=== PATIENT | female | born 1955 | race African-American/Black ===

== ENCOUNTER 2017-02-23 14:31 | Inpatient (IN) | payer MEDICARE, OTHER ==
[~2017-02-23] VITALS: Ht 162.6 cm; Wt 75.0 kg
[~2017-02-23 14:31] MED LIST: ACET325T9 PO; ALPR0.25 PO; AMLO10TA4 PO; ARIP5TAB13 PO; ASPI325T8 PO; BACL10TA PO; BUSP5TAB PO; CHOL500016 PO; DIPH25CA58 PO; DIVA125C PO; DULO30CA2 PO; FLUT9.9S NS; FOLI1TAB16 PO; GABA-587 PO; HC/M25OI TP; HYDR-2868 PO; HYDR30CR RC; IBUP-1027 PO; INSU100C4 SQ; LACO200T PO; LATA2.5D3 EACHEYE; LEVE500T56 PO; MAGN400O7 PO; METF-620 PO; METF500T4 PO; MIRT15TA PO; MORP15TA PO; MULT1TAB11 PO; OMEP20CA5 PO; PHEN100C PO
[2017-02-23] MEDS ORDERED: IV NORMAL SALINE 500ML BAG 500 ML IV PRN (15:15)
[2017-02-23] MEDS: IV NORMAL SALINE 1000ML BAG 1,000 ML IV SCH ×4 (15:34→21:41)
[2017-02-23 15:50] LABS: BASO # 0.1 x10^3/uL (0.0-0.2); BASO % 1 % (0-3); EOS % 4 % (0-3); HEMATOCRIT 39.8 % (36.0-47.0); HEMOGLOBIN 13.3 g/dL (12.0-15.5); LYMPH # 5.7 x10^3/uL (1.0-4.8); LYMPH % 53 % (24-48); MEAN CORPUSCULAR HEMOGLOBIN 31 pg (25-35); MEAN CORPUSCULAR HGB CONC 34 g/dL (31-37); MEAN CORPUSCULAR VOLUME 91 fL (79-100); MONO % 8 % (0-9); NEUT % 34 % (31-73); PLATELET COUNT 258 x10^3/uL (140-400); RED BLOOD COUNT 4.35 x10^6/uL (3.50-5.40); RED CELL DISTRIBUTION WIDTH 13.7 % (11.5-14.5); WHITE BLOOD COUNT 10.7 x10^3/uL (4.0-11.0)
--- NOTE | 2017-02-23 15:59 | RAD ---
Indication: Weakness and altered mental status. Axial imaging through the brain was performed without contrast. Correlation is made with prior study from 12/24/2015. Multiple metallic densities in the left cerebral hemisphere are again noted. There is compensatory enlargement of the left lateral ventricle with encephalomalacia in the left cerebral hemisphere. Appearance is similar to prior exam. No sulcal effacement is seen. There is no midline shift. No acute intra-axial or extra-axial hemorrhage is detected. The cisterns are patent. The visualized paranasal sinuses are clear. Impression: Stable chronic changes. No acute intracranial process is detected. PQRS Compliance Statement: One or more of the following individualized dose reduction techniques were utilized for this examination: 1. Automated exposure control 2. Adjustment of the mA and/or kV according to patient size 3. Use of iterative reconstruction technique
[2017-02-23 16:00] LABS: INR 1.2 (0.8-1.1); PROTHROMBIN TIME PATIENT 14.3 SEC (11.7-14.0)
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
[2017-02-23 16:22] LABS: CREATININE 1.1 mg/dL (0.6-1.0); GFR 60.5; POTASSIUM 5.8 mmol/L (3.5-5.1)
[2017-02-23 16:24] LABS: ALBUMIN 3.9 g/dL (3.4-5.0); ALBUMIN/GLOBULIN RATIO 0.8 (1.0-1.7); TOTAL BILIRUBIN 0.3 mg/dL (0.2-1.0); TOTAL PROTEIN 8.7 g/dL (6.4-8.2)
[2017-02-23] MEDS ORDERED: IV NORMAL SALINE 1000ML BAG 1,000 ML IV ONE (16:30)
[2017-02-23] MEDS ORDERED: ONDANSETRON PF 4 MG/2 ML VIAL. IV PRN (16:30)
[2017-02-23 16:32] LABS: BILIRUBIN,URINE SMALL (NEG); GLUCOSE,URINE NEGATIVE (NEG); NITRITE,URINE POSITIVE (NEG); PROTEIN,URINE 30 mg/dL (NEG-TRACE)
[2017-02-23 16:32] LABS: CKMB MASS 1.2 ng/mL (0.0-3.6)
[2017-02-23 16:37] LABS: BARBITURATES NEG (NEG); BENZODIAZEPINES POS (NEG); CANNABINOIDS NEG (NEG); COCAINE NEG (NEG); METHADONE NEG (NEG); OPIATES POS (NEG); PHENCYCLIDINE NEG (NEG)
--- NOTE | 2017-02-23 16:41 | ACF ---
Admission Forms Criteria MENTAL STATUS CHANGE Clinical Indications for Inpatient Care (Place 'X' for any and all applicable criteria): Ongoing inpatient care may be needed for 1 or more of the following(1)(2)(3)(5)( 6): [X ]I. Suspected serious etiology (eg, medical disorder, DUBBING MACHINE OPERATOR event) of altered mental status [ ]II. Danger to self or others not manageable at lower level of care [ ]III. Grave disability (eg, inability to perform self care necessary at lower level of care) [ ]IV. Agitation or inappropriate behavior interfering with care for primary condition (eg, attempting to discontinue lines or drains prematurely, unable to cooperate with respiratory care) [ ]V. Delirium [A] [D][E] as described by 1 or more of the following(26): [ ]a) Delirium due to alcohol or sedative [F] withdrawal [ ]b) Delirium of uncertain etiology that has not responded to appropriate empiric treatment [ ]c) Delirium that prevents performance of a life-sustaining function (eg, feeding or hydrating oneself) [ ]. General contraindications and/or Inappropriate clinical situations for Observational Care in patients with Mental Status Change, when ANY ONE of the following is required: [ ]a) Prediction of prolongation of LOS based on ANY ONE of the following may be considered as a contraindication for observational care 2, 3, 4, 5, 6, 7, 8, 9, 10, 11 [ ]i) Age > 65 yrs. [ ]ii) Patient arriving by ambulance [ ]iii) Patient with high acuity [ ]iv) Patient requiring vital sign monitoring [ ]v) Patient on IV medication [ ]b) Systolic blood pressures greater than or equal to 180mmHg 3, 12 [ ]c) Patient with altered mental status including delirium and other alteration of consciousness, (3) [ ]d) Patient whose discharge disposition will be to a penitentiary home or rehabilitation home should not be managed in Emergency Department Observation Unit. CMS rule requires 3 days hospital stay before such placement.3,13 [ ]e) Patient with failure to thrive due to broad array of etiologies 3,16,17 [ ]f) Inability to ambulate 3,14 Extended stay beyond goal length of stay for the primary condition may be needed until ALL of the following are present(3)(5): [ ]a) Underlying medical etiology of mental status change is absent, or has been established and adequately treated [ ]b) Danger to self or others is absent or manageable at lower level of care. [ ]c) Behavior crisis management, including physical or chemical restraints, is not required or available at lower level of car [ ]d) Substance or alcohol withdrawal is absent or manageable at lower level of care. [ ]e) Behavioral symptoms (eg, agitation, somnolence, inappropriate behavior) are absent, or are manageable at lower level of care. The original [facility] [employer] content created by [facility] has been revised. The portions of the content which have been revised are identified through the use of italic text or in bold, and [facility] has neither reviewed nor approved the modified material. All other unmodified content is copyright [facility]. Please see references footnoted in the original [facility] edition 2016 Admission Criteria Met?: Yes DAMIÁN RICHARDSON Feb 23, 2017 16:41
[2017-02-23 16:44] LABS: BACTERIA,URINE MANY /HPF (0-FEW); WBC,URINE >40 /HPF (0-4)
[2017-02-23 19:00] VITALS: BP 129/82
[2017-02-23] MEDS ORDERED: ACETAMINOPHEN 325 MG TABLET. PO PRN (20:45)
[2017-02-23] MEDS ORDERED: LOPERAMIDE 2 MG CAPSULE PO PRN (20:45)
[2017-02-23] MEDS ORDERED: MAGNESIUM HYDROXIDE 2,400 MG/30 ML ORAL.SUSP. PO PRN (20:45)
[2017-02-23] MEDS: busPIRone 5 MG TABLET. PO SCH (21:00)
[2017-02-23] MEDS ORDERED: PHENYTOIN SODIUM EXTENDED 100 MG CAPSULE PO SCH (21:00)
[2017-02-23] MEDS: BACLOFEN 10 MG TABLET. PO SCH (21:00)
[2017-02-23] MEDS ORDERED: levETIRAcetam 500 MG TABLET PO SCH (21:00)
[2017-02-23] MEDS: ATORVASTATIN CALCIUM 10 MG TABLET. PO SCH (21:00)
[2017-02-23] MEDS: ALPRAZolam 0.25 MG TABLET PO SCH (21:00)
[2017-02-23] MEDS ORDERED: DIVALPROEX SPRINKLES 125 MG CAPSULE. PO SCH (21:00)
[2017-02-23] MEDS: LACOSAMIDE 200 MG TABLET PO SCH (21:00)
[2017-02-23] MEDS: MORPHINE IR 15 MG TABLET PO SCH (21:00)
[2017-02-23] MEDS: MIRTAZAPINE 15 MG TABLET PO SCH (21:00)
[2017-02-23] MEDS: hydrALAZINE 25 MG TABLET PO SCH (21:00)
[2017-02-23] MEDS ORDERED: DEXTROSE 50% 25 GM / 50ML DISP.SYRIN. IV PRN (21:15)
[2017-02-23] MEDS: GABAPENTIN 400 MG CAPSULE. PO SCH (21:30)
[2017-02-23] MEDS: LATANOPROST 0.005% OPHTH SOLUTION 2.5ML BOTTLE. OU SCH (21:45)
[2017-02-23 23:00] VITALS: BP 138/66
[2017-02-23] MEDS: levETIRAcetam 1,500 MG in IV NORMAL SALINE 100ML 100 ML IV SCH (23:45)
[2017-02-24] MEDS: NORMAL SALINE IV SCH ×3 (01:04→21:32)
[2017-02-24] MEDS: VALPROIC ACID IV SCH ×3 (01:04→21:32)
[2017-02-24] MEDS: FOSPHENYTOIN 100 MG/2 ML VIAL. IV SCH ×4 (02:20→18:18)
[2017-02-24] MEDS ORDERED: LISI10TA2 PO (04:44)
[2017-02-24] MEDS ORDERED: ATOR10TA60 PO (04:44)
[2017-02-24] MEDS ORDERED: INSU100C4 SQ (04:44)
[2017-02-24] MEDS ORDERED: LOPE2TAB56 PO (04:44)
[2017-02-24 05:13] LABS: BASO # 0.1 x10^3/uL (0.0-0.2); BASO % 1 % (0-3); EOS % 5 % (0-3); HEMATOCRIT 38.7 % (36.0-47.0); HEMOGLOBIN 12.4 g/dL (12.0-15.5); LYMPH # 6.5 x10^3/uL (1.0-4.8); LYMPH % 62 % (24-48); MEAN CORPUSCULAR HEMOGLOBIN 31 pg (25-35); MEAN CORPUSCULAR HGB CONC 32 g/dL (31-37); MEAN CORPUSCULAR VOLUME 95 fL (79-100); MONO % 8 % (0-9); NEUT % 24 % (31-73); PLATELET COUNT 219 x10^3/uL (140-400); RED BLOOD COUNT 4.07 x10^6/uL (3.50-5.40); RED CELL DISTRIBUTION WIDTH 13.9 % (11.5-14.5); WHITE BLOOD COUNT 10.5 x10^3/uL (4.0-11.0)
[2017-02-24 06:06] LABS: ALBUMIN 3.4 g/dL (3.4-5.0); ALBUMIN/GLOBULIN RATIO 0.7 (1.0-1.7); CALCIUM 9.2 mg/dL (8.5-10.1); CREATININE 0.8 mg/dL (0.6-1.0); GFR 87.4; POTASSIUM 5.9 mmol/L (3.5-5.1); TOTAL BILIRUBIN 0.4 mg/dL (0.2-1.0); TOTAL PROTEIN 8.3 g/dL (6.4-8.2)
--- NOTE | 2017-02-24 06:48 | EKG ---
[facility] [address] [place] [address] Test Date: 2017-02-23 Test Time: 15:29:46 Pat Name: JOSETTE HARMAN Department: Room: 536 1 Gender: F Statistics Manager: : [id number] Requested By: KELSEA IZQUIERDO Order Number: [id number] Reading MD: Jayleen Velazquez Measurements Intervals [place] Rate: 90 P: 52 ME: 164 QRS: 10 QRSD: 88 T: 58 QT: 346 QTc: 427 Interpretive Statements SINUS RHYTHM NORMAL ECG Electronically Signed On 02-25-2017 14:10:43 CDT by Jayleen Velazquez
[2017-02-24 07:00] VITALS: BP 121/79
[2017-02-24] MEDS: PANTOPRAZOLE 40 MG TABLET.DR. PO SCH (07:30)
[2017-02-24] MEDS: INSULIN ASPART 300 UNITS/3 ML INSULN.PEN SQ SCH ×3 (08:00→17:00)
[2017-02-24] MEDS: ASPIRIN 325 MG TABLET PO SCH (08:00)
[2017-02-24] MEDS: amLODIPine BESYLATE 10 MG TABLET PO SCH (09:00)
[2017-02-24] MEDS: hydrALAZINE 25 MG TABLET PO SCH ×3 (09:00→20:57)
[2017-02-24] MEDS: FOLIC ACID 1 MG TABLET. PO SCH (09:00)
[2017-02-24] MEDS: GABAPENTIN 400 MG CAPSULE. PO SCH ×3 (09:00→20:51)
[2017-02-24] MEDS: busPIRone 5 MG TABLET. PO SCH ×2 (09:00→20:51)
[2017-02-24] MEDS: ARIPiprazole 5 MG TABLET PO SCH (09:00)
[2017-02-24] MEDS: MULTIVITAMIN with MINERAL TABLET. PO SCH (09:00)
[2017-02-24] MEDS: BACLOFEN 10 MG TABLET. PO SCH (09:00)
[2017-02-24] MEDS: ALPRAZolam 0.25 MG TABLET PO SCH ×2 (09:00→20:52)
[2017-02-24] MEDS: CHOLECALCIFEROL (VITAMIN D3) 5,000 UNIT CAPSULE PO SCH (09:00)
[2017-02-24] MEDS: LACOSAMIDE 200 MG TABLET PO SCH ×2 (09:00→20:52)
[2017-02-24] MEDS: MORPHINE IR 15 MG TABLET PO SCH (09:00)
[2017-02-24] MEDS: DULoxetine HCL 30 MG CAPSULE.DR PO SCH (09:00)
[2017-02-24] MEDS ORDERED: LISINOPRIL 10 MG TABLET PO SCH (09:00)
[2017-02-24] MEDS: IV NORMAL SALINE 1000ML BAG 1,000 ML IV SCH (09:41)
[2017-02-24] MEDS: FLUTICASONE 50MCG/NASAL SPRAY 16GM BOTTLE. NS SCH (09:42)
[2017-02-24] MEDS: levETIRAcetam 1,500 MG in IV NORMAL SALINE 100ML 100 ML IV SCH ×2 (09:42→20:48)
[2017-02-24] MEDS: LATANOPROST 0.005% OPHTH SOLUTION 2.5ML BOTTLE. OU SCH (09:42)
[2017-02-24 11:00] VITALS: BP 138/88
[2017-02-24 15:00] VITALS: BP 135/96
[2017-02-24] MEDS: SODIUM POLYSTYRENE SULFONATE 15 GM/60 ML ORAL.SUSP. PO SCH ×2 (17:11→20:53)
[2017-02-24] MEDS: SULFACETAMIDE 10% OPHTH SOLUTION 15ML BOTTLE. OU SCH ×3 (17:12→21:32)
[2017-02-24] MEDS: LACTULOSE 20 GM/30 ML SOLUTION. PO SCH ×2 (17:12→20:52)
[2017-02-24] MEDS: IV DEXTROSE 5% 1,000 ML IV SCH (18:18)
[2017-02-24 19:00] VITALS: BP 150/97
[2017-02-24] MEDS: MIRTAZAPINE 15 MG TABLET PO SCH (20:51)
[2017-02-24] MEDS: ATORVASTATIN CALCIUM 10 MG TABLET. PO SCH (20:51)
[2017-02-24] MEDS: ERYTHROMYCIN 0.5% OPHTH OINTMENT 1GM TUBE. OU SCH (20:53)
[2017-02-24 23:00] VITALS: BP 158/92
[2017-02-25] MEDS: FOSPHENYTOIN 100 MG/2 ML VIAL. IV SCH ×5 (00:54→23:07)
[2017-02-25] MEDS: SULFACETAMIDE 10% OPHTH SOLUTION 15ML BOTTLE. OU SCH ×8 (02:15→23:05)
[2017-02-25 03:00] VITALS: BP 167/98
[2017-02-25] MEDS: IV DEXTROSE 5% 1,000 ML IV SCH ×2 (06:12→16:55)
[2017-02-25 07:15] LABS: CALCIUM 9.4 mg/dL (8.5-10.1); CREATININE 0.7 mg/dL (0.6-1.0); GFR 101.9; POTASSIUM 3.8 mmol/L (3.5-5.1)
[2017-02-25] MEDS: hydrALAZINE 25 MG TABLET PO SCH ×3 (08:54→20:23)
[2017-02-25] MEDS: ASPIRIN 325 MG TABLET PO SCH (08:54)
[2017-02-25] MEDS: PANTOPRAZOLE 40 MG TABLET.DR. PO SCH (08:55)
[2017-02-25] MEDS: busPIRone 5 MG TABLET. PO SCH ×2 (08:55→20:22)
[2017-02-25] MEDS: GABAPENTIN 400 MG CAPSULE. PO SCH ×3 (08:55→20:22)
[2017-02-25] MEDS: DULoxetine HCL 30 MG CAPSULE.DR PO SCH (08:55)
[2017-02-25] MEDS: MULTIVITAMIN with MINERAL TABLET. PO SCH (08:55)
[2017-02-25] MEDS: CHOLECALCIFEROL (VITAMIN D3) 5,000 UNIT CAPSULE PO SCH (08:55)
[2017-02-25] MEDS: FOLIC ACID 1 MG TABLET. PO SCH (08:55)
[2017-02-25] MEDS: LACOSAMIDE 200 MG TABLET PO SCH ×3 (08:55→23:04)
[2017-02-25] MEDS: ARIPiprazole 5 MG TABLET PO SCH (08:56)
[2017-02-25] MEDS: amLODIPine BESYLATE 10 MG TABLET PO SCH (08:56)
[2017-02-25] MEDS: FLUTICASONE 50MCG/NASAL SPRAY 16GM BOTTLE. NS SCH (08:57)
[2017-02-25] MEDS: ALPRAZolam 0.25 MG TABLET PO SCH ×2 (09:00→20:23)
[2017-02-25] MEDS: INSULIN ASPART 300 UNITS/3 ML INSULN.PEN SQ SCH ×3 (09:03→17:00)
[2017-02-25] MEDS: NORMAL SALINE IV SCH ×2 (09:50→20:22)
[2017-02-25] MEDS: levETIRAcetam 1,500 MG in IV NORMAL SALINE 100ML 100 ML IV SCH ×2 (09:50→20:19)
[2017-02-25] MEDS: VALPROIC ACID IV SCH ×2 (09:50→20:22)
[2017-02-25 14:58] VITALS: BP 151/90
[2017-02-25 19:59] VITALS: BP 173/100
[2017-02-25] MEDS: ATORVASTATIN CALCIUM 10 MG TABLET. PO SCH (20:22)
[2017-02-25] MEDS: MIRTAZAPINE 15 MG TABLET PO SCH (20:23)
[2017-02-25] MEDS: ERYTHROMYCIN 0.5% OPHTH OINTMENT 1GM TUBE. OU SCH (20:24)
[2017-02-25] MEDS: LATANOPROST 0.005% OPHTH SOLUTION 2.5ML BOTTLE. OU SCH (20:25)
[2017-02-25 23:59] VITALS: BP 145/90
[2017-02-26] MEDS: FOSPHENYTOIN 100 MG/2 ML VIAL. IV SCH ×4 (05:42→23:14)
[2017-02-26] MEDS: IV DEXTROSE 5% 1,000 ML IV SCH (06:02)
[2017-02-26 06:50] LABS: CREATININE 0.6 mg/dL (0.6-1.0); GFR 121.8
[2017-02-26 06:55] LABS: CALCIUM 8.9 mg/dL (8.5-10.1)
[2017-02-26 07:00] VITALS: BP 130/82
[2017-02-26] MEDS: levETIRAcetam 1,500 MG in IV NORMAL SALINE 100ML 100 ML IV SCH ×2 (09:45→20:17)
[2017-02-26] MEDS: SULFACETAMIDE 10% OPHTH SOLUTION 15ML BOTTLE. OU SCH ×4 (09:49→20:16)
[2017-02-26] MEDS: FLUTICASONE 50MCG/NASAL SPRAY 16GM BOTTLE. NS SCH (09:50)
[2017-02-26] MEDS: INSULIN ASPART 300 UNITS/3 ML INSULN.PEN SQ SCH ×3 (09:51→16:52)
[2017-02-26] MEDS: DULoxetine HCL 30 MG CAPSULE.DR PO SCH (09:52)
[2017-02-26] MEDS: CHOLECALCIFEROL (VITAMIN D3) 5,000 UNIT CAPSULE PO SCH (09:52)
[2017-02-26] MEDS: ASPIRIN 325 MG TABLET PO SCH (09:52)
[2017-02-26] MEDS: amLODIPine BESYLATE 10 MG TABLET PO SCH (09:52)
[2017-02-26] MEDS: hydrALAZINE 25 MG TABLET PO SCH ×3 (09:53→20:19)
[2017-02-26] MEDS: MULTIVITAMIN with MINERAL TABLET. PO SCH (09:53)
[2017-02-26] MEDS: GABAPENTIN 400 MG CAPSULE. PO SCH ×3 (09:53→20:21)
[2017-02-26] MEDS: ALPRAZolam 0.25 MG TABLET PO SCH ×2 (09:53→20:19)
[2017-02-26] MEDS: PANTOPRAZOLE 40 MG TABLET.DR. PO SCH (09:54)
[2017-02-26] MEDS: FOLIC ACID 1 MG TABLET. PO SCH (09:54)
[2017-02-26] MEDS: busPIRone 5 MG TABLET. PO SCH ×2 (09:54→20:19)
[2017-02-26] MEDS: LACOSAMIDE 200 MG TABLET PO SCH ×2 (09:54→20:19)
[2017-02-26] MEDS: ARIPiprazole 5 MG TABLET PO SCH (09:54)
[2017-02-26] MEDS: VALPROIC ACID IV SCH ×2 (09:56→21:24)
[2017-02-26] MEDS: NORMAL SALINE IV SCH ×2 (09:56→21:24)
--- NOTE | 2017-02-26 10:45 | PDOC ---
PROGRESS NOTES Subjective Subjective more awake alert responding appropraitly The nursing staff did not voice any concern Objective Objective Vital Signs Date Time Temp Pulse Resp B/P (MAP) Pulse Ox O2 Delivery O2 Flow Rate FiO2 02/26/17 09:53 90 130/82 02/26/17 07:00 97.9 20 93 Room Air 97.9 Intake and Output 02/26/17 07:00 Intake Total 1120 ml Balance 1120 ml Intake Oral 1120 ml # Voids 4 # Bowel Movements 1 Physical Exam Allegies Allergies Coded Allergies Type Severity Reaction Last Updated Verified No Known Drug Allergies 05/21/14 No Physical Exam Looked well in NAD Pale but not jaundiced or cyanosed HEENT normocephalic S/P TRAUMATIC BRAIN INJURY Neck supple Heart S1 and S2 normal no gallop rub or murmur Chest CTA NO CREIPITATION OR RHONCHI Abdomen soft non tender Neurologically awake alert all cranial nerves are grossly intact She has aphasia and right sided hemiplegia She is bed bound wheelchair bound Abdomen: Normal bowel sounds, Soft, No tenderness, No hepatosplenomegaly Heart: Regular rate, Normal S1, Normal S2, No murmurs, Gallops Extremities: No clubbing, No cyanosis, No edema, Normal pulses General: Alert, Oriented X3, Cooperative, No acute distress HEENT: Atraumatic, PERRLA MUSCULOSKELETAL: No joint tenderness, No deformity, No swelling Neck: Supple Neuro: Cranial nerves 3-12 NL, Other (aphasia and right sided hemiplegia) Skin: No rashes, No breakdown Diagnosis DIAGNOSIS Impression/plan Metabolic encephalopathy Urinary tract infection with urine culture growing E Coli sensetive to Rocephin OLAYINKA Resolved Hypertension Seizure d o. TBI with aphasia and hemiplegia To coniune I V Fluid iv antibiotics Replace potassium Problems: Comment Review of Relevant I have reviewed the following items jomar (where applicable) has been applied. Labs Laboratory Tests Test 02/25/17 10:51 02/25/17 16:39 02/25/17 22:58 02/26/17 05:30 Glucose (Fingerstick) 209 mg/dL (70-99) 104 mg/dL (70-99) 116 mg/dL (70-99) Sodium Level 142 mmol/L (136-145) Potassium Level 3.0 mmol/L (3.5-5.1) Chloride Level 107 mmol/L (98-107) Carbon Dioxide Level 24 mmol/L (21-32) Anion Gap 11 (6-14) Blood Urea Nitrogen 7 mg/dL (7-20) Creatinine 0.6 mg/dL (0.6-1.0) Estimated GFR (Cockcroft-Gault) 121.8 Glucose Level 129 mg/dL (70-99) Calcium Level 8.9 mg/dL (8.5-10.1) Microbiology 02/23/17 Urine Culture - Preliminary, Resulted 02/23/17 Urine Culture Result 1 (LISETTE) - Preliminary, Resulted 02/23/17 Antimicrobic Susceptibility - Preliminary, Resulted Vitals/I & O Vital Sign - Last 24 Hours 02/25/17 02/25/17 02/25/17 02/25/17 14:58 15:54 19:59 20:00 Temp 98.4 98.4 98.4 98.4 Pulse 97 97 98 Resp 18 18 B/P (MAP) 151/90 (110) 151/90 173/100 (124) Pulse Ox 97 96 O2 Delivery Room Air Room Air Room Air 02/25/17 02/25/17 02/26/17 02/26/17 20:23 23:59 07:00 09:52 Temp 97.9 97.9 97.9 97.9 Pulse 97 96 90 90 Resp 18 20 B/P (MAP) 151/90 145/90 (108) 130/82 (98) 130/82 Pulse Ox 92 93 O2 Delivery Room Air Room Air 02/26/17 09:53 Pulse 90 B/P (MAP) 130/82 Intake and Output 02/25/17 02/25/17 02/26/17 15:00 23:00 07:00 Intake Total 1000 ml 120 ml Balance 1000 ml 120 ml ETELVINA HAYWOOD MD Feb 26, 2017 10:45
[2017-02-26 11:00] VITALS: BP 135/99
[2017-02-26] MEDS ORDERED: POTASSIUM CHLORIDE 20 MEQ TABLET.ER. PO ONE (11:00)
[2017-02-26] MEDS: POTASSIUM CHLORIDE 20 MEQ TABLET.ER. PO SCH ×2 (13:54→20:20)
[2017-02-26 15:00] VITALS: BP 129/89
[2017-02-26 19:00] VITALS: BP 143/88
[2017-02-26] MEDS: LATANOPROST 0.005% OPHTH SOLUTION 2.5ML BOTTLE. OU SCH (20:16)
[2017-02-26] MEDS: ERYTHROMYCIN 0.5% OPHTH OINTMENT 1GM TUBE. OU SCH (20:17)
[2017-02-26] MEDS: ATORVASTATIN CALCIUM 10 MG TABLET. PO SCH (20:19)
[2017-02-26] MEDS: MIRTAZAPINE 15 MG TABLET PO SCH (20:19)
[2017-02-26] MEDS: CEFPODOXIME PROXETIL 100 MG TABLET. PO SCH (20:20)
[2017-02-26 23:00] VITALS: BP 151/81
[2017-02-27] MEDS: SULFACETAMIDE 10% OPHTH SOLUTION 15ML BOTTLE. OU SCH ×4 (02:15→14:21)
[2017-02-27 03:00] VITALS: BP 142/78
[2017-02-27 05:15] LABS: ALBUMIN 2.9 g/dL (3.4-5.0); ALBUMIN/GLOBULIN RATIO 0.7 (1.0-1.7); CALCIUM 8.4 mg/dL (8.5-10.1); CREATININE 0.5 mg/dL (0.6-1.0); GFR 150.3; POTASSIUM 4.2 mmol/L (3.5-5.1); TOTAL BILIRUBIN 0.3 mg/dL (0.2-1.0); TOTAL PROTEIN 7.2 g/dL (6.4-8.2)
[2017-02-27] MEDS: FOSPHENYTOIN 100 MG/2 ML VIAL. IV SCH (05:34)
[2017-02-27 06:54] LABS: HEMATOCRIT 36.5 % (36.0-47.0); HEMOGLOBIN 12.2 g/dL (12.0-15.5); RED BLOOD COUNT 4.01 x10^6/uL (3.50-5.40); RED CELL DISTRIBUTION WIDTH 13.3 % (11.5-14.5); WHITE BLOOD COUNT 7.3 x10^3/uL (4.0-11.0)
[2017-02-27 07:00] VITALS: BP 154/85
[2017-02-27] MEDS: PANTOPRAZOLE 40 MG TABLET.DR. PO SCH (07:47)
[2017-02-27] MEDS: INSULIN ASPART 300 UNITS/3 ML INSULN.PEN SQ SCH ×2 (08:00→11:57)
[2017-02-27] MEDS: levETIRAcetam 1,500 MG in IV NORMAL SALINE 100ML 100 ML IV SCH (09:20)
[2017-02-27] MEDS: ALPRAZolam 0.25 MG TABLET PO SCH (09:22)
[2017-02-27] MEDS: ARIPiprazole 5 MG TABLET PO SCH (09:22)
[2017-02-27] MEDS: MULTIVITAMIN with MINERAL TABLET. PO SCH (09:23)
[2017-02-27] MEDS: DULoxetine HCL 30 MG CAPSULE.DR PO SCH (09:23)
[2017-02-27] MEDS: GABAPENTIN 400 MG CAPSULE. PO SCH ×2 (09:23→14:22)
[2017-02-27] MEDS: LACOSAMIDE 200 MG TABLET PO SCH (09:23)
[2017-02-27] MEDS: busPIRone 5 MG TABLET. PO SCH (09:24)
[2017-02-27] MEDS: ASPIRIN 325 MG TABLET PO SCH (09:24)
[2017-02-27] MEDS: FLUTICASONE 50MCG/NASAL SPRAY 16GM BOTTLE. NS SCH (09:24)
[2017-02-27] MEDS: hydrALAZINE 25 MG TABLET PO SCH ×2 (09:25→14:22)
[2017-02-27] MEDS: CHOLECALCIFEROL (VITAMIN D3) 5,000 UNIT CAPSULE PO SCH (09:25)
[2017-02-27] MEDS: FOLIC ACID 1 MG TABLET. PO SCH (09:25)
[2017-02-27] MEDS: POTASSIUM CHLORIDE 20 MEQ TABLET.ER. PO SCH ×2 (09:25→14:24)
[2017-02-27] MEDS: CEFPODOXIME PROXETIL 100 MG TABLET. PO SCH (09:25)
[2017-02-27] MEDS: amLODIPine BESYLATE 10 MG TABLET PO SCH (09:26)
[2017-02-27] MEDS: NORMAL SALINE IV SCH (09:58)
[2017-02-27] MEDS: VALPROIC ACID IV SCH (09:58)
[2017-02-27 10:59] VITALS: BP 160/85
[2017-02-27 15:00] VITALS: BP 155/87
== END 2017-02-27 15:15 | DRG 682 ==
LOC: ER 14:31 → 5 NORTH 16:14
PROVIDERS: ADMIT Internal Medicine; ATTEND Internal Medicine
DX: N17.9 Acute kidney failure, unspecified (principal); G93.41 Metabolic encephalopathy; I69.351 Hemiplegia and hemiparesis following cerebral infarction affecting right dominant side; N39.0 Urinary tract infection, site not specified; R47.01 Aphasia; B96.20 Unspecified Escherichia coli [E. coli] as the cause of diseases classified elsewhere; E11.9 Type 2 diabetes mellitus without complications; G40.909 Epilepsy, unspecified, not intractable, without status epilepticus; I10 Essential (primary) hypertension
CPT/HCPCS: 36415; 51701; 70450; 71010; 80048; 80053; 80185; 81001; 82140; 82553; 82962; 83605; 83690; 84145; 84443; 84484; 85027; 85610; 85730; 87086; 87186; 87641; 93005; 96365; G0480; G0481; J0690; J0696; J1815; J1953; J7030; Q2009; 92526; 92610; 99285-25

== ENCOUNTER 2018-01-24 15:39 | Emergency (ER) | payer MEDICARE, OTHER | END 2018-01-24 17:54 | disposition home or self-care (01) | LOC: ER 15:39 | DX: S01.81XA Laceration without foreign body of other part of head, initial encounter (principal); G40.909 Epilepsy, unspecified, not intractable, without status epilepticus; E11.9 Type 2 diabetes mellitus without complications; W05.0XXA Fall from non-moving wheelchair, initial encounter; Y93.89 Activity, other specified; Y99.8 Other external cause status; Y92.89 Other specified places as the place of occurrence of the external cause | CPT/HCPCS: 12011; 70450; 70486; 99284-25 ==

== ENCOUNTER 2018-10-08 04:03 | Emergency (ER) | payer MEDICARE, OTHER ==
[~2018-10-08] VITALS: Ht 162.6 cm; Wt 71.7 kg
[~2018-10-08 04:03] MED LIST changes: +ATOR10TA60 PO; -DIVA125C PO; +DIVA125C2 PO; -GABA-587 PO; +GABA-689 PO; +LISI10TA2 PO; +LOPE2TAB56 PO; -METF-620 PO; +METF10007 PO; +METF500T16 PO; -METF500T4 PO
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
[2018-10-08 05:06] VITALS: BP 192/87
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
== END 2018-10-08 06:23 | disposition home or self-care (01) ==
LOC: ER 04:03
DX: S09.90XA Unspecified injury of head, initial encounter (principal); E11.9 Type 2 diabetes mellitus without complications; G40.901 Epilepsy, unspecified, not intractable, with status epilepticus; Z86.73 Personal history of transient ischemic attack (TIA), and cerebral infarction without residual deficits; W06.XXXA Fall from bed, initial encounter; Y93.89 Activity, other specified; Y92.89 Other specified places as the place of occurrence of the external cause; Y99.8 Other external cause status
CPT/HCPCS: 70450; 72125; 99284

== ENCOUNTER 2020-04-19 12:10 | Inpatient (IN) | payer MEDICARE, OTHER ==
[~2020-04-19] VITALS: Ht 157.5 cm; Wt 99.5 kg
[~2020-04-19 12:10] MED LIST changes: +ASPI-630 PO; +CHOL500021 PO; +FAMO20TA5 PO; +LISI30TA4 PO; +MIRT30TA93 PO
[2020-04-19] MEDS ORDERED: IV NORMAL SALINE 1000ML BAG 1,000 ML IV ONE ×3 (12:30→14:30)
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
[2020-04-19 13:23] LABS: BASO # 0.1 x10^3/uL (0.0-0.2); BASO % 1 % (0-3); EOS % 0 % (0-3); HEMATOCRIT 32.5 % (36.0-47.0); HEMOGLOBIN 10.8 g/dL (12.0-15.5); LYMPH # 6.2 x10^3/uL (1.0-4.8); LYMPH % 53 % (24-48); MEAN CORPUSCULAR HEMOGLOBIN 29 pg (25-35); MEAN CORPUSCULAR HGB CONC 33 g/dL (31-37); MEAN CORPUSCULAR VOLUME 88 fL (79-100); MONO # 0.5 x10^3/uL (0.0-1.1); MONO % 5 % (0-9); NEUT # 4.8 x10^3/uL (1.8-7.7); NEUT % 41 % (31-73); PLATELET COUNT 208 x10^3/uL (140-400); RED BLOOD COUNT 3.71 x10^6/uL (3.50-5.40); RED CELL DISTRIBUTION WIDTH 14.9 % (11.5-14.5); WHITE BLOOD COUNT 11.7 x10^3/uL (4.0-11.0)
[2020-04-19 13:33] LABS: CALCIUM 8.4 mg/dL (8.5-10.1); CREATININE 1.1 mg/dL (0.6-1.0); GFR 59.9; POTASSIUM 4.3 mmol/L (3.5-5.1)
--- NOTE | 2020-04-19 13:33 | RAD ---
AP portable chest 04/19/2020. Reason for exam: Mental status changes. Low-grade fever. Comparison is made with a study of 01/27/2020. There is suggestion of mild infiltrate in the right mid and lower lung. No pleural fluid is seen. Heart size is normal. IMPRESSION: Mild right-sided infiltrates. Electronically signed by: yLndon Cabello Jr., MD (04/19/2020 1:30 PM) [id number]
[2020-04-19 13:39] LABS: BILIRUBIN,URINE MODERATE (NEG); CLARITY,URINE CLOUDY; COLOR,URINE AMBER; NITRITE,URINE NEGATIVE (NEG); PROTEIN,URINE NEGATIVE (NEG-TRACE); UROBILINOGEN,URINE 0.2 mg/dL (0.2 mg/dL)
[2020-04-19 13:39] LABS: ALBUMIN 2.5 g/dL (3.4-5.0); ALBUMIN/GLOBULIN RATIO 0.5 (1.0-1.7); TOTAL BILIRUBIN 0.2 mg/dL (0.2-1.0); TOTAL PROTEIN 7.4 g/dL (6.4-8.2)
[2020-04-19 13:41] LABS: VAL ACID 11 mcg/mL (50-100)
--- NOTE | 2020-04-19 13:46 | RAD ---
CT head without contrast 04/19/2020. Reason for exam: Mental status changes. Noncontrast images were performed. Exposure: One or more of the following individualized dose reduction techniques were utilized for this examination: 1. Automated exposure control 2. Adjustment of the mA and/or kV according to patient size 3. Use of iterative reconstruction technique. Comparison is made with a study of 01/27/2020. FINDINGS: There is prominent metallic infarct posteriorly near the skull and also near the left lateral ventricle. This was present previously, and limits evaluation somewhat. No intracranial hemorrhage or abnormal extra-axial fluid collection is seen. Regions of encephalomalacia are again shown, mostly in the left cerebral hemisphere. These also appear stable. No new area of abnormal density is identified. The ventricles and basilar cisterns are normally positioned. The sinuses and mastoid air cells appear clear. IMPRESSION: Stable appearance since the prior CT. Evaluation was limited by metallic artifact, as discussed above. Electronically signed by: Lyndon Cabello Jr., MD (04/19/2020 1:43 PM) [id number]
[2020-04-19 14:01] LABS: BACTERIA,URINE MODERATE /HPF (0-FEW); RBC,URINE 0 /HPF (0-2); SQUAMOUS EPITHELIAL CELL,UR OCC /LPF; WBC,URINE RARE /HPF (0-4)
[2020-04-19] MEDS ORDERED: CEFEPIME HCL IV Push 1 GM VIAL. IVP ONE (14:30)
[2020-04-19 14:49] LABS: PROTHROMBIN TIME PATIENT 14.8 SEC (11.7-14.0)
[2020-04-19 15:12] LABS: C-REACTIVE PROTEIN 151.6 mg/L (0-3.3)
[2020-04-19] MEDS ORDERED: ONDANSETRON PF 4 MG/2 ML VIAL. IV PRN (15:15)
[2020-04-19 18:36] VITALS: BP 110/57
--- NOTE | 2020-04-19 19:19 | NUR ---
Patient admit to the floor at approximately 1745 hours. Admission history completed. Wound Consult placed.
[2020-04-19] MEDS: IV NORMAL SALINE 1000ML BAG 1,000 ML IV SCH (19:51)
[2020-04-19 23:39] VITALS: BP 98/60
[2020-04-19] MEDS ORDERED: DICL100G54 TP (23:45)
[2020-04-20] VITALS (7 sets, daily range): BP systolic 117–181; BP diastolic 63–89
[2020-04-20] MEDS ORDERED: DEXTROSE 50% 25 GM / 50ML DISP.SYRIN. IV PRN ×2 (00:45→10:15)
[2020-04-20] MEDS: IV NORMAL SALINE 1000ML BAG 1,000 ML IV SCH ×2 (02:56→11:38)
[2020-04-20] MEDS: ACETAMINOPHEN 650 MG SUPP.RECT. PR PRN ×2 (05:27→15:29)
--- NOTE | 2020-04-20 07:45 | EKG ---
[facility] [address] [place] [address] Test Date: 2020-04-19 Test Time: 13:28:10 Pat Name: JOSETTE HARMAN Department: Room: Gender: F Police Detention Attendant: : 1955 Requested By: JOSIE SOLOMON Order Number: [id number] Reading MD: Measurements Intervals [place] Rate: 88 P: 46 MA: 162 QRS: 29 QRSD: 78 T: 65 QT: 374 QTc: 456 Interpretive Statements SINUS RHYTHM NORMAL ECG RI6.02 Compared to ECG 04/19/2020 12:15:54 No significant changes
[2020-04-20] MEDS ORDERED: VANCOMYCIN PER PHARMACY MC PRN (10:00)
--- NOTE | 2020-04-20 10:10 | NUR ---
Wound Care Wound Type/Assessment: Consult to eval and treat wounds to bilateral thighs. Pictures and measurements in chart. Consult also describes a "R heel" wound. No assessment or photo documentation present to reflect this finding. Melissa RN states that pt came up from ED with a foam on her heel, but that upon assessment, wound was healed and foam was for protection. Pt is COVID pending and wound team will limit potential exposure at this time. Treatment Recommendations/Plan: Xeroform and foams to bilateral thigh wounds to change every 3 days. Education provided: Turn schedule and wound care discussed with Melissa HENRY Follow up 04/29/2020
[2020-04-20] MEDS ORDERED: MAGNESIUM HYDROXIDE 2,400 MG/30 ML ORAL.SUSP. PO PRN (10:15)
[2020-04-20] MEDS ORDERED: HYDROCORTISONE 2.5% RECTAL CREAM 30GM TUBE. RC PRN (10:15)
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
[2020-04-20] MEDS ORDERED: LOPERAMIDE 2 MG CAPSULE PO PRN (10:30)
--- NOTE | 2020-04-20 10:35 | PN ---
DATE: 04/20/2020 SUBJECTIVE: The patient is resting, slightly propped up in bed, in no apparent distress. She is awake, alert, attempts to mouth some words, but generally she has expressive aphasia. She denied any chest pain or shortness of breath. PHYSICAL EXAMINATION: GENERAL: When I examined her, she was pale. No jaundice, cyanosis or thyromegaly. No jugular venous distention or limb edema. VITAL SIGNS: Her heart rate was 104, blood pressure was 150/72, temperature was 101.1, respiratory rate was 26 and oxygen saturation was on 85% when I saw her on 3 liters of oxygen. HEENT: Showed normocephalic, atraumatic. NECK: Supple. HEART: Showed normal first and second heart sounds. No gallop, rub or murmur. CHEST: Clear to auscultation. No crepitation or rhonchi at least anteriorly. ABDOMEN: Distended, soft, nontender. NEUROLOGIC: She is awake, alert, but unfortunately has expressive aphasia and right sided hemiplegia. LABORATORY DATA: No lab work was available or done this morning. ASSESSMENT: In summary, this is a 65-year-old -[place] female patient, resident at [facility], who came with altered mental status, acute hypoxic respiratory failure, healthcare-associated pneumonia. Other medical problems included traumatic brain injury with right-sided hemiplegia, aphasia, posttraumatic seizure disorder. She is also noted to have hypertension and type 2 diabetes. I have switched her antibiotic to Zosyn and vancomycin. I did consult Dr. Boo to assist with her management and she spiked her temperature. I will order blood cultures and decide on further management accordingly. ETELVINA HAYWOOD MD DR: ALISON/hernán JOB#: [id number] / [id number]
[2020-04-20] MEDS ORDERED: VANCOMYCIN 1.75 GM in IV NORMAL SALINE 500ML BAG 500 ML IV ONE (11:00)
--- NOTE | 2020-04-20 11:36 | CONS ---
DATE OF CONSULTATION: PULMONARY CONSULTATION ATTENDING PHYSICIAN: Dr. Bolanos. REASON FOR CONSULTATION: Hypoxia, COVID pneumonia. HISTORY OF PRESENT ILLNESS: The patient is a 65-year-old female who has history of traumatic brain injury with right-sided hemiplegia and aphasia. She also had posttraumatic epilepsy. She was brought into the Emergency Room with altered mental status. The patient was confused. She also has been having low-grade temperature. Her COVID test done 5-6 days ago, was reportedly negative. Her chest x-ray was reviewed from yesterday and it shows bilateral faint patchy infiltrates suspicious for pneumonia. Her D-dimer was 0.3. I am unable to obtain much history from the patient. I have reviewed the patient's history and physical, labs and imaging studies. She is currently requiring 5 liters of oxygen. I have been asked to see her for further evaluation. PAST MEDICAL HISTORY: History of traumatic brain injury, history of right-sided hemiplegia as a result of that, history of posttraumatic epilepsy, vitamin D deficiency, hypertension, depression and anxiety and diabetes. PAST SURGICAL HISTORY: Unremarkable. ALLERGIES: None. FAMILY HISTORY: Noncontributory to lungs. MEDICATIONS: Reviewed as listed in the MRAD including IV vancomycin and Zosyn. REVIEW OF SYSTEMS: Unable to obtain from the patient as she has aphasia. SOCIAL HISTORY: She resides at [facility]. No history of tobacco use. PHYSICAL EXAMINATION: VITAL SIGNS: Reviewed. She is on 5 liters of oxygen, saturations are 100%. T-max of 101.7. Blood pressure 150/72. GENERAL: She is in no obvious respiratory distress. Visual exam was performed due to COVID suspicion. EXTREMITIES: With no pitting edema. LABORATORY DATA: Reviewed. White cell count 11.7, hemoglobin 10.8 and platelets are 208. BUN and creatinine 32 and 1.1. Albumin 2.5. IMPRESSION: 1. Acute hypoxic respiratory failure secondary to highly suspected COVID-19 pneumonia. 2. Abnormal chest x-ray with patchy infiltrates bilaterally, suggestive of pneumonia, likely COVID-19. 3. 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 4. History of posttraumatic epilepsy. 5. No significant tobacco history. 6. Mild azotemia. 7. Normal D-dimer. RECOMMENDATIONS: 1. Discussed with Dr. Bolanos. We will continue present oxygen. 2. Monitor the fever pattern. Follow all blood cultures. 3. Rule out COVID-19. 4. Continue empiric antibiotic. 5. If COVID positive confirm, then we will consider plasma and add steroids. 6. Discussed with Dr. Bolanos. We will follow along with you. Discussed with RN. BUFFY JIANG MD DR: JOSE ALFREDO/hernán JOB#: [id number] / [id number]
[2020-04-20] MEDS: PIPERACILLIN/TAZOBACTAM 3.375 GM in IV NORMAL SALINE 50ML 50 ML IV SCH ×2 (11:39→20:19)
[2020-04-20] MEDS: ENOXAPARIN 40 MG/0.4 ML SYRINGE. SQ SCH (11:39)
[2020-04-20] MEDS: INSULIN LISPRO 300 UNITS/3 ML VIAL. SQ SCH ×2 (12:00→17:00)
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
--- NOTE | 2020-04-20 12:58 | NUR ---
SW consulted for discharge planning. SW spoke with RN and Reviewed chart. BORIS coordinated care with Dr. Bolanos. Pt from [facility] at [facility], , (fax). BORIS coordinated care with facility RN Keeley. Pt on 3 02. Pt COVID pending. Pt on IV abx and IV fluids. Pulmonary consulted. SW to follow.
[2020-04-20] MEDS: levETIRAcetam 500 MG TABLET PO SCH ×2 (14:20→20:23)
[2020-04-20] MEDS: PHENYTOIN SODIUM EXTENDED 30 MG CAPSULE. PO SCH ×2 (14:27→20:13)
[2020-04-20] MEDS: busPIRone 5 MG TABLET. PO SCH ×2 (14:27→20:15)
[2020-04-20] MEDS: DIVALPROEX SPRINKLES 125 MG CAPSULE. PO SCH ×2 (14:28→20:16)
[2020-04-20] MEDS: hydrALAZINE 25 MG TABLET PO SCH ×2 (14:30→20:22)
[2020-04-20] MEDS: BACLOFEN 10 MG TABLET. PO SCH ×2 (14:31→20:15)
[2020-04-20] MEDS: ARIPiprazole 5 MG TABLET PO SCH (14:31)
[2020-04-20] MEDS: FOLIC ACID 1 MG TABLET. PO SCH (14:32)
[2020-04-20] MEDS: LACOSAMIDE 200 MG TABLET PO SCH ×2 (14:32→20:15)
[2020-04-20] MEDS: ASPIRIN CHEWABLE 81 MG TABLET. PO SCH (14:32)
[2020-04-20] MEDS: MULTIVITAMIN with MINERAL TABLET. PO SCH (14:32)
[2020-04-20] MEDS: DULoxetine HCL 30 MG CAPSULE.DR PO SCH (14:35)
[2020-04-20] MEDS: DICLOFENAC SODIUM 1% TOPICAL GEL 100GM TUBE. TP SCH ×2 (14:36→20:20)
[2020-04-20] MEDS: GABAPENTIN 400 MG CAPSULE. PO SCH ×2 (15:02→20:15)
[2020-04-20] MEDS: metFORMIN 500 MG TABLET PO SCH (17:40)
--- NOTE | 2020-04-20 18:09 | NUR ---
Patient has no IV access . Nurse Suev notified. Two attempts.
[2020-04-20] MEDS: PHENYTOIN SODIUM EXTENDED 100 MG CAPSULE PO SCH (20:14)
[2020-04-20] MEDS: FAMOTIDINE 20 MG TABLET. PO SCH (20:15)
[2020-04-20] MEDS: ATORVASTATIN CALCIUM 10 MG TABLET. PO SCH (20:15)
[2020-04-20] MEDS: ACETAMINOPHEN 325 MG TABLET. PO SCH (20:15)
[2020-04-20] MEDS: MIRTAZAPINE 15 MG TABLET PO SCH (20:16)
[2020-04-20] MEDS: LATANOPROST 0.005% OPHTH SOLUTION 2.5ML BOTTLE. OU SCH (20:19)
[2020-04-20] MEDS: LISINOPRIL 10 MG TABLET PO SCH (20:24)
[2020-04-21] MEDS: PIPERACILLIN/TAZOBACTAM 3.375 GM in IV NORMAL SALINE 50ML 50 ML IV SCH ×3 (02:21→17:27)
[2020-04-21 03:00] VITALS: BP 119/57
[2020-04-21 07:08] LABS: HEMATOCRIT 30.3 % (36.0-47.0); HEMOGLOBIN 10.1 g/dL (12.0-15.5); RED BLOOD COUNT 3.37 x10^6/uL (3.50-5.40); RED CELL DISTRIBUTION WIDTH 14.8 % (11.5-14.5); WHITE BLOOD COUNT 5.3 x10^3/uL (4.0-11.0)
[2020-04-21 07:10] VITALS: BP 132/78
[2020-04-21 07:45] LABS: ALBUMIN 2.2 g/dL (3.4-5.0); ALBUMIN/GLOBULIN RATIO 0.5 (1.0-1.7); CALCIUM 7.8 mg/dL (8.5-10.1); CREATININE 0.5 mg/dL (0.6-1.0); GFR 148.9; POTASSIUM 4.4 mmol/L (3.5-5.1); TOTAL BILIRUBIN 0.2 mg/dL (0.2-1.0); TOTAL PROTEIN 6.4 g/dL (6.4-8.2)
[2020-04-21] MEDS: INSULIN LISPRO 300 UNITS/3 ML VIAL. SQ SCH ×3 (08:00→15:59)
[2020-04-21] MEDS: ARIPiprazole 5 MG TABLET PO SCH (08:44)
[2020-04-21] MEDS: LACOSAMIDE 200 MG TABLET PO SCH ×2 (08:45→22:20)
[2020-04-21] MEDS: DULoxetine HCL 30 MG CAPSULE.DR PO SCH (08:45)
[2020-04-21] MEDS: ACETAMINOPHEN 325 MG TABLET. PO SCH ×2 (08:45→22:21)
[2020-04-21] MEDS: hydrALAZINE 25 MG TABLET PO SCH ×3 (08:45→22:20)
[2020-04-21] MEDS: busPIRone 5 MG TABLET. PO SCH ×2 (08:45→22:18)
[2020-04-21] MEDS: GABAPENTIN 400 MG CAPSULE. PO SCH ×3 (08:46→22:18)
[2020-04-21] MEDS: BACLOFEN 10 MG TABLET. PO SCH ×3 (08:46→22:19)
[2020-04-21] MEDS: ASPIRIN CHEWABLE 81 MG TABLET. PO SCH (08:46)
[2020-04-21] MEDS: levETIRAcetam 500 MG TABLET PO SCH ×2 (08:46→22:18)
[2020-04-21] MEDS: MULTIVITAMIN with MINERAL TABLET. PO SCH (08:46)
[2020-04-21] MEDS: amLODIPine BESYLATE 10 MG TABLET PO SCH (08:46)
[2020-04-21] MEDS: FOLIC ACID 1 MG TABLET. PO SCH (08:47)
[2020-04-21] MEDS: metFORMIN 500 MG TABLET PO SCH ×2 (08:47→17:26)
[2020-04-21] MEDS: DIVALPROEX SPRINKLES 125 MG CAPSULE. PO SCH ×2 (08:47→22:20)
[2020-04-21] MEDS: FLUTICASONE 50MCG/NASAL SPRAY 16GM BOTTLE. NS SCH (08:47)
[2020-04-21] MEDS: DICLOFENAC SODIUM 1% TOPICAL GEL 100GM TUBE. TP SCH ×3 (08:48→21:00)
[2020-04-21] MEDS: ENOXAPARIN 40 MG/0.4 ML SYRINGE. SQ SCH (08:48)
--- NOTE | 2020-04-21 10:45 | PN ---
DATE: 04/21/2020 SUBJECTIVE: The patient is resting, slightly propped up in bed, sleeping comfortably, in no apparent distress. She is maintaining her oxygen saturation at 96% on 4 liters of oxygen by nasal cannula. On questioning her, denied any complaint. PHYSICAL EXAMINATION: GENERAL: When I examined her, she was pale, but no jaundice, cyanosis or thyromegaly. No jugular venous distention. No lower limb edema. VITAL SIGNS: Her heart rate was 98, blood pressure was 132/78, temperature was 100.4, respiratory rate was 24, and oxygen saturation was 96% on 4 liters of oxygen by nasal cannula. HEAD, EYES, EARS, NOSE, AND THROAT: Showed normocephalic, atraumatic. NECK: Supple. HEART: Normal first and second heart sounds with no gallop, rub or murmur. CHEST: Clear to auscultation. No crepitation or rhonchi. ABDOMEN: Distended, soft. NEUROLOGIC: She is aphasic, has right-sided hemiplegia. Her intake over the last 24 hours was 2000, output was 900. LABORATORY DATA: As of this morning, her white cell count is down to 5300; hemoglobin 10; hematocrit 30; MCV 90; and platelet count of 177,000. Her chemistry showed a serum sodium 143, potassium 4.4, chloride 110, bicarbonate 21, anion gap of 12, BUN 10, creatinine 0.5. Her estimated GFR was 148 mL per minute. Her glucose 112, calcium was 7.8. Total bilirubin and alkaline phosphatase is normal. AST and ALT are slightly elevated. Total protein was 6.4, albumin 2.2. Her coronavirus by PCR was positive. ASSESSMENT: 1. COVID-19 pneumonia versus respiratory tract infection. 2. Acute hypoxic respiratory failure. 3. Chronic obstructive pulmonary disease, healthcare-associated pneumonia. 4. 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 5. Posttraumatic seizure disorder. 6. Hypertension. 7. Type 2 diabetes mellitus. PLAN: To continue with IV antibiotics in the form of Zosyn and vancomycin. She obviously is COVID-19 positive and we have already consulted Dr. Maravilla, who obviously will decide whether she is a candidate for convalescent plasma and remdesivir. ETELVINA HAYWOOD MD DR: ALISON/hernán JOB#: [id number] / [id number]
[2020-04-21 11:10] VITALS: BP 104/55
--- NOTE | 2020-04-21 11:12 | NUR ---
SW following. SW spoke with RN and reviewed chart. SW coordinated care with Dr. Bolanos. Pt from LTC at [facility], , (fax). Pt COVID positive with a fever. Pt not ready for discharge. Pt remains on 3l 02 and IV abx. BORIS faxed updated clinicals to [facility]. BORIS called facility nurse Keeley to provide an update. Keeley stated they will take pt back COVID positive when pt is ready for discharge. SW to follow.
[2020-04-21] MEDS ORDERED: VANCOMYCIN 1 GM in IV NORMAL SALINE 250ML 250 ML IV SCH (12:00)
--- NOTE | 2020-04-21 12:26 | PDOC ---
PULMONARY PROGRESS NOTES DATE: 04/21/20 TIME: 12:24 Subjective no soa Vitals Vital Signs Date Time Temp Pulse Resp B/P (MAP) Pulse Ox O2 Delivery O2 Flow Rate FiO2 04/21/20 11:10 99.4 100 19 104/55 (71) 94 99.4 04/21/20 08:00 Nasal Cannula 3.0 Comments visual exam done no soa, no rash no leg edema General: No acute distress Labs Laboratory Tests Test 04/19/20 13:15 04/19/20 14:30 04/20/20 00:34 04/20/20 07:56 Urine Collection Type Unknown Urine Color Valery Urine Clarity Cloudy Urine pH 5.0 (<5.0-8.0) Urine Specific [place] 1.025 (1.000-1.030) Urine Protein Negative mg/dL (NEG-TRACE) Urine Glucose (UA) Negative mg/dL (NEG) Urine Ketones (Stick) Trace mg/dL (NEG) Urine Blood Negative (NEG) Urine Nitrite Negative (NEG) Urine Bilirubin Moderate (NEG) Urine Urobilinogen Dipstick 0.2 mg/dL (0.2 mg/dL) Urine Leukocyte Esterase Small (NEG) Urine RBC 0 /HPF (0-2) Urine WBC Rare /HPF (0-4) Urine Squamous Epithelial Cells Occ /LPF Urine Bacteria Moderate /HPF (0-FEW) Prothrombin Time 14.8 SEC (11.7-14.0) Prothromb Time International Ratio 1.2 (0.8-1.1) Activated Partial Thromboplast Time 37 SEC (24-38) D-Dimer (Mary) 0.33 ug/mlFEU (0.00-0.50) Transferrin 178 mg/dL (192-364) Glucose (Fingerstick) 83 mg/dL (70-99) 109 mg/dL (70-99) Test 04/20/20 11:10 04/20/20 17:11 04/20/20 20:50 04/21/20 06:40 Glucose (Fingerstick) 93 mg/dL (70-99) 124 mg/dL (70-99) 100 mg/dL (70-99) White Blood Count 5.3 x10^3/uL (4.0-11.0) Red Blood Count 3.37 x10^6/uL (3.50-5.40) Hemoglobin 10.1 g/dL (12.0-15.5) Hematocrit 30.3 % (36.0-47.0) Mean Corpuscular Volume 90 fL (79-100) Mean Corpuscular Hemoglobin 30 pg (25-35) Mean Corpuscular Hemoglobin Concent 33 g/dL (31-37) Red Cell Distribution Width 14.8 % (11.5-14.5) Platelet Count 177 x10^3/uL (140-400) Sodium Level 143 mmol/L (136-145) Potassium Level 4.4 mmol/L (3.5-5.1) Chloride Level 110 mmol/L (98-107) Carbon Dioxide Level 21 mmol/L (21-32) Anion Gap 12 (6-14) Blood Urea Nitrogen 10 mg/dL (7-20) Creatinine 0.5 mg/dL (0.6-1.0) Estimated GFR (Cockcroft-Gault) 148.9 BUN/Creatinine Ratio 20 (6-20) Glucose Level 112 mg/dL (70-99) Calcium Level 7.8 mg/dL (8.5-10.1) Total Bilirubin 0.2 mg/dL (0.2-1.0) Aspartate Amino Transf (AST/SGOT) 103 U/L (15-37) Alanine Aminotransferase (ALT/SGPT) 61 U/L (14-59) Alkaline Phosphatase 89 U/L (46-116) Total Protein 6.4 g/dL (6.4-8.2) Albumin 2.2 g/dL (3.4-5.0) Albumin/Globulin Ratio 0.5 (1.0-1.7) Test 04/21/20 07:33 04/21/20 11:21 Glucose (Fingerstick) 120 mg/dL (70-99) 128 mg/dL (70-99) Laboratory Tests Test 04/20/20 17:11 04/20/20 20:50 04/21/20 06:40 04/21/20 07:33 Glucose (Fingerstick) 124 mg/dL (70-99) 100 mg/dL (70-99) 120 mg/dL (70-99) White Blood Count 5.3 x10^3/uL (4.0-11.0) Red Blood Count 3.37 x10^6/uL (3.50-5.40) Hemoglobin 10.1 g/dL (12.0-15.5) Hematocrit 30.3 % (36.0-47.0) Mean Corpuscular Volume 90 fL (79-100) Mean Corpuscular Hemoglobin 30 pg (25-35) Mean Corpuscular Hemoglobin Concent 33 g/dL (31-37) Red Cell Distribution Width 14.8 % (11.5-14.5) Platelet Count 177 x10^3/uL (140-400) Sodium Level 143 mmol/L (136-145) Potassium Level 4.4 mmol/L (3.5-5.1) Chloride Level 110 mmol/L (98-107) Carbon Dioxide Level 21 mmol/L (21-32) Anion Gap 12 (6-14) Blood Urea Nitrogen 10 mg/dL (7-20) Creatinine 0.5 mg/dL (0.6-1.0) Estimated GFR (Cockcroft-Gault) 148.9 BUN/Creatinine Ratio 20 (6-20) Glucose Level 112 mg/dL (70-99) Calcium Level 7.8 mg/dL (8.5-10.1) Total Bilirubin 0.2 mg/dL (0.2-1.0) Aspartate Amino Transf (AST/SGOT) 103 U/L (15-37) Alanine Aminotransferase (ALT/SGPT) 61 U/L (14-59) Alkaline Phosphatase 89 U/L (46-116) Total Protein 6.4 g/dL (6.4-8.2) Albumin 2.2 g/dL (3.4-5.0) Albumin/Globulin Ratio 0.5 (1.0-1.7) Test 04/21/20 11:21 Glucose (Fingerstick) 128 mg/dL (70-99) Medications Active Scripts Medications Dose Route/Sig Max Daily Dose Days Date Category Dose Instructions Voltaren (Diclofenac Sodium) 100 Gm Gel..gram. 1 Jitendra TP TID 04/19/20 Reported Famotidine 20 Mg Tablet 20 Mg PO HS 01/28/20 Reported Dilantin (Phenytoin Sodium Extended) 100 Mg Capsule 30 Mg PO HS 01/28/20 Reported Lisinopril 30 Mg Tablet 1 Tab PO HS 01/28/20 Reported Mirtazapine 30 Mg Tab.rapdis 30 Mg PO QHS 30 01/28/20 Reported D3-50 (Cholecalciferol (Vitamin D3)) 50,000 Unit Capsule 1 Cap PO WEEKLY 28 01/28/20 Reported Aspirin 81 Mg Tab.chew 1 Tab PO DAILY 01/28/20 Reported Atorvastatin Calcium 10 Mg Tablet 10 Mg PO HS 02/24/17 Reported Anti-Diarrhea (Loperamide Hcl) 2 Mg Tablet 2 Mg PO PRN Q6HRS PRN 02/24/17 Reported Metformin Hcl 1,000 Mg Tablet 1 Tab PO BID 12/26/15 Rx Tylenol (Acetaminophen) 325 Mg Tablet 650 Mg PO BID 12/24/15 Reported Norvasc (Amlodipine Besylate) 10 Mg Tablet 10 Mg PO DAILY 12/24/15 Reported Milk Of Magnesia (Magnesium Hydroxide) 400 Mg/5 Ml Oral.susp 1,200 Mg PO PRN DAILY PRN 12/24/15 Reported Latanoprost 2.5 Ml Drops 1 Drop EACHEYE QHS 12/24/15 Reported Vimpat (Lacosamide) 200 Mg Tablet 200 Mg PO BID 12/24/15 Reported Keppra (Levetiracetam) 500 Mg Tablet 1,500 Mg PO BID 12/24/15 Reported Gabapentin (Gabapentin) 400 Mg Capsule 400 Mg PO TID 12/24/15 Reported Folic Acid 1 Mg Tablet 1 Tab PO DAILY 12/24/15 Reported Flonase Allergy Relief (Fluticasone Propionate) 9.9 Ml [place].susp 2 Sprays NS DAILY 12/24/15 Reported Buspirone Hcl 5 Mg Tablet 1 Tab PO BID 12/24/15 Reported Abilify (Aripiprazole) 5 Mg Tablet 5 Mg PO DAILY 12/24/15 Reported Hydrocortisone 30 Gm Cream..g. 30 Gm RC PRN BID PRN 05/20/14 Reported Hydrocortisone 1% Absorbase (Hc/Mineral Oil/Petrolat,Wht) 25 Gm Oint...g. 25 Gm TP 05/20/14 Reported Hydralazine Hcl 25 Mg Tablet 2 Tab PO TID 05/20/14 Reported Dilantin (Phenytoin Sodium Extended) 100 Mg Capsule 400 Mg PO HS 05/20/14 Reported give with 30mg to equal 430mg Depakote Sprinkle (Divalproex Sodium) 125 Mg Cap.sprink 125 Mg PO BID 05/20/14 Reported Cymbalta (Duloxetine Hcl) 30 Mg Capsule. 3 Cap PO DAILY 05/20/14 Reported Centrum Silver Ultra Women Tab (Multivits W-Fe,Other Min/Lut) 1 Each Tablet 1 Each PO DAILY 05/20/14 Reported Baclofen 10 Mg Tablet 1 Tab PO TID 05/20/14 Reported Impression . 1. Acute hypoxic respiratory failure secondary to COVID-19 pneumonia. 2. Abnormal chest x-ray with patchy infiltrates bilaterally, suggestive of pneumonia, likely COVID-19. 3. 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 4. History of posttraumatic epilepsy. 5. No significant tobacco history. 6. Mild azotemia. 7. Normal D-dimer. Plan . 1. Discussed with Dr. Bolanos. We will continue present oxygen. 2. Monitor the fever pattern. Follow all blood cultures. 3. COVID-19.Positive 4. Continue empiric antibiotic. 5. will add steroids. 6. Discussed with Dr. Bolanos. We will follow along with you. Discussed with ELAINE. BUFFY JIANG MD Apr 21, 2020 12:26
[2020-04-21] MEDS: methylPREDNISolone SOD SUCC PF 40 MG/ML VIAL. IV SCH ×2 (14:48→22:18)
[2020-04-21 15:20] VITALS: BP 127/64
[2020-04-21 19:58] VITALS: BP 149/72
[2020-04-21] MEDS: LATANOPROST 0.005% OPHTH SOLUTION 2.5ML BOTTLE. OU SCH (22:18)
[2020-04-21] MEDS: PHENYTOIN SODIUM EXTENDED 30 MG CAPSULE. PO SCH (22:19)
[2020-04-21] MEDS: MIRTAZAPINE 15 MG TABLET PO SCH (22:19)
[2020-04-21] MEDS: LISINOPRIL 10 MG TABLET PO SCH (22:19)
[2020-04-21] MEDS: ATORVASTATIN CALCIUM 10 MG TABLET. PO SCH (22:20)
[2020-04-21] MEDS: PHENYTOIN SODIUM EXTENDED 100 MG CAPSULE PO SCH (22:20)
[2020-04-21] MEDS: FAMOTIDINE 20 MG TABLET. PO SCH (22:21)
[2020-04-21 23:54] VITALS: BP 170/73
[2020-04-22] MEDS: PIPERACILLIN/TAZOBACTAM 3.375 GM in IV NORMAL SALINE 50ML 50 ML IV SCH (02:29)
[2020-04-22 03:39] VITALS: BP 136/65
[2020-04-22] MEDS: methylPREDNISolone SOD SUCC PF 40 MG/ML VIAL. IV SCH ×3 (05:49→21:18)
[2020-04-22 07:00] VITALS: BP 154/72
[2020-04-22 07:30] LABS: ALBUMIN 2.5 g/dL (3.4-5.0); ALBUMIN/GLOBULIN RATIO 0.5 (1.0-1.7); CALCIUM 8.6 mg/dL (8.5-10.1); CREATININE 0.4 mg/dL (0.6-1.0); GFR 192.6; TOTAL BILIRUBIN 0.3 mg/dL (0.2-1.0); TOTAL PROTEIN 7.5 g/dL (6.4-8.2)
[2020-04-22 07:40] LABS: POTASSIUM 4.9 mmol/L (3.5-5.1)
[2020-04-22] MEDS: INSULIN LISPRO 300 UNITS/3 ML VIAL. SQ SCH ×3 (08:00→17:00)
--- NOTE | 2020-04-22 09:47 | PN ---
DATE: 04/22/2020 SUBJECTIVE: The patient is resting, slightly propped up, sleeping comfortably, in no apparent distress, maintaining her oxygen saturation at 98% on 3 liters of oxygen. The nursing staff did not voice any concern. States that she had an uneventful night. She continued to spike a temperature up to 100.3. Her urine culture has grown more than 100,000 colony forming per mL of gram-negative rods, identified as Escherichia coli. The sensitivity is still pending. Her blood culture has grown gram-positive cocci in clusters in 1/3 bottles. The identification and sensitivity is still pending at this time. She is already on vancomycin and Zosyn. She is also coronavirus positive. PHYSICAL EXAMINATION: GENERAL: When I examined her this morning, she was pale. No jaundice, cyanosis or thyromegaly. No jugular venous distention. No limb edema. VITAL SIGNS: Her heart rate was 97, blood pressure was 136/65, temperature 99.1, respiratory rate was 16, and oxygen saturation was 98% on 3 liters of oxygen. HEENT: Showed normocephalic, atraumatic. NECK: Supple. HEART: Showed normal first and second heart sounds. No gallop or murmur. CHEST: Clear to auscultation. No crepitation or rhonchi. ABDOMEN: Distended, soft, nontender. NEUROLOGIC: She is aphasic and has right-sided hemiplegia. Her intake and output were incompletely recorded. LABORATORY WORK: This morning is still pending at the time of this dictation. Her blood sugar seems to be reasonably controlled. ASSESSMENT: 1. COVID-19 pneumonia. 2. Acute hypoxic respiratory failure. 3. Chronic obstructive pulmonary disease. 4. Healthcare-associated pneumonia. 5. Urinary tract infection. 6. 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 7. Posttraumatic seizure disorder. 8. Hypertension. 9. Type 2 diabetes mellitus. PLAN: Continue with IV antibiotic in the form of Zosyn and vancomycin. The patient was continued with all other medications. I did consult the Infectious Disease to assist with her management as she is growing Escherichia coli in her urine and gram-positive cocci in her blood, that may or may not be contaminant. ETELVINA HAYWOOD MD DR: ALISON/hernán JOB#: [id number] / [id number]
--- NOTE | 2020-04-22 09:59 | PDOC ---
PULMONARY PROGRESS NOTES DATE: 04/22/20 TIME: 09:55 Subjective Fever overnight, continued tachycardia No increased SOB, Or cough No overnight concerns from nursing Vitals Vital Signs Date Time Temp Pulse Resp B/P (MAP) Pulse Ox O2 Delivery O2 Flow Rate FiO2 04/22/20 07:00 100.7 91 16 154/72 (99) 94 Nasal Cannula 3.0 100.7 Comments visual exam done RRR no soa, no rash no leg edema General: No acute distress Labs Laboratory Tests Test 04/20/20 11:10 04/20/20 17:11 04/20/20 20:50 04/21/20 06:40 Glucose (Fingerstick) 93 mg/dL (70-99) 124 mg/dL (70-99) 100 mg/dL (70-99) White Blood Count 5.3 x10^3/uL (4.0-11.0) Red Blood Count 3.37 x10^6/uL (3.50-5.40) Hemoglobin 10.1 g/dL (12.0-15.5) Hematocrit 30.3 % (36.0-47.0) Mean Corpuscular Volume 90 fL (79-100) Mean Corpuscular Hemoglobin 30 pg (25-35) Mean Corpuscular Hemoglobin Concent 33 g/dL (31-37) Red Cell Distribution Width 14.8 % (11.5-14.5) Platelet Count 177 x10^3/uL (140-400) Sodium Level 143 mmol/L (136-145) Potassium Level 4.4 mmol/L (3.5-5.1) Chloride Level 110 mmol/L (98-107) Carbon Dioxide Level 21 mmol/L (21-32) Anion Gap 12 (6-14) Blood Urea Nitrogen 10 mg/dL (7-20) Creatinine 0.5 mg/dL (0.6-1.0) Estimated GFR (Cockcroft-Gault) 148.9 BUN/Creatinine Ratio 20 (6-20) Glucose Level 112 mg/dL (70-99) Calcium Level 7.8 mg/dL (8.5-10.1) Total Bilirubin 0.2 mg/dL (0.2-1.0) Aspartate Amino Transf (AST/SGOT) 103 U/L (15-37) Alanine Aminotransferase (ALT/SGPT) 61 U/L (14-59) Alkaline Phosphatase 89 U/L (46-116) Total Protein 6.4 g/dL (6.4-8.2) Albumin 2.2 g/dL (3.4-5.0) Albumin/Globulin Ratio 0.5 (1.0-1.7) Test 04/21/20 07:33 04/21/20 11:21 04/21/20 15:27 04/21/20 22:37 Glucose (Fingerstick) 120 mg/dL (70-99) 128 mg/dL (70-99) 108 mg/dL (70-99) 68 mg/dL (70-99) Test 04/22/20 06:06 04/22/20 06:35 04/22/20 07:59 Glucose (Fingerstick) 120 mg/dL (70-99) 119 mg/dL (70-99) Sodium Level 144 mmol/L (136-145) Potassium Level 4.9 mmol/L (3.5-5.1) Chloride Level 111 mmol/L (98-107) Carbon Dioxide Level 19 mmol/L (21-32) Anion Gap 14 (6-14) Blood Urea Nitrogen 8 mg/dL (7-20) Creatinine 0.4 mg/dL (0.6-1.0) Estimated GFR (Cockcroft-Gault) 192.6 BUN/Creatinine Ratio 20 (6-20) Glucose Level 124 mg/dL (70-99) Calcium Level 8.6 mg/dL (8.5-10.1) Total Bilirubin 0.3 mg/dL (0.2-1.0) Aspartate Amino Transf (AST/SGOT) 77 U/L (15-37) Alanine Aminotransferase (ALT/SGPT) 56 U/L (14-59) Alkaline Phosphatase 97 U/L (46-116) Total Protein 7.5 g/dL (6.4-8.2) Albumin 2.5 g/dL (3.4-5.0) Albumin/Globulin Ratio 0.5 (1.0-1.7) Laboratory Tests Test 04/21/20 11:21 04/21/20 15:27 04/21/20 22:37 04/22/20 06:06 Glucose (Fingerstick) 128 mg/dL (70-99) 108 mg/dL (70-99) 68 mg/dL (70-99) 120 mg/dL (70-99) Test 04/22/20 06:35 04/22/20 07:59 Sodium Level 144 mmol/L (136-145) Potassium Level 4.9 mmol/L (3.5-5.1) Chloride Level 111 mmol/L (98-107) Carbon Dioxide Level 19 mmol/L (21-32) Anion Gap 14 (6-14) Blood Urea Nitrogen 8 mg/dL (7-20) Creatinine 0.4 mg/dL (0.6-1.0) Estimated GFR (Cockcroft-Gault) 192.6 BUN/Creatinine Ratio 20 (6-20) Glucose Level 124 mg/dL (70-99) Calcium Level 8.6 mg/dL (8.5-10.1) Total Bilirubin 0.3 mg/dL (0.2-1.0) Aspartate Amino Transf (AST/SGOT) 77 U/L (15-37) Alanine Aminotransferase (ALT/SGPT) 56 U/L (14-59) Alkaline Phosphatase 97 U/L (46-116) Total Protein 7.5 g/dL (6.4-8.2) Albumin 2.5 g/dL (3.4-5.0) Albumin/Globulin Ratio 0.5 (1.0-1.7) Glucose (Fingerstick) 119 mg/dL (70-99) Medications Active Scripts Medications Dose Route/Sig Max Daily Dose Days Date Category Dose Instructions Voltaren (Diclofenac Sodium) 100 Gm Gel..gram. 1 Jitendra TP TID 04/19/20 Reported Famotidine 20 Mg Tablet 20 Mg PO HS 01/28/20 Reported Dilantin (Phenytoin Sodium Extended) 100 Mg Capsule 30 Mg PO HS 01/28/20 Reported Lisinopril 30 Mg Tablet 1 Tab PO HS 01/28/20 Reported Mirtazapine 30 Mg Tab.rapdis 30 Mg PO QHS 30 01/28/20 Reported D3-50 (Cholecalciferol (Vitamin D3)) 50,000 Unit Capsule 1 Cap PO WEEKLY 28 01/28/20 Reported Aspirin 81 Mg Tab.chew 1 Tab PO DAILY 01/28/20 Reported Atorvastatin Calcium 10 Mg Tablet 10 Mg PO HS 02/24/17 Reported Anti-Diarrhea (Loperamide Hcl) 2 Mg Tablet 2 Mg PO PRN Q6HRS PRN 02/24/17 Reported Metformin Hcl 1,000 Mg Tablet 1 Tab PO BID 12/26/15 Rx Tylenol (Acetaminophen) 325 Mg Tablet 650 Mg PO BID 12/24/15 Reported Norvasc (Amlodipine Besylate) 10 Mg Tablet 10 Mg PO DAILY 12/24/15 Reported Milk Of Magnesia (Magnesium Hydroxide) 400 Mg/5 Ml Oral.susp 1,200 Mg PO PRN DAILY PRN 12/24/15 Reported Latanoprost 2.5 Ml Drops 1 Drop EACHEYE QHS 12/24/15 Reported Vimpat (Lacosamide) 200 Mg Tablet 200 Mg PO BID 12/24/15 Reported Keppra (Levetiracetam) 500 Mg Tablet 1,500 Mg PO BID 12/24/15 Reported Gabapentin (Gabapentin) 400 Mg Capsule 400 Mg PO TID 12/24/15 Reported Folic Acid 1 Mg Tablet 1 Tab PO DAILY 12/24/15 Reported Flonase Allergy Relief (Fluticasone Propionate) 9.9 Ml [place].susp 2 Sprays NS DAILY 12/24/15 Reported Buspirone Hcl 5 Mg Tablet 1 Tab PO BID 12/24/15 Reported Abilify (Aripiprazole) 5 Mg Tablet 5 Mg PO DAILY 12/24/15 Reported Hydrocortisone 30 Gm Cream..g. 30 Gm RC PRN BID PRN 05/20/14 Reported Hydrocortisone 1% Absorbase (Hc/Mineral Oil/Petrolat,Wht) 25 Gm Oint...g. 25 Gm TP 05/20/14 Reported Hydralazine Hcl 25 Mg Tablet 2 Tab PO TID 05/20/14 Reported Dilantin (Phenytoin Sodium Extended) 100 Mg Capsule 400 Mg PO HS 05/20/14 Reported give with 30mg to equal 430mg Depakote Sprinkle (Divalproex Sodium) 125 Mg Cap.sprink 125 Mg PO BID 05/20/14 Reported Cymbalta (Duloxetine Hcl) 30 Mg Capsule.dr 3 Cap PO DAILY 05/20/14 Reported Centrum Silver Ultra Women Tab (Multivits W-Fe,Other Min/Lut) 1 Each Tablet 1 Each PO DAILY 05/20/14 Reported Baclofen 10 Mg Tablet 1 Tab PO TID 05/20/14 Reported Comments CXR IMPRESSION: Mild right-sided infiltrates. Impression . 1. Acute hypoxic respiratory failure secondary to COVID-19 pneumonia. 2. Abnormal chest x-ray with patchy infiltrates bilaterally, suggestive of pneumonia, likely COVID-19.--COVID 19 positive 3. 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 4. History of posttraumatic epilepsy. 5. No significant tobacco history. 6. Mild azotemia. 7. Normal D-dimer. Plan . Continue supplemental oxygen, now on 3 liters N/C Tylenol for fever, monitor COVID-19.Positive Continue empiric antibiotic. Continue steroids. D/W BUFFY EDDY MD Apr 22, 2020 09:59
[2020-04-22] MEDS: DICLOFENAC SODIUM 1% TOPICAL GEL 100GM TUBE. TP SCH ×3 (10:24→21:12)
[2020-04-22] MEDS: ARIPiprazole 5 MG TABLET PO SCH (10:24)
[2020-04-22] MEDS: FLUTICASONE 50MCG/NASAL SPRAY 16GM BOTTLE. NS SCH (10:24)
[2020-04-22] MEDS: busPIRone 5 MG TABLET. PO SCH ×2 (10:24→21:18)
[2020-04-22] MEDS: LACOSAMIDE 200 MG TABLET PO SCH ×2 (10:25→21:18)
[2020-04-22] MEDS: GABAPENTIN 400 MG CAPSULE. PO SCH ×3 (10:25→21:17)
[2020-04-22] MEDS: DULoxetine HCL 30 MG CAPSULE.DR PO SCH (10:25)
[2020-04-22] MEDS: ACETAMINOPHEN 325 MG TABLET. PO SCH ×2 (10:25→21:16)
[2020-04-22] MEDS: metFORMIN 500 MG TABLET PO SCH ×2 (10:25→18:13)
[2020-04-22] MEDS: ASPIRIN CHEWABLE 81 MG TABLET. PO SCH (10:26)
[2020-04-22] MEDS: hydrALAZINE 25 MG TABLET PO SCH ×3 (10:26→21:18)
[2020-04-22] MEDS: levETIRAcetam 500 MG TABLET PO SCH ×2 (10:26→21:17)
[2020-04-22] MEDS: amLODIPine BESYLATE 10 MG TABLET PO SCH (10:26)
[2020-04-22] MEDS: FOLIC ACID 1 MG TABLET. PO SCH (10:26)
[2020-04-22] MEDS: MULTIVITAMIN with MINERAL TABLET. PO SCH (10:27)
[2020-04-22] MEDS: DIVALPROEX SPRINKLES 125 MG CAPSULE. PO SCH ×2 (10:27→21:18)
[2020-04-22] MEDS: BACLOFEN 10 MG TABLET. PO SCH ×3 (10:27→21:17)
--- NOTE | 2020-04-22 10:47 | PDOC ---
Infectious Disease Note Vital Sign Vital Signs Vital Signs Date Time Temp Pulse Resp B/P (MAP) Pulse Ox O2 Delivery O2 Flow Rate FiO2 04/22/20 10:26 91 154/72 04/22/20 07:00 100.7 16 94 Nasal Cannula 3.0 100.7 Labs Lab Laboratory Tests Test 04/21/20 11:21 04/21/20 15:27 04/21/20 22:37 04/22/20 06:06 Glucose (Fingerstick) 128 mg/dL (70-99) 108 mg/dL (70-99) 68 mg/dL (70-99) 120 mg/dL (70-99) Test 04/22/20 06:35 04/22/20 07:59 Sodium Level 144 mmol/L (136-145) Potassium Level 4.9 mmol/L (3.5-5.1) Chloride Level 111 mmol/L (98-107) Carbon Dioxide Level 19 mmol/L (21-32) Anion Gap 14 (6-14) Blood Urea Nitrogen 8 mg/dL (7-20) Creatinine 0.4 mg/dL (0.6-1.0) Estimated GFR (Cockcroft-Gault) 192.6 BUN/Creatinine Ratio 20 (6-20) Glucose Level 124 mg/dL (70-99) Calcium Level 8.6 mg/dL (8.5-10.1) Total Bilirubin 0.3 mg/dL (0.2-1.0) Aspartate Amino Transf (AST/SGOT) 77 U/L (15-37) Alanine Aminotransferase (ALT/SGPT) 56 U/L (14-59) Alkaline Phosphatase 97 U/L (46-116) Total Protein 7.5 g/dL (6.4-8.2) Albumin 2.5 g/dL (3.4-5.0) Albumin/Globulin Ratio 0.5 (1.0-1.7) Glucose (Fingerstick) 119 mg/dL (70-99) Micro Microbiology 04/19/20 Blood Culture - Preliminary, Resulted NO GROWTH AFTER 2 DAYS 04/19/20 Urine Culture - Final, Complete 04/19/20 Antimicrobic Susceptibility - Final, Complete Objective Assessment pt seen, consult dictated Plan Plan of Care / TANNER WOO MD Apr 22, 2020 10:47
[2020-04-22 11:00] VITALS: BP 157/77
[2020-04-22 11:31] LABS: HEMATOCRIT 31.1 % (36.0-47.0); HEMOGLOBIN 10.3 g/dL (12.0-15.5); RED BLOOD COUNT 3.48 x10^6/uL (3.50-5.40); RED CELL DISTRIBUTION WIDTH 15.4 % (11.5-14.5)
[2020-04-22] MEDS: ENOXAPARIN 40 MG/0.4 ML SYRINGE. SQ SCH (12:31)
--- NOTE | 2020-04-22 14:07 | CONS ---
DATE OF CONSULTATION: 04/22/2020 REQUESTING PHYSICIAN: Emil Bolanos MD REASON FOR CONSULTATION: Blood culture positive in a COVID patient. HISTORY OF PRESENT ILLNESS: This is a 65-year-old -[place] female with a history of traumatic brain injury and stroke, who came in with hypoxia, shortness of breath and had fever. The patient was found to be COVID-19 positive, had fever, does have slight leukocytosis when she came in, and her blood culture is positive 1 out of 3 with Gram-positive cocci in clusters. Also, urine positive with E. coli. The patient is on vancomycin and Zosyn. The patient says she is feeling better. She nods to simple questions, she is able to answer. Denies any nausea, vomiting, diarrhea, chest pain, or shortness of breath. PAST MEDICAL HISTORY: Positive for CVA with expressive aphasia, traumatic brain injury, also has right-sided hemiplegia, epilepsy, hypertension, vitamin D deficiency, diabetes. SOCIAL HISTORY: Negative for smoking, alcohol, or illicit drug use. ALLERGIES: No known drug allergies. CURRENT MEDICATIONS: Reviewed. The patient is on vancomycin and Zosyn. REVIEW OF SYSTEMS: As per HPI, all other systems reviewed and are negative. PHYSICAL EXAMINATION: GENERAL: Alert ____, who answers simple questions, not in distress. VITAL SIGNS: Stable with T-max 100.7. HEENT: NAD. NECK: Supple, no JVP, no lymphadenopathy. LUNGS: Clear. HEART: S1, S2 regular. ABDOMEN: Benign. EXTREMITIES: No edema, cyanosis. SKIN: Unremarkable. NEUROLOGIC: The patient does have right-sided hemiplegia and a bit slow in answering the questions. LABORATORY DATA: White count is 5.3, down from 11.7. BUN and creatinine is normal. Urinalysis was actually negative for infection. COVID-19 positive. Chest x-ray showed bilateral pulmonary infiltrate. IMPRESSION: 1. COVID-19 pneumonia. 2. Hypoxemia. 3. Blood culture 1 out of 3, likely contaminant. 4. Fever. 5. Right-sided cerebrovascular accident. 6. Traumatic brain injury. RECOMMENDATIONS: We would discontinue vancomycin, discontinue Zosyn, supportive care and we will continue to follow. Thank you very much, Dr. Bolanos, for giving me the opportunity to participate in this patient's care. TANNER WOO MD DR: KIMBERLY/hernán JOB#: [id number] / [id number]
[2020-04-22 15:53] VITALS: BP 145/68
--- NOTE | 2020-04-22 17:20 | NUR ---
SW following. Reviewed chart and spoke with RN. Pt to discharge back to [facility] when stable. BORIS following.
[2020-04-22 19:20] VITALS: BP 173/77
[2020-04-22] MEDS: LATANOPROST 0.005% OPHTH SOLUTION 2.5ML BOTTLE. OU SCH (21:12)
[2020-04-22] MEDS: MIRTAZAPINE 15 MG TABLET PO SCH (21:16)
[2020-04-22] MEDS: PHENYTOIN SODIUM EXTENDED 30 MG CAPSULE. PO SCH (21:16)
[2020-04-22] MEDS: PHENYTOIN SODIUM EXTENDED 100 MG CAPSULE PO SCH (21:16)
[2020-04-22] MEDS: LACTOBACILLUS RHAMNOSUS GG 1 CAPSULE. PO SCH (21:17)
[2020-04-22] MEDS: ATORVASTATIN CALCIUM 10 MG TABLET. PO SCH (21:17)
[2020-04-22] MEDS: LISINOPRIL 10 MG TABLET PO SCH (21:17)
[2020-04-22] MEDS: FAMOTIDINE 20 MG TABLET. PO SCH (21:17)
[2020-04-22] MEDS: METOPROLOL TARTRATE 5 MG/5 ML VIAL. IVP PRN (23:00)
[2020-04-22 23:07] VITALS: BP 139/65
[2020-04-23 03:35] VITALS: BP 166/81
[2020-04-23] MEDS: methylPREDNISolone SOD SUCC PF 40 MG/ML VIAL. IV SCH ×3 (06:33→21:42)
[2020-04-23 07:00] VITALS: BP 154/72
[2020-04-23] MEDS: INSULIN LISPRO 300 UNITS/3 ML VIAL. SQ SCH ×3 (08:00→17:00)
[2020-04-23] MEDS: metFORMIN 500 MG TABLET PO SCH ×2 (09:24→17:24)
[2020-04-23] MEDS: levETIRAcetam 500 MG TABLET PO SCH ×2 (09:24→21:42)
[2020-04-23] MEDS: ARIPiprazole 5 MG TABLET PO SCH (09:24)
[2020-04-23] MEDS: MULTIVITAMIN with MINERAL TABLET. PO SCH (09:24)
[2020-04-23] MEDS: DIVALPROEX SPRINKLES 125 MG CAPSULE. PO SCH ×2 (09:24→21:44)
[2020-04-23] MEDS: GABAPENTIN 400 MG CAPSULE. PO SCH ×3 (09:24→21:43)
[2020-04-23] MEDS: DULoxetine HCL 30 MG CAPSULE.DR PO SCH (09:25)
[2020-04-23] MEDS: ACETAMINOPHEN 325 MG TABLET. PO SCH ×2 (09:25→21:41)
[2020-04-23] MEDS: FOLIC ACID 1 MG TABLET. PO SCH (09:25)
[2020-04-23] MEDS: amLODIPine BESYLATE 10 MG TABLET PO SCH (09:25)
[2020-04-23] MEDS: ASPIRIN CHEWABLE 81 MG TABLET. PO SCH (09:25)
[2020-04-23] MEDS: LACTOBACILLUS RHAMNOSUS GG 1 CAPSULE. PO SCH ×2 (09:25→21:44)
[2020-04-23] MEDS: busPIRone 5 MG TABLET. PO SCH ×2 (09:25→21:41)
[2020-04-23] MEDS: LACOSAMIDE 200 MG TABLET PO SCH ×2 (09:25→21:42)
[2020-04-23] MEDS: hydrALAZINE 25 MG TABLET PO SCH ×3 (09:26→21:43)
[2020-04-23] MEDS: BACLOFEN 10 MG TABLET. PO SCH ×3 (09:26→21:43)
[2020-04-23] MEDS: ENOXAPARIN 40 MG/0.4 ML SYRINGE. SQ SCH (09:27)
--- NOTE | 2020-04-23 09:37 | PN ---
DATE: 04/23/2020 SUBJECTIVE: The patient is resting, slightly propped up in bed, in no apparent respiratory distress. She is nonverbal. OBJECTIVE: GENERAL: She has right-sided hemiplegia and she is pale. No jaundice, cyanosis, or thyromegaly. No jugular venous distention. No lower limb edema. VITAL SIGNS: Her heart rate was 101, blood pressure was 166/81, temperature was 99, respiratory rate was 17 and oxygen saturation was 93% on 3 liters of oxygen. HEAD, EYES, EARS, NOSE, AND THROAT: Showed normocephalic, atraumatic. NECK: Supple. HEART: Showed normal first and second heart sounds. No gallop, rub, or murmur. CHEST: Clear to auscultation. No crepitation or rhonchi. ABDOMEN: Scaphoid, soft, nontender. No guarding or rigidity. No organomegaly. All hernial orifice intact. Bowel sounds normal. NEUROLOGIC: She has right-sided hemiplegia and aphasia. Her intake and output are incompletely recorded. LABORATORY DATA: No lab works done available this morning. Yesterday, her white cell count was 9000; hemoglobin 10; hematocrit 31; MCV 89 and platelet count 228,000. Her serum sodium 144, potassium 4.9, chloride 111, bicarbonate 19, anion gap of 14, BUN 8, creatinine 0.4, estimated GFR was 192 mL per minute. Her glucose 124, calcium was 8.6. Total bilirubin, AST, ALT, alkaline phosphatase were normal. Total protein was 7.5, albumin was 2.5. ASSESSMENT: 1. COVID-19 pneumonia. 2. Acute hypoxic respiratory failure. 3. Urinary tract infection. 4. 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 5. Posttraumatic seizure disorder. 6. Hypertension. 7. Type 2 diabetes mellitus. PLAN: To continue with steroids, continue with bronchodilator, continue with all her other medications. She has received Zosyn and vancomycin for only about 2 days. Her urine culture showed growth of E. coli that was sensitive to piperacillin and tazobactam. She continued to spike her temperature and as of yesterday, it was 100.3. We will evaluate her again tomorrow and decide on further management accordingly. ETELVINA HAYWOOD MD DR: ALISON/hernán JOB#: [id number] / [id number]
[2020-04-23] MEDS: FLUTICASONE 50MCG/NASAL SPRAY 16GM BOTTLE. NS SCH (09:42)
[2020-04-23] MEDS: DICLOFENAC SODIUM 1% TOPICAL GEL 100GM TUBE. TP SCH ×3 (09:42→21:47)
--- NOTE | 2020-04-23 10:01 | PDOC ---
Infectious Disease Note Subjective Subjective feeling better ROS ROS no n/v/d/ Vital Sign Vital Signs Vital Signs Date Time Temp Pulse Resp B/P (MAP) Pulse Ox O2 Delivery O2 Flow Rate FiO2 04/23/20 09:26 105 154/72 04/23/20 03:35 99.0 17 93 Nasal Cannula 3.0 99.0 Physical Exam PHYSICAL EXAM GENERAL: Alert ____, who answers simple questions, not in distress. VITAL SIGNS: Stable HEENT: NAD. NECK: Supple, no JVP, no lymphadenopathy. LUNGS: Clear. HEART: S1, S2 regular. ABDOMEN: Benign. EXTREMITIES: No edema, cyanosis. SKIN: Unremarkable. NEUROLOGIC: The patient does have right-sided hemiplegia and a bit slow in answering the questions. Labs Lab Laboratory Tests Test 04/22/20 11:26 04/22/20 11:45 04/22/20 16:54 04/22/20 21:31 White Blood Count 9.0 x10^3/uL (4.0-11.0) Red Blood Count 3.48 x10^6/uL (3.50-5.40) Hemoglobin 10.3 g/dL (12.0-15.5) Hematocrit 31.1 % (36.0-47.0) Mean Corpuscular Volume 89 fL (79-100) Mean Corpuscular Hemoglobin 30 pg (25-35) Mean Corpuscular Hemoglobin Concent 33 g/dL (31-37) Red Cell Distribution Width 15.4 % (11.5-14.5) Platelet Count 228 x10^3/uL (140-400) Glucose (Fingerstick) 109 mg/dL (70-99) 85 mg/dL (70-99) 107 mg/dL (70-99) Test 04/23/20 09:31 Glucose (Fingerstick) 118 mg/dL (70-99) Micro BC coag neg staph Objective Assessment IMPRESSION: 1. COVID-19 pneumonia. 2. Hypoxemia. 3. Blood culture 1 out of 3, coag neg staph, contaminant. 4. Fever. 5. Right-sided cerebrovascular accident. 6. Traumatic brain injury. Plan Plan of Care cont supportive care TANNER WOO MD Apr 23, 2020 10:01
[2020-04-23 11:00] VITALS: BP 135/71
--- NOTE | 2020-04-23 11:11 | PDOC ---
PULMONARY PROGRESS NOTES DATE: 04/23/20 TIME: 11:07 Subjective Fever overnight, continued tachy No increased SOB, or cough, feeling better No overnight concerns from nursing Vitals Vital Signs Date Time Temp Pulse Resp B/P (MAP) Pulse Ox O2 Delivery O2 Flow Rate FiO2 04/23/20 09:26 105 154/72 04/23/20 08:30 Nasal Cannula 3.0 04/23/20 03:35 99.0 17 93 99.0 Comments visual exam done RRR N/C no soa, no rash no leg edema General: Alert, No acute distress Labs Laboratory Tests Test 04/21/20 11:21 04/21/20 15:27 04/21/20 22:37 04/22/20 06:06 Glucose (Fingerstick) 128 mg/dL (70-99) 108 mg/dL (70-99) 68 mg/dL (70-99) 120 mg/dL (70-99) Test 04/22/20 06:35 04/22/20 07:59 04/22/20 11:26 04/22/20 11:45 Sodium Level 144 mmol/L (136-145) Potassium Level 4.9 mmol/L (3.5-5.1) Chloride Level 111 mmol/L (98-107) Carbon Dioxide Level 19 mmol/L (21-32) Anion Gap 14 (6-14) Blood Urea Nitrogen 8 mg/dL (7-20) Creatinine 0.4 mg/dL (0.6-1.0) Estimated GFR (Cockcroft-Gault) 192.6 BUN/Creatinine Ratio 20 (6-20) Glucose Level 124 mg/dL (70-99) Calcium Level 8.6 mg/dL (8.5-10.1) Total Bilirubin 0.3 mg/dL (0.2-1.0) Aspartate Amino Transf (AST/SGOT) 77 U/L (15-37) Alanine Aminotransferase (ALT/SGPT) 56 U/L (14-59) Alkaline Phosphatase 97 U/L (46-116) Total Protein 7.5 g/dL (6.4-8.2) Albumin 2.5 g/dL (3.4-5.0) Albumin/Globulin Ratio 0.5 (1.0-1.7) Glucose (Fingerstick) 119 mg/dL (70-99) 109 mg/dL (70-99) White Blood Count 9.0 x10^3/uL (4.0-11.0) Red Blood Count 3.48 x10^6/uL (3.50-5.40) Hemoglobin 10.3 g/dL (12.0-15.5) Hematocrit 31.1 % (36.0-47.0) Mean Corpuscular Volume 89 fL (79-100) Mean Corpuscular Hemoglobin 30 pg (25-35) Mean Corpuscular Hemoglobin Concent 33 g/dL (31-37) Red Cell Distribution Width 15.4 % (11.5-14.5) Platelet Count 228 x10^3/uL (140-400) Test 04/22/20 16:54 04/22/20 21:31 04/23/20 09:31 Glucose (Fingerstick) 85 mg/dL (70-99) 107 mg/dL (70-99) 118 mg/dL (70-99) Laboratory Tests Test 04/22/20 11:26 04/22/20 11:45 04/22/20 16:54 04/22/20 21:31 White Blood Count 9.0 x10^3/uL (4.0-11.0) Red Blood Count 3.48 x10^6/uL (3.50-5.40) Hemoglobin 10.3 g/dL (12.0-15.5) Hematocrit 31.1 % (36.0-47.0) Mean Corpuscular Volume 89 fL (79-100) Mean Corpuscular Hemoglobin 30 pg (25-35) Mean Corpuscular Hemoglobin Concent 33 g/dL (31-37) Red Cell Distribution Width 15.4 % (11.5-14.5) Platelet Count 228 x10^3/uL (140-400) Glucose (Fingerstick) 109 mg/dL (70-99) 85 mg/dL (70-99) 107 mg/dL (70-99) Test 04/23/20 09:31 Glucose (Fingerstick) 118 mg/dL (70-99) Medications Active Scripts Medications Dose Route/Sig Max Daily Dose Days Date Category Dose Instructions Voltaren (Diclofenac Sodium) 100 Gm Gel..gram. 1 Jitendra TP TID 04/19/20 Reported Famotidine 20 Mg Tablet 20 Mg PO HS 01/28/20 Reported Dilantin (Phenytoin Sodium Extended) 100 Mg Capsule 30 Mg PO HS 01/28/20 Reported Lisinopril 30 Mg Tablet 1 Tab PO HS 01/28/20 Reported Mirtazapine 30 Mg Tab.rapdis 30 Mg PO QHS 30 01/28/20 Reported D3-50 (Cholecalciferol (Vitamin D3)) 50,000 Unit Capsule 1 Cap PO WEEKLY 28 01/28/20 Reported Aspirin 81 Mg Tab.chew 1 Tab PO DAILY 01/28/20 Reported Atorvastatin Calcium 10 Mg Tablet 10 Mg PO HS 02/24/17 Reported Anti-Diarrhea (Loperamide Hcl) 2 Mg Tablet 2 Mg PO PRN Q6HRS PRN 02/24/17 Reported Metformin Hcl 1,000 Mg Tablet 1 Tab PO BID 12/26/15 Rx Tylenol (Acetaminophen) 325 Mg Tablet 650 Mg PO BID 12/24/15 Reported Norvasc (Amlodipine Besylate) 10 Mg Tablet 10 Mg PO DAILY 12/24/15 Reported Milk Of Magnesia (Magnesium Hydroxide) 400 Mg/5 Ml Oral.susp 1,200 Mg PO PRN DAILY PRN 12/24/15 Reported Latanoprost 2.5 Ml Drops 1 Drop EACHEYE QHS 12/24/15 Reported Vimpat (Lacosamide) 200 Mg Tablet 200 Mg PO BID 12/24/15 Reported Keppra (Levetiracetam) 500 Mg Tablet 1,500 Mg PO BID 12/24/15 Reported Gabapentin (Gabapentin) 400 Mg Capsule 400 Mg PO TID 12/24/15 Reported Folic Acid 1 Mg Tablet 1 Tab PO DAILY 12/24/15 Reported Flonase Allergy Relief (Fluticasone Propionate) 9.9 Ml [place].susp 2 Sprays NS DAILY 12/24/15 Reported Buspirone Hcl 5 Mg Tablet 1 Tab PO BID 12/24/15 Reported Abilify (Aripiprazole) 5 Mg Tablet 5 Mg PO DAILY 12/24/15 Reported Hydrocortisone 30 Gm Cream..g. 30 Gm RC PRN BID PRN 05/20/14 Reported Hydrocortisone 1% Absorbase (Hc/Mineral Oil/Petrolat,Wht) 25 Gm Oint...g. 25 Gm TP 05/20/14 Reported Hydralazine Hcl 25 Mg Tablet 2 Tab PO TID 9/23/14 Reported Dilantin (Phenytoin Sodium Extended) 100 Mg Capsule 400 Mg PO HS 05/20/14 Reported give with 30mg to equal 430mg Depakote Sprinkle (Divalproex Sodium) 125 Mg Cap.sprink 125 Mg PO BID 05/20/14 Reported Cymbalta (Duloxetine Hcl) 30 Mg Capsule.dr 3 Cap PO DAILY 05/20/14 Reported Centrum Silver Ultra Women Tab (Multivits W-Fe,Other Min/Lut) 1 Each Tablet 1 Each PO DAILY 05/20/14 Reported Baclofen 10 Mg Tablet 1 Tab PO TID 05/20/14 Reported Comments CXR IMPRESSION: Mild right-sided infiltrates. Impression . 1. Acute hypoxic respiratory failure secondary to COVID-19 pneumonia. 2. Abnormal chest x-ray with patchy infiltrates bilaterally, suggestive of pneumonia, likely COVID-19.--COVID 19 positive --- improved 3. 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 4. History of posttraumatic epilepsy. 5. No significant tobacco history. 6. Mild azotemia. 7. Normal D-dimer. Plan . Continue supplemental oxygen, now on 3 liters N/C, feeling much better Tylenol for fever, monitor COVID-19.Positive Continue empiric antibiotic per ID Continue steroids, will begin taper soon, will need ten day total therapy D/W BUFFY EDDY MD Apr 23, 2020 11:11
[2020-04-23 14:46] VITALS: BP 123/60
--- NOTE | 2020-04-23 17:29 | NUR ---
SW following. Reviewed chart and spoke with RN. Pt to discharge back to [facility] when stable. Pt remains on IV abx with a fever. Pt COVID positive. SW following.
[2020-04-23] MEDS: PHENYTOIN SODIUM EXTENDED 30 MG CAPSULE. PO SCH (21:41)
[2020-04-23] MEDS: PHENYTOIN SODIUM EXTENDED 100 MG CAPSULE PO SCH (21:41)
[2020-04-23] MEDS: MIRTAZAPINE 15 MG TABLET PO SCH (21:42)
[2020-04-23] MEDS: LISINOPRIL 10 MG TABLET PO SCH (21:43)
[2020-04-23] MEDS: ATORVASTATIN CALCIUM 10 MG TABLET. PO SCH (21:43)
[2020-04-23] MEDS: FAMOTIDINE 20 MG TABLET. PO SCH (21:43)
[2020-04-23] MEDS: LATANOPROST 0.005% OPHTH SOLUTION 2.5ML BOTTLE. OU SCH (21:46)
[2020-04-23 22:14] VITALS: BP 177/77
[2020-04-23] MEDS: METOPROLOL TARTRATE 5 MG/5 ML VIAL. IVP PRN (22:15)
[2020-04-23 22:35] VITALS: BP 166/74
[2020-04-24] VITALS (7 sets, daily range): BP systolic 119–176; BP diastolic 61–95
[2020-04-24] MEDS: METOPROLOL TARTRATE 5 MG/5 ML VIAL. IVP PRN (04:30)
[2020-04-24 04:47] LABS: HEMATOCRIT 27.4 % (36.0-47.0); HEMOGLOBIN 9.1 g/dL (12.0-15.5); RED BLOOD COUNT 3.11 x10^6/uL (3.50-5.40); RED CELL DISTRIBUTION WIDTH 15.1 % (11.5-14.5); WHITE BLOOD COUNT 6.6 x10^3/uL (4.0-11.0)
[2020-04-24 05:23] LABS: ALBUMIN 2.2 g/dL (3.4-5.0); ALBUMIN/GLOBULIN RATIO 0.4 (1.0-1.7); CALCIUM 8.7 mg/dL (8.5-10.1); CREATININE 0.6 mg/dL (0.6-1.0); GFR 120.7; POTASSIUM 3.9 mmol/L (3.5-5.1); TOTAL BILIRUBIN 0.3 mg/dL (0.2-1.0); TOTAL PROTEIN 7.4 g/dL (6.4-8.2)
[2020-04-24] MEDS: methylPREDNISolone SOD SUCC PF 40 MG/ML VIAL. IV SCH ×3 (07:07→21:04)
[2020-04-24] MEDS: INSULIN LISPRO 300 UNITS/3 ML VIAL. SQ SCH ×3 (08:00→17:00)
[2020-04-24] MEDS: FLUTICASONE 50MCG/NASAL SPRAY 16GM BOTTLE. NS SCH (09:00)
[2020-04-24] MEDS: MULTIVITAMIN with MINERAL TABLET. PO SCH (09:00)
[2020-04-24] MEDS: DICLOFENAC SODIUM 1% TOPICAL GEL 100GM TUBE. TP SCH ×3 (09:00→13:14)
--- NOTE | 2020-04-24 09:03 | PDOC ---
PULMONARY PROGRESS NOTES DATE: 04/24/20 TIME: 09:03 Subjective Continues to have fevers Remains on 3 liters N/C No increased SOB, or cough, feeling better No overnight concerns from nursing Vitals Vital Signs Date Time Temp Pulse Resp B/P (MAP) Pulse Ox O2 Delivery O2 Flow Rate FiO2 04/24/20 07:00 99.0 115 18 147/95 (112) 93 Nasal Cannula 3.0 99.0 Comments visual exam done RRR N/C no soa, no rash no leg edema General: Alert, No acute distress Labs Laboratory Tests Test 04/22/20 11:26 04/22/20 11:45 04/22/20 16:54 04/22/20 21:31 White Blood Count 9.0 x10^3/uL (4.0-11.0) Red Blood Count 3.48 x10^6/uL (3.50-5.40) Hemoglobin 10.3 g/dL (12.0-15.5) Hematocrit 31.1 % (36.0-47.0) Mean Corpuscular Volume 89 fL (79-100) Mean Corpuscular Hemoglobin 30 pg (25-35) Mean Corpuscular Hemoglobin Concent 33 g/dL (31-37) Red Cell Distribution Width 15.4 % (11.5-14.5) Platelet Count 228 x10^3/uL (140-400) Glucose (Fingerstick) 109 mg/dL (70-99) 85 mg/dL (70-99) 107 mg/dL (70-99) Test 04/23/20 09:31 04/23/20 16:31 04/24/20 03:00 04/24/20 08:28 Glucose (Fingerstick) 118 mg/dL (70-99) 93 mg/dL (70-99) 152 mg/dL (70-99) White Blood Count 6.6 x10^3/uL (4.0-11.0) Red Blood Count 3.11 x10^6/uL (3.50-5.40) Hemoglobin 9.1 g/dL (12.0-15.5) Hematocrit 27.4 % (36.0-47.0) Mean Corpuscular Volume 88 fL (79-100) Mean Corpuscular Hemoglobin 29 pg (25-35) Mean Corpuscular Hemoglobin Concent 33 g/dL (31-37) Red Cell Distribution Width 15.1 % (11.5-14.5) Platelet Count 297 x10^3/uL (140-400) Sodium Level 147 mmol/L (136-145) Potassium Level 3.9 mmol/L (3.5-5.1) Chloride Level 111 mmol/L (98-107) Carbon Dioxide Level 24 mmol/L (21-32) Anion Gap 12 (6-14) Blood Urea Nitrogen 13 mg/dL (7-20) Creatinine 0.6 mg/dL (0.6-1.0) Estimated GFR (Cockcroft-Gault) 120.7 BUN/Creatinine Ratio 22 (6-20) Glucose Level 211 mg/dL (70-99) Calcium Level 8.7 mg/dL (8.5-10.1) Total Bilirubin 0.3 mg/dL (0.2-1.0) Aspartate Amino Transf (AST/SGOT) 55 U/L (15-37) Alanine Aminotransferase (ALT/SGPT) 39 U/L (14-59) Alkaline Phosphatase 80 U/L (46-116) Total Protein 7.4 g/dL (6.4-8.2) Albumin 2.2 g/dL (3.4-5.0) Albumin/Globulin Ratio 0.4 (1.0-1.7) Laboratory Tests Test 04/23/20 09:31 04/23/20 16:31 04/24/20 03:00 04/24/20 08:28 Glucose (Fingerstick) 118 mg/dL (70-99) 93 mg/dL (70-99) 152 mg/dL (70-99) White Blood Count 6.6 x10^3/uL (4.0-11.0) Red Blood Count 3.11 x10^6/uL (3.50-5.40) Hemoglobin 9.1 g/dL (12.0-15.5) Hematocrit 27.4 % (36.0-47.0) Mean Corpuscular Volume 88 fL (79-100) Mean Corpuscular Hemoglobin 29 pg (25-35) Mean Corpuscular Hemoglobin Concent 33 g/dL (31-37) Red Cell Distribution Width 15.1 % (11.5-14.5) Platelet Count 297 x10^3/uL (140-400) Sodium Level 147 mmol/L (136-145) Potassium Level 3.9 mmol/L (3.5-5.1) Chloride Level 111 mmol/L (98-107) Carbon Dioxide Level 24 mmol/L (21-32) Anion Gap 12 (6-14) Blood Urea Nitrogen 13 mg/dL (7-20) Creatinine 0.6 mg/dL (0.6-1.0) Estimated GFR (Cockcroft-Gault) 120.7 BUN/Creatinine Ratio 22 (6-20) Glucose Level 211 mg/dL (70-99) Calcium Level 8.7 mg/dL (8.5-10.1) Total Bilirubin 0.3 mg/dL (0.2-1.0) Aspartate Amino Transf (AST/SGOT) 55 U/L (15-37) Alanine Aminotransferase (ALT/SGPT) 39 U/L (14-59) Alkaline Phosphatase 80 U/L (46-116) Total Protein 7.4 g/dL (6.4-8.2) Albumin 2.2 g/dL (3.4-5.0) Albumin/Globulin Ratio 0.4 (1.0-1.7) Medications Active Scripts Medications Dose Route/Sig Max Daily Dose Days Date Category Dose Instructions Voltaren (Diclofenac Sodium) 100 Gm Gel..gram. 1 Jitendra TP TID 04/19/20 Reported Famotidine 20 Mg Tablet 20 Mg PO HS 01/28/20 Reported Dilantin (Phenytoin Sodium Extended) 100 Mg Capsule 30 Mg PO HS 01/28/20 Reported Lisinopril 30 Mg Tablet 1 Tab PO HS 01/28/20 Reported Mirtazapine 30 Mg Tab.rapdis 30 Mg PO QHS 30 01/28/20 Reported D3-50 (Cholecalciferol (Vitamin D3)) 50,000 Unit Capsule 1 Cap PO WEEKLY 28 01/28/20 Reported Aspirin 81 Mg Tab.chew 1 Tab PO DAILY 01/28/20 Reported Atorvastatin Calcium 10 Mg Tablet 10 Mg PO HS 02/24/17 Reported Anti-Diarrhea (Loperamide Hcl) 2 Mg Tablet 2 Mg PO PRN Q6HRS PRN 02/24/17 Reported Metformin Hcl 1,000 Mg Tablet 1 Tab PO BID 12/26/15 Rx Tylenol (Acetaminophen) 325 Mg Tablet 650 Mg PO BID 12/24/15 Reported Norvasc (Amlodipine Besylate) 10 Mg Tablet 10 Mg PO DAILY 12/24/15 Reported Milk Of Magnesia (Magnesium Hydroxide) 400 Mg/5 Ml Oral.susp 1,200 Mg PO PRN DAILY PRN 12/24/15 Reported Latanoprost 2.5 Ml Drops 1 Drop EACHEYE QHS 12/24/15 Reported Vimpat (Lacosamide) 200 Mg Tablet 200 Mg PO BID 12/24/15 Reported Keppra (Levetiracetam) 500 Mg Tablet 1,500 Mg PO BID 12/24/15 Reported Gabapentin (Gabapentin) 400 Mg Capsule 400 Mg PO TID 12/24/15 Reported Folic Acid 1 Mg Tablet 1 Tab PO DAILY 12/24/15 Reported Flonase Allergy Relief (Fluticasone Propionate) 9.9 Ml [place].susp 2 Sprays NS DAILY 12/24/15 Reported Buspirone Hcl 5 Mg Tablet 1 Tab PO BID 12/24/15 Reported Abilify (Aripiprazole) 5 Mg Tablet 5 Mg PO DAILY 12/24/15 Reported Hydrocortisone 30 Gm Cream..g. 30 Gm RC PRN BID PRN 05/20/14 Reported Hydrocortisone 1% Absorbase (Hc/Mineral Oil/Petrolat,Wht) 25 Gm Oint...g. 25 Gm TP 05/20/14 Reported Hydralazine Hcl 25 Mg Tablet 2 Tab PO TID 05/20/14 Reported Dilantin (Phenytoin Sodium Extended) 100 Mg Capsule 400 Mg PO HS 05/20/14 Reported give with 30mg to equal 430mg Depakote Sprinkle (Divalproex Sodium) 125 Mg Cap.sprink 125 Mg PO BID 05/20/14 Reported Cymbalta (Duloxetine Hcl) 30 Mg Capsule.dr 3 Cap PO DAILY 05/20/14 Reported Centrum Silver Ultra Women Tab (Multivits W-Fe,Other Min/Lut) 1 Each Tablet 1 Each PO DAILY 05/20/14 Reported Baclofen 10 Mg Tablet 1 Tab PO TID 05/20/14 Reported Comments CXR IMPRESSION: Mild right-sided infiltrates. Impression . 1. Acute hypoxic respiratory failure secondary to COVID-19 pneumonia. 2. Abnormal chest x-ray with patchy infiltrates bilaterally, suggestive of pneumonia, likely COVID-19.--COVID 19 positive --- improved 3. 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 4. History of posttraumatic epilepsy. 5. No significant tobacco history. 6. Mild azotemia--improved 7. Normal D-dimer. Plan . Continue supplemental oxygen, now on 3 liters N/C, attempt to wean oxygen as tolerated Tylenol for fever, monitor COVID-19.Positive Continue empiric antibiotic per ID Continue steroids, will begin taper soon, will need ten day total therapy could D/C back to SNF once fevers resolve D/W MEHRAN MARC MD Apr 24, 2020 09:03
[2020-04-24] MEDS: FOLIC ACID 1 MG TABLET. PO SCH (09:53)
[2020-04-24] MEDS: DIVALPROEX SPRINKLES 125 MG CAPSULE. PO SCH ×2 (09:53→21:04)
[2020-04-24] MEDS: BACLOFEN 10 MG TABLET. PO SCH ×3 (09:53→21:05)
[2020-04-24] MEDS: GABAPENTIN 400 MG CAPSULE. PO SCH ×3 (09:53→21:05)
[2020-04-24] MEDS: ACETAMINOPHEN 325 MG TABLET. PO SCH ×2 (09:54→21:05)
[2020-04-24] MEDS: levETIRAcetam 500 MG TABLET PO SCH ×2 (09:54→21:06)
[2020-04-24] MEDS: LACTOBACILLUS RHAMNOSUS GG 1 CAPSULE. PO SCH ×2 (09:54→21:06)
[2020-04-24] MEDS: DULoxetine HCL 30 MG CAPSULE.DR PO SCH (09:54)
[2020-04-24] MEDS: LACOSAMIDE 200 MG TABLET PO SCH ×2 (09:55→21:04)
[2020-04-24] MEDS: metFORMIN 500 MG TABLET PO SCH ×2 (09:55→16:34)
[2020-04-24] MEDS: ARIPiprazole 5 MG TABLET PO SCH (09:55)
[2020-04-24] MEDS: amLODIPine BESYLATE 10 MG TABLET PO SCH (09:55)
[2020-04-24] MEDS: ASPIRIN CHEWABLE 81 MG TABLET. PO SCH (09:55)
[2020-04-24] MEDS: busPIRone 5 MG TABLET. PO SCH ×2 (09:55→21:04)
[2020-04-24] MEDS: hydrALAZINE 25 MG TABLET PO SCH ×3 (09:56→21:06)
[2020-04-24] MEDS: ENOXAPARIN 40 MG/0.4 ML SYRINGE. SQ SCH ×2 (09:59→21:03)
--- NOTE | 2020-04-24 10:58 | PN ---
DATE: 04/24/2020 SUBJECTIVE: The patient continued to spike her temperature. In fact, last night was up to 101.3. She is tachycardic. PHYSICAL EXAMINATION: GENERAL: When I examined her this morning, she was resting slightly propped up in bed, in no apparent respiratory distress. She is somewhat pale, but no jaundice or cyanosis. No lymphadenopathy, no thyromegaly. No jugular venous distention. No limb edema. VITAL SIGNS: Her heart rate was 115, blood pressure 147/95, temperature was 99, respiratory rate was 18 and oxygen saturation was 93%. HEAD, EYES, EARS, NOSE AND THROAT: Normocephalic, atraumatic. NECK: Supple. HEART: Showed normal first and second heart sounds. No gallop, rub or murmur. CHEST: Clear to auscultation. No crepitation or rhonchi. ABDOMEN: Distended, soft, nontender. No guarding or rigidity. No organomegaly. All hernial orifice intact. Bowel sounds normal. NEUROLOGIC: She has aphasia on the right side and hemiplegia. Her intake was 275, no output was recorded. LABORATORY DATA: Showed a white cell count 6600, hemoglobin 9, hematocrit 27, MCV 88 and platelet count 297,000. Her chemistry showed a serum sodium 147, potassium 3.9, chloride 111, bicarbonate 24, anion gap 12, BUN 13, creatinine 0.6, estimated GFR was 120 mL per minute. Her glucose was 111, calcium was 8.7. Total bilirubin, AST, ALT, alkaline phosphatase were normal. Total protein was 7.4, albumin was 2.2. ASSESSMENT: The patient continues to spike her temperature. Her urine culture has grown Escherichia coli sensitive to ceftriaxone. I will start her on IV ceftriaxone. I will probably observe her for another 24 hours. If she remains stable tomorrow, she can be discharged back to [facility]. ETELVINA HAYWOOD MD DR: ALISON/hernán JOB#: [id number] / [id number]
--- NOTE | 2020-04-24 11:48 | NUR ---
SW following. Reviewed chart and spoke with RN. Spoke with Dr. Bolanos and ID has put pt on IV Rocephin. Pt continues to have a fever and is not ready for discharge. BORIS updated BORIS Kolb at [facility] ([phone]). BORIS added pt to potential weekend discharge list per request of Dr. Bolanos. Packet of clinicals is up to date. [facility] to be called to arrange for stretcher transport if pt discharges over the weekend. BORIS to continue following.
--- NOTE | 2020-04-24 12:00 | PDOC ---
Infectious Disease Note Subjective Subjective feeling better,, though had fever ROS ROS no n/v/d/ Vital Sign Vital Signs Vital Signs Date Time Temp Pulse Resp B/P (MAP) Pulse Ox O2 Delivery O2 Flow Rate FiO2 04/24/20 09:56 115 147/95 04/24/20 07:00 99.0 18 93 Nasal Cannula 3.0 99.0 Physical Exam PHYSICAL EXAM GENERAL: Alert ____, who answers simple questions, not in distress. VITAL SIGNS: Stable HEENT: NAD. NECK: Supple, no JVP, no lymphadenopathy. LUNGS: Clear. HEART: S1, S2 regular. ABDOMEN: Benign. EXTREMITIES: No edema, cyanosis. SKIN: Unremarkable. NEUROLOGIC: The patient does have right-sided hemiplegia and a bit slow in answering the questions. Labs Lab Laboratory Tests Test 04/23/20 16:31 04/24/20 03:00 04/24/20 08:28 Glucose (Fingerstick) 93 mg/dL (70-99) 152 mg/dL (70-99) White Blood Count 6.6 x10^3/uL (4.0-11.0) Red Blood Count 3.11 x10^6/uL (3.50-5.40) Hemoglobin 9.1 g/dL (12.0-15.5) Hematocrit 27.4 % (36.0-47.0) Mean Corpuscular Volume 88 fL (79-100) Mean Corpuscular Hemoglobin 29 pg (25-35) Mean Corpuscular Hemoglobin Concent 33 g/dL (31-37) Red Cell Distribution Width 15.1 % (11.5-14.5) Platelet Count 297 x10^3/uL (140-400) Sodium Level 147 mmol/L (136-145) Potassium Level 3.9 mmol/L (3.5-5.1) Chloride Level 111 mmol/L (98-107) Carbon Dioxide Level 24 mmol/L (21-32) Anion Gap 12 (6-14) Blood Urea Nitrogen 13 mg/dL (7-20) Creatinine 0.6 mg/dL (0.6-1.0) Estimated GFR (Cockcroft-Gault) 120.7 BUN/Creatinine Ratio 22 (6-20) Glucose Level 211 mg/dL (70-99) Calcium Level 8.7 mg/dL (8.5-10.1) Total Bilirubin 0.3 mg/dL (0.2-1.0) Aspartate Amino Transf (AST/SGOT) 55 U/L (15-37) Alanine Aminotransferase (ALT/SGPT) 39 U/L (14-59) Alkaline Phosphatase 80 U/L (46-116) Total Protein 7.4 g/dL (6.4-8.2) Albumin 2.2 g/dL (3.4-5.0) Albumin/Globulin Ratio 0.4 (1.0-1.7) Micro BC coag neg staph urine culture + , but ua neg Objective Assessment IMPRESSION: 1. COVID-19 pneumonia. 2. Hypoxemia. 3. Blood culture 1 out of 3, coag neg staph, contaminant. 4. Fever. 5. Right-sided cerebrovascular accident. 6. Traumatic brain injury. Plan Plan of Care cont supportive care fever likely from pneumonia cont to continue antibiotics TANNER WOO MD Apr 24, 2020 12:00
[2020-04-24] MEDS: cefTRIAXone IV Push 1 GM VIAL. IVP SCH (13:02)
[2020-04-24] MEDS: PHENYTOIN SODIUM EXTENDED 30 MG CAPSULE. PO SCH (21:04)
[2020-04-24] MEDS: PHENYTOIN SODIUM EXTENDED 100 MG CAPSULE PO SCH (21:04)
[2020-04-24] MEDS: LISINOPRIL 10 MG TABLET PO SCH (21:05)
[2020-04-24] MEDS: FAMOTIDINE 20 MG TABLET. PO SCH (21:05)
[2020-04-24] MEDS: ATORVASTATIN CALCIUM 10 MG TABLET. PO SCH (21:06)
[2020-04-24] MEDS: MIRTAZAPINE 15 MG TABLET PO SCH (21:06)
[2020-04-24] MEDS: LATANOPROST 0.005% OPHTH SOLUTION 2.5ML BOTTLE. OU SCH (21:07)
[2020-04-25 03:20] VITALS: BP 119/58
[2020-04-25] MEDS: methylPREDNISolone SOD SUCC PF 40 MG/ML VIAL. IV SCH ×3 (06:10→22:26)
--- NOTE | 2020-04-25 07:03 | PDOC ---
Infectious Disease Note Subjective Subjective feeling better,, ROS ROS no n/v/d/ Vital Sign Vital Signs Vital Signs Date Time Temp Pulse Resp B/P (MAP) Pulse Ox O2 Delivery O2 Flow Rate FiO2 04/25/20 03:20 99.5 108 24 119/58 (78) 95 Nasal Cannula 3.0 99.5 Physical Exam PHYSICAL EXAM GENERAL: Alert ____, who answers simple questions, not in distress. VITAL SIGNS: Stable HEENT: NAD. NECK: Supple, no JVP, no lymphadenopathy. LUNGS: Clear. HEART: S1, S2 regular. ABDOMEN: Benign. EXTREMITIES: No edema, cyanosis. SKIN: Unremarkable. NEUROLOGIC: The patient does have right-sided hemiplegia and a bit slow in answering the questions. Labs Lab Laboratory Tests Test 04/24/20 08:28 04/24/20 12:01 04/24/20 17:05 04/24/20 20:47 Glucose (Fingerstick) 152 mg/dL (70-99) 250 mg/dL (70-99) 126 mg/dL (70-99) 59 mg/dL (70-99) Test 04/24/20 22:05 Glucose (Fingerstick) 120 mg/dL (70-99) Micro BC coag neg staph urine culture + , but ua neg Objective Assessment IMPRESSION: 1. COVID-19 pneumonia. 2. Hypoxemia. 3. Blood culture 1 out of 3, coag neg staph, contaminant. 4. Fever. 5. Right-sided cerebrovascular accident. 6. Traumatic brain injury. Plan Plan of Care cont supportive care fever likely from pneumonia cont to continue antibiotics can be d/c ed if a febrile on po augmentin TANNER WOO MD Apr 25, 2020 07:03
[2020-04-25 07:25] VITALS: BP 138/76
[2020-04-25] MEDS: INSULIN LISPRO 300 UNITS/3 ML VIAL. SQ SCH ×3 (08:00→17:26)
[2020-04-25] MEDS ORDERED: PRED20TA PO (08:43)
[2020-04-25] MEDS ORDERED: AMOX1TAB61 PO (08:43)
--- NOTE | 2020-04-25 08:47 | SNU/HH DC ---
DISCHARGE ORDERS DISCHARGE INFORMATION: DISCHARGE DATE: Apr 25, 2020 FINAL DIAGNOSIS Problems Medical Problems: (1) Altered mental status Status: Acute (2) Pneumonia Status: Acute CONDITION ON DISCHARGE: Stable CODE STATUS: Code Status: Full LONG TERM: SNF STAY <30 DAYS: Yes POST DISCHARGE ORDERS: ACTIVITY ORDERS: Resume previous activity DIET AFTER DISCHARGE: ADA TREATMENT/EQUIPMENT ORDERS: RESPIRATORY EQUIPMENT NEEDED: Oxygen Physical Therapy For: Evalulation/Treatment Occupational Therapy For: Evaluation/Treatment DISCHARGE MEDICATIONS: Home Meds Active Scripts Prednisone (PREDNISONE) 20 Mg Tablet, 1 TAB PO DAILY for HCAP for 10 Days, #10 TAB Prov:ETELVINA HAYWOOD MD 04/25/20 Amoxicillin/Potassium Clav (AUGMENTIN 875-125 TABLET) 1 Each Tablet, 1 TAB PO BID for HCAP for 7 Days, #14 TAB 0 Refills Prov:ETELVINA HAYWOOD MD 04/25/20 Metformin Hcl (METFORMIN HCL) 1,000 Mg Tablet, 1 TAB PO BID, #60 TAB 5 Refills Prov:ETELVINA HAYWOOD MD 12/26/15 Reported Medications Diclofenac Sodium (VOLTAREN) 100 Gm Gel..gram., 1 CHARITY TP TID for RIGHT ANKLE PAIN, EACH 04/19/20 Famotidine (FAMOTIDINE) 20 Mg Tablet, 20 MG PO HS for gerd, TAB 01/28/20 Phenytoin Sodium Extended (DILANTIN) 100 Mg Capsule, 30 MG PO HS for seizures, #90 CAP 3 Refills 01/28/20 Lisinopril (LISINOPRIL) 30 Mg Tablet, 1 TAB PO HS for HTN, #30 TAB 5 Refills 01/28/20 Mirtazapine (MIRTAZAPINE) 30 Mg Tab.rapdis, 30 MG PO QHS for depression for 30 Days, #30 TAB 0 Refills 01/28/20 Cholecalciferol (Vitamin D3) (D3-50) 50,000 Unit Capsule, 1 CAP PO WEEKLY for vitamin d deficiency for 28 Days, #4 CAP 0 Refills 01/28/20 Aspirin (ASPIRIN) 81 Mg Tab.chew, 1 TAB PO DAILY for antiplatelet, #30 TAB 3 Refills 01/28/20 Atorvastatin Calcium (ATORVASTATIN CALCIUM) 10 Mg Tablet, 10 MG PO HS for FOR CHOLESTEROL, #30 TAB 0 Refills 02/24/17 Loperamide Hcl (ANTI-DIARRHEA) 2 Mg Tablet, 2 MG PO PRN Q6HRS PRN for DIARRHEA, TAB 02/24/17 Acetaminophen (TYLENOL) 325 Mg Tablet, 650 MG PO BID for pain 12/24/15 Amlodipine Besylate (NORVASC) 10 Mg Tablet, 10 MG PO DAILY, TAB 12/24/15 Magnesium Hydroxide (MILK OF MAGNESIA) 400 Mg/5 Ml Oral.susp, 1200 MG PO PRN DAILY PRN for CONSTIPATION 12/24/15 Latanoprost (LATANOPROST) 2.5 Ml Drops, 1 DROP EACHEYE QHS for glaucoma 12/24/15 Lacosamide (VIMPAT) 200 Mg Tablet, 200 MG PO BID 12/24/15 Levetiracetam (KEPPRA) 500 Mg Tablet, 1500 MG PO BID, TAB 12/24/15 Gabapentin (GABAPENTIN ) 400 Mg Capsule, 400 MG PO TID, CAP 12/24/15 Folic Acid (FOLIC ACID) 1 Mg Tablet, 1 TAB PO DAILY, TAB 12/24/15 Fluticasone Propionate (Flonase Allergy Relief) 9.9 Ml [place].susp, 2 SPRAYS NS DAILY, BOTTLE 12/24/15 Buspirone Hcl (BUSPIRONE HCL) 5 Mg Tablet, 1 TAB PO BID, TAB 12/24/15 Aripiprazole (ABILIFY) 5 Mg Tablet, 5 MG PO DAILY for delusions, TAB 12/24/15 Hydrocortisone (HYDROCORTISONE) 30 Gm Cream..g., 30 GM RC PRN BID PRN for RASH 05/20/14 Hc/Mineral Oil/Petrolat,Wht (HYDROCORTISONE 1% ABSORBASE) 25 Gm Oint...g., 25 GM TP 05/20/14 Hydralazine Hcl (HYDRALAZINE HCL) 25 Mg Tablet, 2 TAB PO TID, #90 TAB 5 Refills 05/20/14 Phenytoin Sodium Extended (DILANTIN) 100 Mg Capsule, 400 MG PO HS for seizure, CAP give with 30mg to equal 430mg 05/20/14 Divalproex Sodium (DEPAKOTE SPRINKLE) 125 Mg Cap.sprink, 125 MG PO BID, EACH 05/20/14 Duloxetine Hcl (CYMBALTA) 30 Mg Capsule.dr, 3 CAP PO DAILY, #30 CAP 5 Refills 05/20/14 Multivits W-Fe,Other Min/Lut (CENTRUM SILVER ULTRA WOMEN TAB) 1 Each Tablet, 1 EACH PO DAILY for vitamin supplement 05/20/14 Baclofen (BACLOFEN) 10 Mg Tablet, 1 TAB PO TID, #90 TAB 2 Refills 05/20/14 ETELVINA HAYWOOD MD Apr 25, 2020 08:47
[2020-04-25] MEDS: ACETAMINOPHEN 325 MG TABLET. PO SCH ×3 (09:00→22:23)
[2020-04-25] MEDS: LACOSAMIDE 200 MG TABLET PO SCH ×2 (09:30→22:24)
[2020-04-25] MEDS: LACTOBACILLUS RHAMNOSUS GG 1 CAPSULE. PO SCH ×2 (09:30→22:24)
[2020-04-25] MEDS: DIVALPROEX SPRINKLES 125 MG CAPSULE. PO SCH ×2 (09:31→22:25)
[2020-04-25] MEDS: BACLOFEN 10 MG TABLET. PO SCH ×3 (09:31→22:25)
[2020-04-25] MEDS: busPIRone 5 MG TABLET. PO SCH ×2 (09:31→22:24)
[2020-04-25] MEDS: ASPIRIN CHEWABLE 81 MG TABLET. PO SCH (09:31)
[2020-04-25] MEDS: levETIRAcetam 500 MG TABLET PO SCH ×2 (09:31→22:22)
[2020-04-25] MEDS: DULoxetine HCL 30 MG CAPSULE.DR PO SCH (09:34)
[2020-04-25] MEDS: amLODIPine BESYLATE 10 MG TABLET PO SCH (09:35)
[2020-04-25] MEDS: MULTIVITAMIN with MINERAL TABLET. PO SCH (09:35)
[2020-04-25] MEDS: ARIPiprazole 5 MG TABLET PO SCH (09:35)
[2020-04-25] MEDS: FOLIC ACID 1 MG TABLET. PO SCH (09:35)
[2020-04-25] MEDS: GABAPENTIN 400 MG CAPSULE. PO SCH ×3 (09:35→22:24)
[2020-04-25] MEDS: metFORMIN 500 MG TABLET PO SCH ×2 (09:35→17:24)
[2020-04-25] MEDS: ENOXAPARIN 40 MG/0.4 ML SYRINGE. SQ SCH ×2 (09:35→22:26)
[2020-04-25] MEDS: hydrALAZINE 25 MG TABLET PO SCH ×3 (09:36→22:26)
[2020-04-25] MEDS: LISINOPRIL 10 MG TABLET PO SCH ×2 (09:37→22:24)
[2020-04-25] MEDS: DICLOFENAC SODIUM 1% TOPICAL GEL 100GM TUBE. TP SCH ×3 (09:48→22:22)
[2020-04-25] MEDS: cefTRIAXone IV Push 1 GM VIAL. IVP SCH (09:56)
[2020-04-25] MEDS: FLUTICASONE 50MCG/NASAL SPRAY 16GM BOTTLE. NS SCH (10:27)
--- NOTE | 2020-04-25 11:38 | DS ---
DATE OF DISCHARGE: HOSPITAL COURSE: The patient is a 65-year-old -Citizen Of [place] female patient, a resident of [facility], who was admitted on 04/19/2020 with altered mental status and acute hypoxic respiratory failure. Her COVID-19 became positive and she was treated for healthcare-associated pneumonia with vancomycin and Zosyn. She was also seen in consultation by the Infectious Disease specialist. Her blood cultures showed growth of Staphylococcus species coagulase-negative and 1/3 bottles probably contaminant. Her urine culture has grown more than 100,000 colony forming units per/mL of gram-negative rods identified as Escherichia coli sensitive to penicillins and almost all antibiotics. As the patient remained stable and afebrile over the last 24 hours, a decision was made to discharge her back to [facility] to continue treatment with oral Augmentin and a tapering course of steroids. OBJECTIVE: GENERAL: When I saw her this morning, she was resting slightly propped up in bed, in no apparent respiratory distress. On questioning her, she denied any complaint. The nursing staff did not voice any concerns that she had an eventful night. When I examined her, she was pale, but no jaundice or cyanosis. No lymphadenopathy, no thyromegaly. No jugular venous distention. No limb edema. VITAL SIGNS: Her heart rate was 107, blood pressure was 138/76, temperature was 98.9, respiratory rate was 22 and oxygen saturation was 94% on 3 liters of oxygen by nasal cannula. HEAD, EYES, EARS, NOSE AND THROAT: Showed normocephalic, atraumatic. NECK: Supple. CARDIAC: Normal first and second heart sounds. No gallop, rub or murmur. CHEST: Clear to auscultation. No crepitation or rhonchi. ABDOMEN: Distended, soft, nontender. NEUROLOGIC: She is awake, alert, responding by nodding her head and muttering few words. She has aphasia and right-sided hemiplegia. Her intake over the last 24 hours was 416, output was recorded. LABORATORY DATA: Her lab work showed her white cell count was 6600, hemoglobin 9, hematocrit 27, MCV 88 and platelet count of 297,000. Her blood sugar has been well controlled. As of yesterday, her serum sodium was 147, potassium 3.9, chloride 111, bicarbonate 24, anion gap of 12, BUN 13, creatinine 0.6, estimated GFR was 120 mL per minute. Her glucose was 211, calcium was 8.7. Total bilirubin, AST, ALT, alkaline phosphatase were normal. Total protein 7.4, albumin 2.2. D-dimer was only 0.33. PT was 14.8, INR 1.2, APTT was 37. Her phenytoin level was 15 mcg/mL, which is well within therapeutic range. DISCHARGE MEDICATIONS: She was discharged back to [facility] to continue on Augmentin 875 mg 1 tablet twice a day with food for 7 days, a tapering course of steroids, Tylenol 650 mg twice a day, amlodipine besylate 10 mg once a day, aripiprazole 5 mg daily, aspirin 81 mg once a day, atorvastatin calcium 10 mg once a day, baclofen 10 mg 3 times a day, buspirone 5 mg twice a day, cholecalciferol/vitamin D3 50,000 units once a week, diclofenac sodium 3 times a day, divalproex 125 mg twice a day, duloxetine for Cymbalta 90 mg once a day, famotidine 20 mg at bedtime, Flonase 2 sprays to each nostril once a day, folic acid 1 mg once a day, gabapentin 400 mg 3 times a day, hydrocortisone 1%, absolute base ointment applied topically as needed, hydralazine 50 mg 3 times a day, hydrocortisone cream applied topically twice a day, lacosamide (Vimpat) 200 mg twice a day and latanoprost 1 drop to both eyes at bedtime, Keppra 1500 mg twice a day, lisinopril 30 mg at bedtime, loperamide 2 mg every 6 hours, magnesium hydroxide for milk of magnesia 30 mL p.o. daily p.r.n. for constipation, metformin 1000 mg twice a day, mirtazapine 30 mg at bedtime, multivitamin 1 tablet once a day, phenytoin sodium extended release 30 mg at bedtime. FINAL DISCHARGE DIAGNOSES: 1. COVID-19 pneumonia. 2. Acute hypoxic respiratory failure. 3. Urinary tract infection with growth of Escherichia coli. 4. 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 5. Posttraumatic seizure disorder. 6. Hypertension. 7. Type 2 diabetes mellitus. ETELVINA HAYWOOD MD DR: Anabella JOB#: [id number] / [id number]
[2020-04-25 11:54] VITALS: BP 178/100
--- NOTE | 2020-04-25 12:36 | PDOC ---
PULMONARY PROGRESS NOTES DATE: 04/25/20 TIME: 12:33 Subjective low grade fever overnight, continued tachycardia now on room air No overnight concerns from nursing Vitals Vital Signs Date Time Temp Pulse Resp B/P (MAP) Pulse Ox O2 Delivery O2 Flow Rate FiO2 04/25/20 11:54 98.7 89 20 178/100 (126) 94 Nasal Cannula 3.0 98.7 Comments visual exam done RRR N/C no soa, no rash no leg edema General: Alert, No acute distress Labs Laboratory Tests Test 04/23/20 16:31 04/24/20 03:00 04/24/20 08:28 04/24/20 12:01 Glucose (Fingerstick) 93 mg/dL (70-99) 152 mg/dL (70-99) 250 mg/dL (70-99) White Blood Count 6.6 x10^3/uL (4.0-11.0) Red Blood Count 3.11 x10^6/uL (3.50-5.40) Hemoglobin 9.1 g/dL (12.0-15.5) Hematocrit 27.4 % (36.0-47.0) Mean Corpuscular Volume 88 fL (79-100) Mean Corpuscular Hemoglobin 29 pg (25-35) Mean Corpuscular Hemoglobin Concent 33 g/dL (31-37) Red Cell Distribution Width 15.1 % (11.5-14.5) Platelet Count 297 x10^3/uL (140-400) Sodium Level 147 mmol/L (136-145) Potassium Level 3.9 mmol/L (3.5-5.1) Chloride Level 111 mmol/L (98-107) Carbon Dioxide Level 24 mmol/L (21-32) Anion Gap 12 (6-14) Blood Urea Nitrogen 13 mg/dL (7-20) Creatinine 0.6 mg/dL (0.6-1.0) Estimated GFR (Cockcroft-Gault) 120.7 BUN/Creatinine Ratio 22 (6-20) Glucose Level 211 mg/dL (70-99) Calcium Level 8.7 mg/dL (8.5-10.1) Total Bilirubin 0.3 mg/dL (0.2-1.0) Aspartate Amino Transf (AST/SGOT) 55 U/L (15-37) Alanine Aminotransferase (ALT/SGPT) 39 U/L (14-59) Alkaline Phosphatase 80 U/L (46-116) Total Protein 7.4 g/dL (6.4-8.2) Albumin 2.2 g/dL (3.4-5.0) Albumin/Globulin Ratio 0.4 (1.0-1.7) Test 04/24/20 17:05 04/24/20 20:47 04/24/20 22:05 04/25/20 07:48 Glucose (Fingerstick) 126 mg/dL (70-99) 59 mg/dL (70-99) 120 mg/dL (70-99) 89 mg/dL (70-99) Test 04/25/20 10:22 Glucose (Fingerstick) 165 mg/dL (70-99) Laboratory Tests Test 04/24/20 17:05 04/24/20 20:47 04/24/20 22:05 04/25/20 07:48 Glucose (Fingerstick) 126 mg/dL (70-99) 59 mg/dL (70-99) 120 mg/dL (70-99) 89 mg/dL (70-99) Test 04/25/20 10:22 Glucose (Fingerstick) 165 mg/dL (70-99) Medications Active Scripts Medications Dose Route/Sig Max Daily Dose Days Date Category Dose Instructions Voltaren (Diclofenac Sodium) 100 Gm Gel..gram. 1 Jitendra TP TID 04/19/20 Reported Famotidine 20 Mg Tablet 20 Mg PO HS 01/28/20 Reported Dilantin (Phenytoin Sodium Extended) 100 Mg Capsule 30 Mg PO HS 01/28/20 Reported Lisinopril 30 Mg Tablet 1 Tab PO HS 01/28/20 Reported Mirtazapine 30 Mg Tab.rapdis 30 Mg PO QHS 30 01/28/20 Reported D3-50 (Cholecalciferol (Vitamin D3)) 50,000 Unit Capsule 1 Cap PO WEEKLY 28 01/28/20 Reported Aspirin 81 Mg Tab.chew 1 Tab PO DAILY 01/28/20 Reported Atorvastatin Calcium 10 Mg Tablet 10 Mg PO HS 02/24/17 Reported Anti-Diarrhea (Loperamide Hcl) 2 Mg Tablet 2 Mg PO PRN Q6HRS PRN 02/24/17 Reported Metformin Hcl 1,000 Mg Tablet 1 Tab PO BID 12/26/15 Rx Tylenol (Acetaminophen) 325 Mg Tablet 650 Mg PO BID 12/24/15 Reported Norvasc (Amlodipine Besylate) 10 Mg Tablet 10 Mg PO DAILY 12/24/15 Reported Milk Of Magnesia (Magnesium Hydroxide) 400 Mg/5 Ml Oral.susp 1,200 Mg PO PRN DAILY PRN 12/24/15 Reported Latanoprost 2.5 Ml Drops 1 Drop EACHEYE QHS 12/24/15 Reported Vimpat (Lacosamide) 200 Mg Tablet 200 Mg PO BID 12/24/15 Reported Keppra (Levetiracetam) 500 Mg Tablet 1,500 Mg PO BID 12/24/15 Reported Gabapentin (Gabapentin) 400 Mg Capsule 400 Mg PO TID 12/24/15 Reported Folic Acid 1 Mg Tablet 1 Tab PO DAILY 12/24/15 Reported Flonase Allergy Relief (Fluticasone Propionate) 9.9 Ml [place].susp 2 Sprays NS DAILY 12/24/15 Reported Buspirone Hcl 5 Mg Tablet 1 Tab PO BID 12/24/15 Reported Abilify (Aripiprazole) 5 Mg Tablet 5 Mg PO DAILY 12/24/15 Reported Hydrocortisone 30 Gm Cream..g. 30 Gm RC PRN BID PRN 05/20/14 Reported Hydrocortisone 1% Absorbase (Hc/Mineral Oil/Petrolat,Wht) 25 Gm Oint...g. 25 Gm TP 05/20/14 Reported Hydralazine Hcl 25 Mg Tablet 2 Tab PO TID 05/20/14 Reported Dilantin (Phenytoin Sodium Extended) 100 Mg Capsule 400 Mg PO HS 05/20/14 Reported give with 30mg to equal 430mg Depakote Sprinkle (Divalproex Sodium) 125 Mg Cap.sprink 125 Mg PO BID 05/20/14 Reported Cymbalta (Duloxetine Hcl) 30 Mg Capsule.dr 3 Cap PO DAILY 05/20/14 Reported Centrum Silver Ultra Women Tab (Multivits W-Fe,Other Min/Lut) 1 Each Tablet 1 Each PO DAILY 05/20/14 Reported Baclofen 10 Mg Tablet 1 Tab PO TID 05/20/14 Reported Comments CXR IMPRESSION: Mild right-sided infiltrates. Impression . 1. Acute hypoxic respiratory failure secondary to COVID-19 pneumonia. 2. Abnormal chest x-ray with patchy infiltrates bilaterally, suggestive of pneumonia, likely COVID-19.--COVID 19 positive --- improved 3. 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 4. History of posttraumatic epilepsy. 5. No significant tobacco history. 6. Mild azotemia--improved 7. Normal D-dimer. Plan . Continue supplemental oxygen, now on room air Tylenol for fever, monitor COVID-19.Positive Continue empiric antibiotic per ID Continue steroids, taper slowly will need ten day course DVT/GI PPX D/W MEHRAN MARC MD Apr 25, 2020 12:36
[2020-04-25] MEDS: IBUPROFEN 200 MG TABLET. PO PRN (15:18)
[2020-04-25 15:26] VITALS: BP 176/84
[2020-04-25 19:00] VITALS: BP 122/57
[2020-04-25] MEDS: LATANOPROST 0.005% OPHTH SOLUTION 2.5ML BOTTLE. OU SCH (22:22)
[2020-04-25] MEDS: PHENYTOIN SODIUM EXTENDED 100 MG CAPSULE PO SCH (22:23)
[2020-04-25] MEDS: PHENYTOIN SODIUM EXTENDED 30 MG CAPSULE. PO SCH (22:23)
[2020-04-25] MEDS: ATORVASTATIN CALCIUM 10 MG TABLET. PO SCH (22:24)
[2020-04-25] MEDS: FAMOTIDINE 20 MG TABLET. PO SCH (22:25)
[2020-04-25] MEDS: MIRTAZAPINE 15 MG TABLET PO SCH (22:26)
[2020-04-25 23:00] VITALS: BP 126/66
[2020-04-26 03:00] VITALS: BP 145/76
[2020-04-26] MEDS: methylPREDNISolone SOD SUCC PF 40 MG/ML VIAL. IV SCH (06:03)
[2020-04-26 07:15] VITALS: BP 134/64
[2020-04-26] MEDS: INSULIN LISPRO 300 UNITS/3 ML VIAL. SQ SCH ×3 (08:00→17:00)
[2020-04-26] MEDS: ACETAMINOPHEN 325 MG TABLET. PO SCH ×3 (09:00→22:32)
[2020-04-26] MEDS: LACTOBACILLUS RHAMNOSUS GG 1 CAPSULE. PO SCH ×2 (09:07→20:35)
[2020-04-26] MEDS: GABAPENTIN 400 MG CAPSULE. PO SCH ×3 (09:07→20:35)
[2020-04-26] MEDS: LACOSAMIDE 200 MG TABLET PO SCH ×2 (09:07→20:35)
[2020-04-26] MEDS: BACLOFEN 10 MG TABLET. PO SCH ×3 (09:08→20:35)
[2020-04-26] MEDS: ASPIRIN CHEWABLE 81 MG TABLET. PO SCH (09:08)
[2020-04-26] MEDS: busPIRone 5 MG TABLET. PO SCH ×2 (09:08→20:34)
[2020-04-26] MEDS: hydrALAZINE 25 MG TABLET PO SCH ×3 (09:08→20:35)
[2020-04-26] MEDS: metFORMIN 500 MG TABLET PO SCH ×2 (09:08→17:09)
[2020-04-26] MEDS: amLODIPine BESYLATE 10 MG TABLET PO SCH (09:09)
[2020-04-26] MEDS: MULTIVITAMIN with MINERAL TABLET. PO SCH (09:09)
[2020-04-26] MEDS: ARIPiprazole 5 MG TABLET PO SCH (09:09)
[2020-04-26] MEDS: DULoxetine HCL 30 MG CAPSULE.DR PO SCH (09:09)
[2020-04-26] MEDS: FOLIC ACID 1 MG TABLET. PO SCH (09:09)
[2020-04-26] MEDS: DIVALPROEX SPRINKLES 125 MG CAPSULE. PO SCH ×2 (09:09→20:35)
[2020-04-26] MEDS: levETIRAcetam 500 MG TABLET PO SCH ×2 (09:09→20:35)
[2020-04-26] MEDS: DICLOFENAC SODIUM 1% TOPICAL GEL 100GM TUBE. TP SCH ×3 (09:15→20:36)
[2020-04-26] MEDS: FLUTICASONE 50MCG/NASAL SPRAY 16GM BOTTLE. NS SCH (09:15)
--- NOTE | 2020-04-26 09:49 | PDOC ---
Infectious Disease Note Subjective Subjective feeling better,, ROS ROS No nausea vomiting diarrhea Vital Sign Vital Signs Vital Signs Date Time Temp Pulse Resp B/P (MAP) Pulse Ox O2 Delivery O2 Flow Rate FiO2 04/26/20 09:09 109 134/64 04/26/20 07:15 97.9 22 94 Nasal Cannula 3.0 97.9 Physical Exam PHYSICAL EXAM GENERAL: Alert ____, who answers simple questions, not in distress. VITAL SIGNS: Stable HEENT: NAD. NECK: Supple, no JVP, no lymphadenopathy. LUNGS: Clear. HEART: S1, S2 regular. ABDOMEN: Benign. EXTREMITIES: No edema, cyanosis. SKIN: Unremarkable. NEUROLOGIC: The patient does have right-sided hemiplegia and a bit slow in answering the questions. Labs Lab Laboratory Tests Test 04/25/20 10:22 04/25/20 16:14 04/25/20 19:38 04/26/20 07:20 Glucose (Fingerstick) 165 mg/dL (70-99) 171 mg/dL (70-99) 104 mg/dL (70-99) 129 mg/dL (70-99) Micro BC coag neg staph urine culture + , but ua neg Objective Assessment IMPRESSION: 1. COVID-19 pneumonia. 2. Hypoxemia. 3. Blood culture 1 out of 3, coag neg staph, contaminant. 4. Fever. 5. Right-sided cerebrovascular accident. 6. Traumatic brain injury. Plan Plan of Care cont supportive care fever likely from pneumonia cont to continue antibiotics can be d/c ed if a febrile on po augmentin TANNER WOO MD Apr 26, 2020 09:49
[2020-04-26] MEDS: IV NORMAL SALINE 1000ML BAG 1,000 ML IV SCH ×2 (09:57→19:06)
[2020-04-26] MEDS: IBUPROFEN 200 MG TABLET. PO PRN (09:59)
[2020-04-26] MEDS ORDERED: methylPREDNISolone SOD SUCC PF 40 MG/ML VIAL. IV SCH (10:00)
[2020-04-26 11:27] VITALS: BP 112/56
--- NOTE | 2020-04-26 12:22 | PDOC ---
PULMONARY PROGRESS NOTES DATE: 04/26/20 TIME: 12:20 Subjective fever in afternoon yesterday continues on N/C oxygen No overnight concerns from nursing Vitals Vital Signs Date Time Temp Pulse Resp B/P (MAP) Pulse Ox O2 Delivery O2 Flow Rate FiO2 04/26/20 11:27 97.1 105 20 112/56 (74) 96 Nasal Cannula 3.0 97.1 Comments visual exam done RRR N/C no soa, no rash no leg edema General: Alert, No acute distress Labs Laboratory Tests Test 04/24/20 17:05 04/24/20 20:47 04/24/20 22:05 04/25/20 07:48 Glucose (Fingerstick) 126 mg/dL (70-99) 59 mg/dL (70-99) 120 mg/dL (70-99) 89 mg/dL (70-99) Test 04/25/20 10:22 04/25/20 16:14 04/25/20 19:38 04/26/20 07:20 Glucose (Fingerstick) 165 mg/dL (70-99) 171 mg/dL (70-99) 104 mg/dL (70-99) 129 mg/dL (70-99) Test 04/26/20 10:40 Glucose (Fingerstick) 193 mg/dL (70-99) Laboratory Tests Test 04/25/20 16:14 04/25/20 19:38 04/26/20 07:20 04/26/20 10:40 Glucose (Fingerstick) 171 mg/dL (70-99) 104 mg/dL (70-99) 129 mg/dL (70-99) 193 mg/dL (70-99) Medications Active Scripts Medications Dose Route/Sig Max Daily Dose Days Date Category Dose Instructions Voltaren (Diclofenac Sodium) 100 Gm Gel..gram. 1 Jitendra TP TID 04/19/20 Reported Famotidine 20 Mg Tablet 20 Mg PO HS 01/28/20 Reported Dilantin (Phenytoin Sodium Extended) 100 Mg Capsule 30 Mg PO HS 01/28/20 Reported Lisinopril 30 Mg Tablet 1 Tab PO HS 01/28/20 Reported Mirtazapine 30 Mg Tab.rapdis 30 Mg PO QHS 30 01/28/20 Reported D3-50 (Cholecalciferol (Vitamin D3)) 50,000 Unit Capsule 1 Cap PO WEEKLY 01/28/20 Reported Aspirin 81 Mg Tab.chew 1 Tab PO DAILY 01/28/20 Reported Atorvastatin Calcium 10 Mg Tablet 10 Mg PO HS 02/24/17 Reported Anti-Diarrhea (Loperamide Hcl) 2 Mg Tablet 2 Mg PO PRN Q6HRS PRN 02/24/17 Reported Metformin Hcl 1,000 Mg Tablet 1 Tab PO BID 12/26/15 Rx Tylenol (Acetaminophen) 325 Mg Tablet 650 Mg PO BID 12/24/15 Reported Norvasc (Amlodipine Besylate) 10 Mg Tablet 10 Mg PO DAILY 12/24/15 Reported Milk Of Magnesia (Magnesium Hydroxide) 400 Mg/5 Ml Oral.susp 1,200 Mg PO PRN DAILY PRN 12/24/15 Reported Latanoprost 2.5 Ml Drops 1 Drop EACHEYE QHS 12/24/15 Reported Vimpat (Lacosamide) 200 Mg Tablet 200 Mg PO BID 12/24/15 Reported Keppra (Levetiracetam) 500 Mg Tablet 1,500 Mg PO BID 12/24/15 Reported Gabapentin (Gabapentin) 400 Mg Capsule 400 Mg PO TID 12/24/15 Reported Folic Acid 1 Mg Tablet 1 Tab PO DAILY 12/24/15 Reported Flonase Allergy Relief (Fluticasone Propionate) 9.9 Ml [place].susp 2 Sprays NS DAILY 12/24/15 Reported Buspirone Hcl 5 Mg Tablet 1 Tab PO BID 12/24/15 Reported Abilify (Aripiprazole) 5 Mg Tablet 5 Mg PO DAILY 12/24/15 Reported Hydrocortisone 30 Gm Cream..g. 30 Gm RC PRN BID PRN 05/20/14 Reported Hydrocortisone 1% Absorbase (Hc/Mineral Oil/Petrolat,Wht) 25 Gm Oint...g. 25 Gm TP 05/20/14 Reported Hydralazine Hcl 25 Mg Tablet 2 Tab PO TID 05/20/14 Reported Dilantin (Phenytoin Sodium Extended) 100 Mg Capsule 400 Mg PO HS 05/20/14 Reported give with 30mg to equal 430mg Depakote Sprinkle (Divalproex Sodium) 125 Mg Cap.sprink 125 Mg PO BID 05/20/14 Reported Cymbalta (Duloxetine Hcl) 30 Mg Capsule.dr 3 Cap PO DAILY 05/20/14 Reported Centrum Silver Ultra Women Tab (Multivits W-Fe,Other Min/Lut) 1 Each Tablet 1 Each PO DAILY 05/20/14 Reported Baclofen 10 Mg Tablet 1 Tab PO TID 05/20/14 Reported Comments CXR IMPRESSION: Mild right-sided infiltrates. Impression . 1. Acute hypoxic respiratory failure secondary to COVID-19 pneumonia. 2. Abnormal chest x-ray with patchy infiltrates bilaterally, suggestive of pneumonia, likely COVID-19.--COVID 19 positive --- improved 3. 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 4. History of posttraumatic epilepsy. 5. No significant tobacco history. 6. Mild azotemia--improved 7. Normal D-dimer. 8. Fever Plan . Continue supplemental oxygen, as needed to keep sat above 92 % Tylenol for fever, monitor COVID-19.Positive Continue empiric antibiotic per ID-- now on po Continue steroids, taper now on po DVT/GI PPX D/W RN ok to D/C back to [facility] when fever free MEHRAN DICKEY MD Apr 26, 2020 12:22
[2020-04-26 13:10] LABS: BASO % 0 % (0-3); EOS % 0 % (0-3); HEMATOCRIT 29.3 % (36.0-47.0); HEMOGLOBIN 9.7 g/dL (12.0-15.5); LYMPH # 1.6 x10^3/uL (1.0-4.8); LYMPH % 23 % (24-48); MEAN CORPUSCULAR HEMOGLOBIN 30 pg (25-35); MEAN CORPUSCULAR HGB CONC 33 g/dL (31-37); MEAN CORPUSCULAR VOLUME 89 fL (79-100); MONO # 0.4 x10^3/uL (0.0-1.1); MONO % 5 % (0-9); NEUT % 71 % (31-73); PLATELET COUNT 425 x10^3/uL (140-400); RED CELL DISTRIBUTION WIDTH 15.6 % (11.5-14.5)
[2020-04-26 13:25] LABS: CALCIUM 9.7 mg/dL (8.5-10.1); CREATININE 0.8 mg/dL (0.6-1.0); GFR 86.6
[2020-04-26 15:08] VITALS: BP 145/92
[2020-04-26 19:00] VITALS: BP 164/74
[2020-04-26] MEDS: ATORVASTATIN CALCIUM 10 MG TABLET. PO SCH (20:34)
[2020-04-26] MEDS: PHENYTOIN SODIUM EXTENDED 100 MG CAPSULE PO SCH (20:34)
[2020-04-26] MEDS: PHENYTOIN SODIUM EXTENDED 30 MG CAPSULE. PO SCH (20:34)
[2020-04-26] MEDS: MIRTAZAPINE 15 MG TABLET PO SCH (20:34)
[2020-04-26] MEDS: FAMOTIDINE 20 MG TABLET. PO SCH (20:35)
[2020-04-26] MEDS: AMOXICILLIN/K CLAV 875/125MG TABLET. PO SCH (20:35)
[2020-04-26] MEDS: LATANOPROST 0.005% OPHTH SOLUTION 2.5ML BOTTLE. OU SCH (20:36)
[2020-04-26] MEDS: METOPROLOL TARTRATE 5 MG/5 ML VIAL. IVP PRN (22:31)
[2020-04-26 23:00] VITALS: BP 187/86
--- NOTE | 2020-04-26 23:11 | PN ---
DATE: 04/26/2020 SUBJECTIVE: The patient is a 65-year-old -[place] female patient who continued to spike her temperature. Nursing staff stated that her intake is extremely poor. Her urine output also is dwindling. PHYSICAL EXAMINATION: GENERAL: On examining her, she looked pale, but no jaundice, cyanosis or thyromegaly. No jugular venous distention. No limb edema. VITAL SIGNS: Her heart rate was 109, blood pressure was 134/64, temperature was 97.9, respiratory rate was 22 and oxygen saturation was 94% on 3 liters of oxygen. HEENT: Examination of the head, eyes, ears, nose, and throat showed normocephalic, atraumatic. NECK: Supple. CARDIAC: Normal first and second heart sounds. No gallop or murmur. CHEST: Clear to auscultation. No crepitation or rhonchi. ABDOMEN: Distended, soft, nontender. NEUROLOGIC: She has traumatic brain injury on the left side with right sided hemiplegia and aphasia. Her intake over the last 24 hours and output are incompletely recorded. LABORATORY DATA: Today's lab is still pending at the time of this dictation. As of 04/24, her BUN was 13, creatinine 0.6 and her hemoglobin 9, hematocrit 27 with normal white cell count and platelets. Her blood cultures were negative. Her urine culture has grown Escherichia coli. ASSESSMENT: 1. COVID-19 pneumonia. 2. Acute hypoxic respiratory failure. 3. Urinary tract infection with growth of Escherichia coli. 4. 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 5. Posttraumatic seizure disorder. 6. Hypertension. 7. Type 2 diabetes mellitus. 8. Poor oral intake and persistent fever. PLAN: To cut down her Solu-Medrol to 40 mg IV twice a day. Continue with oral Augmentin. I will start her on IV fluid and she remained afebrile over the next 24 hours. She will be discharged back to [facility]. ETELVINA HAYWOOD MD DR: ALISON/hernán JOB#: [id number] / [id number]
[2020-04-27 03:00] VITALS: BP 138/64
[2020-04-27] MEDS: IV NORMAL SALINE 1000ML BAG 1,000 ML IV SCH (03:54)
[2020-04-27 07:00] VITALS: BP 183/75
--- NOTE | 2020-04-27 08:57 | PDOC ---
PULMONARY PROGRESS NOTES DATE: 04/27/20 TIME: 08:57 Subjective RN reports patient with decreased saturation increasing fever Patient not responding to any verbal stimuli currently on a Venturi mask Vitals Vital Signs Date Time Temp Pulse Resp B/P (MAP) Pulse Ox O2 Delivery O2 Flow Rate FiO2 04/27/20 07:00 97.8 90 22 183/75 (111) 98 Nasal Cannula 3.0 97.8 Comments visual exam done RRR N/C no soa, no rash no leg edema General: Alert, No acute distress Labs Laboratory Tests Test 04/25/20 10:22 04/25/20 16:14 04/25/20 19:38 04/26/20 07:20 Glucose (Fingerstick) 165 mg/dL (70-99) 171 mg/dL (70-99) 104 mg/dL (70-99) 129 mg/dL (70-99) Test 04/26/20 10:40 04/26/20 12:45 04/26/20 16:07 04/26/20 20:11 Glucose (Fingerstick) 193 mg/dL (70-99) 86 mg/dL (70-99) 84 mg/dL (70-99) White Blood Count 7.0 x10^3/uL (4.0-11.0) Red Blood Count 3.30 x10^6/uL (3.50-5.40) Hemoglobin 9.7 g/dL (12.0-15.5) Hematocrit 29.3 % (36.0-47.0) Mean Corpuscular Volume 89 fL (79-100) Mean Corpuscular Hemoglobin 30 pg (25-35) Mean Corpuscular Hemoglobin Concent 33 g/dL (31-37) Red Cell Distribution Width 15.6 % (11.5-14.5) Platelet Count 425 x10^3/uL (140-400) Neutrophils (%) (Auto) 71 % (31-73) Lymphocytes (%) (Auto) 23 % (24-48) Monocytes (%) (Auto) 5 % (0-9) Eosinophils (%) (Auto) 0 % (0-3) Basophils (%) (Auto) 0 % (0-3) Neutrophils # (Auto) 5.0 x10^3/uL (1.8-7.7) Lymphocytes # (Auto) 1.6 x10^3/uL (1.0-4.8) Monocytes # (Auto) 0.4 x10^3/uL (0.0-1.1) Eosinophils # (Auto) 0.0 x10^3/uL (0.0-0.7) Basophils # (Auto) 0.0 x10^3/uL (0.0-0.2) Sodium Level 146 mmol/L (136-145) Potassium Level 5.0 mmol/L (3.5-5.1) Chloride Level 110 mmol/L (98-107) Carbon Dioxide Level 26 mmol/L (21-32) Anion Gap 10 (6-14) Blood Urea Nitrogen 21 mg/dL (7-20) Creatinine 0.8 mg/dL (0.6-1.0) Estimated GFR (Cockcroft-Gault) 86.6 Glucose Level 220 mg/dL (70-99) Calcium Level 9.7 mg/dL (8.5-10.1) Test 04/27/20 08:26 Glucose (Fingerstick) 166 mg/dL (70-99) Laboratory Tests Test 04/26/20 10:40 04/26/20 12:45 04/26/20 16:07 04/26/20 20:11 Glucose (Fingerstick) 193 mg/dL (70-99) 86 mg/dL (70-99) 84 mg/dL (70-99) White Blood Count 7.0 x10^3/uL (4.0-11.0) Red Blood Count 3.30 x10^6/uL (3.50-5.40) Hemoglobin 9.7 g/dL (12.0-15.5) Hematocrit 29.3 % (36.0-47.0) Mean Corpuscular Volume 89 fL (79-100) Mean Corpuscular Hemoglobin 30 pg (25-35) Mean Corpuscular Hemoglobin Concent 33 g/dL (31-37) Red Cell Distribution Width 15.6 % (11.5-14.5) Platelet Count 425 x10^3/uL (140-400) Neutrophils (%) (Auto) 71 % (31-73) Lymphocytes (%) (Auto) 23 % (24-48) Monocytes (%) (Auto) 5 % (0-9) Eosinophils (%) (Auto) 0 % (0-3) Basophils (%) (Auto) 0 % (0-3) Neutrophils # (Auto) 5.0 x10^3/uL (1.8-7.7) Lymphocytes # (Auto) 1.6 x10^3/uL (1.0-4.8) Monocytes # (Auto) 0.4 x10^3/uL (0.0-1.1) Eosinophils # (Auto) 0.0 x10^3/uL (0.0-0.7) Basophils # (Auto) 0.0 x10^3/uL (0.0-0.2) Sodium Level 146 mmol/L (136-145) Potassium Level 5.0 mmol/L (3.5-5.1) Chloride Level 110 mmol/L (98-107) Carbon Dioxide Level 26 mmol/L (21-32) Anion Gap 10 (6-14) Blood Urea Nitrogen 21 mg/dL (7-20) Creatinine 0.8 mg/dL (0.6-1.0) Estimated GFR (Cockcroft-Gault) 86.6 Glucose Level 220 mg/dL (70-99) Calcium Level 9.7 mg/dL (8.5-10.1) Test 04/27/20 08:26 Glucose (Fingerstick) 166 mg/dL (70-99) Medications Active Scripts Medications Dose Route/Sig Max Daily Dose Days Date Category Dose Instructions Voltaren (Diclofenac Sodium) 100 Gm Gel..gram. 1 Jitendra TP TID 04/19/20 Reported Famotidine 20 Mg Tablet 20 Mg PO HS 01/28/20 Reported Dilantin (Phenytoin Sodium Extended) 100 Mg Capsule 30 Mg PO HS 01/28/20 Reported Lisinopril 30 Mg Tablet 1 Tab PO HS 01/28/20 Reported Mirtazapine 30 Mg Tab.rapdis 30 Mg PO QHS 30 01/28/20 Reported D3-50 (Cholecalciferol (Vitamin D3)) 50,000 Unit Capsule 1 Cap PO WEEKLY 28 01/28/20 Reported Aspirin 81 Mg Tab.chew 1 Tab PO DAILY 01/28/20 Reported Atorvastatin Calcium 10 Mg Tablet 10 Mg PO HS 02/24/17 Reported Anti-Diarrhea (Loperamide Hcl) 2 Mg Tablet 2 Mg PO PRN Q6HRS PRN 02/24/17 Reported Metformin Hcl 1,000 Mg Tablet 1 Tab PO BID 12/26/15 Rx Tylenol (Acetaminophen) 325 Mg Tablet 650 Mg PO BID 12/24/15 Reported Norvasc (Amlodipine Besylate) 10 Mg Tablet 10 Mg PO DAILY 12/24/15 Reported Milk Of Magnesia (Magnesium Hydroxide) 400 Mg/5 Ml [place].susp 1,200 Mg PO PRN DAILY PRN 12/24/15 Reported Latanoprost 2.5 Ml Drops 1 Drop EACHEYE QHS 12/24/15 Reported Vimpat (Lacosamide) 200 Mg Tablet 200 Mg PO BID 12/24/15 Reported Keppra (Levetiracetam) 500 Mg Tablet 1,500 Mg PO BID 12/24/15 Reported Gabapentin (Gabapentin) 400 Mg Capsule 400 Mg PO TID 12/24/15 Reported Folic Acid 1 Mg Tablet 1 Tab PO DAILY 12/24/15 Reported Flonase Allergy Relief (Fluticasone Propionate) 9.9 Ml [place].susp 2 Sprays NS DAILY 12/24/15 Reported Buspirone Hcl 5 Mg Tablet 1 Tab PO BID 12/24/15 Reported Abilify (Aripiprazole) 5 Mg Tablet 5 Mg PO DAILY 12/24/15 Reported Hydrocortisone 30 Gm Cream..g. 30 Gm RC PRN BID PRN 05/20/14 Reported Hydrocortisone 1% Absorbase (Hc/Mineral Oil/Petrolat,Wht) 25 Gm Oint...g. 25 Gm TP 05/20/14 Reported Hydralazine Hcl 25 Mg Tablet 2 Tab PO TID 05/20/14 Reported Dilantin (Phenytoin Sodium Extended) 100 Mg Capsule 400 Mg PO HS 05/20/14 Reported give with 30mg to equal 430mg Depakote Sprinkle (Divalproex Sodium) 125 Mg Cap.sprink 125 Mg PO BID 05/20/14 Reported Cymbalta (Duloxetine Hcl) 30 Mg Capsule.dr 3 Cap PO DAILY 05/20/14 Reported Centrum Silver Ultra Women Tab (Multivits W-Fe,Other Min/Lut) 1 Each Tablet 1 Each PO DAILY 05/20/14 Reported Baclofen 10 Mg Tablet 1 Tab PO TID 05/20/14 Reported Comments CXR IMPRESSION: Mild right-sided infiltrates. Impression . 1. Acute hypoxic respiratory failure secondary to COVID-19 pneumonia. 2. Abnormal chest x-ray with patchy infiltrates bilaterally, suggestive of pneumonia, likely COVID-19.--COVID 19 positive/ARDS 3. 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 4. History of posttraumatic epilepsy. 5. No significant tobacco history. 6. Mild azotemia--improved 7. Normal D-dimer. 8. Fever, T-max today 101.5 Plan . Continue Venturi mask, obtain ABG Discontinue prednisone start Solu-Medrol high-dose Empiric antibiotics for gram-positive and gram-negative organisms Possible transfer to the ICU Above discussed with nurse DVT/GI PPX Repeat d-dimer D/W RN MEHRAN DICKEY MD Apr 27, 2020 08:57
[2020-04-27] MEDS: ACETAMINOPHEN 325 MG TABLET. PO SCH ×2 (09:00→23:10)
[2020-04-27] MEDS: DICLOFENAC SODIUM 1% TOPICAL GEL 100GM TUBE. TP SCH ×3 (09:00→23:16)
[2020-04-27] MEDS ORDERED: predniSONE 20 MG TABLET PO SCH (09:00)
[2020-04-27] MEDS: FLUTICASONE 50MCG/NASAL SPRAY 16GM BOTTLE. NS SCH (09:00)
--- NOTE | 2020-04-27 09:12 | PDOC ---
Infectious Disease Note Subjective: Subjective Patient awake, Does not answer all question T-max 101 last night Has some secretions afebrile this morning Vital Signs: Vital Signs Vital Signs Date Time Temp Pulse Resp B/P (MAP) Pulse Ox O2 Delivery O2 Flow Rate FiO2 04/27/20 07:00 97.8 90 22 183/75 (111) 98 Nasal Cannula 3.0 97.8 Physical Exam: PHYSICAL EXAM GENERAL: Alert , who answers simple questions, not in distress. HEENT: NAD. NECK: Supple, no JVP, no lymphadenopathy. LUNGS: Clear. HEART: S1, S2 tachycardia ABDOMEN: Benign. EXTREMITIES: No edema, cyanosis. SKIN: Unremarkable. NEUROLOGIC: The patient does have right-sided hemiplegia and a bit slow in answering the questions. Medications: Inpatient Meds: Current Medications Medications (Trade) Dose Ordered Sig/Fabiana Start Time Stop Time Status Last Admin Dose Admin Acetaminophen (Tylenol Supp) 650 mg PRN Q6HRS PRN 04/20/20 05:30 04/20/20 15:29 650 MG Acetaminophen (Tylenol) 650 mg BID 04/20/20 21:00 04/26/20 22:32 650 MG Amlodipine Besylate (Norvasc) 10 mg DAILY 04/21/20 09:00 04/26/20 09:09 10 MG Amoxicillin/ Clavulanate Potassium (Augmentin 875/ 125mg) 1 tab BID 04/26/20 21:00 04/26/20 20:35 1 TAB Aripiprazole (Abilify) 5 mg DAILY 04/20/20 11:00 04/26/20 09:09 5 MG Aspirin (Aspirin Chewable) 81 mg DAILY 04/20/20 11:00 04/26/20 09:08 81 MG Atorvastatin Calcium (Lipitor) 10 mg HS 04/20/20 21:00 04/26/20 20:34 10 MG Baclofen (Lioresal) 10 mg TID 04/20/20 14:00 04/26/20 20:35 10 MG Buspirone HCl (Buspar) 5 mg BID 04/20/20 11:00 04/26/20 20:34 5 MG Cefepime HCl (Maxipime) 1 gm 1X ONCE 04/19/20 14:30 04/19/20 14:31 DC 04/19/20 14:55 1 GM Ceftriaxone Sodium (Rocephin) 1 gm Q24H 04/24/20 11:00 04/26/20 09:49 DC 04/25/20 09:56 1 GM Dextrose (Dextrose 50%-Water Syringe) 12.5 gm PRN Q15MIN PRN 04/20/20 10:15 04/24/20 21:10 12.5 GM Diclofenac Sodium (Voltaren) 1 justin TID 04/20/20 14:00 04/26/20 20:36 1 JUSTIN Divalproex Sodium (Depakote Sprinkles) 125 mg BID 04/20/20 11:00 04/26/20 20:35 125 MG Duloxetine HCl (Cymbalta) 90 mg DAILY 04/20/20 11:00 04/26/20 09:09 90 MG Enoxaparin Sodium (Lovenox 40mg Syringe) 40 mg BID 04/24/20 21:00 04/26/20 09:51 DC 04/25/20 22:26 40 MG Ergocalciferol (Vitamin D2) 50,000 unit WEEKLY 04/27/20 09:00 Famotidine (Pepcid) 20 mg HS 04/20/20 21:00 04/26/20 20:35 20 MG Fluticasone Propionate (Flonase) 2 spray DAILY 04/21/20 09:00 04/26/20 09:15 2 SPRAY Folic Acid (Folic Acid) 1 mg DAILY 04/20/20 11:00 04/26/20 09:09 1 MG Gabapentin (Neurontin) 400 mg TID 04/20/20 14:00 04/26/20 20:35 400 MG Hydralazine HCl (Apresoline) 50 mg TID 04/20/20 14:00 04/26/20 20:35 50 MG Hydrocortisone (Proctosol-Hc) 30 justin PRN BID PRN 04/20/20 10:15 Ibuprofen (Motrin) 600 mg PRN Q8HRS PRN 04/25/20 14:00 04/26/20 09:59 600 MG Insulin Human Lispro (HumaLOG) 0-7 UNITS TIDWMEALS 04/20/20 12:00 04/25/20 17:26 3 UNITS Lacosamide (Vimpat) 200 mg BID 04/20/20 11:00 8/30/20 20:35 200 MG Lactobacillus Rhamnosus (Culturelle) 1 cap BID 04/22/20 21:00 04/26/20 20:35 1 CAP Latanoprost (Xalatan) 1 drop QHS 04/20/20 21:00 04/26/20 20:36 1 DROP Levetiracetam (Keppra) 1,500 mg BID 04/20/20 11:00 04/26/20 20:35 1,500 MG Levofloxacin/ Dextrose 150 ml @ 100 mls/hr 1X ONCE 04/19/20 14:30 04/19/20 15:59 DC 04/19/20 14:56 100 MLS/HR Lisinopril (Prinivil) 30 mg HS 04/20/20 21:00 04/25/20 22:24 30 MG Loperamide HCl (Imodium) 2 mg PRN Q6HRS PRN 04/20/20 10:30 Magnesium Hydroxide (Milk Of Magnesia) 1,200 mg PRN DAILY PRN 04/20/20 10:15 04/24/20 10:00 1,200 MG Metformin HCl (Glucophage) 1,000 mg BIDWMEALS 04/20/20 17:00 04/26/20 17:09 1,000 MG Methylprednisolone Sodium Succinate (SOLU-Medrol 40MG VIAL) 40 mg Q12H 04/26/20 10:00 04/26/20 12:20 DC 04/26/20 09:58 40 MG Metoprolol Tartrate (Lopressor Vial) 5 mg PRN Q6HRS PRN 04/20/20 03:30 04/26/20 22:31 5 MG Mirtazapine (Remeron) 30 mg QHS 04/20/20 21:00 04/26/20 20:34 30 MG Multivitamins (Thera M Plus) 1 tab DAILY 04/20/20 11:00 04/26/20 09:09 1 TAB Ondansetron HCl (Zofran) 4 mg PRN Q8HRS PRN 04/19/20 15:15 04/20/20 15:14 DC Phenytoin Sodium (Dilantin) 400 mg HS 04/20/20 21:00 04/26/20 20:34 400 MG Piperacillin Sod/ Tazobactam Sod 3.375 gm/Sodium Chloride 50 ml @ 100 mls/hr Q8H 04/20/20 11:00 04/22/20 10:52 DC 04/22/20 02:29 100 MLS/HR Prednisone (Prednisone) 5 mg DAILY 05/04/20 09:00 05/05/20 09:01 Sodium Chloride 1,000 ml @ 100 mls/hr Q10H 04/26/20 10:00 04/27/20 03:54 100 MLS/HR Vancomycin HCl (Vanco Per Pharmacy) 1 each PRN DAILY PRN 04/20/20 10:00 04/22/20 10:55 DC 04/20/20 12:30 1 EACH Vancomycin HCl (Vancomycin Trough Level) 1 each 1X ONCE 04/22/20 11:30 04/22/20 11:31 Cancel Vancomycin HCl 1.75 gm/Sodium Chloride 500 ml @ 250 mls/hr 1X ONCE 04/20/20 11:00 04/20/20 12:59 DC 04/20/20 11:40 250 MLS/HR Vancomycin HCl 1 gm/Sodium Chloride 250 ml @ 250 mls/hr Q24H 04/21/20 12:00 04/22/20 10:52 DC 04/21/20 11:52 250 MLS/HR Labs: Lab Laboratory Tests Test 04/26/20 10:40 04/26/20 12:45 04/26/20 16:07 04/26/20 20:11 Glucose (Fingerstick) 193 mg/dL (70-99) 86 mg/dL (70-99) 84 mg/dL (70-99) White Blood Count 7.0 x10^3/uL (4.0-11.0) Red Blood Count 3.30 x10^6/uL (3.50-5.40) Hemoglobin 9.7 g/dL (12.0-15.5) Hematocrit 29.3 % (36.0-47.0) Mean Corpuscular Volume 89 fL (79-100) Mean Corpuscular Hemoglobin 30 pg (25-35) Mean Corpuscular Hemoglobin Concent 33 g/dL (31-37) Red Cell Distribution Width 15.6 % (11.5-14.5) Platelet Count 425 x10^3/uL (140-400) Neutrophils (%) (Auto) 71 % (31-73) Lymphocytes (%) (Auto) 23 % (24-48) Monocytes (%) (Auto) 5 % (0-9) Eosinophils (%) (Auto) 0 % (0-3) Basophils (%) (Auto) 0 % (0-3) Neutrophils # (Auto) 5.0 x10^3/uL (1.8-7.7) Lymphocytes # (Auto) 1.6 x10^3/uL (1.0-4.8) Monocytes # (Auto) 0.4 x10^3/uL (0.0-1.1) Eosinophils # (Auto) 0.0 x10^3/uL (0.0-0.7) Basophils # (Auto) 0.0 x10^3/uL (0.0-0.2) Sodium Level 146 mmol/L (136-145) Potassium Level 5.0 mmol/L (3.5-5.1) Chloride Level 110 mmol/L (98-107) Carbon Dioxide Level 26 mmol/L (21-32) Anion Gap 10 (6-14) Blood Urea Nitrogen 21 mg/dL (7-20) Creatinine 0.8 mg/dL (0.6-1.0) Estimated GFR (Cockcroft-Gault) 86.6 Glucose Level 220 mg/dL (70-99) Calcium Level 9.7 mg/dL (8.5-10.1) Test 04/27/20 08:26 Glucose (Fingerstick) 166 mg/dL (70-99) Objective: Assessment: 1. COVID-19 pneumonia. 2. Hypoxemia. 3. Blood culture 1 out of 3, coag neg staph, contaminant. 4. Fever. 5. Right-sided cerebrovascular accident. 6. Traumatic brain injury. Plan: Plan of Care cont supportive care Continue Augmentin fever likely from pneumonia Aggressive pulmonary toilet Maintain aspiration precaution Okay to transfer to facility YAW WOO MD Apr 27, 2020 09:11
[2020-04-27] MEDS: metFORMIN 500 MG TABLET PO SCH ×2 (09:58→16:22)
[2020-04-27] MEDS: AMOXICILLIN/K CLAV 875/125MG TABLET. PO SCH (09:58)
[2020-04-27] MEDS: ERGOCALCIFEROL (VITAMIN D2) 50,000 UNIT CAPSULE. PO SCH (09:58)
[2020-04-27] MEDS: DULoxetine HCL 30 MG CAPSULE.DR PO SCH (10:00)
[2020-04-27] MEDS: LACOSAMIDE 200 MG TABLET PO SCH ×2 (10:01→23:00)
[2020-04-27] MEDS: ASPIRIN CHEWABLE 81 MG TABLET. PO SCH (10:01)
[2020-04-27] MEDS: BACLOFEN 10 MG TABLET. PO SCH ×3 (10:01→22:58)
[2020-04-27] MEDS: GABAPENTIN 400 MG CAPSULE. PO SCH ×3 (10:01→22:58)
[2020-04-27] MEDS: FOLIC ACID 1 MG TABLET. PO SCH (10:01)
[2020-04-27] MEDS: DIVALPROEX SPRINKLES 125 MG CAPSULE. PO SCH ×2 (10:02→23:05)
[2020-04-27] MEDS: ARIPiprazole 5 MG TABLET PO SCH (10:02)
[2020-04-27] MEDS: MULTIVITAMIN with MINERAL TABLET. PO SCH (10:02)
[2020-04-27] MEDS: hydrALAZINE 25 MG TABLET PO SCH ×3 (10:02→22:58)
[2020-04-27] MEDS: amLODIPine BESYLATE 10 MG TABLET PO SCH (10:03)
[2020-04-27] MEDS: busPIRone 5 MG TABLET. PO SCH ×2 (10:03→22:57)
[2020-04-27] MEDS: levETIRAcetam 500 MG TABLET PO SCH ×2 (10:03→22:57)
[2020-04-27] MEDS: LACTOBACILLUS RHAMNOSUS GG 1 CAPSULE. PO SCH ×2 (10:04→22:58)
[2020-04-27] MEDS: INSULIN LISPRO 300 UNITS/3 ML VIAL. SQ SCH ×3 (10:06→17:00)
[2020-04-27 11:00] VITALS: BP 169/76
--- NOTE | 2020-04-27 11:14 | PN ---
DATE: 04/27/2020 SUBJECTIVE: The patient is resting, slightly propped up in bed, in no apparent distress. She is sleepy, but arousable. She is aphasic, occasionally mouths some words. Unfortunately, she continued to spike her temperature and this morning, her temperature was up to 100.6 despite being on Augmentin for her UTI and also possible pneumonia, her white cell count continued to be normal and her blood culture grew gram-positive cocci in 1/3 bottles indicating probabilities that this was a contaminant. The patient was initially treated with Zosyn and vancomycin and that were discontinued. She was switched to oral Augmentin. PHYSICAL EXAMINATION: GENERAL: When I examined her this morning, she looked well and was clearly in no apparent respiratory distress, somewhat pale, not jaundiced, no cyanosis or thyromegaly. No jugular venous distention. No limb edema. VITAL SIGNS: Her heart rate was 90, blood pressure was 183/75, temperature is 97.8, respiratory rate was 22 and oxygen saturation was 98% on 3 liters of oxygen. HEENT: Normocephalic, atraumatic. NECK: Supple. HEART: Normal first and second heart sounds. No gallop, rub or murmur. CHEST: Clear to auscultation. No crepitation or rhonchi. ABDOMEN: Distended, soft, nontender. NEUROLOGIC: She is aphasic with right-sided hemiplegia. She is mostly bedbound, chair bound. Her intake over the last 24 hours was incompletely recorded. LABORATORY DATA: As of yesterday showed a serum sodium of 146, potassium 5, chloride 110, bicarbonate 26, anion gap of 10, BUN 21, creatinine 0.8, estimated GFR was 86 mL per minute. Her glucose was 120, calcium was 9.7. Today's labs are still pending at the time of this dictation. ASSESSMENT: 1. COVID-19 pneumonia. 2. Acute hypoxic respiratory failure for which she is now on oxygen at 3 liters by nasal cannula. 3. Urinary tract infection with growth of Escherichia coli sensitive to Augmentin. 4. 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 5. Posttraumatic seizure disorder. 6. Hypertension. 7. Type 2 diabetes mellitus. 8. Poor oral intake and persistent fever. PLAN: My plan is to continue a tapering course of steroids. I will switch her to oral prednisone and I will await the evaluation by the Infectious Disease to see if any further investigation needs to be done, if they are okay with her being discharged, I will discharge her with tapering course of steroids and to finish the oral Augmentin. ETELVINA HAYWOOD MD DR: ALISON/hernán JOB#: [id number] / [id number]
[2020-04-27] MEDS: METOPROLOL TARTRATE 5 MG/5 ML VIAL. IVP PRN (11:18)
[2020-04-27 11:19] LABS: HEMATOCRIT 29.9 % (36.0-47.0); HEMOGLOBIN 9.8 g/dL (12.0-15.5); RED BLOOD COUNT 3.32 x10^6/uL (3.50-5.40); RED CELL DISTRIBUTION WIDTH 15.3 % (11.5-14.5); WHITE BLOOD COUNT 8.1 x10^3/uL (4.0-11.0)
[2020-04-27 11:52] LABS: CALCIUM 9.5 mg/dL (8.5-10.1); CREATININE 0.8 mg/dL (0.6-1.0); GFR 86.6; POTASSIUM 4.7 mmol/L (3.5-5.1)
--- NOTE | 2020-04-27 13:22 | PDOC2 ---
CARDIAC CONSULT DATE OF CONSULT Date of Consult DATE: 04/27/20 TIME: 13:10 REASON FOR CONSULT Reason for Consult: Tachycardia REFERRING PHYSICIAN Referring Physician: Dr. Bolanos SOURCE Source: Chart review, Patient HISTORY OF PRESENT ILLNESS HISTORY OF PRESENT ILLNESS This is a 65 yo female who presented from nursing facility secondary to altered mental status. Is COVID positive. Has had sinus tachycardia, which prompted this consult. This afternoon, became more hypoxic. Was initially requiring 3L NC, and then increase to 10L with simple face mask. IVFs were discontinued. Has been sinus tachycardia with rate intermittently in the 140 range. Patient is aphasic at baseline with h/o TBI wtih right hemiplegia. PAST MEDICAL HISTORY Cardiovascular: HTN CENTRAL NERVOUS SYSTEM: CVA, Seizure, Other (TBI) GI: GERD Psych: Anxiety, Depression Endocrine: Diabetes PAST SURGICAL HISTORY Past Surgical History: No pertinent history FAMILY HISTORY Family History: Other (noncontributory ) SOCIAL HISTORY Smoke: No ALCOHOL: none Drugs: None Lives: Care Home CURRENT MEDICATIONS CURRENT MEDICATIONS Current Medications Medications (Trade) Dose Ordered Sig/Fabiana Route PRN Reason Start Time Stop Time Status Last Admin Dose Admin Ergocalciferol (Vitamin D2) 50,000 unit WEEKLY PO 04/27/20 09:00 04/27/20 09:58 Amoxicillin/ Clavulanate Potassium (Augmentin 875/ 125mg) 1 tab BID PO 04/26/20 21:00 04/27/20 09:58 Prednisone (Prednisone) 40 mg DAILY PO 04/27/20 09:00 04/28/20 09:01 04/27/20 10:03 ALLERGIES ALLERGIES: Coded Allergies: No Known Drug Allergies (Unverified , 05/21/14) ROS Review of System unobtainable PHYSICAL EXAM PHYSICAL EXAM visual exam conducted due to COVID positive. D/w RN. General: Alert, Other (aphasic ) HEENT: Atraumatic, Mucous membr. moist/pink Lungs: Other (10L simple mask ) Heart: Other (ST rate 130) Extremities: No edema MUSCULOSKELETAL: Osteoarthritic changes both hands VITALS/I&O VITALS/I&O: Vital Signs Date Time Temp Pulse Resp B/P (MAP) Pulse Ox O2 Delivery O2 Flow Rate FiO2 04/27/20 11:18 160 170/94 04/27/20 08:10 Nasal Cannula 2.0 04/27/20 07:00 97.8 22 98 97.8 I & O 04/26/20 04/26/20 04/27/20 15:00 23:00 07:00 Intake Total 480 ml 800 ml 1200 ml Output Total 1 ml Balance 480 ml 799 ml 1200 ml LABS Lab: Laboratory Tests Test 04/26/20 16:07 04/26/20 20:11 04/27/20 08:26 04/27/20 11:00 Glucose (Fingerstick) 86 mg/dL (70-99) 84 mg/dL (70-99) 166 mg/dL (70-99) H White Blood Count 8.1 x10^3/uL (4.0-11.0) Red Blood Count 3.32 x10^6/uL (3.50-5.40) L Hemoglobin 9.8 g/dL (12.0-15.5) L Hematocrit 29.9 % (36.0-47.0) L Mean Corpuscular Volume 90 fL (79-100) Mean Corpuscular Hemoglobin 29 pg (25-35) Mean Corpuscular Hemoglobin Concent 33 g/dL (31-37) Red Cell Distribution Width 15.3 % (11.5-14.5) H Platelet Count 441 x10^3/uL (140-400) H Sodium Level 146 mmol/L (136-145) H Potassium Level 4.7 mmol/L (3.5-5.1) Chloride Level 110 mmol/L (98-107) H Carbon Dioxide Level 26 mmol/L (21-32) Anion Gap 10 (6-14) Blood Urea Nitrogen 14 mg/dL (7-20) Creatinine 0.8 mg/dL (0.6-1.0) Estimated GFR (Cockcroft-Gault) 86.6 Glucose Level 182 mg/dL (70-99) H Calcium Level 9.5 mg/dL (8.5-10.1) Test 04/27/20 12:25 Glucose (Fingerstick) 257 mg/dL (70-99) H Laboratory Tests 04/27/20 11:00 Laboratory Tests 04/27/20 11:00 ASSESSMENT/PLAN ASSESSMENT/PLAN 1. Acute respiratory failure with COVID PNA. Febrile 2. Tachycardia, sinus; reactive in setting of above 3. H/o TBI with right hemiplegia and aphasia. 4. Hypertension; labile 5. Diabetes, II 6. Seizure disorder, post-traumatic Recommendations Will give additional dose of metoprolol for HR control Repeat CXR Hydralazine IV PRN Ongoing antibiotic therapy/treatment of COVID PNA Supportive care Consider DNR. MARCO JOHNSON APRN Apr 27, 2020 13:22
[2020-04-27] MEDS ORDERED: METOPROLOL TARTRATE 5 MG/5 ML VIAL. IVP ONE (13:30)
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
[2020-04-27 15:00] VITALS: BP 158/74
[2020-04-27] MEDS ORDERED: PIP/TAZO PER PHARMACY MC PRN (15:00)
--- NOTE | 2020-04-27 15:12 | NUR ---
SW following. Reviewed chart and spoke with RN. Pt resides in LTC at [facility]. Pt not ready for discharge today and is a possible transfer to ICU per [facility].
[2020-04-27] MEDS: methylPREDNISolone SOD SUCC PF 125 MG/2 ML VIAL. IV SCH ×2 (15:17→23:05)
[2020-04-27] MEDS ORDERED: hydrALAZINE 20 MG/ML VIAL. IVP PRN (15:45)
[2020-04-27] MEDS ORDERED: VANCOMYCIN 1.75 GM in IV NORMAL SALINE 500ML BAG 500 ML IV ONE (16:00)
[2020-04-27] MEDS: ENOXAPARIN 40 MG/0.4 ML SYRINGE. SQ SCH ×2 (16:21→23:00)
[2020-04-27 16:39] LABS: BASE EXCESS ABG -1 mmol/L (-3-3); HCO3 ABG 22 mmol/L (21-28); PCO2 ABG 30 mmHg (35-46); PO2 ABG 53 mmHg (65-108); SAT O2 ABG 88 % (92-99)
[2020-04-27] MEDS: PIPERACILLIN/TAZOBACTAM 3.375 GM in IV NORMAL SALINE 50ML 50 ML IV SCH ×2 (17:34→23:06)
[2020-04-27] MEDS: VANCOMYCIN PER PHARMACY MC PRN (17:49)
--- NOTE | 2020-04-27 17:59 | NUR ---
Pharmacy Vancomycin Dosing Note S:Consulted to monitor and dose vancomycin started 04/27/20. O:JOSETTE HARMAN is a 65 year old F with HCAP . Height: 5 feet, 2 inches Weight: 68.1 kg [place] Body Weight: 50.10 Adjusted Body Weight: 57.30 Dosing Weight: Actual Other Antibiotics: zosyn LABS: Last BUN: 14 Last Creatinine: 0.8 Creatinine Clearance: 49 mL/min Last WBC: 8.1 Last Procalcitonin: 6.71 Tmax (past 24 hours): 101.5 Microbiology: 04/19: blood cx 04/19: urine cx I/O: 2480/1 3 voids Drug Levels: Last level: on at Last dose given 04/27/20 at 1422 Vancomycin Dosing: Loading Dose: 1750 mg x1 Dosing Weight: Actual Target Trough: 15-20 A: Based on weight and est. CrCl: P: 1. Vancomycin 1750mg, followed by Vancomycin 1000 mg IV q24h. 2. Follow up Trough level on 04/29/20 at 1530. 3. Pharmacy will continue to monitor, follow and adjust therapy as needed. Lance Perez [facility], 04/27/20 [id number]
[2020-04-27 19:00] VITALS: BP 140/81
[2020-04-27] MEDS: ATORVASTATIN CALCIUM 10 MG TABLET. PO SCH (22:58)
[2020-04-27] MEDS: FAMOTIDINE 20 MG TABLET. PO SCH (22:58)
[2020-04-27] MEDS: PHENYTOIN SODIUM EXTENDED 30 MG CAPSULE. PO SCH (22:59)
[2020-04-27] MEDS: PHENYTOIN SODIUM EXTENDED 100 MG CAPSULE PO SCH (22:59)
[2020-04-27 23:00] VITALS: BP 146/70
[2020-04-27] MEDS: MIRTAZAPINE 15 MG TABLET PO SCH (23:00)
[2020-04-27] MEDS: LISINOPRIL 10 MG TABLET PO SCH (23:11)
[2020-04-27] MEDS: LATANOPROST 0.005% OPHTH SOLUTION 2.5ML BOTTLE. OU SCH (23:15)
[2020-04-28] VITALS (23 sets, daily range): BP systolic 100–190; BP diastolic 65–112
[2020-04-28] MEDS: PIPERACILLIN/TAZOBACTAM 3.375 GM in IV NORMAL SALINE 50ML 50 ML IV SCH ×3 (05:36→17:32)
[2020-04-28] MEDS: methylPREDNISolone SOD SUCC PF 125 MG/2 ML VIAL. IV SCH ×3 (05:38→22:14)
[2020-04-28] MEDS: metFORMIN 500 MG TABLET PO SCH ×3 (08:00→17:14)
[2020-04-28] MEDS: INSULIN LISPRO 300 UNITS/3 ML VIAL. SQ SCH ×4 (08:00→17:33)
[2020-04-28] MEDS: hydrALAZINE 25 MG TABLET PO SCH ×4 (09:00→22:01)
[2020-04-28] MEDS: GABAPENTIN 400 MG CAPSULE. PO SCH ×4 (09:00→22:01)
[2020-04-28] MEDS: FLUTICASONE 50MCG/NASAL SPRAY 16GM BOTTLE. NS SCH (09:00)
[2020-04-28] MEDS: LACTOBACILLUS RHAMNOSUS GG 1 CAPSULE. PO SCH ×3 (09:00→22:01)
[2020-04-28] MEDS: BACLOFEN 10 MG TABLET. PO SCH ×4 (09:00→22:01)
[2020-04-28] MEDS: busPIRone 5 MG TABLET. PO SCH ×3 (09:00→22:03)
[2020-04-28] MEDS: FOLIC ACID 1 MG TABLET. PO SCH ×2 (09:00→09:39)
[2020-04-28] MEDS: MULTIVITAMIN with MINERAL TABLET. PO SCH ×2 (09:00→09:37)
[2020-04-28] MEDS: ARIPiprazole 5 MG TABLET PO SCH ×2 (09:00→09:38)
[2020-04-28] MEDS: amLODIPine BESYLATE 10 MG TABLET PO SCH ×2 (09:00→09:38)
[2020-04-28] MEDS: ACETAMINOPHEN 325 MG TABLET. PO SCH ×3 (09:00→22:02)
[2020-04-28] MEDS: DULoxetine HCL 30 MG CAPSULE.DR PO SCH ×2 (09:00→09:36)
[2020-04-28] MEDS: ASPIRIN CHEWABLE 81 MG TABLET. PO SCH ×2 (09:00→09:40)
[2020-04-28] MEDS: ENOXAPARIN 40 MG/0.4 ML SYRINGE. SQ SCH ×3 (09:35→22:02)
[2020-04-28] MEDS: DIVALPROEX SPRINKLES 125 MG CAPSULE. PO SCH (09:36)
[2020-04-28] MEDS: LACOSAMIDE 200 MG TABLET PO SCH (09:38)
[2020-04-28] MEDS: levETIRAcetam 500 MG TABLET PO SCH (09:38)
[2020-04-28] MEDS: METOPROLOL TARTRATE 5 MG/5 ML VIAL. IVP PRN (09:39)
[2020-04-28 10:34] LABS: BASE EXCESS ABG -2 mmol/L (-3-3); HCO3 ABG 22 mmol/L (21-28); PCO2 ABG 33 mmHg (35-46); PO2 ABG 68 mmHg (65-108); SAT O2 ABG 92 % (92-99)
[2020-04-28 10:37] LABS: FIO2 ABG 100/NRB
--- NOTE | 2020-04-28 10:45 | NUR ---
Patient transfer to ICU from [address] [place] [address] at 1045. Patient was on 15L 100% NRB mask O2 sat 85%, RR in 30's, BP 171/95. ABG drawn, patient placed on Vapotherm 35L/90% O2, patient sat 95-99%. Will monitor.
--- NOTE | 2020-04-28 10:45 | NUR ---
Went in patient's room to administer medications. IV metoprolol given to patient for HR in 140s. Patient struggling to breath, breathing irregular, not able to obtain O2 sat. Rapid response called. Dr. Bolanos at bedside. Orders to transfer patient to ICU. Patient transferred to room 113 at 1045.
[2020-04-28] MEDS: ACETAMINOPHEN 650 MG SUPP.RECT. PR PRN ×2 (10:47→17:14)
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
--- NOTE | 2020-04-28 11:22 | PN ---
DATE: 04/28/2020 SUBJECTIVE: The patient is extremely tachypneic, tachycardic, hypoxic and therefore, a decision was made to transfer her to ICU to start her on Vapotherm. We did a stat ABGs this morning and it showed a pH was 7.43, pCO2 of 33, pO2 of 68 and oxygen saturation was 92% on 100% on nonrebreather mask. Her lab work is still pending at the time of this dictation. As of yesterday, her chest x-ray showed that increasing mixed airspace and interstitial opacities lately since the prior examination findings suggest atypical infection etiology of ARDS. PHYSICAL EXAMINATION: GENERAL: When I examined her this morning, she was pale, but no jaundiced, no cyanosis or thyromegaly. No jugular venous distention. No lower limb edema. VITAL SIGNS: Her heart rate was 48, blood pressure was 165/79, temperature 97.7, respiratory rate was 32 and oxygen saturation was 97% by Venturi mask. HEENT: Normocephalic, status post traumatic brain injury. NECK: Supple. HEART: Showed normal first and second heart sounds. No gallop or murmur. CHEST: Shows central trachea, equal bilateral expansion, air entry expands with scattered rhonchi and bilateral basal crepitation posteriorly. ABDOMEN: Distended, soft, nontender. NEUROLOGIC: She is encephalopathic. She has also had traumatic brain injury with right-sided hemiplegia and aphasia. LABORATORY DATA: Lab work as of yesterday showed a white cell count of 8100, hemoglobin 9.8, hematocrit 30, MCV 90 and platelet count of 441,000. Her serum sodium was 146, potassium 4.7, chloride 110, bicarbonate 26, anion gap of 10, BUN 14, creatinine 0.8, estimated GFR was 86 mL per minute. Her glucose was 182 and calcium was 9.5. ASSESSMENT: 1. Acute hypoxic respiratory failure. 2. COVID-19 pneumonia, possible aspiration pneumonia versus ARDS, left-sided traumatic brain injury with right-sided hemiplegia and aphasia. 3. Hypertension. PLAN: To continue with IV antibiotic. Continue with DVT prophylaxis. I spoke with the pharmacist to change all her anti-seizure medication to be given IV. I also spoke with [facility] and [facility] and found out that her DPOA is a court appointed guardian by the name of Gilbert Mcclain. The telephone number is [phone]. We will continue obviously with EVERETTE Grant. Continue to monitor her lab work daily on a daily basis. ETELVINA HAYWOOD MD DR: ALISON/hernán JOB#: [id number] / [id number]
[2020-04-28] MEDS ORDERED: fentaNYL PF VIAL 100 MCG/2 ML VIAL IVP ONE (11:30)
[2020-04-28] MEDS ORDERED: MIDAZOLAM HCL/PF 2 MG/2 ML VIAL. IV ONE (11:30)
[2020-04-28] MEDS ORDERED: MIDAZOLAM HCL/PF 5 MG/5 ML VIAL. ONE ×2 (11:31→12:00)
[2020-04-28] MEDS ORDERED: fentaNYL PF VIAL 100 MCG/2 ML VIAL ONE (11:31)
[2020-04-28] MEDS: STERILE WATER for RESP 1,000 ML BAG. INH PRN ×2 (11:44→20:01)
[2020-04-28] MEDS ORDERED: IV NORMAL SALINE 500ML BAG 500 ML IV PRN (11:45)
[2020-04-28] MEDS ORDERED: ATROPINE 0.5 MG/5 ML DISP.SYRINGE. IV PRN (11:45)
--- NOTE | 2020-04-28 11:54 | PDOC ---
CARDIO Progress Notes Date and Time Date of Service 04/28/20 Time of Evaluation 1250 Subjective Comments: worsening hypoxia, respiratory failure. Transferred to ICU Vitals Vitals Vital Signs Date Time Temp Pulse Resp B/P (MAP) Pulse Ox O2 Delivery O2 Flow Rate FiO2 04/28/20 11:41 97 Nasal Cannula 40.0 04/28/20 09:39 149 165/79 04/28/20 07:10 97.7 32 97.7 Weight Weight [ ] Input and Output Intake and Output Intake and Output 04/28/20 07:00 Intake Total 750 ml Balance 750 ml IV Total 550 ml Other 200 ml # Voids 5 # Bowel Movements 1 Laboratory Labs Laboratory Tests Test 04/27/20 12:25 04/27/20 16:25 04/27/20 16:51 04/27/20 21:11 Glucose (Fingerstick) 257 mg/dL (70-99) 169 mg/dL (70-99) 223 mg/dL (70-99) O2 Saturation 88 % (92-99) Arterial Blood pH 7.49 (7.35-7.45) Arterial Blood pCO2 at Patient Temp 30 mmHg (35-46) Arterial Blood pO2 at Patient Temp 53 mmHg (65-108) Arterial Blood HCO3 22 mmol/L (21-28) Arterial Blood Base Excess -1 mmol/L (-3-3) FiO2 50% venturi mask Test 04/28/20 07:51 04/28/20 10:30 Glucose (Fingerstick) 165 mg/dL (70-99) O2 Saturation 92 % (92-99) Arterial Blood pH 7.43 (7.35-7.45) Arterial Blood pCO2 at Patient Temp 33 mmHg (35-46) Arterial Blood pO2 at Patient Temp 68 mmHg (65-108) Arterial Blood HCO3 22 mmol/L (21-28) Arterial Blood Base Excess -2 mmol/L (-3-3) FiO2 100/nrb Microbiology Micro Microbiology 04/19/20 Blood Culture - Final, Complete NO GROWTH AFTER 5 DAYS 04/19/20 Urine Culture - Final, Complete 04/19/20 Antimicrobic Susceptibility - Final, Complete Physical Exam HEENT: Neck Supple W Full Motion Chest: Symmetric LUNGS: Other (100% vapotherm ) Heart: RRR (ST) Extremities: Other (right hemiplegia ) Neurology: alert, other (aphasia ) Assessment Assessment 1. Acute respiratory failure with COVID PNA, ARDS. Febrile 2. Tachycardia, sinus; reactive in setting of above 3. H/o TBI with right hemiplegia and aphasia. 4. Hypertension; labile 5. Diabetes, II 6. Seizure disorder, post-traumatic Recommendations Convert Metoprolol to IV q6 Hydralazine IV PRN Ongoing antibiotic therapy/treatment of COVID PNA Supportive care Justicifation of Admission Dx: Justifications for Admission: Justification of Admission Dx: Yes MARCO JOHNSON APRN Apr 28, 2020 11:54
[2020-04-28 12:18] LABS: HEMATOCRIT 25.5 % (36.0-47.0); HEMOGLOBIN 8.5 g/dL (12.0-15.5); RED BLOOD COUNT 2.89 x10^6/uL (3.50-5.40); WHITE BLOOD COUNT 4.2 x10^3/uL (4.0-11.0)
[2020-04-28 12:28] LABS: CALCIUM 8.9 mg/dL (8.5-10.1); CREATININE 0.8 mg/dL (0.6-1.0); GFR 86.6; POTASSIUM 3.6 mmol/L (3.5-5.1)
[2020-04-28 12:33] LABS: ALBUMIN 1.8 g/dL (3.4-5.0); ALBUMIN/GLOBULIN RATIO 0.3 (1.0-1.7); TOTAL BILIRUBIN 0.2 mg/dL (0.2-1.0); TOTAL PROTEIN 7.4 g/dL (6.4-8.2)
[2020-04-28] MEDS ORDERED: hydrALAZINE 20 MG/ML VIAL. IVP PRN (12:45)
[2020-04-28 12:48] LABS: BILIRUBIN,URINE NEGATIVE (NEG); CLARITY,URINE CLEAR; COLOR,URINE YELLOW; NITRITE,URINE NEGATIVE (NEG); PH,URINE 5.5 (<5.0-8.0); PROTEIN,URINE 100 mg/dL (NEG-TRACE); UROBILINOGEN,URINE 0.2 mg/dL (0.2 mg/dL)
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
[2020-04-28 13:02] LABS: AMORPHOUS SEDIMENT,UR PRESENT /HPF; BACTERIA,URINE 0 /HPF (0-FEW); RBC,URINE 0 /HPF (0-2); SQUAMOUS EPITHELIAL CELL,UR OCC /LPF
[2020-04-28] MEDS: DICLOFENAC SODIUM 1% TOPICAL GEL 100GM TUBE. TP SCH ×3 (13:06→21:00)
[2020-04-28] MEDS: METOPROLOL TARTRATE 5 MG/5 ML VIAL. IVP SCH ×3 (13:07→22:56)
[2020-04-28] MEDS: DEXMEDETOMIDINE 400 MCG in IV NORMAL SALINE 100ML 96 ML IV PRN ×3 (13:12→23:20)
[2020-04-28] MEDS ORDERED: VANCOMYCIN 1 GM in IV NORMAL SALINE 250ML 250 ML IV SCH (16:00)
--- NOTE | 2020-04-28 17:17 | NUR ---
SW following. Reviewed chart and spoke with RN. Pt resides in LTC at [facility]. Pt transferred to ICU and IKER Fry will follow.
[2020-04-28] MEDS: LATANOPROST 0.005% OPHTH SOLUTION 2.5ML BOTTLE. OU SCH (21:00)
[2020-04-28] MEDS: MIRTAZAPINE 15 MG TABLET PO SCH (22:00)
[2020-04-28] MEDS: ATORVASTATIN CALCIUM 10 MG TABLET. PO SCH (22:00)
[2020-04-28] MEDS: FAMOTIDINE 20 MG TABLET. PO SCH (22:00)
[2020-04-28] MEDS: LISINOPRIL 10 MG TABLET PO SCH (22:01)
[2020-04-28] MEDS: DEXTROSE 5% IV SCH (22:03)
[2020-04-28] MEDS: VALPROIC ACID IV SCH (22:03)
[2020-04-28] MEDS: FOSPHENYTOIN 100 MG/2 ML VIAL. IV SCH (22:19)
[2020-04-28] MEDS: levETIRAcetam 1,500 MG in IV DEXTROSE 5% 100ML 100 ML IV SCH (23:55)
[2020-04-29] VITALS (24 sets, daily range): BP systolic 90–160; BP diastolic 54–82
[2020-04-29] MEDS: LACOSAMIDE 200 MG in IV DEXTROSE 5% 50 ML IV SCH ×3 (00:32→21:12)
[2020-04-29] MEDS: PIPERACILLIN/TAZOBACTAM 3.375 GM in IV NORMAL SALINE 50ML 50 ML IV SCH ×4 (01:04→17:48)
[2020-04-29] MEDS: FOSPHENYTOIN 100 MG/2 ML VIAL. IV SCH ×3 (06:19→20:34)
[2020-04-29] MEDS: methylPREDNISolone SOD SUCC PF 125 MG/2 ML VIAL. IV SCH ×3 (06:19→21:11)
[2020-04-29] MEDS: METOPROLOL TARTRATE 5 MG/5 ML VIAL. IVP SCH ×3 (06:20→17:55)
[2020-04-29 07:07] LABS: HEMATOCRIT 22.1 % (36.0-47.0); HEMOGLOBIN 7.1 g/dL (12.0-15.5); RED BLOOD COUNT 2.49 x10^6/uL (3.50-5.40); RED CELL DISTRIBUTION WIDTH 15.2 % (11.5-14.5); WHITE BLOOD COUNT 3.4 x10^3/uL (4.0-11.0)
[2020-04-29 07:29] LABS: ALBUMIN 1.7 g/dL (3.4-5.0); ALBUMIN/GLOBULIN RATIO 0.4 (1.0-1.7); CALCIUM 8.7 mg/dL (8.5-10.1); CREATININE 0.8 mg/dL (0.6-1.0); GFR 86.6; POTASSIUM 3.7 mmol/L (3.5-5.1); TOTAL BILIRUBIN 0.4 mg/dL (0.2-1.0); TOTAL PROTEIN 6.3 g/dL (6.4-8.2)
[2020-04-29] MEDS: INSULIN LISPRO 300 UNITS/3 ML VIAL. SQ SCH ×3 (08:00→17:02)
[2020-04-29] MEDS: metFORMIN 500 MG TABLET PO SCH ×2 (08:00→15:52)
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
[2020-04-29] MEDS: DEXMEDETOMIDINE 400 MCG in IV NORMAL SALINE 100ML 96 ML IV PRN ×2 (08:10→17:51)
[2020-04-29 08:23] LABS: C-REACTIVE PROTEIN 263.8 mg/L (0-3.3)
[2020-04-29] MEDS: VANCOMYCIN PER PHARMACY MC PRN ×2 (08:38→16:18)
[2020-04-29] MEDS: ASPIRIN CHEWABLE 81 MG TABLET. PO SCH (09:00)
[2020-04-29] MEDS: busPIRone 5 MG TABLET. PO SCH ×2 (09:00→19:26)
[2020-04-29] MEDS: ARIPiprazole 5 MG TABLET PO SCH (09:00)
[2020-04-29] MEDS: ACETAMINOPHEN 325 MG TABLET. PO SCH ×2 (09:00→19:54)
[2020-04-29] MEDS: LACTOBACILLUS RHAMNOSUS GG 1 CAPSULE. PO SCH ×2 (09:00→19:26)
[2020-04-29] MEDS: amLODIPine BESYLATE 10 MG TABLET PO SCH (09:00)
[2020-04-29] MEDS: FLUTICASONE 50MCG/NASAL SPRAY 16GM BOTTLE. NS SCH (09:00)
[2020-04-29] MEDS: FOLIC ACID 1 MG TABLET. PO SCH (09:00)
[2020-04-29] MEDS: BACLOFEN 10 MG TABLET. PO SCH ×3 (09:00→19:51)
[2020-04-29] MEDS: GABAPENTIN 400 MG CAPSULE. PO SCH ×3 (09:00→19:53)
[2020-04-29] MEDS: hydrALAZINE 25 MG TABLET PO SCH ×3 (09:00→19:25)
[2020-04-29] MEDS ORDERED: predniSONE 10 MG TABLET PO SCH (09:00)
[2020-04-29] MEDS: DULoxetine HCL 30 MG CAPSULE.DR PO SCH (09:00)
[2020-04-29] MEDS: MULTIVITAMIN with MINERAL TABLET. PO SCH (09:00)
[2020-04-29 09:14] LABS: BASE EXCESS COOX -3 mmol/L (-3-3); HCO3 COOX 21 mmol/L (21-28); METHEMOGLOBIN 0.2 % (0.0-1.9); OXYHEMOGLOBIN 95.5 %; PCO2 COOX 35 mmHg (35-46); PO2 COOX 88 mmHg (65-108); SAT O2 COOX 96 % (92-99)
--- NOTE | 2020-04-29 09:30 | NUR ---
Dr. Bolanos notified of unresponsivenes and inability to give oral meds at this time.
[2020-04-29] MEDS: ENOXAPARIN 40 MG/0.4 ML SYRINGE. SQ SCH ×2 (09:56→20:33)
[2020-04-29] MEDS: levETIRAcetam 1,500 MG in IV DEXTROSE 5% 100ML 100 ML IV SCH ×2 (09:57→20:39)
[2020-04-29] MEDS: DICLOFENAC SODIUM 1% TOPICAL GEL 100GM TUBE. TP SCH ×4 (10:00→15:00)
[2020-04-29] MEDS ORDERED: DEXTROSE 50% 25 GM / 50ML DISP.SYRIN. IV PRN (10:15)
--- NOTE | 2020-04-29 10:34 | PN ---
DATE: 04/29/2020 SUBJECTIVE: The patient is resting, slightly propped up in bed, slightly better than yesterday. She is not as tachypneic. She is maintaining her oxygen saturation at 95% on FiO2 of 35%. She continued to be encephalopathic. Unfortunately, her sodium is climbing and is now 153. PHYSICAL EXAMINATION: GENERAL: When I examined her this morning, she looked pale, not jaundiced or cyanosed. No lymphadenopathy, no thyromegaly. No jugular venous distention. No lower limb edema. VITAL SIGNS: Her heart rate was 80, blood pressure was 103/56, temperature was 98, respiratory rate was 24, and oxygen saturation was 96% on FiO2 of 35%. HEENT: Showed normocephalic, atraumatic. NECK: Supple. HEART: Showed normal first and second heart sounds. No gallop or murmur. CHEST: Shows central trachea, equal bilateral chest expansion, air entry, vesicular breath sounds. No crepitation or rhonchi anteriorly. She does have bilateral basal crepitation posteriorly. ABDOMEN: Distended, soft, nontender. NEUROLOGIC: She is encephalopathic, nonverbal. 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 Her intake over the last 24 hours was 500, output was 840. LABORATORY DATA: As of this morning, her serum sodium was 153, potassium 3.7, chloride 115, bicarbonate 25, anion gap of 13, BUN 22, creatinine 0.8, estimated GFR was 86 mL per minute. Her glucose was 143, calcium was 8.7. Total bilirubin, AST, ALT, alkaline phosphatase were normal. Her C-reactive protein was 263. Total protein was 6.3, albumin was 1.7. Her white cell count was 3400, hemoglobin 7.1, hematocrit 22, MCV 89 and platelet count of 197,000. Her D-dimer has dramatically risen from 0.33 up to 10.33. Her coronavirus by PCR was detected on 04/19. Urinalysis was essentially unremarkable and tox screen showed her phenytoin level was 15 mcg/mL, which is well within therapeutic range. ASSESSMENT: 1. COVID-19 pneumonia. 2. Acute hypoxic respiratory failure, currently on Vapotherm. 3. 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 4. Hypertension. 5. Type 2 diabetes mellitus. 6. 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 7. Sinus tachycardia, likely reactive. In fact, her heart rate is much improved now. PLAN: I discontinued her normal saline and switch her to D5W given her worsening hyponatremia. We will continue with fosphenytoin, valproic acid, levetiracetam and lacosamide. Continue with IV antibiotic and I will continue with DVT prophylaxis. Continue with steroids. I will adjust her insulin sliding scale. ETELVINA HAYWOOD MD DR: ALISON/hernán JOB#: [id number] / [id number]
[2020-04-29] MEDS: VALPROIC ACID IV SCH ×2 (10:42→22:00)
[2020-04-29] MEDS: DEXTROSE 5% IV SCH ×2 (10:42→22:00)
[2020-04-29] MEDS ORDERED: POTASSIUM CL 20MEQ D5-0.9%NACL 1,000 ML IV SCH (11:00)
--- NOTE | 2020-04-29 11:19 | PDOC ---
PULMONARY PROGRESS NOTES DATE: 04/29/20 TIME: 11:15 Subjective Pt transfer to ICU with worsening hypoxia/ resp distress 04/28 ON VAPOTHERM 90%fio2 Not following commands Vitals Vital Signs Date Time Temp Pulse Resp B/P (MAP) Pulse Ox O2 Delivery O2 Flow Rate FiO2 04/29/20 08:32 95 Vapotherm 35.0 04/29/20 08:00 98.0 80 24 103/56 (72) 98.0 Comments visual exam done increase resp distress on 100%FIO2 no rash no leg edema Labs Laboratory Tests Test 04/27/20 12:25 04/27/20 16:25 04/27/20 16:51 04/27/20 21:11 Glucose (Fingerstick) 257 mg/dL (70-99) 169 mg/dL (70-99) 223 mg/dL (70-99) O2 Saturation 88 % (92-99) Arterial Blood pH 7.49 (7.35-7.45) Arterial Blood pCO2 at Patient Temp 30 mmHg (35-46) Arterial Blood pO2 at Patient Temp 53 mmHg (65-108) Arterial Blood HCO3 22 mmol/L (21-28) Arterial Blood Base Excess -1 mmol/L (-3-3) FiO2 50% venturi mask Test 04/28/20 07:51 04/28/20 10:30 04/28/20 11:55 04/28/20 12:25 Glucose (Fingerstick) 165 mg/dL (70-99) O2 Saturation 92 % (92-99) Arterial Blood pH 7.43 (7.35-7.45) Arterial Blood pCO2 at Patient Temp 33 mmHg (35-46) Arterial Blood pO2 at Patient Temp 68 mmHg (65-108) Arterial Blood HCO3 22 mmol/L (21-28) Arterial Blood Base Excess -2 mmol/L (-3-3) FiO2 100/nrb White Blood Count 4.2 x10^3/uL (4.0-11.0) Red Blood Count 2.89 x10^6/uL (3.50-5.40) Hemoglobin 8.5 g/dL (12.0-15.5) Hematocrit 25.5 % (36.0-47.0) Mean Corpuscular Volume 88 fL (79-100) Mean Corpuscular Hemoglobin 29 pg (25-35) Mean Corpuscular Hemoglobin Concent 33 g/dL (31-37) Red Cell Distribution Width 15.0 % (11.5-14.5) Platelet Count 288 x10^3/uL (140-400) Sodium Level 150 mmol/L (136-145) Potassium Level 3.6 mmol/L (3.5-5.1) Chloride Level 113 mmol/L (98-107) Carbon Dioxide Level 28 mmol/L (21-32) Anion Gap 9 (6-14) Blood Urea Nitrogen 17 mg/dL (7-20) Creatinine 0.8 mg/dL (0.6-1.0) Estimated GFR (Cockcroft-Gault) 86.6 BUN/Creatinine Ratio 21 (6-20) Glucose Level 144 mg/dL (70-99) Calcium Level 8.9 mg/dL (8.5-10.1) Total Bilirubin 0.2 mg/dL (0.2-1.0) Aspartate Amino Transf (AST/SGOT) 56 U/L (15-37) Alanine Aminotransferase (ALT/SGPT) 34 U/L (14-59) Alkaline Phosphatase 81 U/L (46-116) SJ-Uqe-U-Type Natriuretic Peptide 717 pg/mL (0-124) Total Protein 7.4 g/dL (6.4-8.2) Albumin 1.8 g/dL (3.4-5.0) Albumin/Globulin Ratio 0.3 (1.0-1.7) Urine Collection Type Unknown Urine Color Yellow Urine Clarity Clear Urine pH 5.5 (<5.0-8.0) Urine Specific [place] 1.020 (1.000-1.030) Urine Protein 100 mg/dL (NEG-TRACE) Urine Glucose (UA) Negative mg/dL (NEG) Urine Ketones (Stick) Negative mg/dL (NEG) Urine Blood Negative (NEG) Urine Nitrite Negative (NEG) Urine Bilirubin Negative (NEG) Urine Urobilinogen Dipstick 0.2 mg/dL (0.2 mg/dL) Urine Leukocyte Esterase Negative (NEG) Urine RBC 0 /HPF (0-2) Urine WBC 1-4 /HPF (0-4) Urine Squamous Epithelial Cells Occ /LPF Urine Amorphous Sediment Present /HPF Urine Bacteria 0 /HPF (0-FEW) Urine Mucus Slight /LPF Test 04/28/20 17:19 04/29/20 06:45 04/29/20 09:05 Glucose (Fingerstick) 137 mg/dL (70-99) White Blood Count 3.4 x10^3/uL (4.0-11.0) Red Blood Count 2.49 x10^6/uL (3.50-5.40) Hemoglobin 7.1 g/dL (12.0-15.5) Hematocrit 22.1 % (36.0-47.0) Mean Corpuscular Volume 89 fL (79-100) Mean Corpuscular Hemoglobin 29 pg (25-35) Mean Corpuscular Hemoglobin Concent 32 g/dL (31-37) Red Cell Distribution Width 15.2 % (11.5-14.5) Platelet Count 197 x10^3/uL (140-400) D-Dimer (Mary) 10.33 ug/mlFEU (0.00-0.50) Sodium Level 153 mmol/L (136-145) Potassium Level 3.7 mmol/L (3.5-5.1) Chloride Level 115 mmol/L (98-107) Carbon Dioxide Level 25 mmol/L (21-32) Anion Gap 13 (6-14) Blood Urea Nitrogen 22 mg/dL (7-20) Creatinine 0.8 mg/dL (0.6-1.0) Estimated GFR (Cockcroft-Gault) 86.6 BUN/Creatinine Ratio 28 (6-20) Glucose Level 243 mg/dL (70-99) Calcium Level 8.7 mg/dL (8.5-10.1) Total Bilirubin 0.4 mg/dL (0.2-1.0) Aspartate Amino Transf (AST/SGOT) 95 U/L (15-37) Alanine Aminotransferase (ALT/SGPT) 56 U/L (14-59) Alkaline Phosphatase 62 U/L (46-116) C-Reactive Protein, Quantitative 263.8 mg/L (0-3.3) Total Protein 6.3 g/dL (6.4-8.2) Albumin 1.7 g/dL (3.4-5.0) Albumin/Globulin Ratio 0.4 (1.0-1.7) O2 Saturation 96 % (92-99) Arterial Blood pH 7.40 (7.35-7.45) Arterial Blood pCO2 at Patient Temp 35 mmHg (35-46) Arterial Blood pO2 at Patient Temp 88 mmHg (65-108) Arterial Blood HCO3 21 mmol/L (21-28) Arterial Blood Base Excess -3 mmol/L (-3-3) Oxyhemoglobin 95.5 % Methemoglobin 0.2 % (0.0-1.9) Carbon Monoxide, Quantitative 0.0 % (0.0-1.9) FiO2 90 Laboratory Tests Test 04/28/20 11:55 04/28/20 12:25 04/28/20 17:19 04/29/20 06:45 White Blood Count 4.2 x10^3/uL (4.0-11.0) 3.4 x10^3/uL (4.0-11.0) Red Blood Count 2.89 x10^6/uL (3.50-5.40) 2.49 x10^6/uL (3.50-5.40) Hemoglobin 8.5 g/dL (12.0-15.5) 7.1 g/dL (12.0-15.5) Hematocrit 25.5 % (36.0-47.0) 22.1 % (36.0-47.0) Mean Corpuscular Volume 88 fL (79-100) 89 fL (79-100) Mean Corpuscular Hemoglobin 29 pg (25-35) 29 pg (25-35) Mean Corpuscular Hemoglobin Concent 33 g/dL (31-37) 32 g/dL (31-37) Red Cell Distribution Width 15.0 % (11.5-14.5) 15.2 % (11.5-14.5) Platelet Count 288 x10^3/uL (140-400) 197 x10^3/uL (140-400) Sodium Level 150 mmol/L (136-145) 153 mmol/L (136-145) Potassium Level 3.6 mmol/L (3.5-5.1) 3.7 mmol/L (3.5-5.1) Chloride Level 113 mmol/L (98-107) 115 mmol/L (98-107) Carbon Dioxide Level 28 mmol/L (21-32) 25 mmol/L (21-32) Anion Gap 9 (6-14) 13 (6-14) Blood Urea Nitrogen 17 mg/dL (7-20) 22 mg/dL (7-20) Creatinine 0.8 mg/dL (0.6-1.0) 0.8 mg/dL (0.6-1.0) Estimated GFR (Cockcroft-Gault) 86.6 86.6 BUN/Creatinine Ratio 21 (6-20) 28 (6-20) Glucose Level 144 mg/dL (70-99) 243 mg/dL (70-99) Calcium Level 8.9 mg/dL (8.5-10.1) 8.7 mg/dL (8.5-10.1) Total Bilirubin 0.2 mg/dL (0.2-1.0) 0.4 mg/dL (0.2-1.0) Aspartate Amino Transf (AST/SGOT) 56 U/L (15-37) 95 U/L (15-37) Alanine Aminotransferase (ALT/SGPT) 34 U/L (14-59) 56 U/L (14-59) Alkaline Phosphatase 81 U/L (46-116) 62 U/L (46-116) AI-Qdl-M-Type Natriuretic Peptide 717 pg/mL (0-124) Total Protein 7.4 g/dL (6.4-8.2) 6.3 g/dL (6.4-8.2) Albumin 1.8 g/dL (3.4-5.0) 1.7 g/dL (3.4-5.0) Albumin/Globulin Ratio 0.3 (1.0-1.7) 0.4 (1.0-1.7) Urine Collection Type Unknown Urine Color Yellow Urine Clarity Clear Urine pH 5.5 (<5.0-8.0) Urine Specific [place] 1.020 (1.000-1.030) Urine Protein 100 mg/dL (NEG-TRACE) Urine Glucose (UA) Negative mg/dL (NEG) Urine Ketones (Stick) Negative mg/dL (NEG) Urine Blood Negative (NEG) Urine Nitrite Negative (NEG) Urine Bilirubin Negative (NEG) Urine Urobilinogen Dipstick 0.2 mg/dL (0.2 mg/dL) Urine Leukocyte Esterase Negative (NEG) Urine RBC 0 /HPF (0-2) Urine WBC 1-4 /HPF (0-4) Urine Squamous Epithelial Cells Occ /LPF Urine Amorphous Sediment Present /HPF Urine Bacteria 0 /HPF (0-FEW) Urine Mucus Slight /LPF Glucose (Fingerstick) 137 mg/dL (70-99) D-Dimer (Mary) 10.33 ug/mlFEU (0.00-0.50) C-Reactive Protein, Quantitative 263.8 mg/L (0-3.3) Test 04/29/20 09:05 O2 Saturation 96 % (92-99) Arterial Blood pH 7.40 (7.35-7.45) Arterial Blood pCO2 at Patient Temp 35 mmHg (35-46) Arterial Blood pO2 at Patient Temp 88 mmHg (65-108) Arterial Blood HCO3 21 mmol/L (21-28) Arterial Blood Base Excess -3 mmol/L (-3-3) Oxyhemoglobin 95.5 % Methemoglobin 0.2 % (0.0-1.9) Carbon Monoxide, Quantitative 0.0 % (0.0-1.9) FiO2 90 Medications Active Scripts Medications Dose Route/Sig Max Daily Dose Days Date Category Dose Instructions Voltaren (Diclofenac Sodium) 100 Gm Gel..gram. 1 Jitendra TP TID 04/19/20 Reported Famotidine 20 Mg Tablet 20 Mg PO HS 01/28/20 Reported Dilantin (Phenytoin Sodium Extended) 100 Mg Capsule 30 Mg PO HS 01/28/20 Reported Lisinopril 30 Mg Tablet 1 Tab PO HS 01/28/20 Reported Mirtazapine 30 Mg Tab.rapdis 30 Mg PO QHS 30 01/28/20 Reported D3-50 (Cholecalciferol (Vitamin D3)) 50,000 Unit Capsule 1 Cap PO WEEKLY 28 01/28/20 Reported Aspirin 81 Mg Tab.chew 1 Tab PO DAILY 01/28/20 Reported Atorvastatin Calcium 10 Mg Tablet 10 Mg PO HS 02/24/17 Reported Anti-Diarrhea (Loperamide Hcl) 2 Mg Tablet 2 Mg PO PRN Q6HRS PRN 02/24/17 Reported Metformin Hcl 1,000 Mg Tablet 1 Tab PO BID 12/26/15 Rx Tylenol (Acetaminophen) 325 Mg Tablet 650 Mg PO BID 12/24/15 Reported Norvasc (Amlodipine Besylate) 10 Mg Tablet 10 Mg PO DAILY 12/24/15 Reported Milk Of Magnesia (Magnesium Hydroxide) 400 Mg/5 Ml Oral.susp 1,200 Mg PO PRN DAILY PRN 12/24/15 Reported Latanoprost 2.5 Ml Drops 1 Drop EACHEYE QHS 12/24/15 Reported Vimpat (Lacosamide) 200 Mg Tablet 200 Mg PO BID 12/24/15 Reported Keppra (Levetiracetam) 500 Mg Tablet 1,500 Mg PO BID 12/24/15 Reported Gabapentin (Gabapentin) 400 Mg Capsule 400 Mg PO TID 12/24/15 Reported Folic Acid 1 Mg Tablet 1 Tab PO DAILY 12/24/15 Reported Flonase Allergy Relief (Fluticasone Propionate) 9.9 Ml [place].susp 2 Sprays NS DAILY 12/24/15 Reported Buspirone Hcl 5 Mg Tablet 1 Tab PO BID 12/24/15 Reported Abilify (Aripiprazole) 5 Mg Tablet 5 Mg PO DAILY 12/24/15 Reported Hydrocortisone 30 Gm Cream..g. 30 Gm RC PRN BID PRN 05/20/14 Reported Hydrocortisone 1% Absorbase (Hc/Mineral Oil/Petrolat,Wht) 25 Gm Oint...g. 25 Gm TP 05/20/14 Reported Hydralazine Hcl 25 Mg Tablet 2 Tab PO TID 05/20/14 Reported Dilantin (Phenytoin Sodium Extended) 100 Mg Capsule 400 Mg PO HS 05/20/14 Reported give with 30mg to equal 430mg Depakote Sprinkle (Divalproex Sodium) 125 Mg Cap.sprink 125 Mg PO BID 05/20/14 Reported Cymbalta (Duloxetine Hcl) 30 Mg Capsule.dr 3 Cap PO DAILY 05/20/14 Reported Centrum Silver Ultra Women Tab (Multivits W-Fe,Other Min/Lut) 1 Each Tablet 1 Each PO DAILY 05/20/14 Reported Baclofen 10 Mg Tablet 1 Tab PO TID 05/20/14 Reported Comments CXR IMPRESSION: Mild right-sided infiltrates. Impression . 1. Acute hypoxic respiratory failure secondary to COVID-19 pneumonia./ ALI/ARDS 2. Abnormal chest x-ray with patchy infiltrates bilaterally, suggestive of pneumonia, likely COVID-19.--COVID 19 positive/ARDS 3. 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 4. History of posttraumatic epilepsy. 5. No significant tobacco history. 6. Mild azotemia--improved 7. Normal D-dimer. 8. Fever, 9. Encephalopathy, worse Plan . PT ON VAPOTHERM, 90%fio2 will assess MS while off precedex, ? may need CT head Solu-Medrol high-dose Empiric antibiotics for gram-positive and gram-negative organisms May need intubation Above discussed with nurse and Dr Bolanos I spoke with guardian Gilbert Mcclain. He mentioned that patient requested full code DVT/GI PPX Repeat d-dimer 10.3, on high dose DVT prophylaxis s/p Plasma cct 30 min d/w RN/RT BUFFY JIANG MD Apr 29, 2020 11:19
--- NOTE | 2020-04-29 12:27 | PDOC ---
CUCO BOYER CARRIAGE RIDER 04/29/20 1227: CARDIO Progress Notes Date and Time Date of Service 04/29/2020 Time of Evaluation 0950 Subjective Subjective: Other (nonverbal) Comments: worsening hypoxia, respiratory failure. Transferred to ICU Vitals Vitals Vital Signs Date Time Temp Pulse Resp B/P (MAP) Pulse Ox O2 Delivery O2 Flow Rate FiO2 04/29/20 11:36 98 140/81 04/29/20 08:32 95 Vapotherm 35.0 04/29/20 08:00 98.0 24 98.0 Weight Weight [ ] Input and Output Intake and Output Intake and Output 04/29/20 07:00 Intake Total 500 ml Output Total 840 ml Balance -340 ml Intake Oral 100 ml Blood Product IV Normal Saline Flush 400 ml Output Urine Total 840 ml # Bowel Movements 1 Laboratory Labs Laboratory Tests Test 04/28/20 12:25 04/28/20 17:19 04/29/20 06:45 04/29/20 09:05 Urine Collection Type Unknown Urine Color Yellow Urine Clarity Clear Urine pH 5.5 (<5.0-8.0) Urine Specific [place] 1.020 (1.000-1.030) Urine Protein 100 mg/dL (NEG-TRACE) Urine Glucose (UA) Negative mg/dL (NEG) Urine Ketones (Stick) Negative mg/dL (NEG) Urine Blood Negative (NEG) Urine Nitrite Negative (NEG) Urine Bilirubin Negative (NEG) Urine Urobilinogen Dipstick 0.2 mg/dL (0.2 mg/dL) Urine Leukocyte Esterase Negative (NEG) Urine RBC 0 /HPF (0-2) Urine WBC 1-4 /HPF (0-4) Urine Squamous Epithelial Cells Occ /LPF Urine Amorphous Sediment Present /HPF Urine Bacteria 0 /HPF (0-FEW) Urine Mucus Slight /LPF Glucose (Fingerstick) 137 mg/dL (70-99) White Blood Count 3.4 x10^3/uL (4.0-11.0) Red Blood Count 2.49 x10^6/uL (3.50-5.40) Hemoglobin 7.1 g/dL (12.0-15.5) Hematocrit 22.1 % (36.0-47.0) Mean Corpuscular Volume 89 fL (79-100) Mean Corpuscular Hemoglobin 29 pg (25-35) Mean Corpuscular Hemoglobin Concent 32 g/dL (31-37) Red Cell Distribution Width 15.2 % (11.5-14.5) Platelet Count 197 x10^3/uL (140-400) D-Dimer (Mary) 10.33 ug/mlFEU (0.00-0.50) Sodium Level 153 mmol/L (136-145) Potassium Level 3.7 mmol/L (3.5-5.1) Chloride Level 115 mmol/L (98-107) Carbon Dioxide Level 25 mmol/L (21-32) Anion Gap 13 (6-14) Blood Urea Nitrogen 22 mg/dL (7-20) Creatinine 0.8 mg/dL (0.6-1.0) Estimated GFR (Cockcroft-Gault) 86.6 BUN/Creatinine Ratio 28 (6-20) Glucose Level 243 mg/dL (70-99) Calcium Level 8.7 mg/dL (8.5-10.1) Total Bilirubin 0.4 mg/dL (0.2-1.0) Aspartate Amino Transf (AST/SGOT) 95 U/L (15-37) Alanine Aminotransferase (ALT/SGPT) 56 U/L (14-59) Alkaline Phosphatase 62 U/L (46-116) C-Reactive Protein, Quantitative 263.8 mg/L (0-3.3) Total Protein 6.3 g/dL (6.4-8.2) Albumin 1.7 g/dL (3.4-5.0) Albumin/Globulin Ratio 0.4 (1.0-1.7) O2 Saturation 96 % (92-99) Arterial Blood pH 7.40 (7.35-7.45) Arterial Blood pCO2 at Patient Temp 35 mmHg (35-46) Arterial Blood pO2 at Patient Temp 88 mmHg (65-108) Arterial Blood HCO3 21 mmol/L (21-28) Arterial Blood Base Excess -3 mmol/L (-3-3) Oxyhemoglobin 95.5 % Methemoglobin 0.2 % (0.0-1.9) Carbon Monoxide, Quantitative 0.0 % (0.0-1.9) FiO2 90 Test 04/29/20 12:03 Glucose (Fingerstick) 262 mg/dL (70-99) Microbiology Micro Microbiology 04/28/20 Blood Culture - Preliminary, Resulted NO GROWTH AFTER 1 DAY 04/19/20 Urine Culture - Final, Complete 04/19/20 Antimicrobic Susceptibility - Final, Complete Physical Exam Chest: Symmetric LUNGS: Other (100% vapotherm ) Heart: RRR (SR) Extremities: Other (right hemiplegia ) Neurology: alert, other (aphasia ) Assessment Assessment 1. Acute respiratory failure with COVID PNA, ARDS. Febrile 2. Reactive sinus tachycardia: Maintaining SR 3. H/o TBI with right hemiplegia and aphasia. severe debility 4. Hypertension; now controlled 5. Diabetes, II 6. Seizure disorder, post-traumatic 7. Normocytic anemia: Hgb 7.1 per PCP Recommendations 1. Continue vapotherm per pulmonary 2. Continue Metoprolol to IV q6 3. Hydralazine IV PRN 4. Ongoing antibiotic therapy/treatment of COVID PNA 5. Nothing further cardiac escalante, will follow peripherally. Consider palliative discussion Justicifation of Admission Dx: Justifications for Admission: Justification of Admission Dx: Yes EVERETT CASTLE MD 04/29/20 1737: CARDIO Progress Notes Plan Plan The patient was seen and interviewed as well as examined at the bedside. The chart was reviewed. The case was discussed. Agree with the plan of care. CUCO BOYER APRN Apr 29, 2020 12:27 EVERETT CASTLE MD Apr 29, 2020 17:37
[2020-04-29] MEDS: STERILE WATER for RESP 1,000 ML BAG. INH PRN (12:41)
--- NOTE | 2020-04-29 14:12 | NUR ---
SS following for discharge planning. SS reviewed pt chart and discussed with pt RN. Pt is LTC resident from [facility], ; fax [phone]. COVID19 positive. Pt on Vapotherm. Pt on IV Zosyn and Vancomycin. SS phoned and faxed referral to [facility], ; fax [phone]. SS will continue to follow for discharge planning.
[2020-04-29] MEDS: POTASSIUM CL 20MEQ IN D5W 1,000 ML IV SCH (14:30)
[2020-04-29 15:26] LABS: HEMATOCRIT 21.7 % (36.0-47.0); HEMOGLOBIN 7.3 g/dL (12.0-15.5)
--- NOTE | 2020-04-29 15:39 | NUR ---
Wound Care Wound Type/Assessment: Follow up visit d/t multiple wounds to bilateral thighs. Photographs and measurements present for wounds on bilateral medial thighs. 2 of the wounds appear to be healed, 2 remain open and superficial with attached margins and very slight presence of slough. Pt is C19+ and currently unresponsive, and is dependent on staff for mobility/position changes. Supine on ICU bed with heels floated on pillows at this time. Nurse at bedside. Wound team limiting exposure to C19+ patients when possible, discussed skin condition with nurse Emma RN, no other open skin areas reported. Treatment Recommendations/Plan: Changing wound treatment to A&D BID to open areas on thighs, apply BID. Continue to turn Q2H as able to prevent further skin breakdown with use of wedge and pillows for positioning. Education provided: Pt unable to receive education, provided instead to Emma HENRY. Offloading surface/device: On ICU bed with wedge and pillows available for position changes. Recommended Referrals/Tests: NA Discharge Recommendations for dressings: Pt is a resident of [facility], and will be possibly discharging from hospital to [facility]. Superficial nature of wounds indicate high likelihood of healing if C19+ stability improves.
[2020-04-29 15:41] LABS: VANC TR 6.7 mcg/mL (10.0-20.0)
[2020-04-29] MEDS: VANCOMYCIN 1 GM in IV NORMAL SALINE 250ML 250 ML IV SCH (16:10)
--- NOTE | 2020-04-29 16:23 | NUR ---
Pharmacy Vancomycin Dosing Note S:Consulted to monitor and dose vancomycin started 04/27/20. O:JOSETTE HARMAN is a 65 year old F with suspected HCAP. Height: 5 feet, 2 inches Weight: 68.1 kg [place] Body Weight: 50.10 Adjusted Body Weight: 57.30 Dosing Weight: Actual Other Antibiotics: zosyn LABS: Last BUN: 22 Last Creatinine: 0.8 Creatinine Clearance: 49 mL/min Last WBC: 3.4 Last Procalcitonin: 6.71 (04/19) Tmax (past 24 hours): 103.7 Microbiology: 04/19: blood cx 1 of 3 bottles growing gram positive cocci in clusters (final ID = staphylococcus coag neg sp). 04/19: Repeat blood cultures NGTD x 5 days 04/19: urine cx (growing E. coli) 04/28: Repeat BC NGTD x 1 days I/O: 500/840 Drug Levels: Last Trough level: 6.7 on 04/29/20 at 1515 Last dose given 04/28/21 at 1616 Vancomycin Dosing: Loading Dose: 1750 mg x1 Dosing Weight: Actual Target Trough: 15-20 A: Based on: Vancomycin trough drawn 1 hour prior to the 3rd dose, patient's renal function and severity of suspected infection: P: 1. Changed Vancomycin dose to 1000 mg IV q18h 2. Follow up Trough level on 05/01/20 at 0330 3. Pharmacy will continue to monitor, follow and adjust therapy as needed. REYNOLD PERES [facility], 04/29/20 0273
--- NOTE | 2020-04-29 16:26 | NUR ---
Patient taken off Precedex temporarily today. Woke up and answered yes and no questions. Was extremely labored with respirations so restarted precedex.
[2020-04-29] MEDS: ATORVASTATIN CALCIUM 10 MG TABLET. PO SCH (19:52)
[2020-04-29] MEDS: FAMOTIDINE 20 MG TABLET. PO SCH (19:53)
[2020-04-29] MEDS: LISINOPRIL 10 MG TABLET PO SCH (19:54)
[2020-04-29] MEDS: MIRTAZAPINE 15 MG TABLET PO SCH (19:54)
[2020-04-29] MEDS: VITS A & D/LANOLIN TOPICAL OINTMENT 42GM TUBE. TP SCH (20:33)
[2020-04-29] MEDS: LATANOPROST 0.005% OPHTH SOLUTION 2.5ML BOTTLE. OU SCH (22:03)
[2020-04-30] VITALS (25 sets, daily range): BP systolic 100–147; BP diastolic 58–79
[2020-04-30] MEDS: PIPERACILLIN/TAZOBACTAM 3.375 GM in IV NORMAL SALINE 50ML 50 ML IV SCH ×4 (00:05→18:07)
[2020-04-30] MEDS: POTASSIUM CL 20MEQ IN D5W 1,000 ML IV SCH ×3 (00:06→21:56)
[2020-04-30] MEDS: DEXMEDETOMIDINE 400 MCG in IV NORMAL SALINE 100ML 96 ML IV PRN ×4 (00:55→20:48)
[2020-04-30] MEDS ORDERED: DEXTROSE 50% 25 GM / 50ML DISP.SYRIN. IV PRN (01:00)
[2020-04-30] MEDS: INSULIN LISPRO 300 UNITS/3 ML VIAL. SQ SCH ×7 (01:41→18:00)
[2020-04-30] MEDS: FOSPHENYTOIN 100 MG/2 ML VIAL. IV SCH ×3 (05:59→21:54)
[2020-04-30] MEDS: methylPREDNISolone SOD SUCC PF 125 MG/2 ML VIAL. IV SCH ×3 (06:00→21:55)
[2020-04-30] MEDS: STERILE WATER for RESP 1,000 ML BAG. INH PRN (06:01)
[2020-04-30] MEDS: METOPROLOL TARTRATE 5 MG/5 ML VIAL. IVP SCH ×4 (06:05→18:06)
--- NOTE | 2020-04-30 08:05 | PDOC ---
Infectious Disease Note Subjective: Subjective Patient remains on Vapotherm 35% More alert today Does not answer all question Afebrile this morning Vital Signs: Vital Signs Vital Signs Date Time Temp Pulse Resp B/P (MAP) Pulse Ox O2 Delivery O2 Flow Rate FiO2 04/30/20 07:28 92 Vapotherm 35.0 04/30/20 06:05 63 128/69 04/30/20 06:00 21 04/30/20 04:00 97.4 97.4 Physical Exam: PHYSICAL EXAM GENERAL: Alert , on vapotherm,lethargic HEENT: no icterus, no thrush NECK: Supple, LUNGS: Coarse bs scattered HEART: S1, S2 tachycardia ABDOMEN: soft bs+ EXTREMITIES: No edema, cyanosis. SKIN: Unremarkable. NEUROLOGIC: The patient does have right-sided hemiplegia and is slow in answering questions. PIV Medications: Inpatient Meds: Current Medications Medications (Trade) Dose Ordered Sig/Fabiana Start Time Stop Time Status Last Admin Dose Admin Acetaminophen (Tylenol Supp) 650 mg PRN Q6HRS PRN 04/20/20 05:30 04/28/20 17:14 650 MG Acetaminophen (Tylenol) 650 mg BID 04/20/20 21:00 04/28/20 22:02 650 MG Amlodipine Besylate (Norvasc) 10 mg DAILY 04/21/20 09:00 04/27/20 10:03 10 MG Amoxicillin/ Clavulanate Potassium (Augmentin 875/ 125mg) 1 tab BID 04/26/20 21:00 04/27/20 14:53 DC 04/27/20 09:58 1 TAB Aripiprazole (Abilify) 5 mg DAILY 04/20/20 11:00 04/27/20 10:02 5 MG Aspirin (Aspirin Chewable) 81 mg DAILY 04/20/20 11:00 04/27/20 10:01 81 MG Atorvastatin Calcium (Lipitor) 10 mg HS 04/20/20 21:00 04/28/20 22:00 10 MG Atropine Sulfate (ATROPINE 0.5mg SYRINGE) 0.5 mg PRN Q5MIN PRN 04/28/20 11:45 Baclofen (Lioresal) 10 mg TID 04/20/20 14:00 04/28/20 22:01 10 MG Buspirone HCl (Buspar) 5 mg BID 04/20/20 11:00 04/28/20 22:03 5 MG Cefepime HCl (Maxipime) 1 gm 1X ONCE 04/19/20 14:30 04/19/20 14:31 DC 04/19/20 14:55 1 GM Ceftriaxone Sodium (Rocephin) 1 gm Q24H 04/24/20 11:00 04/26/20 09:49 DC 04/25/20 09:56 1 GM Dexmedetomidine HCl 400 mcg/ Sodium Chloride 100 ml @ 0 mls/hr CONT PRN 04/28/20 11:45 04/30/20 07:56 13.6 MLS/HR Dextrose (Dextrose 50%-Water Syringe) 12.5 gm PRN Q15MIN PRN 04/30/20 01:00 Diclofenac Sodium (Voltaren) 1 justin TID 04/20/20 14:00 04/29/20 10:00 1 JUSTIN Divalproex Sodium (Depakote Sprinkles) 125 mg BID 04/20/20 11:00 04/28/20 11:00 DC 04/27/20 23:05 125 MG Duloxetine HCl (Cymbalta) 90 mg DAILY 04/20/20 11:00 04/27/20 10:00 90 MG Enoxaparin Sodium (Lovenox 40mg Syringe) 40 mg BID 04/27/20 15:30 04/29/20 20:33 40 MG Ergocalciferol (Vitamin D2) 50,000 unit WEEKLY 04/27/20 09:00 04/27/20 09:58 50,000 UNIT Famotidine (Pepcid) 20 mg HS 04/20/20 21:00 04/28/20 22:00 20 MG Fentanyl Citrate (Fentanyl 2ml Vial) 100 mcg 1X ONCE 04/28/20 11:30 04/28/20 11:33 DC 04/28/20 11:41 100 MCG Fluticasone Propionate (Flonase) 2 spray DAILY 04/21/20 09:00 04/26/20 09:15 2 SPRAY Folic Acid (Folic Acid) 1 mg DAILY 04/20/20 11:00 04/27/20 10:01 1 MG Fosphenytoin Sodium (Cerebyx) 140 mg Q8HRS 04/28/20 22:00 04/30/20 05:59 140 MG Gabapentin (Neurontin) 400 mg TID 04/20/20 14:00 04/28/20 22:01 400 MG Hydralazine HCl (Apresoline Inj) 10 mg PRN Q4HRS PRN 04/28/20 12:45 Cancel Hydralazine HCl (Apresoline) 50 mg TID 04/20/20 14:00 04/28/20 22:01 50 MG Hydrocortisone (Proctosol-Hc) 30 justin PRN BID PRN 04/20/20 10:15 Ibuprofen (Motrin) 600 mg PRN Q8HRS PRN 04/25/20 14:00 04/26/20 09:59 600 MG Insulin Human Lispro (HumaLOG) 0-5 UNITS Q6HRS 04/30/20 01:00 04/30/20 06:27 4 UNITS Lacosamide (Vimpat) 200 mg BID 04/20/20 11:00 04/28/20 10:53 DC 04/28/20 09:38 200 MG Lacosamide 200 mg/ Dextrose 70 ml @ 140 mls/hr BID 04/28/20 21:00 04/29/20 21:12 140 MLS/HR Lactobacillus Rhamnosus (Culturelle) 1 cap BID 04/22/20 21:00 04/28/20 22:01 1 CAP Latanoprost (Xalatan) 1 drop QHS 04/20/20 21:00 04/29/20 22:03 1 DROP Levetiracetam (Keppra) 1,500 mg BID 04/20/20 11:00 04/28/20 10:54 DC 04/28/20 09:38 1,500 MG Levetiracetam 1500 mg/Dextrose 115 ml @ 460 mls/hr Q12HR 04/28/20 21:00 04/29/20 20:39 460 MLS/HR Levofloxacin/ Dextrose 150 ml @ 100 mls/hr 1X ONCE 04/19/20 14:30 04/19/20 15:59 DC 04/19/20 14:56 100 MLS/HR Lisinopril (Prinivil) 30 mg HS 04/20/20 21:00 04/28/20 22:01 30 MG Loperamide HCl (Imodium) 2 mg PRN Q6HRS PRN 04/20/20 10:30 Magnesium Hydroxide (Milk Of Magnesia) 1,200 mg PRN DAILY PRN 04/20/20 10:15 04/24/20 10:00 1,200 MG Metformin HCl (Glucophage) 1,000 mg BIDWMEALS 04/20/20 17:00 04/27/20 09:58 1,000 MG Methylprednisolone Sodium Succinate (SOLU-Medrol 40MG VIAL) 40 mg Q12H 04/26/20 10:00 04/26/20 12:20 DC 04/26/20 09:58 40 MG Methylprednisolone Sodium Succinate (SOLU-Medrol 125MG VIAL) 125 mg Q8HRS 04/27/20 15:00 04/30/20 06:00 125 MG Metoprolol Tartrate (Lopressor Vial) 5 mg Q6HRS 04/28/20 12:45 04/30/20 06:05 5 MG Midazolam HCl (Versed) 5 mg STK-MED ONCE 04/28/20 12:00 04/29/20 09:22 DC Mirtazapine (Remeron) 30 mg QHS 04/20/20 21:00 04/28/20 22:00 30 MG Multivitamins (Thera M Plus) 1 tab DAILY 04/20/20 11:00 04/27/20 10:02 1 TAB Ondansetron HCl (Zofran) 4 mg PRN Q8HRS PRN 04/19/20 15:15 04/20/20 15:14 DC Phenytoin Sodium (Dilantin) 400 mg HS 04/20/20 21:00 04/28/20 11:14 DC 04/27/20 22:59 400 MG Piperacillin Sod/ Tazobactam Sod (Zosyn Per Pharmacy) 1 each PRN DAILY PRN 04/27/20 15:00 Piperacillin Sod/ Tazobactam Sod 3.375 gm/Sodium Chloride 50 ml @ 100 mls/hr Q6HRS 04/27/20 18:00 04/30/20 05:59 100 MLS/HR Potassium Chloride/Dextrose 1,000 ml @ 100 mls/hr Q10H 04/29/20 14:15 04/30/20 00:06 100 MLS/HR Potassium Chloride/Dextrose/ Sod Cl 1,000 ml @ 100 mls/hr Q10H 04/29/20 11:00 04/29/20 14:11 DC 04/29/20 10:25 100 MLS/HR Prednisone (Prednisone) 5 mg DAILY 05/04/20 09:00 04/27/20 14:53 DC Sodium Chloride 500 ml @ 500 mls/hr 1X PRN PRN 04/28/20 11:45 04/29/20 10:07 DC Sterile Water (WATER for RESP) 1,000 ml CONT PRN 04/28/20 11:15 04/30/20 06:01 1,000 ML Valproic Acid 125 mg/Dextrose 51.25 ml @ 51.25 mls/ hr Q12HR 04/28/20 21:00 04/29/20 22:00 51.25 MLS/HR Vancomycin HCl (Vanco Per Pharmacy) 1 each PRN DAILY PRN 04/27/20 15:00 04/29/20 16:18 1 EACH Vancomycin HCl (Vancomycin Trough Level) 1 each 1X ONCE 05/01/20 03:30 05/01/20 03:31 Vancomycin HCl 1.75 gm/Sodium Chloride 500 ml @ 250 mls/hr 1X ONCE 04/27/20 16:00 04/27/20 17:59 DC 04/27/20 16:22 250 MLS/HR Vancomycin HCl 1 gm/Sodium Chloride 250 ml @ 250 mls/hr Q18H 04/29/20 16:00 04/29/20 16:10 250 MLS/HR Vitamin A/Vitamin D (Vitamin A & D Ointment) 1 justin BID 04/29/20 21:00 04/29/20 20:33 1 JUSTIN Labs: Lab Laboratory Tests Test 04/29/20 09:05 04/29/20 12:03 04/29/20 15:15 04/29/20 17:00 O2 Saturation 96 % (92-99) Arterial Blood pH 7.40 (7.35-7.45) Arterial Blood pCO2 at Patient Temp 35 mmHg (35-46) Arterial Blood pO2 at Patient Temp 88 mmHg (65-108) Arterial Blood HCO3 21 mmol/L (21-28) Arterial Blood Base Excess -3 mmol/L (-3-3) Oxyhemoglobin 95.5 % Methemoglobin 0.2 % (0.0-1.9) Carbon Monoxide, Quantitative 0.0 % (0.0-1.9) FiO2 90 Glucose (Fingerstick) 262 mg/dL (70-99) 209 mg/dL (70-99) Hemoglobin 7.3 g/dL (12.0-15.5) Hematocrit 21.7 % (36.0-47.0) Vancomycin Level Trough 6.7 mcg/mL (10.0-20.0) Vancomycin Last Dose Date 04/28/20 Vancomycin Last Dose Time 1600 Test 04/30/20 00:16 04/30/20 06:11 Glucose (Fingerstick) 296 mg/dL (70-99) 265 mg/dL (70-99) Objective: Assessment: 1. COVID-19 pneumonia. 2. Acute hypoxic respiratory failure now on vapotherm 3. Blood culture 1 out of 3, coag neg staph, contaminant. 4. Fever. Pattern improving 5. Right-sided cerebrovascular accident. 6. Traumatic brain injury with aphasia . Plan: Plan of Care cont supportive care Continue zosyn and vanco ( 04/28) s/p plasma administration on steroids May be a candidate for Remdesivir if respiratory status worsens Pulmonary team following follow up labs and cults Discussed with nursing staff YAW WOO MD Apr 30, 2020 08:05
[2020-04-30] MEDS: hydrALAZINE 25 MG TABLET PO SCH ×3 (08:09→20:29)
[2020-04-30] MEDS: ENOXAPARIN 40 MG/0.4 ML SYRINGE. SQ SCH ×2 (08:09→20:50)
[2020-04-30] MEDS: BACLOFEN 10 MG TABLET. PO SCH ×3 (08:09→20:30)
[2020-04-30] MEDS: DULoxetine HCL 30 MG CAPSULE.DR PO SCH (08:09)
[2020-04-30] MEDS: busPIRone 5 MG TABLET. PO SCH ×2 (08:10→20:30)
[2020-04-30] MEDS: FOLIC ACID 1 MG TABLET. PO SCH (08:10)
[2020-04-30] MEDS: MULTIVITAMIN with MINERAL TABLET. PO SCH (08:10)
[2020-04-30] MEDS: ASPIRIN CHEWABLE 81 MG TABLET. PO SCH (08:10)
[2020-04-30] MEDS: GABAPENTIN 400 MG CAPSULE. PO SCH ×3 (08:10→20:30)
[2020-04-30] MEDS: ARIPiprazole 5 MG TABLET PO SCH (08:10)
[2020-04-30] MEDS: LACTOBACILLUS RHAMNOSUS GG 1 CAPSULE. PO SCH ×2 (08:10→20:30)
[2020-04-30] MEDS: metFORMIN 500 MG TABLET PO SCH ×2 (08:10→16:24)
[2020-04-30] MEDS: amLODIPine BESYLATE 10 MG TABLET PO SCH (08:10)
--- NOTE | 2020-04-30 08:32 | PN ---
DATE: 04/30/2020 SUBJECTIVE: The patient is resting, slightly propped up in bed, in no apparent distress. She is definitely more awake, alert, continued to be somewhat tachypneic, but definitely less than before. She is awake, alert, attempts to mouth words. PHYSICAL EXAMINATION: GENERAL: When I examined her, she was pale, no jaundice, cyanosis, or thyromegaly. No jugular venous distention. No lower limb edema. VITAL SIGNS: Her heart rate was 63, blood pressure was 128/69, temperature was 97.4, respiratory rate 21, and oxygen saturation was 92% on FiO2 of 35% on Vapotherm. HEAD, EYES, EARS, NOSE, THROAT: Showed normocephalic, atraumatic. NECK: Supple. HEART: Normal first and second heart sounds. No gallop or murmur. CHEST: Clear to auscultation. No crepitation or rhonchi. ABDOMEN: Distended, soft, nontender. NEUROLOGIC: She has traumatic brain injury with aphasia and right-sided hemiplegia. Her intake over the last 24 hours was 500, output was 140. LABORATORY DATA: As of yesterday, her serum sodium was 153, potassium 3.7, chloride 115, bicarbonate 25, anion gap of 13, BUN 22, creatinine 0.8, estimated GFR was 86 mL per minute. Her C-reactive protein was 263 mg/dL and her D-dimer has risen from 0.33 to 10.33 mg/dL. Her white cell count is 3400, hemoglobin 7, hematocrit 22, MCV 89, and platelet count of 197. Her H and H yesterday afternoon was 7.3 and 21.7. Today's labs are still pending at the time of this dictation. ASSESSMENT: 1. COVID-19 pneumonia. 2. Acute hypoxic respiratory failure, currently on Vapotherm. 3. 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 4. Hypertension. 5. Type 2 diabetes mellitus. 6. Posttraumatic seizure disorder, for which she is on phenytoin and Keppra and lacosamide. 7. Sinus tachycardia, likely reactive, improved. 8. Hypernatremia, for which I discontinued her normal saline. She is now on D5W. 9. Hypokalemia, on supplement. PLAN: To continue with IV fluid, continue with antiepileptic medication. I will consult speech therapist to see if she is able to eat and drink and I did ask the vp digital marketing social media and crm to see whether she qualifies to go to [facility]. I prepared all the medication list and if she was accepted, she can be transferred today. ETELVINA HAYWOOD MD DR: ALISON/hernán JOB#: [id number] / [id number]
[2020-04-30 08:57] LABS: HEMATOCRIT 23.4 % (36.0-47.0); HEMOGLOBIN 7.8 g/dL (12.0-15.5); RED BLOOD COUNT 2.68 x10^6/uL (3.50-5.40); RED CELL DISTRIBUTION WIDTH 15.1 % (11.5-14.5); WHITE BLOOD COUNT 4.1 x10^3/uL (4.0-11.0)
[2020-04-30 08:58] LABS: ALBUMIN 1.6 g/dL (3.4-5.0); ALBUMIN/GLOBULIN RATIO 0.3 (1.0-1.7); CALCIUM 8.2 mg/dL (8.5-10.1); CREATININE 1.1 mg/dL (0.6-1.0); GFR 59.9; MAGNESIUM 1.7 mg/dL (1.8-2.4); POTASSIUM 3.7 mmol/L (3.5-5.1); TOTAL BILIRUBIN 0.3 mg/dL (0.2-1.0)
[2020-04-30] MEDS: FLUTICASONE 50MCG/NASAL SPRAY 16GM BOTTLE. NS SCH (09:00)
[2020-04-30] MEDS: ACETAMINOPHEN 325 MG TABLET. PO SCH ×2 (09:00→20:31)
[2020-04-30] MEDS: LACOSAMIDE 200 MG in IV DEXTROSE 5% 50 ML IV SCH ×2 (09:03→20:49)
--- NOTE | 2020-04-30 09:06 | SNU/HH DC ---
DISCHARGE ORDERS DISCHARGE INFORMATION: DISCHARGE DATE: Apr 30, 2020 FINAL DIAGNOSIS Problems Medical Problems: (1) Altered mental status Status: Acute (2) Pneumonia Status: Acute CONDITION ON DISCHARGE: Stable CODE STATUS: Code Status: Full LTAC: ADMIT TO LTAC: Yes POST DISCHARGE ORDERS: ACTIVITY ORDERS: Resume previous activity DIET AFTER DISCHARGE: ADA TREATMENT/EQUIPMENT ORDERS: RESPIRATORY EQUIPMENT NEEDED: Oxygen Physical Therapy For: Evalulation/Treatment Occupational Therapy For: Evaluation/Treatment DISCHARGE MEDICATIONS: Home Meds Active Scripts Prednisone (PREDNISONE) 20 Mg Tablet, 1 TAB PO DAILY for HCAP for 10 Days, #10 TAB Prov:ETELVINA HAYWOOD MD 04/25/20 Amoxicillin/Potassium Clav (AUGMENTIN 875-125 TABLET) 1 Each Tablet, 1 TAB PO BID for HCAP for 7 Days, #14 TAB 0 Refills Prov:ETELVINA HAYWOOD MD 04/25/20 Metformin Hcl (METFORMIN HCL) 1,000 Mg Tablet, 1 TAB PO BID, #60 TAB 5 Refills Prov:ETELVINA HAYWOOD MD 12/26/15 Reported Medications Diclofenac Sodium (VOLTAREN) 100 Gm Gel..gram., 1 CHARITY TP TID for RIGHT ANKLE PAIN, EACH 04/19/20 Famotidine (FAMOTIDINE) 20 Mg Tablet, 20 MG PO HS for gerd, TAB 01/28/20 Phenytoin Sodium Extended (DILANTIN) 100 Mg Capsule, 30 MG PO HS for seizures, #90 CAP 3 Refills 01/28/20 Lisinopril (LISINOPRIL) 30 Mg Tablet, 1 TAB PO HS for HTN, #30 TAB 5 Refills 01/28/20 Mirtazapine (MIRTAZAPINE) 30 Mg Tab.rapdis, 30 MG PO QHS for depression for 30 Days, #30 TAB 0 Refills 01/28/20 Cholecalciferol (Vitamin D3) (D3-50) 50,000 Unit Capsule, 1 CAP PO WEEKLY for vitamin d deficiency for 28 Days, #4 CAP 0 Refills 01/28/20 Aspirin (ASPIRIN) 81 Mg Tab.chew, 1 TAB PO DAILY for antiplatelet, #30 TAB 3 Refills 01/28/20 Atorvastatin Calcium (ATORVASTATIN CALCIUM) 10 Mg Tablet, 10 MG PO HS for FOR CHOLESTEROL, #30 TAB 0 Refills 02/24/17 Loperamide Hcl (ANTI-DIARRHEA) 2 Mg Tablet, 2 MG PO PRN Q6HRS PRN for DIARRHEA, TAB 02/24/17 Acetaminophen (TYLENOL) 325 Mg Tablet, 650 MG PO BID for pain 12/24/15 Amlodipine Besylate (NORVASC) 10 Mg Tablet, 10 MG PO DAILY, TAB 12/24/15 Magnesium Hydroxide (MILK OF MAGNESIA) 400 Mg/5 Ml Oral.susp, 1200 MG PO PRN DA CLARENCE PRN for CONSTIPATION 12/24/15 Latanoprost (LATANOPROST) 2.5 Ml Drops, 1 DROP EACHEYE QHS for glaucoma 12/24/15 Lacosamide (VIMPAT) 200 Mg Tablet, 200 MG PO BID 12/24/15 Levetiracetam (KEPPRA) 500 Mg Tablet, 1500 MG PO BID, TAB 12/24/15 Gabapentin (GABAPENTIN ) 400 Mg Capsule, 400 MG PO TID, CAP 12/24/15 Folic Acid (FOLIC ACID) 1 Mg Tablet, 1 TAB PO DAILY, TAB 12/24/15 Fluticasone Propionate (Flonase Allergy Relief) 9.9 Ml [place].susp, 2 SPRAYS NS DAILY, BOTTLE 12/24/15 Buspirone Hcl (BUSPIRONE HCL) 5 Mg Tablet, 1 TAB PO BID, TAB 12/24/15 Aripiprazole (ABILIFY) 5 Mg Tablet, 5 MG PO DAILY for delusions, TAB 12/24/15 Hydrocortisone (HYDROCORTISONE) 30 Gm Cream..g., 30 GM RC PRN BID PRN for RASH 05/20/14 Hc/Mineral Oil/Petrolat,Wht (HYDROCORTISONE 1% ABSORBASE) 25 Gm Oint...g., 25 GM TP 05/20/14 Hydralazine Hcl (HYDRALAZINE HCL) 25 Mg Tablet, 2 TAB PO TID, #90 TAB 5 Refills 05/20/14 Phenytoin Sodium Extended (DILANTIN) 100 Mg Capsule, 400 MG PO HS for seizure, CAP give with 30mg to equal 430mg 05/20/14 Divalproex Sodium (DEPAKOTE SPRINKLE) 125 Mg Cap.sprink, 125 MG PO BID, EACH 05/20/14 Duloxetine Hcl (CYMBALTA) 30 Mg Capsule.dr, 3 CAP PO DAILY, #30 CAP 5 Refills 05/20/14 Multivits W-Fe,Other Min/Lut (CENTRUM SILVER ULTRA WOMEN TAB) 1 Each Tablet, 1 EACH PO DAILY for vitamin supplement 05/20/14 Baclofen (BACLOFEN) 10 Mg Tablet, 1 TAB PO TID, #90 TAB 2 Refills 05/20/14 ETELVINA HAYWOOD MD Apr 30, 2020 09:06
--- NOTE | 2020-04-30 09:51 | DS ---
DATE OF DISCHARGE: 04/30/2020 HOSPITAL COURSE: The patient is a 65-year-old -[place] female patient, resident at [facility], who was admitted to [facility] with altered mental status. She also has low-grade fever. Her COVID test was done and was negative. She has traumatic brain injury and unfortunately she has right-sided hemiplegia and aphasia and communication is difficult. However, she was evaluated in the Emergency Room. Her white cell count was slightly elevated. Her D-dimer was normal at 0.33. Her chemistry showed that she is slightly dehydrated with a BUN of 31 and creatinine of 1.1. Her procalcitonin was 6.7 and her C-reactive protein was 151.6 mg/dL. Urinalysis unremarkable. Her tox screen was unremarkable. Chest x-ray, she has mild right-sided infiltrate and therefore, the patient was admitted and was started on antibiotic for healthcare-associated pneumonia. Subsequently, we were to discharge her back and she started spiking her temperature and developed severe respiratory distress that required initially 100% nonrebreather mask and eventually she was transferred to the ICU where she was put on Vapotherm with FiO2 of 40% with 3 liters of oxygen and as she continued to require high flow oxygen and IV antibiotic as well as IV antiepileptic and nutritional support, a decision was made to transfer her to [facility] to continue with all these modalities. PHYSICAL EXAMINATION: GENERAL: When I saw her this morning, she looked well and was clearly in no apparent respiratory distress. VITAL SIGNS: Her heart rate this morning was 75, blood pressure was 126/67, her temperature was 97.4, respiratory rate was 21 and oxygen saturation was 92% on FiO2 of 35% with 4 liters of oxygen via Vapotherm. HEAD, EYES, EARS, NOSE AND THROAT: Showed normocephalic, atraumatic. NECK: Supple. HEART: Showed normal first and second heart sounds. No gallop, rub or murmur. CHEST: Clear to auscultation. No crepitation or rhonchi. ABDOMEN: Distended, soft, nontender. NEUROLOGIC: She is definitely more awake, alert, attempts to mouth some words. She has aphasia and right-sided hemiplegia secondary to traumatic brain injury. Her intake over the last 24 hours was 500, output was 840. LABORATORY DATA: As of this morning, her white cell count was 4000, hemoglobin 7.8, hematocrit 23.4, MCV 88 and platelet count of 149,000. Her chemistry showed serum sodium is slightly better at 146, potassium 3.7, chloride 111, bicarbonate 25, anion gap of 10, BUN 33, creatinine 1.1, estimated GFR was 59 mL per minute. Her glucose was 250, calcium was 8.2, magnesium was 1.7. Total bilirubin, AST, ALT, alkaline phosphatase were normal. Her total protein was 7, albumin was 1.6. DISCHARGE MEDICATIONS: She was transferred to [facility] to continue with vancomycin IV every 18 hours. Continue with D5W with 40 mEq of potassium chloride at 100 mL per hour, fosphenytoin 140 mg IV every 8 hours, valproic acid 125 IV every 12 hours. She is on Keppra 1500 mg IV every 12 hours and lacosamide 200 mg IV twice a day, metoprolol tartrate 5 mg every 6 hours, atropine sulfate 0.5 mg every 5 minutes as needed, Precedex for agitation and Zosyn 3.375 grams IV every 6 hours, hydralazine 10 mg IV every 4 hours, Lovenox 40 mg subcutaneously twice a day and methylprednisone 125 mg every 8 hours. FINAL DISCHARGE DIAGNOSES: 1. COVID-19 pneumonia. 2. Acute hypoxic respiratory failure with high oxygen requirement, currently on Vapotherm. 3. 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 4. Hypertension. 5. Type 2 diabetes mellitus. 6. Posttraumatic seizure disorder, for which she is on fosphenytoin, Keppra and lacosamide. 7. Sinus tachycardia, likely reactive, improved. 8. Hypernatremia, improving. 9. Hypokalemia, improving. ETELVINA HAYWOOD MD DR: ALISON/hernán JOB#: [id number] / [id number]
[2020-04-30] MEDS: levETIRAcetam 1,500 MG in IV DEXTROSE 5% 100ML 100 ML IV SCH ×2 (09:52→20:49)
[2020-04-30] MEDS: VALPROIC ACID IV SCH ×2 (10:15→10:40)
[2020-04-30] MEDS: DEXTROSE 5% IV SCH ×2 (10:15→10:40)
[2020-04-30] MEDS: VITS A & D/LANOLIN TOPICAL OINTMENT 42GM TUBE. TP SCH ×2 (10:16→20:51)
--- NOTE | 2020-04-30 10:25 | NUR ---
SS following up with discharge planning. SS reviewed pt chart and discussed with pt RN. Pt on Vapotherm and COVID19 positive. Pt accepted at [facility], ; fax [phone]. Discharge orders received. SS phoned and faxed discharge orders to [facility]. Packet and [facility] form on the chart. Pt's guardian notified. SS currently awaiting on bed availability and will proceed accordingly. Pt's RN notified.
[2020-04-30] MEDS: VANCOMYCIN 1 GM in IV NORMAL SALINE 250ML 250 ML IV SCH (11:10)
--- NOTE | 2020-04-30 11:20 | PDOC ---
PULMONARY PROGRESS NOTES DATE: 04/30/20 TIME: 11:16 Subjective Pt transfer to ICU with worsening hypoxia/ resp distress 04/28 ON VAPOTHERM 90%fio2/ comfortable more responsive Vitals Vital Signs Date Time Temp Pulse Resp B/P (MAP) Pulse Ox O2 Delivery O2 Flow Rate FiO2 04/30/20 09:00 86 27 124/69 (87) 95 vapotherm 35.0 04/30/20 08:00 97.5 97.5 Comments visual exam done increase resp distress on 100%FIO2 no rash no leg edema Labs Laboratory Tests Test 04/28/20 11:55 04/28/20 12:25 04/28/20 17:19 04/29/20 06:45 White Blood Count 4.2 x10^3/uL (4.0-11.0) 3.4 x10^3/uL (4.0-11.0) Red Blood Count 2.89 x10^6/uL (3.50-5.40) 2.49 x10^6/uL (3.50-5.40) Hemoglobin 8.5 g/dL (12.0-15.5) 7.1 g/dL (12.0-15.5) Hematocrit 25.5 % (36.0-47.0) 22.1 % (36.0-47.0) Mean Corpuscular Volume 88 fL (79-100) 89 fL (79-100) Mean Corpuscular Hemoglobin 29 pg (25-35) 29 pg (25-35) Mean Corpuscular Hemoglobin Concent 33 g/dL (31-37) 32 g/dL (31-37) Red Cell Distribution Width 15.0 % (11.5-14.5) 15.2 % (11.5-14.5) Platelet Count 288 x10^3/uL (140-400) 197 x10^3/uL (140-400) Sodium Level 150 mmol/L (136-145) 153 mmol/L (136-145) Potassium Level 3.6 mmol/L (3.5-5.1) 3.7 mmol/L (3.5-5.1) Chloride Level 113 mmol/L (98-107) 115 mmol/L (98-107) Carbon Dioxide Level 28 mmol/L (21-32) 25 mmol/L (21-32) Anion Gap 9 (6-14) 13 (6-14) Blood Urea Nitrogen 17 mg/dL (7-20) 22 mg/dL (7-20) Creatinine 0.8 mg/dL (0.6-1.0) 0.8 mg/dL (0.6-1.0) Estimated GFR (Cockcroft-Gault) 86.6 86.6 BUN/Creatinine Ratio 21 (6-20) 28 (6-20) Glucose Level 144 mg/dL (70-99) 243 mg/dL (70-99) Calcium Level 8.9 mg/dL (8.5-10.1) 8.7 mg/dL (8.5-10.1) Total Bilirubin 0.2 mg/dL (0.2-1.0) 0.4 mg/dL (0.2-1.0) Aspartate Amino Transf (AST/SGOT) 56 U/L (15-37) 95 U/L (15-37) Alanine Aminotransferase (ALT/SGPT) 34 U/L (14-59) 56 U/L (14-59) Alkaline Phosphatase 81 U/L (46-116) 62 U/L (46-116) AC-Jbg-R-Type Natriuretic Peptide 717 pg/mL (0-124) Total Protein 7.4 g/dL (6.4-8.2) 6.3 g/dL (6.4-8.2) Albumin 1.8 g/dL (3.4-5.0) 1.7 g/dL (3.4-5.0) Albumin/Globulin Ratio 0.3 (1.0-1.7) 0.4 (1.0-1.7) Urine Collection Type Unknown Urine Color Yellow Urine Clarity Clear Urine pH 5.5 (<5.0-8.0) Urine Specific [place] 1.020 (1.000-1.030) Urine Protein 100 mg/dL (NEG-TRACE) Urine Glucose (UA) Negative mg/dL (NEG) Urine Ketones (Stick) Negative mg/dL (NEG) Urine Blood Negative (NEG) Urine Nitrite Negative (NEG) Urine Bilirubin Negative (NEG) Urine Urobilinogen Dipstick 0.2 mg/dL (0.2 mg/dL) Urine Leukocyte Esterase Negative (NEG) Urine RBC 0 /HPF (0-2) Urine WBC 1-4 /HPF (0-4) Urine Squamous Epithelial Cells Occ /LPF Urine Amorphous Sediment Present /HPF Urine Bacteria 0 /HPF (0-FEW) Urine Mucus Slight /LPF Glucose (Fingerstick) 137 mg/dL (70-99) D-Dimer (Mary) 10.33 ug/mlFEU (0.00-0.50) C-Reactive Protein, Quantitative 263.8 mg/L (0-3.3) Test 04/29/20 09:05 04/29/20 12:03 04/29/20 15:15 04/29/20 17:00 O2 Saturation 96 % (92-99) Arterial Blood pH 7.40 (7.35-7.45) Arterial Blood pCO2 at Patient Temp 35 mmHg (35-46) Arterial Blood pO2 at Patient Temp 88 mmHg (65-108) Arterial Blood HCO3 21 mmol/L (21-28) Arterial Blood Base Excess -3 mmol/L (-3-3) Oxyhemoglobin 95.5 % Methemoglobin 0.2 % (0.0-1.9) Carbon Monoxide, Quantitative 0.0 % (0.0-1.9) FiO2 90 Glucose (Fingerstick) 262 mg/dL (70-99) 209 mg/dL (70-99) Hemoglobin 7.3 g/dL (12.0-15.5) Hematocrit 21.7 % (36.0-47.0) Vancomycin Level Trough 6.7 mcg/mL (10.0-20.0) Vancomycin Last Dose Date 04/28/20 Vancomycin Last Dose Time 1600 Test 04/30/20 00:16 04/30/20 06:11 04/30/20 08:00 Glucose (Fingerstick) 296 mg/dL (70-99) 265 mg/dL (70-99) White Blood Count 4.1 x10^3/uL (4.0-11.0) Red Blood Count 2.68 x10^6/uL (3.50-5.40) Hemoglobin 7.8 g/dL (12.0-15.5) Hematocrit 23.4 % (36.0-47.0) Mean Corpuscular Volume 88 fL (79-100) Mean Corpuscular Hemoglobin 29 pg (25-35) Mean Corpuscular Hemoglobin Concent 33 g/dL (31-37) Red Cell Distribution Width 15.1 % (11.5-14.5) Platelet Count 149 x10^3/uL (140-400) Sodium Level 146 mmol/L (136-145) Potassium Level 3.7 mmol/L (3.5-5.1) Chloride Level 111 mmol/L (98-107) Carbon Dioxide Level 25 mmol/L (21-32) Anion Gap 10 (6-14) Blood Urea Nitrogen 33 mg/dL (7-20) Creatinine 1.1 mg/dL (0.6-1.0) Estimated GFR (Cockcroft-Gault) 59.9 BUN/Creatinine Ratio 30 (6-20) Glucose Level 250 mg/dL (70-99) Calcium Level 8.2 mg/dL (8.5-10.1) Magnesium Level 1.7 mg/dL (1.8-2.4) Total Bilirubin 0.3 mg/dL (0.2-1.0) Aspartate Amino Transf (AST/SGOT) 62 U/L (15-37) Alanine Aminotransferase (ALT/SGPT) 49 U/L (14-59) Alkaline Phosphatase 61 U/L (46-116) Total Protein 7.0 g/dL (6.4-8.2) Albumin 1.6 g/dL (3.4-5.0) Albumin/Globulin Ratio 0.3 (1.0-1.7) Laboratory Tests Test 04/29/20 12:03 04/29/20 15:15 04/29/20 17:00 04/30/20 00:16 Glucose (Fingerstick) 262 mg/dL (70-99) 209 mg/dL (70-99) 296 mg/dL (70-99) Hemoglobin 7.3 g/dL (12.0-15.5) Hematocrit 21.7 % (36.0-47.0) Vancomycin Level Trough 6.7 mcg/mL (10.0-20.0) Vancomycin Last Dose Date 04/28/20 Vancomycin Last Dose Time 1600 Test 04/30/20 06:11 04/30/20 08:00 Glucose (Fingerstick) 265 mg/dL (70-99) White Blood Count 4.1 x10^3/uL (4.0-11.0) Red Blood Count 2.68 x10^6/uL (3.50-5.40) Hemoglobin 7.8 g/dL (12.0-15.5) Hematocrit 23.4 % (36.0-47.0) Mean Corpuscular Volume 88 fL (79-100) Mean Corpuscular Hemoglobin 29 pg (25-35) Mean Corpuscular Hemoglobin Concent 33 g/dL (31-37) Red Cell Distribution Width 15.1 % (11.5-14.5) Platelet Count 149 x10^3/uL (140-400) Sodium Level 146 mmol/L (136-145) Potassium Level 3.7 mmol/L (3.5-5.1) Chloride Level 111 mmol/L (98-107) Carbon Dioxide Level 25 mmol/L (21-32) Anion Gap 10 (6-14) Blood Urea Nitrogen 33 mg/dL (7-20) Creatinine 1.1 mg/dL (0.6-1.0) Estimated GFR (Cockcroft-Gault) 59.9 BUN/Creatinine Ratio 30 (6-20) Glucose Level 250 mg/dL (70-99) Calcium Level 8.2 mg/dL (8.5-10.1) Magnesium Level 1.7 mg/dL (1.8-2.4) Total Bilirubin 0.3 mg/dL (0.2-1.0) Aspartate Amino Transf (AST/SGOT) 62 U/L (15-37) Alanine Aminotransferase (ALT/SGPT) 49 U/L (14-59) Alkaline Phosphatase 61 U/L (46-116) Total Protein 7.0 g/dL (6.4-8.2) Albumin 1.6 g/dL (3.4-5.0) Albumin/Globulin Ratio 0.3 (1.0-1.7) Medications Active Scripts Medications Dose Route/Sig Max Daily Dose Days Date Category Dose Instructions Voltaren (Diclofenac Sodium) 100 Gm Gel..gram. 1 Jitendra TP TID 04/19/20 Reported Famotidine 20 Mg Tablet 20 Mg PO HS 01/28/20 Reported Dilantin (Phenytoin Sodium Extended) 100 Mg Capsule 30 Mg PO HS 01/28/20 Reported Lisinopril 30 Mg Tablet 1 Tab PO HS 01/28/20 Reported Mirtazapine 30 Mg Tab.rapdis 30 Mg PO QHS 30 01/28/20 Reported D3-50 (Cholecalciferol (Vitamin D3)) 50,000 Unit Capsule 1 Cap PO WEEKLY 28 01/28/20 Reported Aspirin 81 Mg Tab.chew 1 Tab PO DAILY 01/28/20 Reported Atorvastatin Calcium 10 Mg Tablet 10 Mg PO HS 02/24/17 Reported Anti-Diarrhea (Loperamide Hcl) 2 Mg Tablet 2 Mg PO PRN Q6HRS PRN 02/24/17 Reported Metformin Hcl 1,000 Mg Tablet 1 Tab PO BID 12/26/15 Rx Tylenol (Acetaminophen) 325 Mg Tablet 650 Mg PO BID 12/24/15 Reported Norvasc (Amlodipine Besylate) 10 Mg Tablet 10 Mg PO DAILY 12/24/15 Reported Milk Of Magnesia (Magnesium Hydroxide) 400 Mg/5 Ml Oral.susp 1,200 Mg PO PRN DAILY PRN 12/24/15 Reported Latanoprost 2.5 Ml Drops 1 Drop EACHEYE QHS 12/24/15 Reported Vimpat (Lacosamide) 200 Mg Tablet 200 Mg PO BID 12/24/15 Reported Keppra (Levetiracetam) 500 Mg Tablet 1,500 Mg PO BID 12/24/15 Reported Gabapentin (Gabapentin) 400 Mg Capsule 400 Mg PO TID 12/24/15 Reported Folic Acid 1 Mg Tablet 1 Tab PO DAILY 12/24/15 Reported Flonase Allergy Relief (Fluticasone Propionate) 9.9 Ml [place].susp 2 Sprays NS DAILY 12/24/15 Reported Buspirone Hcl 5 Mg Tablet 1 Tab PO BID 12/24/15 Reported Abilify (Aripiprazole) 5 Mg Tablet 5 Mg PO DAILY 12/24/15 Reported Hydrocortisone 30 Gm Cream..g. 30 Gm RC PRN BID PRN 05/20/14 Reported Hydrocortisone 1% Absorbase (Hc/Mineral Oil/Petrolat,Wht) 25 Gm Oint...g. 25 Gm TP 05/20/14 Reported Hydralazine Hcl 25 Mg Tablet 2 Tab PO TID 05/20/14 Reported Dilantin (Phenytoin Sodium Extended) 100 Mg Capsule 400 Mg PO HS 05/20/14 Reported give with 30mg to equal 430mg Depakote Sprinkle (Divalproex Sodium) 125 Mg Cap.sprink 125 Mg PO BID 05/20/14 Reported Cymbalta (Duloxetine Hcl) 30 Mg Capsule.dr 3 Cap PO DAILY 05/20/14 Reported Centrum Silver Ultra Women Tab (Multivits W-Fe,Other Min/Lut) 1 Each Tablet 1 Each PO DAILY 05/20/14 Reported Baclofen 10 Mg Tablet 1 Tab PO TID 05/20/14 Reported Comments CXR IMPRESSION: Mild right-sided infiltrates. Impression . 1. Acute hypoxic respiratory failure secondary to COVID-19 pneumonia./ ALI/ARDS 2. Abnormal chest x-ray with patchy infiltrates bilaterally, suggestive of pneumonia, likely COVID-19.--COVID 19 positive/ARDS 3. 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 4. History of posttraumatic epilepsy. 5. No significant tobacco history. 6. Mild azotemia--improved 7. Normal D-dimer. 8. Fever, 9. Encephalopathy, better while off precedex Plan . PT ON VAPOTHERM, 90%fio2 mental status better off precedex Solu-Medrol high-dose Empiric antibiotics for gram-positive and gram-negative organisms hold off intubation Above discussed with nurse and Dr Bolanos I spoke with guardian Gilbert Mcclain. He mentioned that patient requested full code DVT/GI PPX Repeat d-dimer 10.3, on high dose DVT prophylaxis s/p Plasma cct 30 min d/w RN/RT BUFFY JIANG MD Apr 30, 2020 11:20
[2020-04-30] MEDS: VANCOMYCIN PER PHARMACY MC PRN (11:38)
[2020-04-30] MEDS: DICLOFENAC SODIUM 1% TOPICAL GEL 100GM TUBE. TP SCH ×2 (14:00→21:00)
[2020-04-30] MEDS: FAMOTIDINE 20 MG TABLET. PO SCH (20:30)
[2020-04-30] MEDS: ATORVASTATIN CALCIUM 10 MG TABLET. PO SCH (20:30)
[2020-04-30] MEDS: LISINOPRIL 10 MG TABLET PO SCH (20:30)
[2020-04-30] MEDS: MIRTAZAPINE 15 MG TABLET PO SCH (20:31)
[2020-04-30] MEDS: LATANOPROST 0.005% OPHTH SOLUTION 2.5ML BOTTLE. OU SCH (21:00)
[2020-05-01] VITALS (24 sets, daily range): BP systolic 61–186; BP diastolic 45–98
[2020-05-01] MEDS: PIPERACILLIN/TAZOBACTAM 3.375 GM in IV NORMAL SALINE 50ML 50 ML IV SCH ×5 (00:33→23:54)
[2020-05-01] MEDS: METOPROLOL TARTRATE 5 MG/5 ML VIAL. IVP SCH ×5 (00:34→23:41)
[2020-05-01] MEDS: STERILE WATER for RESP 1,000 ML BAG. INH PRN (00:34)
[2020-05-01 05:02] LABS: HEMATOCRIT 22.3 % (36.0-47.0); HEMOGLOBIN 7.4 g/dL (12.0-15.5); RED BLOOD COUNT 2.54 x10^6/uL (3.50-5.40); RED CELL DISTRIBUTION WIDTH 14.8 % (11.5-14.5); WHITE BLOOD COUNT 4.2 x10^3/uL (4.0-11.0)
[2020-05-01 05:11] LABS: CALCIUM 8.6 mg/dL (8.5-10.1); CREATININE 0.8 mg/dL (0.6-1.0); GFR 86.6; POTASSIUM 3.8 mmol/L (3.5-5.1)
[2020-05-01 05:17] LABS: VANC TR 13.9 mcg/mL (10.0-20.0)
[2020-05-01] MEDS: methylPREDNISolone SOD SUCC PF 125 MG/2 ML VIAL. IV SCH ×3 (05:37→22:10)
[2020-05-01] MEDS: VANCOMYCIN 1 GM in IV NORMAL SALINE 250ML 250 ML IV SCH (05:38)
[2020-05-01] MEDS: FOSPHENYTOIN 100 MG/2 ML VIAL. IV SCH ×3 (05:39→22:10)
[2020-05-01] MEDS: DEXMEDETOMIDINE 400 MCG in IV NORMAL SALINE 100ML 96 ML IV PRN ×3 (05:40→20:35)
[2020-05-01] MEDS: VANCOMYCIN PER PHARMACY MC PRN (05:42)
--- NOTE | 2020-05-01 05:42 | NUR ---
Pharmacy Vancomycin Dosing Note S: Consulted to monitor and dose vancomycin started 04/27/20. O: JOSETTE HARMAN is a 65 year old F with HCAP, . Other Antibiotics: zosyn LABS: Last BUN: 24 Last Creatinine: 0.8 Creatinine Clearance: 49 mL/min Last WBC: 4.2 Last Procalcitonin: 6.71 (04/19) Tmax (past 24 hours): 103.7 Microbiology: 04/19: blood cx 1 of 3 bottles growing gram positive cocci in clusters (final ID = staphylococcus coag neg sp) 04/19: urine cx (growing E. coli) No repeat cultures drawn at this time I/O: 500/840 Drug Levels: Last Trough level: 13.9 on 05/01/20 at 0440 Last dose given 04/30/21 at 1110 Vancomycin Dosing: Dosing Weight: Actual Target Trough: 15-20 A: Based on: Trough, Actual Wt and CrCl P: 1. 05/01/20 Continue Vancomycin 1000 mg IV q18h 2. Follow up Trough level in 5 to 7 days as needed 3. Pharmacy will continue to monitor, follow and adjust therapy as needed. CHRISTINA NAYLOR RPH, 05/01/20 0543 Signed: 05/01/20 at 0544 by CHRISTINA NAYLOR RPH PHA
[2020-05-01] MEDS: INSULIN LISPRO 300 UNITS/3 ML VIAL. SQ SCH ×5 (06:20→16:52)
[2020-05-01] MEDS: metFORMIN 500 MG TABLET PO SCH ×2 (07:20→12:34)
[2020-05-01] MEDS: ASPIRIN CHEWABLE 81 MG TABLET. PO SCH (07:20)
[2020-05-01] MEDS: ARIPiprazole 5 MG TABLET PO SCH (07:20)
[2020-05-01] MEDS: hydrALAZINE 25 MG TABLET PO SCH ×3 (07:20→21:00)
[2020-05-01] MEDS: GABAPENTIN 400 MG CAPSULE. PO SCH ×3 (07:21→20:09)
[2020-05-01] MEDS: DULoxetine HCL 30 MG CAPSULE.DR PO SCH (07:21)
[2020-05-01] MEDS: MULTIVITAMIN with MINERAL TABLET. PO SCH (07:21)
[2020-05-01] MEDS: LACTOBACILLUS RHAMNOSUS GG 1 CAPSULE. PO SCH ×2 (07:21→20:09)
[2020-05-01] MEDS: amLODIPine BESYLATE 10 MG TABLET PO SCH (07:21)
[2020-05-01] MEDS: FOLIC ACID 1 MG TABLET. PO SCH (07:21)
[2020-05-01] MEDS: BACLOFEN 10 MG TABLET. PO SCH ×3 (07:21→20:09)
[2020-05-01] MEDS: busPIRone 5 MG TABLET. PO SCH ×2 (07:21→20:09)
[2020-05-01] MEDS: ACETAMINOPHEN 325 MG TABLET. PO SCH ×2 (07:22→20:10)
--- NOTE | 2020-05-01 08:12 | PDOC ---
Infectious Disease Note Subjective: Subjective Patient remains on Vapotherm 35% Temperature of 100.3 Does not answer all questions Vital Signs: Vital Signs Vital Signs Date Time Temp Pulse Resp B/P (MAP) Pulse Ox O2 Delivery O2 Flow Rate FiO2 05/01/20 07:34 86 Vapotherm 35.0 05/01/20 06:00 95 26 138/81 (100) 05/01/20 04:00 100.3 100.3 Physical Exam: PHYSICAL EXAM GENERAL: Alert , on vapotherm,lethargic HEENT: no icterus, no thrush NECK: Supple, LUNGS: Coarse bs scattered HEART: S1, S2 tachycardia ABDOMEN: soft bs+ EXTREMITIES: No edema, cyanosis. SKIN: Unremarkable. NEUROLOGIC: The patient does have right-sided hemiplegia and is slow in answering questions. PIV Medications: Inpatient Meds: Current Medications Medications (Trade) Dose Ordered Sig/Fabiana Start Time Stop Time Status Last Admin Dose Admin Acetaminophen (Tylenol Supp) 650 mg PRN Q6HRS PRN 04/20/20 05:30 04/28/20 17:14 650 MG Acetaminophen (Tylenol) 650 mg BID 04/20/20 21:00 04/28/20 22:02 650 MG Amlodipine Besylate (Norvasc) 10 mg DAILY 04/21/20 09:00 04/30/20 08:10 10 MG Amoxicillin/ Clavulanate Potassium (Augmentin 875/ 125mg) 1 tab BID 04/26/20 21:00 04/27/20 14:53 DC 04/27/20 09:58 1 TAB Aripiprazole (Abilify) 5 mg DAILY 04/20/20 11:00 04/30/20 08:10 5 MG Aspirin (Aspirin Chewable) 81 mg DAILY 04/20/20 11:00 04/30/20 08:10 81 MG Atorvastatin Calcium (Lipitor) 10 mg HS 04/20/20 21:00 04/28/20 22:00 10 MG Atropine Sulfate (ATROPINE 0.5mg SYRINGE) 0.5 mg PRN Q5MIN PRN 04/28/20 11:45 Baclofen (Lioresal) 10 mg TID 04/20/20 14:00 04/30/20 14:08 10 MG Buspirone HCl (Buspar) 5 mg BID 04/20/20 11:00 04/30/20 08:10 5 MG Cefepime HCl (Maxipime) 1 gm 1X ONCE 04/19/20 14:30 04/19/20 14:31 DC 04/19/20 14:55 1 GM Ceftriaxone Sodium (Rocephin) 1 gm Q24H 04/24/20 11:00 04/26/20 09:49 DC 04/25/20 09:56 1 GM Dexmedetomidine HCl 400 mcg/ Sodium Chloride 100 ml @ 0 mls/hr CONT PRN 04/28/20 11:45 05/01/20 05:40 13.6 MLS/HR Dextrose (Dextrose 50%-Water Syringe) 12.5 gm PRN Q15MIN PRN 04/30/20 01:00 Diclofenac Sodium (Voltaren) 1 justin TID 04/20/20 14:00 04/30/20 21:00 1 JUSTIN Divalproex Sodium (Depakote Sprinkles) 125 mg BID 04/20/20 11:00 04/28/20 11:00 DC 04/27/20 23:05 125 MG Duloxetine HCl (Cymbalta) 90 mg DAILY 04/20/20 11:00 04/30/20 08:09 90 MG Enoxaparin Sodium (Lovenox 40mg Syringe) 40 mg BID 04/27/20 15:30 04/30/20 20:50 40 MG Ergocalciferol (Vitamin D2) 50,000 unit WEEKLY 04/27/20 09:00 04/27/20 09:58 50,000 UNIT Famotidine (Pepcid) 20 mg HS 04/20/20 21:00 04/28/20 22:00 20 MG Fentanyl Citrate (Fentanyl 2ml Vial) 100 mcg 1X ONCE 04/28/20 11:30 04/28/20 11:33 DC 04/28/20 11:41 100 MCG Fluticasone Propionate (Flonase) 2 spray DAILY 04/21/20 09:00 04/26/20 09:15 2 SPRAY Folic Acid (Folic Acid) 1 mg DAILY 04/20/20 11:00 04/30/20 08:10 1 MG Fosphenytoin Sodium (Cerebyx) 140 mg Q8HRS 04/28/20 22:00 05/01/20 05:39 140 MG Gabapentin (Neurontin) 400 mg TID 04/20/20 14:00 04/30/20 14:08 400 MG Hydralazine HCl (Apresoline Inj) 10 mg PRN Q4HRS PRN 04/28/20 12:45 Cancel Hydralazine HCl (Apresoline) 50 mg TID 04/20/20 14:00 04/30/20 14:07 50 MG Hydrocortisone (Proctosol-Hc) 30 justin PRN BID PRN 04/20/20 10:15 Ibuprofen (Motrin) 600 mg PRN Q8HRS PRN 04/25/20 14:00 04/26/20 09:59 600 MG Insulin Human Lispro (HumaLOG) 0-5 UNITS Q6HRS 04/30/20 01:00 05/01/20 07:15 DC 05/01/20 06:20 4 UNITS Lacosamide (Vimpat) 200 mg BID 04/20/20 11:00 04/28/20 10:53 DC 04/28/20 09:38 200 MG Lacosamide 200 mg/ Dextrose 70 ml @ 140 mls/hr BID 04/28/20 21:00 04/30/20 20:49 140 MLS/HR Lactobacillus Rhamnosus (Culturelle) 1 cap BID 04/22/20 21:00 04/30/20 08:10 1 CAP Latanoprost (Xalatan) 1 drop QHS 04/20/20 21:00 04/30/20 21:00 1 DROP Levetiracetam (Keppra) 1,500 mg BID 04/20/20 11:00 04/28/20 10:54 DC 04/28/20 09:38 1,500 MG Levetiracetam 1500 mg/Dextrose 115 ml @ 460 mls/hr Q12HR 04/28/20 21:00 04/30/20 20:49 460 MLS/HR Levofloxacin/ Dextrose 150 ml @ 100 mls/hr 1X ONCE 04/19/20 14:30 04/19/20 15:59 DC 04/19/20 14:56 100 MLS/HR Lisinopril (Prinivil) 30 mg HS 04/20/20 21:00 04/28/20 22:01 30 MG Loperamide HCl (Imodium) 2 mg PRN Q6HRS PRN 04/20/20 10:30 Magnesium Hydroxide (Milk Of Magnesia) 1,200 mg PRN DAILY PRN 04/20/20 10:15 04/24/20 10:00 1,200 MG Metformin HCl (Glucophage) 1,000 mg BIDWMEALS 04/20/20 17:00 04/30/20 08:10 1,000 MG Methylprednisolone Sodium Succinate (SOLU-Medrol 40MG VIAL) 40 mg Q12H 04/26/20 10:00 04/26/20 12:20 DC 04/26/20 09:58 40 MG Methylprednisolone Sodium Succinate (SOLU-Medrol 125MG VIAL) 125 mg Q8HRS 04/27/20 15:00 05/01/20 05:37 125 MG Metoprolol Tartrate (Lopressor Vial) 5 mg Q6HRS 04/28/20 12:45 05/01/20 05:37 5 MG Midazolam HCl (Versed) 5 mg STK-MED ONCE 04/28/20 12:00 04/29/20 09:22 DC Mirtazapine (Remeron) 30 mg QHS 04/20/20 21:00 04/28/20 22:00 30 MG Multivitamins (Thera M Plus) 1 tab DAILY 04/20/20 11:00 04/30/20 08:10 1 TAB Ondansetron HCl (Zofran) 4 mg PRN Q8HRS PRN 04/19/20 15:15 04/20/20 15:14 DC Phenytoin Sodium (Dilantin) 400 mg HS 04/20/20 21:00 04/28/20 11:14 DC 04/27/20 22:59 400 MG Piperacillin Sod/ Tazobactam Sod (Zosyn Per Pharmacy) 1 each PRN DAILY PRN 04/27/20 15:00 Piperacillin Sod/ Tazobactam Sod 3.375 gm/Sodium Chloride 50 ml @ 100 mls/hr Q6HRS 04/27/20 18:00 05/01/20 05:34 100 MLS/HR Potassium Chloride/Dextrose 1,000 ml @ 100 mls/hr Q10H 04/29/20 14:15 04/30/20 21:56 100 MLS/HR Potassium Chloride/Dextrose/ Sod Cl 1,000 ml @ 100 mls/hr Q10H 04/29/20 11:00 04/29/20 14:11 DC 04/29/20 10:25 100 MLS/HR Prednisone (Prednisone) 5 mg DAILY 05/04/20 09:00 04/27/20 14:53 DC Sodium Chloride 500 ml @ 500 mls/hr 1X PRN PRN 04/28/20 11:45 04/29/20 10:07 DC Sterile Water (WATER for RESP) 1,000 ml CONT PRN 04/28/20 11:15 05/01/20 00:34 1,000 ML Valproic Acid 125 mg/Dextrose 51.25 ml @ 51.25 mls/ hr Q12HR 04/28/20 21:00 04/30/20 10:40 51.25 MLS/HR Vancomycin HCl (Vanco Per Pharmacy) 1 each PRN DAILY PRN 04/27/20 15:00 05/01/20 05:42 1 EACH Vancomycin HCl (Vancomycin Trough Level) 1 each 1X ONCE 05/01/20 03:30 05/01/20 03:31 DC 05/01/20 04:30 1 EACH Vancomycin HCl 1.75 gm/Sodium Chloride 500 ml @ 250 mls/hr 1X ONCE 04/27/20 16:00 04/27/20 17:59 DC 04/27/20 16:22 250 MLS/HR Vancomycin HCl 1 gm/Sodium Chloride 250 ml @ 250 mls/hr Q18H 04/29/20 16:00 05/01/20 05:38 250 MLS/HR Vitamin A/Vitamin D (Vitamin A & D Ointment) 1 justin BID 04/29/20 21:00 04/30/20 20:51 1 JUSTIN Labs: Lab Laboratory Tests Test 04/30/20 11:39 04/30/20 16:48 05/01/20 04:40 Glucose (Fingerstick) 243 mg/dL (70-99) 200 mg/dL (70-99) White Blood Count 4.2 x10^3/uL (4.0-11.0) Red Blood Count 2.54 x10^6/uL (3.50-5.40) Hemoglobin 7.4 g/dL (12.0-15.5) Hematocrit 22.3 % (36.0-47.0) Mean Corpuscular Volume 88 fL (79-100) Mean Corpuscular Hemoglobin 29 pg (25-35) Mean Corpuscular Hemoglobin Concent 33 g/dL (31-37) Red Cell Distribution Width 14.8 % (11.5-14.5) Platelet Count 155 x10^3/uL (140-400) Sodium Level 142 mmol/L (136-145) Potassium Level 3.8 mmol/L (3.5-5.1) Chloride Level 110 mmol/L (98-107) Carbon Dioxide Level 23 mmol/L (21-32) Anion Gap 9 (6-14) Blood Urea Nitrogen 24 mg/dL (7-20) Creatinine 0.8 mg/dL (0.6-1.0) Estimated GFR (Cockcroft-Gault) 86.6 Glucose Level 254 mg/dL (70-99) Calcium Level 8.6 mg/dL (8.5-10.1) Vancomycin Level Trough 13.9 mcg/mL (10.0-20.0) Vancomycin Last Dose Date 04/30/20 Vancomycin Last Dose Time 1000 Objective: Assessment: 1. COVID-19 pneumonia. 2. Acute hypoxic respiratory failure now on vapotherm 3. Blood culture 1 out of 3, coag neg staph, contaminant. 4. Fever. Pattern improving 5. Right-sided cerebrovascular accident. 6. Traumatic brain injury with aphasia . 7. E. coli UTI Plan: Plan of Care cont supportive care Continue zosyn restarted ( 04/28) DC IV vancomycin s/p plasma administration on steroids follow up labs and cults Patient is awaiting transfer to [facility] later today Discussed with nursing staff YAW WOO MD May 01, 2020 08:12
[2020-05-01] MEDS: levETIRAcetam 1,500 MG in IV DEXTROSE 5% 100ML 100 ML IV SCH ×2 (08:44→21:45)
[2020-05-01] MEDS ORDERED: predniSONE 20 MG TABLET PO SCH (09:00)
[2020-05-01] MEDS: FLUTICASONE 50MCG/NASAL SPRAY 16GM BOTTLE. NS SCH (09:00)
[2020-05-01] MEDS: LACOSAMIDE 200 MG in IV DEXTROSE 5% 50 ML IV SCH ×2 (09:31→20:14)
[2020-05-01] MEDS: AMINO AC 3%/ELECTROLYTE/GLYCER 1,000 ML IV SCH ×2 (09:33→22:10)
[2020-05-01] MEDS: ENOXAPARIN 40 MG/0.4 ML SYRINGE. SQ SCH ×2 (09:56→20:18)
[2020-05-01] MEDS: VITS A & D/LANOLIN TOPICAL OINTMENT 42GM TUBE. TP SCH ×2 (09:56→20:12)
[2020-05-01] MEDS: DICLOFENAC SODIUM 1% TOPICAL GEL 100GM TUBE. TP SCH ×3 (09:56→21:00)
[2020-05-01] MEDS: VALPROIC ACID IV SCH ×2 (09:57→20:14)
[2020-05-01] MEDS: DEXTROSE 5% IV SCH ×2 (09:57→20:14)
--- NOTE | 2020-05-01 10:43 | PDOC ---
PULMONARY PROGRESS NOTES DATE: 05/01/20 TIME: 10:41 Subjective Pt transfer to ICU with worsening hypoxia/ resp distress 04/28 ON VAPOTHERM 90%fio2/ comfortable Vitals Vital Signs Date Time Temp Pulse Resp B/P (MAP) Pulse Ox O2 Delivery O2 Flow Rate FiO2 05/01/20 08:00 Nasal Cannula 40.0 05/01/20 08:00 93 40 154/81 (105) 92 05/01/20 07:00 100.7 100.7 Comments visual exam done increase resp distress on 90%FIO2/vapotherm no rash no leg edema Labs Laboratory Tests Test 04/29/20 12:03 04/29/20 15:15 04/29/20 17:00 04/30/20 00:16 Glucose (Fingerstick) 262 mg/dL (70-99) 209 mg/dL (70-99) 296 mg/dL (70-99) Hemoglobin 7.3 g/dL (12.0-15.5) Hematocrit 21.7 % (36.0-47.0) Vancomycin Level Trough 6.7 mcg/mL (10.0-20.0) Vancomycin Last Dose Date 04/28/20 Vancomycin Last Dose Time 1600 Test 04/30/20 06:11 04/30/20 08:00 04/30/20 11:39 04/30/20 16:48 Glucose (Fingerstick) 265 mg/dL (70-99) 243 mg/dL (70-99) 200 mg/dL (70-99) White Blood Count 4.1 x10^3/uL (4.0-11.0) Red Blood Count 2.68 x10^6/uL (3.50-5.40) Hemoglobin 7.8 g/dL (12.0-15.5) Hematocrit 23.4 % (36.0-47.0) Mean Corpuscular Volume 88 fL (79-100) Mean Corpuscular Hemoglobin 29 pg (25-35) Mean Corpuscular Hemoglobin Concent 33 g/dL (31-37) Red Cell Distribution Width 15.1 % (11.5-14.5) Platelet Count 149 x10^3/uL (140-400) Sodium Level 146 mmol/L (136-145) Potassium Level 3.7 mmol/L (3.5-5.1) Chloride Level 111 mmol/L (98-107) Carbon Dioxide Level 25 mmol/L (21-32) Anion Gap 10 (6-14) Blood Urea Nitrogen 33 mg/dL (7-20) Creatinine 1.1 mg/dL (0.6-1.0) Estimated GFR (Cockcroft-Gault) 59.9 BUN/Creatinine Ratio 30 (6-20) Glucose Level 250 mg/dL (70-99) Calcium Level 8.2 mg/dL (8.5-10.1) Magnesium Level 1.7 mg/dL (1.8-2.4) Total Bilirubin 0.3 mg/dL (0.2-1.0) Aspartate Amino Transf (AST/SGOT) 62 U/L (15-37) Alanine Aminotransferase (ALT/SGPT) 49 U/L (14-59) Alkaline Phosphatase 61 U/L (46-116) Total Protein 7.0 g/dL (6.4-8.2) Albumin 1.6 g/dL (3.4-5.0) Albumin/Globulin Ratio 0.3 (1.0-1.7) Test 05/01/20 04:40 White Blood Count 4.2 x10^3/uL (4.0-11.0) Red Blood Count 2.54 x10^6/uL (3.50-5.40) Hemoglobin 7.4 g/dL (12.0-15.5) Hematocrit 22.3 % (36.0-47.0) Mean Corpuscular Volume 88 fL (79-100) Mean Corpuscular Hemoglobin 29 pg (25-35) Mean Corpuscular Hemoglobin Concent 33 g/dL (31-37) Red Cell Distribution Width 14.8 % (11.5-14.5) Platelet Count 155 x10^3/uL (140-400) Sodium Level 142 mmol/L (136-145) Potassium Level 3.8 mmol/L (3.5-5.1) Chloride Level 110 mmol/L (98-107) Carbon Dioxide Level 23 mmol/L (21-32) Anion Gap 9 (6-14) Blood Urea Nitrogen 24 mg/dL (7-20) Creatinine 0.8 mg/dL (0.6-1.0) Estimated GFR (Cockcroft-Gault) 86.6 Glucose Level 254 mg/dL (70-99) Calcium Level 8.6 mg/dL (8.5-10.1) Vancomycin Level Trough 13.9 mcg/mL (10.0-20.0) Vancomycin Last Dose Date 04/30/20 Vancomycin Last Dose Time 1000 Laboratory Tests Test 04/30/20 11:39 04/30/20 16:48 05/01/20 04:40 Glucose (Fingerstick) 243 mg/dL (70-99) 200 mg/dL (70-99) White Blood Count 4.2 x10^3/uL (4.0-11.0) Red Blood Count 2.54 x10^6/uL (3.50-5.40) Hemoglobin 7.4 g/dL (12.0-15.5) Hematocrit 22.3 % (36.0-47.0) Mean Corpuscular Volume 88 fL (79-100) Mean Corpuscular Hemoglobin 29 pg (25-35) Mean Corpuscular Hemoglobin Concent 33 g/dL (31-37) Red Cell Distribution Width 14.8 % (11.5-14.5) Platelet Count 155 x10^3/uL (140-400) Sodium Level 142 mmol/L (136-145) Potassium Level 3.8 mmol/L (3.5-5.1) Chloride Level 110 mmol/L (98-107) Carbon Dioxide Level 23 mmol/L (21-32) Anion Gap 9 (6-14) Blood Urea Nitrogen 24 mg/dL (7-20) Creatinine 0.8 mg/dL (0.6-1.0) Estimated GFR (Cockcroft-Gault) 86.6 Glucose Level 254 mg/dL (70-99) Calcium Level 8.6 mg/dL (8.5-10.1) Vancomycin Level Trough 13.9 mcg/mL (10.0-20.0) Vancomycin Last Dose Date 04/30/20 Vancomycin Last Dose Time 1000 Medications Active Scripts Medications Dose Route/Sig Max Daily Dose Days Date Category Dose Instructions Voltaren (Diclofenac Sodium) 100 Gm Gel..gram. 1 Jitendra TP TID 04/19/20 Reported Famotidine 20 Mg Tablet 20 Mg PO HS 01/28/20 Reported Dilantin (Phenytoin Sodium Extended) 100 Mg Capsule 30 Mg PO HS 01/28/20 Reported Lisinopril 30 Mg Tablet 1 Tab PO HS 01/28/20 Reported Mirtazapine 30 Mg Tab.rapdis 30 Mg PO QHS 30 01/28/20 Reported D3-50 (Cholecalciferol (Vitamin D3)) 50,000 Unit Capsule 1 Cap PO WEEKLY 28 01/28/20 Reported Aspirin 81 Mg Tab.chew 1 Tab PO DAILY 01/28/20 Reported Atorvastatin Calcium 10 Mg Tablet 10 Mg PO HS 02/24/17 Reported Anti-Diarrhea (Loperamide Hcl) 2 Mg Tablet 2 Mg PO PRN Q6HRS PRN 02/24/17 Reported Metformin Hcl 1,000 Mg Tablet 1 Tab PO BID 12/26/15 Rx Tylenol (Acetaminophen) 325 Mg Tablet 650 Mg PO BID 12/24/15 Reported Norvasc (Amlodipine Besylate) 10 Mg Tablet 10 Mg PO DAILY 12/24/15 Reported Milk Of Magnesia (Magnesium Hydroxide) 400 Mg/5 Ml Oral.susp 1,200 Mg PO PRN DAILY PRN 12/24/15 Reported Latanoprost 2.5 Ml Drops 1 Drop EACHEYE QHS 12/24/15 Reported Vimpat (Lacosamide) 200 Mg Tablet 200 Mg PO BID 12/24/15 Reported Keppra (Levetiracetam) 500 Mg Tablet 1,500 Mg PO BID 12/24/15 Reported Gabapentin (Gabapentin) 400 Mg Capsule 400 Mg PO TID 12/24/15 Reported Folic Acid 1 Mg Tablet 1 Tab PO DAILY 12/24/15 Reported Flonase Allergy Relief (Fluticasone Propionate) 9.9 Ml [place].susp 2 Sprays NS DAILY 12/24/15 Reported Buspirone Hcl 5 Mg Tablet 1 Tab PO BID 12/24/15 Reported Abilify (Aripiprazole) 5 Mg Tablet 5 Mg PO DAILY 12/24/15 Reported Hydrocortisone 30 Gm Cream..g. 30 Gm RC PRN BID PRN 05/20/14 Reported Hydrocortisone 1% Absorbase (Hc/Mineral Oil/Petrolat,Wht) 25 Gm Oint...g. 25 Gm TP 05/20/14 Reported Hydralazine Hcl 25 Mg Tablet 2 Tab PO TID 05/20/14 Reported Dilantin (Phenytoin Sodium Extended) 100 Mg Capsule 400 Mg PO HS 05/20/14 Reported give with 30mg to equal 430mg Depakote Sprinkle (Divalproex Sodium) 125 Mg Cap.sprink 125 Mg PO BID 05/20/14 Reported Cymbalta (Duloxetine Hcl) 30 Mg Capsule.dr Cid Cap PO DAILY 05/20/14 Reported Centrum Silver Ultra Women Tab (Multivits W-Fe,Other Min/Lut) 1 Each Tablet 1 Each PO DAILY 05/20/14 Reported Baclofen 10 Mg Tablet 1 Tab PO TID 05/20/14 Reported Comments CXR IMPRESSION: Mild right-sided infiltrates. Impression . 1. Acute hypoxic respiratory failure secondary to COVID-19 pneumonia./ ALI/ARDS 2. Abnormal chest x-ray with patchy infiltrates bilaterally, suggestive of pneumonia, likely COVID-19.--COVID 19 positive/ARDS 3. 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 4. History of posttraumatic epilepsy. 5. No significant tobacco history. 6. Mild azotemia--improved 7. Normal D-dimer. 8. Fever, 9. Encephalopathy, better while off precedex 10. Anemia Plan . PT ON VAPOTHERM, 90%fio2 mental status better off precedex Solu-Medrol high-dose Empiric antibiotics for gram-positive and gram-negative organisms hold off intubation Above discussed with nurse and Dr Luis Miguel Marina spoke with guardian Gilbert Mcclain. He mentioned that patient requested full code DVT/GI PPX Repeat d-dimer 10.3, on high dose DVT prophylaxis s/p Plasma ok with transfer to LTAC cct 30 min d/w RN/RT BUFFY JIANG MD May 01, 2020 10:43
--- NOTE | 2020-05-01 11:10 | NUR ---
SS following up with discharge planning. SS reviewed pt chart and discussed with pt RN. Pt accepted at [facility], ; fax [phone]. COVID19 positive. Pt on Vapotherm. Discharge orders were faxed to [facility]. Packet and [facility] form on the chart. SS currently awaiting bed and transport time and will proceed accordingly.
[2020-05-01] MEDS: ACETAMINOPHEN 650 MG SUPP.RECT. PR PRN (15:05)
--- NOTE | 2020-05-01 16:00 | NUR ---
Ice and wet cold towels applied to patient to get temp lowered.
--- NOTE | 2020-05-01 16:02 | NUR ---
SS following up with discharge planning. [facility] contacted [facility] and reported that bed will not be available until tomorrow, 05/02/2020. [facility] to call [facility], , with time when bed is available. Packet and [facility] form on the chart.
[2020-05-01 16:06] LABS: BASE EXCESS ABG -10 mmol/L (-3-3); HCO3 ABG 12 mmol/L (21-28); SAT O2 ABG 76 % (92-99)
[2020-05-01 16:10] LABS: PCO2 ABG 18 mmHg (35-46); PO2 ABG 45 mmHg (65-108)
[2020-05-01 16:11] LABS: FIO2 ABG 100
[2020-05-01] MEDS ORDERED: ETOMIDATE 20 MG/10 ML VIAL. IV ONE ×2 (16:20→16:30)
[2020-05-01] MEDS ORDERED: SUCCINYLCHOLINE 200 MG/10 ML VIAL. ONE (16:20)
[2020-05-01] MEDS ORDERED: SUCCINYLCHOLINE 200 MG/10 ML VIAL. IV ONE (16:30)
[2020-05-01] MEDS: PROPOFOL 100 ML IV PRN (16:40)
[2020-05-01] MEDS ORDERED: VECURONIUM BOLUS 10 MG VIAL. IV ONE ×2 (16:48→17:00)
--- NOTE | 2020-05-01 17:26 | RAD ---
Chest AP portable at 1638: Reason for examination: Intubation. Covid positive. Comparison is made to previous study dated 04/28/2020. Endotracheal tube is present. The tip however is approximately 1 cm above the davina and should be withdrawn at least 2 cm. NG tube is present with the tip and side port in the stomach. Right jugular venous line appears to be present with the tip at the superior vena cava/right atrial junction. Lungs continue to show diffuse pulmonary opacities which appear to have worsened. No gross pleural effusions are seen. No acute bony abnormalities are present. Metallic densities are again seen in the left upper arm distribution. IMPRESSION: Endotracheal tube present with the tip approximately 1 cm above the davina and this should be withdrawn approximately 2 cm. NG tube and jugular venous catheter are in satisfactory position. Diffuse bilateral infiltrates which appear to have worsened. Abdomen AP portable at 1640: Reason for examination: NG/OG tube placement. NG tube is present with the tip and side port in the stomach. There is no gross organomegaly. Bowel gas pattern is nonspecific but there is a large amount of air in the stomach, colon and small intestinal tract. IMPRESSION: NG tube tip and side port in the stomach. Nonspecific gas pattern with diffuse air in the gastrointestinal tract. Electronically signed by: Tania Lomax MD (05/01/2020 5:23 PM) [place]
[2020-05-01 17:34] LABS: BASE EXCESS COOX -13 mmol/L (-3-3); CORRECTED PCO2 COOX 49 mmHg; CORRECTED PH COOX 7.13; CORRECTED PO2 COOX 57 mmHg; HCO3 COOX 15 mmol/L (21-28); METHEMOGLOBIN 0.5 % (0.0-1.9); OXYHEMOGLOBIN 66.9 %; PCO2 COOX 44 mmHg (35-46)
[2020-05-01 17:44] LABS: PO2 COOX 48 mmHg (65-108)
[2020-05-01] MEDS ORDERED: SODIUM BICARB ADULT 8.4% 50 MEQ/50 ML DISP.SYRIN. IV ONE (17:45)
[2020-05-01] MEDS: MIDAZOLAM 100mg/100ml NS BAG 100 ML IV PRN (17:46)
[2020-05-01] MEDS: FAMOTIDINE 20 MG TABLET. PO SCH (20:09)
[2020-05-01] MEDS: CHLORHEXIDINE 0.12% 15 ML MOUTHWASH. MM SCH (20:09)
[2020-05-01] MEDS: ATORVASTATIN CALCIUM 10 MG TABLET. PO SCH (20:09)
[2020-05-01] MEDS: MIRTAZAPINE 15 MG TABLET PO SCH (20:09)
[2020-05-01] MEDS: LATANOPROST 0.005% OPHTH SOLUTION 2.5ML BOTTLE. OU SCH (20:20)
[2020-05-01] MEDS: LISINOPRIL 10 MG TABLET PO SCH (21:00)
[2020-05-01] MEDS ORDERED: IV NORMAL SALINE 1000ML BAG 1,000 ML IV ONE (21:45)
[2020-05-01] MEDS: NOREPINEPHRINE VIAL 8 MG in IV DEXTROSE 5% 250 ML IV PRN (22:28)
[2020-05-02] VITALS (29 sets, daily range): BP systolic 70–176; BP diastolic 47–82
[2020-05-02] MEDS: MIDAZOLAM 100mg/100ml NS BAG 100 ML IV PRN ×3 (02:20→21:24)
[2020-05-02] MEDS: DEXMEDETOMIDINE 400 MCG in IV NORMAL SALINE 100ML 96 ML IV PRN ×3 (03:18→17:58)
[2020-05-02] MEDS: METOPROLOL TARTRATE 5 MG/5 ML VIAL. IVP SCH ×4 (05:07→23:43)
[2020-05-02] MEDS: PIPERACILLIN/TAZOBACTAM 3.375 GM in IV NORMAL SALINE 50ML 50 ML IV SCH ×3 (05:34→19:34)
[2020-05-02] MEDS: FOSPHENYTOIN 100 MG/2 ML VIAL. IV SCH ×3 (05:35→21:23)
[2020-05-02] MEDS: methylPREDNISolone SOD SUCC PF 125 MG/2 ML VIAL. IV SCH (05:35)
[2020-05-02 08:25] LABS: BASE EXCESS ABG -9 mmol/L (-3-3); HCO3 ABG 14 mmol/L (21-28); PCO2 ABG 24 mmHg (35-46); PO2 ABG 73 mmHg (65-108); SAT O2 ABG 92 % (92-99)
[2020-05-02 08:28] LABS: FIO2 ABG 90%
[2020-05-02] MEDS: busPIRone 5 MG TABLET. PO SCH ×2 (08:28→21:15)
[2020-05-02] MEDS: BACLOFEN 10 MG TABLET. PO SCH ×3 (08:29→21:15)
[2020-05-02] MEDS: LACTOBACILLUS RHAMNOSUS GG 1 CAPSULE. PO SCH ×2 (08:29→21:15)
[2020-05-02] MEDS: amLODIPine BESYLATE 10 MG TABLET PO SCH (08:29)
[2020-05-02] MEDS: ASPIRIN CHEWABLE 81 MG TABLET. PO SCH (08:29)
[2020-05-02] MEDS: ACETAMINOPHEN 325 MG TABLET. PO SCH ×2 (08:29→21:15)
[2020-05-02] MEDS: ARIPiprazole 5 MG TABLET PO SCH (08:29)
[2020-05-02] MEDS: metFORMIN 500 MG TABLET PO SCH ×2 (08:29→17:40)
[2020-05-02] MEDS: FOLIC ACID 1 MG TABLET. PO SCH (08:29)
[2020-05-02] MEDS: GABAPENTIN 400 MG CAPSULE. PO SCH ×3 (08:29→21:15)
[2020-05-02] MEDS: MULTIVITAMIN with MINERAL TABLET. PO SCH (08:30)
[2020-05-02] MEDS: CHLORHEXIDINE 0.12% 15 ML MOUTHWASH. MM SCH ×2 (08:30→21:16)
[2020-05-02] MEDS: ENOXAPARIN 40 MG/0.4 ML SYRINGE. SQ SCH ×2 (08:30→21:16)
[2020-05-02] MEDS: hydrALAZINE 25 MG TABLET PO SCH ×3 (08:30→21:00)
[2020-05-02] MEDS: VITS A & D/LANOLIN TOPICAL OINTMENT 42GM TUBE. TP SCH ×2 (08:31→21:19)
[2020-05-02] MEDS: FLUTICASONE 50MCG/NASAL SPRAY 16GM BOTTLE. NS SCH (08:31)
[2020-05-02] MEDS: VALPROIC ACID IV SCH ×2 (08:31→21:22)
[2020-05-02] MEDS: DULoxetine HCL 30 MG CAPSULE.DR PO SCH (08:31)
[2020-05-02] MEDS: DEXTROSE 5% IV SCH ×2 (08:31→21:22)
--- NOTE | 2020-05-02 08:50 | PDOC ---
Infectious Disease Note Subjective: Subjective Patient intubated last night T-max 103 Hypothermic this morning on [facility] Not on pressors Discussed with nursing Vital Signs: Vital Signs Vital Signs Date Time Temp Pulse Resp B/P (MAP) Pulse Ox O2 Delivery O2 Flow Rate FiO2 05/02/20 08:30 57 133/78 05/02/20 08:07 98 Ventilator 05/02/20 08:00 24 05/02/20 04:00 96.8 96.8 05/02/20 02:49 40.0 Physical Exam: PHYSICAL EXAM GENERAL: Intubated on [facility] HEENT: no icterus, no thrush NECK: Supple, LUNGS: Coarse bs scattered HEART: S1, S2 tachycardia ABDOMEN: soft bs+ nondistended EXTREMITIES: No edema, cyanosis. SKIN: Unremarkable. NEUROLOGIC: The patient does have right-sided hemiplegia and is slow in answering questions. Central line is clean Medications: Inpatient Meds: Current Medications Medications (Trade) Dose Ordered Sig/Fabiana Start Time Stop Time Status Last Admin Dose Admin Acetaminophen (Tylenol Supp) 650 mg PRN Q6HRS PRN 04/20/20 05:30 05/01/20 15:05 650 MG Acetaminophen (Tylenol) 650 mg BID 04/20/20 21:00 05/02/20 08:29 650 MG Amino Acids/ Glycerin/ Electrolytes 1,000 ml @ 80 mls/hr [id number] 05/01/20 09:00 05/01/20 22:10 80 MLS/HR Amlodipine Besylate (Norvasc) 10 mg DAILY 04/21/20 09:00 05/02/20 08:29 10 MG Amoxicillin/ Clavulanate Potassium (Augmentin 875/ 125mg) 1 tab BID 04/26/20 21:00 04/27/20 14:53 DC 04/27/20 09:58 1 TAB Aripiprazole (Abilify) 5 mg DAILY 04/20/20 11:00 05/02/20 08:29 5 MG Aspirin (Aspirin Chewable) 81 mg DAILY 04/20/20 11:00 05/02/20 08:29 81 MG Atorvastatin Calcium (Lipitor) 10 mg HS 04/20/20 21:00 05/01/20 20:09 10 MG Atropine Sulfate (ATROPINE 0.5mg SYRINGE) 0.5 mg PRN Q5MIN PRN 04/28/20 11:45 Baclofen (Lioresal) 10 mg TID 04/20/20 14:00 05/02/20 08:29 10 MG Buspirone HCl (Buspar) 5 mg BID 04/20/20 11:00 05/02/20 08:28 5 MG Cefepime HCl (Maxipime) 1 gm 1X ONCE 04/19/20 14:30 04/19/20 14:31 DC 04/19/20 14:55 1 GM Ceftriaxone Sodium (Rocephin) 1 gm Q24H 04/24/20 11:00 04/26/20 09:49 DC 04/25/20 09:56 1 GM Chlorhexidine Gluconate (Peridex) 15 ml BID 05/01/20 21:00 05/02/20 08:30 15 ML Dexmedetomidine HCl 400 mcg/ Sodium Chloride 100 ml @ 0 mls/hr CONT PRN 04/28/20 11:45 05/02/20 03:18 13.6 MLS/HR Dextrose (Dextrose 50%-Water Syringe) 12.5 gm PRN Q15MIN PRN 04/30/20 01:00 Diclofenac Sodium (Voltaren) 1 justin TID 04/20/20 14:00 05/01/20 09:56 1 JUSTIN Divalproex Sodium (Depakote Sprinkles) 125 mg BID 04/20/20 11:00 04/28/20 11:00 DC 04/27/20 23:05 125 MG Duloxetine HCl (Cymbalta) 90 mg DAILY 04/20/20 11:00 04/30/20 08:09 90 MG Enoxaparin Sodium (Lovenox 40mg Syringe) 40 mg BID 04/27/20 15:30 05/02/20 08:30 40 MG Ergocalciferol (Vitamin D2) 50,000 unit WEEKLY 04/27/20 09:00 04/27/20 09:58 50,000 UNIT Etomidate (Amidate) 16 mg 1X ONCE 05/01/20 16:30 05/01/20 16:31 DC 05/01/20 16:26 16 MG Famotidine (Pepcid) 20 mg HS 04/20/20 21:00 05/01/20 20:09 20 MG Fentanyl Citrate 30 ml @ 0 mls/hr CONT PRN 05/01/20 16:30 05/02/20 02:19 2.5 MLS/HR Fentanyl Citrate (Fentanyl 2ml Vial) 100 mcg 1X ONCE 04/28/20 11:30 04/28/20 11:33 DC 04/28/20 11:41 100 MCG Fluticasone Propionate (Flonase) 2 spray DAILY 04/21/20 09:00 04/26/20 09:15 2 SPRAY Folic Acid (Folic Acid) 1 mg DAILY 04/20/20 11:00 05/02/20 08:29 1 MG Fosphenytoin Sodium (Cerebyx) 140 mg Q8HRS 04/28/20 22:00 05/02/20 05:35 140 MG Gabapentin (Neurontin) 400 mg TID 04/20/20 14:00 05/02/20 08:29 400 MG Hydralazine HCl (Apresoline Inj) 10 mg PRN Q4HRS PRN 04/28/20 12:45 Cancel Hydralazine HCl (Apresoline) 50 mg TID 04/20/20 14:00 05/02/20 08:30 50 MG Hydrocortisone (Proctosol-Hc) 30 justin PRN BID PRN 04/20/20 10:15 Ibuprofen (Motrin) 600 mg PRN Q8HRS PRN 04/25/20 14:00 04/26/20 09:59 600 MG Insulin Human Lispro (HumaLOG) 0-5 UNITS Q6HRS 04/30/20 01:00 05/01/20 07:15 DC 05/01/20 06:20 4 UNITS Lacosamide (Vimpat) 200 mg BID 04/20/20 11:00 04/28/20 10:53 DC 04/28/20 09:38 200 MG Lacosamide 200 mg/ Dextrose 70 ml @ 140 mls/hr BID 04/28/20 21:00 05/01/20 20:14 140 MLS/HR Lactobacillus Rhamnosus (Culturelle) 1 cap BID 04/22/20 21:00 05/02/20 08:29 1 CAP Latanoprost (Xalatan) 1 drop QHS 04/20/20 21:00 05/01/20 20:20 1 DROP Levetiracetam (Keppra) 1,500 mg BID 04/20/20 11:00 04/28/20 10:54 DC 04/28/20 09:38 1,500 MG Levetiracetam 1500 mg/Dextrose 115 ml @ 460 mls/hr Q12HR 04/28/20 21:00 05/01/20 21:45 460 MLS/HR Levofloxacin/ Dextrose 150 ml @ 100 mls/hr 1X ONCE 04/19/20 14:30 04/19/20 15:59 DC 04/19/20 14:56 100 MLS/HR Lisinopril (Prinivil) 30 mg HS 04/20/20 21:00 04/28/20 22:01 30 MG Loperamide HCl (Imodium) 2 mg PRN Q6HRS PRN 04/20/20 10:30 Magnesium Hydroxide (Milk Of Magnesia) 1,200 mg PRN DAILY PRN 04/20/20 10:15 04/24/20 10:00 1,200 MG Metformin HCl (Glucophage) 1,000 mg BIDWMEALS 04/20/20 17:00 05/02/20 08:29 1,000 MG Methylprednisolone Sodium Succinate (SOLU-Medrol 40MG VIAL) 40 mg Q12H 04/26/20 10:00 04/26/20 12:20 DC 04/26/20 09:58 40 MG Methylprednisolone Sodium Succinate (SOLU-Medrol 125MG VIAL) 125 mg Q8HRS 04/27/20 15:00 05/02/20 05:35 125 MG Metoprolol Tartrate (Lopressor Vial) 5 mg Q6HRS 04/28/20 12:45 05/01/20 12:23 5 MG Midazolam HCl 100 ml @ 0 mls/hr CONT PRN 05/01/20 16:30 05/02/20 02:20 10 MLS/HR Midazolam HCl (Versed) 5 mg STK-MED ONCE 04/28/20 12:00 04/29/20 09:22 DC Mirtazapine (Remeron) 30 mg QHS 04/20/20 21:00 05/01/20 20:09 30 MG Multivitamins (Thera M Plus) 1 tab DAILY 04/20/20 11:00 05/02/20 08:30 1 TAB Norepinephrine Bitartrate 8 mg/ Dextrose 258 ml @ 13.177 mls/ hr CONT PRN 05/01/20 21:45 05/01/20 22:28 13.177 MLS/HR Ondansetron HCl (Zofran) 4 mg PRN Q8HRS PRN 04/19/20 15:15 04/20/20 15:14 DC Phenytoin Sodium (Dilantin) 400 mg HS 04/20/20 21:00 04/28/20 11:14 DC 04/27/20 22:59 400 MG Piperacillin Sod/ Tazobactam Sod (Zosyn Per Pharmacy) 1 each PRN DAILY PRN 04/27/20 15:00 Piperacillin Sod/ Tazobactam Sod 3.375 gm/Sodium Chloride 50 ml @ 100 mls/hr Q6HRS 04/27/20 18:00 05/02/20 05:34 100 MLS/HR Potassium Chloride/Dextrose 1,000 ml @ 100 mls/hr Q10H 04/29/20 14:15 05/01/20 08:47 DC 04/30/20 21:56 100 MLS/HR Potassium Chloride/Dextrose/ Sod Cl 1,000 ml @ 100 mls/hr Q10H 04/29/20 11:00 04/29/20 14:11 DC 04/29/20 10:25 100 MLS/HR Prednisone (Prednisone) 5 mg DAILY 05/04/20 09:00 04/27/20 14:53 DC Propofol 100 ml @ 0 mls/hr CONT PRN 05/01/20 16:30 05/01/20 16:40 10.2 MLS/HR Sodium Bicarbonate (Sodium Bicarb Adult 8.4% Syr) 100 meq 1X ONCE 05/01/20 17:45 05/01/20 17:47 DC 05/01/20 18:10 100 MEQ Sodium Chloride 1,000 ml @ 1,000 mls/hr 1X ONCE 05/01/20 21:45 05/01/20 22:44 DC 05/01/20 22:10 1,000 MLS/HR Sterile Water (WATER for RESP) 1,000 ml CONT PRN 04/28/20 11:15 05/01/20 00:34 1,000 ML Succinylcholine Chloride (Anectine) 100 mg 1X ONCE 05/01/20 16:30 05/01/20 16:31 DC 05/01/20 16:27 100 MG Valproic Acid 125 mg/Dextrose 51.25 ml @ 51.25 mls/ hr Q12HR 04/28/20 21:00 05/02/20 08:31 51.25 MLS/HR Vancomycin HCl (Vanco Per Pharmacy) 1 each PRN DAILY PRN 04/27/20 15:00 05/01/20 09:21 DC 05/01/20 05:42 1 EACH Vancomycin HCl (Vancomycin Trough Level) 1 each 1X ONCE 05/01/20 03:30 05/01/20 03:31 DC 05/01/20 04:30 1 EACH Vancomycin HCl 1.75 gm/Sodium Chloride 500 ml @ 250 mls/hr 1X ONCE 04/27/20 16:00 04/27/20 17:59 DC 04/27/20 16:22 250 MLS/HR Vancomycin HCl 1 gm/Sodium Chloride 250 ml @ 250 mls/hr Q18H 04/29/20 16:00 05/01/20 09:20 DC 05/01/20 05:38 250 MLS/HR Vecuronium [place] (Norcuron Bolus) 10 mg 1X ONCE 05/01/20 17:00 05/01/20 17:01 DC 05/01/20 16:54 10 MG Vitamin A/Vitamin D (Vitamin A & D Ointment) 1 justin BID 04/29/20 21:00 05/02/20 08:31 1 JUSTIN Labs: Lab Laboratory Tests Test 05/01/20 11:54 05/01/20 16:00 05/01/20 16:51 05/01/20 17:20 Glucose (Fingerstick) 151 mg/dL (70-99) 210 mg/dL (70-99) O2 Saturation 76 % (92-99) 67 % (92-99) Arterial Blood pH 7.45 (7.35-7.45) 7.16 (7.35-7.45) Arterial Blood pCO2 at Patient Temp 18 mmHg (35-46) 44 mmHg (35-46) Arterial Blood pO2 at Patient Temp 45 mmHg (65-108) 48 mmHg (65-108) Arterial Blood HCO3 12 mmol/L (21-28) 15 mmol/L (21-28) Arterial Blood Base Excess -10 mmol/L (-3-3) -13 mmol/L (-3-3) FiO2 100 100 Arterial Blood pH (Temp corrected) 7.13 Arterial Blood pCO2 (Temp correct) 49 mmHg Arterial Blood pO2 (Temp corrected) 57 mmHg Oxyhemoglobin 66.9 % Methemoglobin 0.5 % (0.0-1.9) Carbon Monoxide, Quantitative 0.3 % (0.0-1.9) Test 05/02/20 08:15 05/02/20 08:43 O2 Saturation 92 % (92-99) Arterial Blood pH 7.40 (7.35-7.45) Arterial Blood pCO2 at Patient Temp 24 mmHg (35-46) Arterial Blood pO2 at Patient Temp 73 mmHg (65-108) Arterial Blood HCO3 14 mmol/L (21-28) Arterial Blood Base Excess -9 mmol/L (-3-3) FiO2 90% Glucose (Fingerstick) 411 mg/dL (70-99) Objective: Assessment: 1. COVID-19 pneumonia. 2. Acute hypoxic respiratory failure s/p intubation 3. Blood culture 1 out of 3, coag neg staph, contaminant. 4. Fever. 5. Right-sided cerebrovascular accident. 6. Traumatic brain injury with aphasia . 7. E. coli UTI Plan: Plan of Care cont supportive care Continue Zosyn Start Zyvox s/p plasma administration on steroids Repeat blood cultures, UA and urine culture follow up labs and cults Prognosis poor Discussed with nursing staff YAW WOO MD May 02, 2020 08:50
[2020-05-02] MEDS: DICLOFENAC SODIUM 1% TOPICAL GEL 100GM TUBE. TP SCH ×3 (09:00→21:00)
[2020-05-02] MEDS ORDERED: INSULIN LISPRO 300 UNITS/3 ML VIAL. SQ SCH (09:15)
--- NOTE | 2020-05-02 09:25 | PN ---
DATE: 05/02/2020 SUBJECTIVE: The patient was intubated and mechanically ventilated. She is now on Versed. She is maintaining her oxygen saturation 98% on FiO2 of 80%. She is also hypothermic according to the nursing staff. PHYSICAL EXAMINATION: GENERAL: When I examined her, she was pale, but no jaundice or cyanosis. No lymphadenopathy, no thyromegaly. No jugular venous distention. No limb edema. VITAL SIGNS: Her heart rate was 57, blood pressure was 133/78, temperature was 98, respiratory rate was 24, and oxygen saturation was 98% on FiO2 of 80%. HEENT: Showed normocephalic, atraumatic. She has orotracheal and orogastric tube in place. NECK: Supple. CARDIAC: Normal first and second heart sounds. No gallop or murmur. CHEST: Showed central trachea, equal bilateral chest expansion, air entry, vesicular sounds. No crepitation or rhonchi. ABDOMEN: Distended, soft, nontender. No guarding or rigidity. No organomegaly. All hernial orifice intact. Bowel sounds normal. NEUROLOGIC: She is sedated. She does have traumatic brain injury with resultant right-sided hemiplegia and aphasia. She does have also dysphagia. She has had her video swallowing evaluation yesterday. Her intake over the last 24 hours was 1786, output was 600. LABORATORY DATA: Today's labs are still pending at the time of this dictation. ASSESSMENT: 1. COVID-19 pneumonia. 2. Acute hypoxic respiratory failure, requiring intubation and mechanical ventilation. She is now maintaining her oxygen saturation at 97% on FiO2 of 80%. 3. Traumatic brain injury with resultant right-sided hemiplegia and aphasia as well as dysphagia. 4. Hypertension. 5. Type 2 diabetes mellitus. 6. Posttraumatic seizure disorder, for which she is on fosphenytoin, Keppra and lacosamide. 7. Sinus tachycardia, likely reactive, that improved. 8. Hypernatremia, resolved. Her serum sodium came down from 153 to 142 and hypokalemia, resolved. Her potassium is up to 3.8 as of yesterday. Today's labs are still pending at the time of this dictation. PLAN: To continue with sedation and mechanical ventilation. Continue to monitor her blood sugar. Her blood sugar this morning was high at 411. She is on metformin 1000 mg twice a day and she should be also on high dose insulin sliding scale. Continue with antiepileptic medication. Continue with Zosyn 3.375 grams IV every 6 hours. Continue with DVT prophylaxis. ETELVINA HAYWOOD MD DR: ALISON/hernán JOB#: [id number] / [id number]
[2020-05-02] MEDS: levETIRAcetam 1,500 MG in IV DEXTROSE 5% 100ML 100 ML IV SCH ×2 (09:35→20:31)
[2020-05-02] MEDS: LACOSAMIDE 200 MG in IV DEXTROSE 5% 50 ML IV SCH ×2 (09:35→20:31)
--- NOTE | 2020-05-02 10:21 | PDOC ---
PULMONARY PROGRESS NOTES DATE: 05/02/20 TIME: 10:15 Subjective intubated 05/01, on vent, peep 10 fi02 80%, small ett secretion, sedated on precedex versed fentanyl Vitals Vital Signs Date Time Temp Pulse Resp B/P (MAP) Pulse Ox O2 Delivery O2 Flow Rate FiO2 05/02/20 09:00 58 24 125/75 (92) 100 Ventilator 05/02/20 08:00 94.2 94.2 05/02/20 02:49 40.0 Comments visual exam done on vent sedated nc at rrr no accessory muscle use no paradoxical abd motion no rash no edema Labs Laboratory Tests Test 04/30/20 11:39 04/30/20 16:48 05/01/20 04:40 05/01/20 11:54 Glucose (Fingerstick) 243 mg/dL (70-99) 200 mg/dL (70-99) 151 mg/dL (70-99) White Blood Count 4.2 x10^3/uL (4.0-11.0) Red Blood Count 2.54 x10^6/uL (3.50-5.40) Hemoglobin 7.4 g/dL (12.0-15.5) Hematocrit 22.3 % (36.0-47.0) Mean Corpuscular Volume 88 fL (79-100) Mean Corpuscular Hemoglobin 29 pg (25-35) Mean Corpuscular Hemoglobin Concent 33 g/dL (31-37) Red Cell Distribution Width 14.8 % (11.5-14.5) Platelet Count 155 x10^3/uL (140-400) Sodium Level 142 mmol/L (136-145) Potassium Level 3.8 mmol/L (3.5-5.1) Chloride Level 110 mmol/L (98-107) Carbon Dioxide Level 23 mmol/L (21-32) Anion Gap 9 (6-14) Blood Urea Nitrogen 24 mg/dL (7-20) Creatinine 0.8 mg/dL (0.6-1.0) Estimated GFR (Cockcroft-Gault) 86.6 Glucose Level 254 mg/dL (70-99) Calcium Level 8.6 mg/dL (8.5-10.1) Vancomycin Level Trough 13.9 mcg/mL (10.0-20.0) Vancomycin Last Dose Date 04/30/20 Vancomycin Last Dose Time 1000 Test 05/01/20 16:00 05/01/20 16:51 05/01/20 17:20 05/02/20 08:15 O2 Saturation 76 % (92-99) 67 % (92-99) 92 % (92-99) Arterial Blood pH 7.45 (7.35-7.45) 7.16 (7.35-7.45) 7.40 (7.35-7.45) Arterial Blood pCO2 at Patient Temp 18 mmHg (35-46) 44 mmHg (35-46) 24 mmHg (35-46) Arterial Blood pO2 at Patient Temp 45 mmHg (65-108) 48 mmHg (65-108) 73 mmHg (65-108) Arterial Blood HCO3 12 mmol/L (21-28) 15 mmol/L (21-28) 14 mmol/L (21-28) Arterial Blood Base Excess -10 mmol/L (-3-3) -13 mmol/L (-3-3) -9 mmol/L (-3-3) FiO2 100 100 90% Glucose (Fingerstick) 210 mg/dL (70-99) Arterial Blood pH (Temp corrected) 7.13 Arterial Blood pCO2 (Temp correct) 49 mmHg Arterial Blood pO2 (Temp corrected) 57 mmHg Oxyhemoglobin 66.9 % Methemoglobin 0.5 % (0.0-1.9) Carbon Monoxide, Quantitative 0.3 % (0.0-1.9) Test 05/02/20 08:43 Glucose (Fingerstick) 411 mg/dL (70-99) Laboratory Tests Test 05/01/20 11:54 05/01/20 16:00 05/01/20 16:51 05/01/20 17:20 Glucose (Fingerstick) 151 mg/dL (70-99) 210 mg/dL (70-99) O2 Saturation 76 % (92-99) 67 % (92-99) Arterial Blood pH 7.45 (7.35-7.45) 7.16 (7.35-7.45) Arterial Blood pCO2 at Patient Temp 18 mmHg (35-46) 44 mmHg (35-46) Arterial Blood pO2 at Patient Temp 45 mmHg (65-108) 48 mmHg (65-108) Arterial Blood HCO3 12 mmol/L (21-28) 15 mmol/L (21-28) Arterial Blood Base Excess -10 mmol/L (-3-3) -13 mmol/L (-3-3) FiO2 100 100 Arterial Blood pH (Temp corrected) 7.13 Arterial Blood pCO2 (Temp correct) 49 mmHg Arterial Blood pO2 (Temp corrected) 57 mmHg Oxyhemoglobin 66.9 % Methemoglobin 0.5 % (0.0-1.9) Carbon Monoxide, Quantitative 0.3 % (0.0-1.9) Test 05/02/20 08:15 05/02/20 08:43 O2 Saturation 92 % (92-99) Arterial Blood pH 7.40 (7.35-7.45) Arterial Blood pCO2 at Patient Temp 24 mmHg (35-46) Arterial Blood pO2 at Patient Temp 73 mmHg (65-108) Arterial Blood HCO3 14 mmol/L (21-28) Arterial Blood Base Excess -9 mmol/L (-3-3) FiO2 90% Glucose (Fingerstick) 411 mg/dL (70-99) Medications Active Scripts Medications Dose Route/Sig Max Daily Dose Days Date Category Dose Instructions Voltaren (Diclofenac Sodium) 100 Gm Gel..gram. 1 Jitendra TP TID 04/19/20 Reported Famotidine 20 Mg Tablet 20 Mg PO HS 01/28/20 Reported Dilantin (Phenytoin Sodium Extended) 100 Mg Capsule 30 Mg PO HS 01/28/20 Reported Lisinopril 30 Mg Tablet 1 Tab PO HS 01/28/20 Reported Mirtazapine 30 Mg Tab.rapdis 30 Mg PO QHS 30 01/28/20 Reported D3-50 (Cholecalciferol (Vitamin D3)) 50,000 Unit Capsule 1 Cap PO WEEKLY 28 01/28/20 Reported Aspirin 81 Mg Tab.chew 1 Tab PO DAILY 01/28/20 Reported Atorvastatin Calcium 10 Mg Tablet 10 Mg PO HS 02/24/17 Reported Anti-Diarrhea (Loperamide Hcl) 2 Mg Tablet 2 Mg PO PRN Q6HRS PRN 02/24/17 Reported Metformin Hcl 1,000 Mg Tablet 1 Tab PO BID 12/26/15 Rx Tylenol (Acetaminophen) 325 Mg Tablet 650 Mg PO BID 12/24/15 Reported Norvasc (Amlodipine Besylate) 10 Mg Tablet 10 Mg PO DAILY 12/24/15 Reported Milk Of Magnesia (Magnesium Hydroxide) 400 Mg/5 Ml Oral.susp 1,200 Mg PO PRN DAILY PRN 12/24/15 Reported Latanoprost 2.5 Ml Drops 1 Drop EACHEYE QHS 12/24/15 Reported Vimpat (Lacosamide) 200 Mg Tablet 200 Mg PO BID 12/24/15 Reported Keppra (Levetiracetam) 500 Mg Tablet 1,500 Mg PO BID 12/24/15 Reported Gabapentin (Gabapentin) 400 Mg Capsule 400 Mg PO TID 12/24/15 Reported Folic Acid 1 Mg Tablet 1 Tab PO DAILY 12/24/15 Reported Flonase Allergy Relief (Fluticasone Propionate) 9.9 Ml Alpine.susp 2 Sprays NS DAILY 12/24/15 Reported Buspirone Hcl 5 Mg Tablet 1 Tab PO BID 12/24/15 Reported Abilify (Aripiprazole) 5 Mg Tablet 5 Mg PO DAILY 12/24/15 Reported Hydrocortisone 30 Gm Cream..g. 30 Gm RC PRN BID PRN 05/20/14 Reported Hydrocortisone 1% Absorbase (Hc/Mineral Oil/Petrolat,Wht) 25 Gm Oint...g. 25 Gm TP 05/20/14 Reported Hydralazine Hcl 25 Mg Tablet 2 Tab PO TID 05/20/14 Reported Dilantin (Phenytoin Sodium Extended) 100 Mg Capsule 400 Mg PO HS 05/20/14 Reported give with 30mg to equal 430mg Depakote Sprinkle (Divalproex Sodium) 125 Mg Cap.sprink 125 Mg PO BID 05/20/14 Reported Cymbalta (Duloxetine Hcl) 30 Mg Capsule.dr 3 Cap PO DAILY 05/20/14 Reported Centrum Silver Ultra Women Tab (Multivits W-Fe,Other Min/Lut) 1 Each Tablet 1 Each PO DAILY 05/20/14 Reported Baclofen 10 Mg Tablet 1 Tab PO TID 05/20/14 Reported Comments CXR reviewed b lat infilt Impression . 1. Acute hypoxic respiratory failure secondary to COVID-19 pneumonia./ ALI/ARDS 2. Abnormal chest x-ray with patchy infiltrates bilaterally, suggestive of pneumonia, COVID-19.--COVID 19 positive/ARDS 3. 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 4. History of posttraumatic epilepsy. 5. No significant tobacco history. 6. Mild azotemia--improved 7. Normal D-dimer. 8. Fever, 9. Encephalopathy, 10. Anemia Plan . cont vent support setting reviewed, on peep 10 fi2 80%, titrate fi02 to keep sat 94 change Solu-Medrol to 40 q 8hrs Empiric antibiotics for gram-positive and gram-negative organisms elevate hob dr cisneros spoke with guardian Gilbert Mcclain. He mentioned that patient requested full code DVT/GI PPX Repeat d-dimer 10.3, on high dose DVT prophylaxis s/p Plasma critically ill cct 30 min no overlap d/w RN/RT AMANDA ONEIL MD May 02, 2020 10:21
[2020-05-02 10:25] LABS: RED BLOOD COUNT 2.35 x10^6/uL (3.50-5.40); RED CELL DISTRIBUTION WIDTH 14.9 % (11.5-14.5); WHITE BLOOD COUNT 5.4 x10^3/uL (4.0-11.0)
[2020-05-02 10:30] LABS: HEMOGLOBIN 6.8 g/dL (12.0-15.5)
[2020-05-02 10:31] LABS: HEMATOCRIT 20.6 % (36.0-47.0)
[2020-05-02 10:46] LABS: CALCIUM 7.6 mg/dL (8.5-10.1); CREATININE 1.2 mg/dL (0.6-1.0); GFR 54.2; POTASSIUM 4.2 mmol/L (3.5-5.1)
[2020-05-02 10:51] LABS: ALBUMIN 1.3 g/dL (3.4-5.0); ALBUMIN/GLOBULIN RATIO 0.3 (1.0-1.7); TOTAL BILIRUBIN 0.3 mg/dL (0.2-1.0); TOTAL PROTEIN 5.8 g/dL (6.4-8.2)
[2020-05-02] MEDS: PANTOPRAZOLE IV PUSH 40 MG VIAL. IVP SCH (11:25)
[2020-05-02] MEDS: AMINO AC 3%/ELECTROLYTE/GLYCER 1,000 ML IV SCH (12:58)
[2020-05-02] MEDS: methylPREDNISolone SOD SUCC PF 40 MG/ML VIAL. IV SCH ×2 (14:52→21:16)
[2020-05-02 15:34] LABS: BILIRUBIN,URINE NEGATIVE (NEG); CLARITY,URINE CLOUDY; COLOR,URINE YELLOW; NITRITE,URINE NEGATIVE (NEG); PROTEIN,URINE 30 mg/dL (NEG-TRACE); UROBILINOGEN,URINE 0.2 mg/dL (0.2 mg/dL)
[2020-05-02 15:52] LABS: AMORPHOUS SEDIMENT,UR PRESENT /HPF; BACTERIA,URINE 0 /HPF (0-FEW); RBC,URINE 0 /HPF (0-2); WBC,URINE 0 /HPF (0-4)
[2020-05-02] MEDS: INSULIN LISPRO 300 UNITS/3 ML VIAL. SQ SCH (17:37)
[2020-05-02] MEDS: LISINOPRIL 10 MG TABLET PO SCH (21:00)
[2020-05-02] MEDS: MIRTAZAPINE 15 MG TABLET PO SCH (21:15)
[2020-05-02] MEDS: ATORVASTATIN CALCIUM 10 MG TABLET. PO SCH (21:15)
[2020-05-02] MEDS: LATANOPROST 0.005% OPHTH SOLUTION 2.5ML BOTTLE. OU SCH (21:47)
[2020-05-03] VITALS (24 sets, daily range): BP systolic 76–140; BP diastolic 52–88
[2020-05-03] MEDS: INSULIN LISPRO 300 UNITS/3 ML VIAL. SQ SCH ×4 (00:02→18:09)
[2020-05-03] MEDS: PIPERACILLIN/TAZOBACTAM 3.375 GM in IV NORMAL SALINE 50ML 50 ML IV SCH ×4 (00:12→17:51)
[2020-05-03] MEDS: AMINO AC 3%/ELECTROLYTE/GLYCER 1,000 ML IV SCH (04:34)
[2020-05-03] MEDS: METOPROLOL TARTRATE 5 MG/5 ML VIAL. IVP SCH ×3 (05:31→17:49)
[2020-05-03 05:37] LABS: HEMATOCRIT 26.3 % (36.0-47.0); HEMOGLOBIN 8.8 g/dL (12.0-15.5); RED BLOOD COUNT 2.98 x10^6/uL (3.50-5.40); RED CELL DISTRIBUTION WIDTH 15.1 % (11.5-14.5)
[2020-05-03] MEDS: methylPREDNISolone SOD SUCC PF 40 MG/ML VIAL. IV SCH ×3 (05:55→20:40)
[2020-05-03] MEDS: DEXMEDETOMIDINE 400 MCG in IV NORMAL SALINE 100ML 96 ML IV PRN (05:55)
[2020-05-03] MEDS: FOSPHENYTOIN 100 MG/2 ML VIAL. IV SCH ×3 (05:56→20:44)
[2020-05-03 06:04] LABS: CALCIUM 8.5 mg/dL (8.5-10.1); CREATININE 1.1 mg/dL (0.6-1.0); GFR 59.9
[2020-05-03] MEDS ORDERED: INSULIN LISPRO 300 UNITS/3 ML VIAL. SQ SCH (07:45)
[2020-05-03] MEDS ORDERED: INSULIN GLARGINE SYRINGE. SQ SCH ×3 (07:45→21:00)
--- NOTE | 2020-05-03 08:04 | PDOC ---
Infectious Disease Note Subjective: Subjective Patient intubated last night Afebrile Blood pressure fluctuates ,on pressors Discussed with nursing Vital Signs: Vital Signs Vital Signs Date Time Temp Pulse Resp B/P (MAP) Pulse Ox O2 Delivery O2 Flow Rate FiO2 05/03/20 07:00 56 24 124/73 (90) 100 Ventilator 05/03/20 04:00 97.4 97.4 05/03/20 01:46 40.0 Physical Exam: PHYSICAL EXAM GENERAL: Intubated on jumana hugger HEENT: no icterus, no thrush NECK: Supple, LUNGS: Coarse bs scattered HEART: S1, S2 tachycardia ABDOMEN: soft bs+ nondistended EXTREMITIES: No edema, cyanosis. SKIN: Unremarkable. NEUROLOGIC: The patient does have right-sided hemiplegia and is slow in answering questions. Central line is clean Medications: Inpatient Meds: Current Medications Medications (Trade) Dose Ordered Sig/Fabiana Start Time Stop Time Status Last Admin Dose Admin Acetaminophen (Tylenol Supp) 650 mg PRN Q6HRS PRN 04/20/20 05:30 05/01/20 15:05 650 MG Acetaminophen (Tylenol) 650 mg BID 04/20/20 21:00 05/02/20 21:15 650 MG Amino Acids/ Glycerin/ Electrolytes 1,000 ml @ 80 mls/hr [id number] 05/01/20 09:00 05/03/20 07:48 DC 05/03/20 04:34 80 MLS/HR Amlodipine Besylate (Norvasc) 10 mg DAILY 04/21/20 09:00 05/02/20 08:29 10 MG Amoxicillin/ Clavulanate Potassium (Augmentin 875/ 125mg) 1 tab BID 04/26/20 21:00 04/27/20 14:53 DC 04/27/20 09:58 1 TAB Aripiprazole (Abilify) 5 mg DAILY 04/20/20 11:00 05/02/20 08:29 5 MG Aspirin (Aspirin Chewable) 81 mg DAILY 04/20/20 11:00 05/02/20 08:29 81 MG Atorvastatin Calcium (Lipitor) 10 mg HS 04/20/20 21:00 05/02/20 21:15 10 MG Atropine Sulfate (ATROPINE 0.5mg SYRINGE) 0.5 mg PRN Q5MIN PRN 04/28/20 11:45 Baclofen (Lioresal) 10 mg TID 04/20/20 14:00 05/02/20 21:15 10 MG Buspirone HCl (Buspar) 5 mg BID 04/20/20 11:00 05/02/20 21:15 5 MG Cefepime HCl (Maxipime) 1 gm 1X ONCE 04/19/20 14:30 04/19/20 14:31 DC 04/19/20 14:55 1 GM Ceftriaxone Sodium (Rocephin) 1 gm Q24H 04/24/20 11:00 04/26/20 09:49 DC 04/25/20 09:56 1 GM Chlorhexidine Gluconate (Peridex) 15 ml BID 05/01/20 21:00 05/02/20 21:16 15 ML Dexmedetomidine HCl 400 mcg/ Sodium Chloride 100 ml @ 0 mls/hr CONT PRN 04/28/20 11:45 05/03/20 05:55 13.6 MLS/HR Dextrose (Dextrose 50%-Water Syringe) 12.5 gm PRN Q15MIN PRN 04/30/20 01:00 Diclofenac Sodium (Voltaren) 1 justin TID 04/20/20 14:00 05/01/20 09:56 1 JUSTIN Divalproex Sodium (Depakote Sprinkles) 125 mg BID 04/20/20 11:00 04/28/20 11:00 DC 04/27/20 23:05 125 MG Duloxetine HCl (Cymbalta) 90 mg DAILY 04/20/20 11:00 04/30/20 08:09 90 MG Enoxaparin Sodium (Lovenox 40mg Syringe) 40 mg BID 04/27/20 15:30 05/02/20 21:16 40 MG Ergocalciferol (Vitamin D2) 50,000 unit WEEKLY 04/27/20 09:00 04/27/20 09:58 50,000 UNIT Etomidate (Amidate) 16 mg 1X ONCE 05/01/20 16:30 05/01/20 16:31 DC 05/01/20 16:26 16 MG Famotidine (Pepcid) 20 mg HS 04/20/20 21:00 05/02/20 11:02 DC 05/01/20 20:09 20 MG Fentanyl Citrate 30 ml @ 0 mls/hr CONT PRN 05/01/20 16:30 05/03/20 01:16 2.5 MLS/HR Fentanyl Citrate (Fentanyl 2ml Vial) 100 mcg 1X ONCE 04/28/20 11:30 04/28/20 11:33 DC 04/28/20 11:41 100 MCG Fluticasone Propionate (Flonase) 2 spray DAILY 04/21/20 09:00 04/26/20 09:15 2 SPRAY Folic Acid (Folic Acid) 1 mg DAILY 04/20/20 11:00 05/02/20 08:29 1 MG Fosphenytoin Sodium (Cerebyx) 140 mg Q8HRS 04/28/20 22:00 05/03/20 05:56 140 MG Gabapentin (Neurontin) 400 mg TID 04/20/20 14:00 05/02/20 21:15 400 MG Hydralazine HCl (Apresoline Inj) 10 mg PRN Q4HRS PRN 04/28/20 12:45 Cancel Hydralazine HCl (Apresoline) 50 mg TID 04/20/20 14:00 05/02/20 08:30 50 MG Hydrocortisone (Proctosol-Hc) 30 justin PRN BID PRN 04/20/20 10:15 Ibuprofen (Motrin) 600 mg PRN Q8HRS PRN 04/25/20 14:00 05/02/20 09:06 DC 04/26/20 09:59 600 MG Insulin Glargine (Lantus Syringe) 20 unit QHS 05/03/20 07:45 Insulin Human Lispro (HumaLOG) 12 units Q6HRS 05/03/20 07:45 Lacosamide (Vimpat) 200 mg BID 04/20/20 11:00 04/28/20 10:53 DC 04/28/20 09:38 200 MG Lacosamide 200 mg/ Dextrose 70 ml @ 140 mls/hr BID 04/28/20 21:00 05/02/20 20:31 140 MLS/HR Lactobacillus Rhamnosus (Culturelle) 1 cap BID 04/22/20 21:00 05/02/20 21:15 1 CAP Latanoprost (Xalatan) 1 drop QHS 04/20/20 21:00 05/02/20 21:47 1 DROP Levetiracetam (Keppra) 1,500 mg BID 04/20/20 11:00 04/28/20 10:54 DC 04/28/20 09:38 1,500 MG Levetiracetam 1500 mg/Dextrose 115 ml @ 460 mls/hr Q12HR 04/28/20 21:00 05/02/20 20:31 460 MLS/HR Levofloxacin/ Dextrose 150 ml @ 100 mls/hr 1X ONCE 04/19/20 14:30 04/19/20 15:59 DC 04/19/20 14:56 100 MLS/HR Linezolid/Dextrose 300 ml @ 300 mls/hr Q12HR 05/02/20 15:00 05/02/20 22:54 300 MLS/HR Lisinopril (Prinivil) 30 mg HS 04/20/20 21:00 04/28/20 22:01 30 MG Loperamide HCl (Imodium) 2 mg PRN Q6HRS PRN 04/20/20 10:30 Magnesium Hydroxide (Milk Of Magnesia) 1,200 mg PRN DAILY PRN 04/20/20 10:15 04/24/20 10:00 1,200 MG Metformin HCl (Glucophage) 1,000 mg BIDWMEALS 04/20/20 17:00 05/02/20 17:40 1,000 MG Methylprednisolone Sodium Succinate (SOLU-Medrol 40MG VIAL) 40 mg Q8HRS 05/02/20 14:00 05/03/20 05:55 40 MG Methylprednisolone Sodium Succinate (SOLU-Medrol 125MG VIAL) 125 mg Q8HRS 04/27/20 15:00 05/02/20 10:22 DC 05/02/20 05:35 125 MG Metoprolol Tartrate (Lopressor Vial) 5 mg Q6HRS 04/28/20 12:45 05/01/20 12:23 5 MG Midazolam HCl 100 ml @ 0 mls/hr CONT PRN 05/01/20 16:30 05/02/20 21:24 10 MLS/HR Midazolam HCl (Versed) 5 mg STK-MED ONCE 04/28/20 12:00 04/29/20 09:22 DC Mirtazapine (Remeron) 30 mg QHS 04/20/20 21:00 05/02/20 21:15 30 MG Multivitamins (Thera M Plus) 1 tab DAILY 04/20/20 11:00 05/02/20 08:30 1 TAB Norepinephrine Bitartrate 8 mg/ Dextrose 258 ml @ 13.177 mls/ hr CONT PRN 05/01/20 21:45 05/01/20 22:28 13.177 MLS/HR Ondansetron HCl (Zofran) 4 mg PRN Q8HRS PRN 04/19/20 15:15 04/20/20 15:14 DC Pantoprazole Sodium (PROTONIX VIAL for IV PUSH) 40 mg DAILYAC 05/02/20 11:00 05/02/20 11:25 40 MG Phenytoin Sodium (Dilantin) 400 mg HS 04/20/20 21:00 04/28/20 11:14 DC 04/27/20 22:59 400 MG Piperacillin Sod/ Tazobactam Sod (Zosyn Per Pharmacy) 1 each PRN DAILY PRN 04/27/20 15:00 Piperacillin Sod/ Tazobactam Sod 3.375 gm/Sodium Chloride 50 ml @ 100 mls/hr Q6HRS 05/02/20 14:30 05/03/20 05:57 100 MLS/HR Potassium Chloride/Dextrose 1,000 ml @ 100 mls/hr Q10H 04/29/20 14:15 05/01/20 08:47 DC 04/30/20 21:56 100 MLS/HR Potassium Chloride/Dextrose/ Sod Cl 1,000 ml @ 100 mls/hr Q10H 04/29/20 11:00 04/29/20 14:11 DC 04/29/20 10:25 100 MLS/HR Prednisone (Prednisone) 5 mg DAILY 05/04/20 09:00 04/27/20 14:53 DC Propofol 100 ml @ 0 mls/hr CONT PRN 05/01/20 16:30 05/01/20 16:40 10.2 MLS/HR Sodium Bicarbonate (Sodium Bicarb Adult 8.4% Syr) 100 meq 1X ONCE 05/01/20 17:45 05/01/20 17:47 DC 05/01/20 18:10 100 MEQ Sodium Chloride 1,000 ml @ 1,000 mls/hr 1X ONCE 05/01/20 21:45 05/01/20 22:44 DC 05/01/20 22:10 1,000 MLS/HR Sterile Water (WATER for RESP) 1,000 ml CONT PRN 04/28/20 11:15 05/01/20 00:34 1,000 ML Succinylcholine Chloride (Anectine) 100 mg 1X ONCE 05/01/20 16:30 05/01/20 16:31 DC 05/01/20 16:27 100 MG Valproic Acid 125 mg/Dextrose 51.25 ml @ 51.25 mls/ hr Q12HR 04/28/20 21:00 05/02/20 21:22 51.25 MLS/HR Vancomycin HCl (Vanco Per Pharmacy) 1 each PRN DAILY PRN 04/27/20 15:00 05/01/20 09:21 DC 05/01/20 05:42 1 EACH Vancomycin HCl (Vancomycin Trough Level) 1 each 1X ONCE 05/01/20 03:30 05/01/20 03:31 DC 05/01/20 04:30 1 EACH Vancomycin HCl 1.75 gm/Sodium Chloride 500 ml @ 250 mls/hr 1X ONCE 04/27/20 16:00 04/27/20 17:59 DC 04/27/20 16:22 250 MLS/HR Vancomycin HCl 1 gm/Sodium Chloride 250 ml @ 250 mls/hr Q18H 04/29/20 16:00 05/01/20 09:20 DC 05/01/20 05:38 250 MLS/HR Vecuronium [place] (Norcuron Bolus) 10 mg 1X ONCE 05/01/20 17:00 05/01/20 17:01 DC 05/01/20 16:54 10 MG Vitamin A/Vitamin D (Vitamin A & D Ointment) 1 justin BID 04/29/20 21:00 05/02/20 21:19 1 JUSTIN Labs: Lab Laboratory Tests Test 05/02/20 08:15 05/02/20 08:43 05/02/20 10:10 05/02/20 12:57 O2 Saturation 92 % (92-99) Arterial Blood pH 7.40 (7.35-7.45) Arterial Blood pCO2 at Patient Temp 24 mmHg (35-46) Arterial Blood pO2 at Patient Temp 73 mmHg (65-108) Arterial Blood HCO3 14 mmol/L (21-28) Arterial Blood Base Excess -9 mmol/L (-3-3) FiO2 90% Glucose (Fingerstick) 411 mg/dL (70-99) 387 mg/dL (70-99) White Blood Count 5.4 x10^3/uL (4.0-11.0) Red Blood Count 2.35 x10^6/uL (3.50-5.40) Hemoglobin 6.8 g/dL (12.0-15.5) Hematocrit 20.6 % (36.0-47.0) Mean Corpuscular Volume 88 fL (79-100) Mean Corpuscular Hemoglobin 29 pg (25-35) Mean Corpuscular Hemoglobin Concent 33 g/dL (31-37) Red Cell Distribution Width 14.9 % (11.5-14.5) Platelet Count 90 x10^3/uL (140-400) Sodium Level 136 mmol/L (136-145) Potassium Level 4.2 mmol/L (3.5-5.1) Chloride Level 104 mmol/L (98-107) Carbon Dioxide Level 19 mmol/L (21-32) Anion Gap 13 (6-14) Blood Urea Nitrogen 36 mg/dL (7-20) Creatinine 1.2 mg/dL (0.6-1.0) Estimated GFR (Cockcroft-Gault) 54.2 BUN/Creatinine Ratio 30 (6-20) Glucose Level 436 mg/dL (70-99) Calcium Level 7.6 mg/dL (8.5-10.1) Total Bilirubin 0.3 mg/dL (0.2-1.0) Aspartate Amino Transf (AST/SGOT) 55 U/L (15-37) Alanine Aminotransferase (ALT/SGPT) 43 U/L (14-59) Alkaline Phosphatase 64 U/L (46-116) Total Protein 5.8 g/dL (6.4-8.2) Albumin 1.3 g/dL (3.4-5.0) Albumin/Globulin Ratio 0.3 (1.0-1.7) Test 05/02/20 15:15 05/02/20 17:32 05/02/20 23:41 05/03/20 05:20 Urine Collection Type Unknown Urine Color Yellow Urine Clarity Cloudy Urine pH 5.0 (<5.0-8.0) Urine Specific Lena 1.025 (1.000-1.030) Urine Protein 30 mg/dL (NEG-TRACE) Urine Glucose (UA) 500 mg/dL (NEG) Urine Ketones (Stick) 15 mg/dL (NEG) Urine Blood Negative (NEG) Urine Nitrite Negative (NEG) Urine Bilirubin Negative (NEG) Urine Urobilinogen Dipstick 0.2 mg/dL (0.2 mg/dL) Urine Leukocyte Esterase Negative (NEG) Urine RBC 0 /HPF (0-2) Urine WBC 0 /HPF (0-4) Urine Amorphous Sediment Present /HPF Urine Bacteria 0 /HPF (0-FEW) Urine Mucus Slight /LPF Glucose (Fingerstick) 393 mg/dL (70-99) 407 mg/dL (70-99) White Blood Count 11.0 x10^3/uL (4.0-11.0) Red Blood Count 2.98 x10^6/uL (3.50-5.40) Hemoglobin 8.8 g/dL (12.0-15.5) Hematocrit 26.3 % (36.0-47.0) Mean Corpuscular Volume 88 fL (79-100) Mean Corpuscular Hemoglobin 30 pg (25-35) Mean Corpuscular Hemoglobin Concent 33 g/dL (31-37) Red Cell Distribution Width 15.1 % (11.5-14.5) Platelet Count 163 x10^3/uL (140-400) Sodium Level 136 mmol/L (136-145) Potassium Level 4.0 mmol/L (3.5-5.1) Chloride Level 103 mmol/L (98-107) Carbon Dioxide Level 19 mmol/L (21-32) Anion Gap 14 (6-14) Blood Urea Nitrogen 38 mg/dL (7-20) Creatinine 1.1 mg/dL (0.6-1.0) Estimated GFR (Cockcroft-Gault) 59.9 Glucose Level 365 mg/dL (70-99) Calcium Level 8.5 mg/dL (8.5-10.1) Objective: Assessment: 1. COVID-19 pneumonia. 2. Acute hypoxic respiratory failure s/p intubation 3. Blood culture 1 out of 3, coag neg staph, contaminant. 4. Fever. 5. Right-sided cerebrovascular accident. 6. Traumatic brain injury with aphasia . 7. E. coli UTI Plan: Plan of Care cont supportive care Continue Zosyn,Zyvox s/p plasma administration on steroids follow up labs and cults Prognosis poor Consider palliative care Discussed with nursing staff YAW WOO MD May 03, 2020 08:04
--- NOTE | 2020-05-03 08:14 | PN ---
DATE: 05/03/2020 SUBJECTIVE: The patient is resting flat in bed, sleeping comfortably. She is sedated, intubated, mechanically ventilated. She is currently on Versed, Precedex and fentanyl. She also continued to have episodes of hypotension and therefore, she is on low-dose Levophed. Her blood sugar continues to be suboptimally controlled. PHYSICAL EXAMINATION: GENERAL: On examining her, she looked pale, but no jaundice or cyanosis. No lymphadenopathy, no thyromegaly. No jugular venous distention. No lower limb edema. VITAL SIGNS: Her heart rate was 56, blood pressure was 124/73, temperature was 97.4, respiratory rate was 24, and oxygen saturation was 100% on FiO2 of 80%. HEAD, EYES, EARS, NOSE AND THROAT: Showed normocephalic, atraumatic. She has orotracheal and orogastric tube. NECK: Supple. CARDIAC: Normal first and second heart sounds. No gallop, rub or murmur. CHEST: Shows central trachea, equal bilateral expansion, air entry, vesicular sounds. I could not appreciate any crepitation or rhonchi anteriorly. ABDOMEN: Distended, soft, nontender. NEUROLOGIC: She is heavily sedated. She is known to have traumatic brain injury with resultant right-sided hemiplegia and aphasia and also dysphagia. Her intake over the last 24 hours was 3494, output was 1040. LABORATORY DATA: As of this morning, her white cell count was 11,000; hemoglobin 8.8; hematocrit 26; MCV 88 and platelet count of 163,000. Her chemistry showed a serum sodium 136, potassium 4, chloride 103, bicarbonate was 19, glucose was 14. Anion gap of 14, BUN 38, creatinine 1.1, estimated GFR was 60 mL per minute. Her glucose was 365 and calcium was 8.5. ASSESSMENT: 1. COVID-19 pneumonia. 2. Acute hypoxic respiratory failure requiring intubation and mechanical ventilation. She continues to be on FiO2 of 80%, maintaining her oxygen saturation at 100%. 3. Traumatic brain injury with resultant right-sided hemiplegia, aphasia and dysphagia. 4. Hypertension, however, the patient is borderline hypotensive. She is currently on Levophed. 5. Type 2 diabetes mellitus, suboptimally controlled, worsened by high dose steroids. 6. Posttraumatic seizure disorder for which she continues to be on fosphenytoin, Keppra and lacosamide. 7. Sinus bradycardia, likely due to propofol. 8. Hypernatremia, resolved. Her most recent serum potassium is down to 136. 9. Hypokalemia, resolved. Her potassium is down to 3.8. PLAN: My plan is to discontinue the procalamine, start her on Jevity. I will also start her on water flushes at 150 mL every 4 hours. I will discontinue the PPN and start her on increase Lantus to 20 units. We will transfer her to [facility] once she is stable. ETELVINA HAYWOOD MD DR: ALISON/hernán JOB#: [id number] / [id number]
[2020-05-03 08:19] LABS: BASE EXCESS ABG -8 mmol/L (-3-3); HCO3 ABG 15 mmol/L (21-28); PCO2 ABG 23 mmHg (35-46); PO2 ABG 96 mmHg (65-108); SAT O2 ABG 97 % (92-99)
[2020-05-03 08:20] LABS: FIO2 ABG 80%
[2020-05-03] MEDS: VALPROIC ACID IV SCH ×2 (08:46→20:38)
[2020-05-03] MEDS: DEXTROSE 5% IV SCH ×2 (08:46→20:38)
[2020-05-03] MEDS: LACOSAMIDE 200 MG in IV DEXTROSE 5% 50 ML IV SCH ×2 (08:46→20:38)
[2020-05-03] MEDS: levETIRAcetam 1,500 MG in IV DEXTROSE 5% 100ML 100 ML IV SCH ×2 (08:47→20:41)
[2020-05-03] MEDS: MIDAZOLAM 100mg/100ml NS BAG 100 ML IV PRN ×2 (08:47→23:01)
[2020-05-03] MEDS: ACETAMINOPHEN 325 MG TABLET. PO SCH ×2 (08:48→20:39)
[2020-05-03] MEDS: GABAPENTIN 400 MG CAPSULE. PO SCH ×3 (08:48→20:41)
[2020-05-03] MEDS: FOLIC ACID 1 MG TABLET. PO SCH (08:48)
[2020-05-03] MEDS: PANTOPRAZOLE IV PUSH 40 MG VIAL. IVP SCH (08:48)
[2020-05-03] MEDS: ARIPiprazole 5 MG TABLET PO SCH (08:48)
[2020-05-03] MEDS: ASPIRIN CHEWABLE 81 MG TABLET. PO SCH (08:48)
[2020-05-03] MEDS: LACTOBACILLUS RHAMNOSUS GG 1 CAPSULE. PO SCH ×2 (08:48→20:39)
[2020-05-03] MEDS: ENOXAPARIN 40 MG/0.4 ML SYRINGE. SQ SCH ×2 (08:48→20:38)
[2020-05-03] MEDS: BACLOFEN 10 MG TABLET. PO SCH ×3 (08:48→20:40)
[2020-05-03] MEDS: metFORMIN 500 MG TABLET PO SCH ×2 (08:48→17:51)
[2020-05-03] MEDS: MULTIVITAMIN with MINERAL TABLET. PO SCH (08:48)
[2020-05-03] MEDS: amLODIPine BESYLATE 10 MG TABLET PO SCH (08:48)
[2020-05-03] MEDS: busPIRone 5 MG TABLET. PO SCH ×2 (08:48→20:39)
[2020-05-03] MEDS: DULoxetine HCL 30 MG CAPSULE.DR PO SCH (08:49)
[2020-05-03] MEDS: CHLORHEXIDINE 0.12% 15 ML MOUTHWASH. MM SCH ×2 (08:49→20:39)
[2020-05-03] MEDS: hydrALAZINE 25 MG TABLET PO SCH ×3 (08:49→20:42)
[2020-05-03] MEDS: FLUTICASONE 50MCG/NASAL SPRAY 16GM BOTTLE. NS SCH (08:49)
[2020-05-03] MEDS: DICLOFENAC SODIUM 1% TOPICAL GEL 100GM TUBE. TP SCH ×3 (08:50→20:40)
[2020-05-03] MEDS: VITS A & D/LANOLIN TOPICAL OINTMENT 42GM TUBE. TP SCH ×2 (08:50→20:40)
[2020-05-03] MEDS ORDERED: predniSONE 10 MG TABLET PO SCH (09:00)
--- NOTE | 2020-05-03 11:34 | PDOC ---
PULMONARY PROGRESS NOTES DATE: 05/03/20 TIME: 11:32 Subjective intubated 05/01, on vent, peep 10 fi02 70%, mod ett secretion, sedated on versed fentanyl on levo Vitals Vital Signs Date Time Temp Pulse Resp B/P (MAP) Pulse Ox O2 Delivery O2 Flow Rate FiO2 05/03/20 10:00 58 24 114/70 (85) 100 Ventilator 05/03/20 09:00 97.5 97.5 05/03/20 01:46 40.0 Comments visual exam done on vent sedated nc at rrr no accessory muscle use no paradoxical abd motion no rash no edema Labs Laboratory Tests Test 05/01/20 11:54 05/01/20 16:00 05/01/20 16:51 05/01/20 17:20 Glucose (Fingerstick) 151 mg/dL (70-99) 210 mg/dL (70-99) O2 Saturation 76 % (92-99) 67 % (92-99) Arterial Blood pH 7.45 (7.35-7.45) 7.16 (7.35-7.45) Arterial Blood pCO2 at Patient Temp 18 mmHg (35-46) 44 mmHg (35-46) Arterial Blood pO2 at Patient Temp 45 mmHg (65-108) 48 mmHg (65-108) Arterial Blood HCO3 12 mmol/L (21-28) 15 mmol/L (21-28) Arterial Blood Base Excess -10 mmol/L (-3-3) -13 mmol/L (-3-3) FiO2 100 100 Arterial Blood pH (Temp corrected) 7.13 Arterial Blood pCO2 (Temp correct) 49 mmHg Arterial Blood pO2 (Temp corrected) 57 mmHg Oxyhemoglobin 66.9 % Methemoglobin 0.5 % (0.0-1.9) Carbon Monoxide, Quantitative 0.3 % (0.0-1.9) Test 05/02/20 08:15 05/02/20 08:43 05/02/20 10:10 05/02/20 12:57 O2 Saturation 92 % (92-99) Arterial Blood pH 7.40 (7.35-7.45) Arterial Blood pCO2 at Patient Temp 24 mmHg (35-46) Arterial Blood pO2 at Patient Temp 73 mmHg (65-108) Arterial Blood HCO3 14 mmol/L (21-28) Arterial Blood Base Excess -9 mmol/L (-3-3) FiO2 90% Glucose (Fingerstick) 411 mg/dL (70-99) 387 mg/dL (70-99) White Blood Count 5.4 x10^3/uL (4.0-11.0) Red Blood Count 2.35 x10^6/uL (3.50-5.40) Hemoglobin 6.8 g/dL (12.0-15.5) Hematocrit 20.6 % (36.0-47.0) Mean Corpuscular Volume 88 fL (79-100) Mean Corpuscular Hemoglobin 29 pg (25-35) Mean Corpuscular Hemoglobin Concent 33 g/dL (31-37) Red Cell Distribution Width 14.9 % (11.5-14.5) Platelet Count 90 x10^3/uL (140-400) Sodium Level 136 mmol/L (136-145) Potassium Level 4.2 mmol/L (3.5-5.1) Chloride Level 104 mmol/L (98-107) Carbon Dioxide Level 19 mmol/L (21-32) Anion Gap 13 (6-14) Blood Urea Nitrogen 36 mg/dL (7-20) Creatinine 1.2 mg/dL (0.6-1.0) Estimated GFR (Cockcroft-Gault) 54.2 BUN/Creatinine Ratio 30 (6-20) Glucose Level 436 mg/dL (70-99) Calcium Level 7.6 mg/dL (8.5-10.1) Total Bilirubin 0.3 mg/dL (0.2-1.0) Aspartate Amino Transf (AST/SGOT) 55 U/L (15-37) Alanine Aminotransferase (ALT/SGPT) 43 U/L (14-59) Alkaline Phosphatase 64 U/L (46-116) Total Protein 5.8 g/dL (6.4-8.2) Albumin 1.3 g/dL (3.4-5.0) Albumin/Globulin Ratio 0.3 (1.0-1.7) Test 05/02/20 15:15 05/02/20 17:32 05/02/20 23:41 05/03/20 05:20 Urine Collection Type Unknown Urine Color Yellow Urine Clarity Cloudy Urine pH 5.0 (<5.0-8.0) Urine Specific [place] 1.025 (1.000-1.030) Urine Protein 30 mg/dL (NEG-TRACE) Urine Glucose (UA) 500 mg/dL (NEG) Urine Ketones (Stick) 15 mg/dL (NEG) Urine Blood Negative (NEG) Urine Nitrite Negative (NEG) Urine Bilirubin Negative (NEG) Urine Urobilinogen Dipstick 0.2 mg/dL (0.2 mg/dL) Urine Leukocyte Esterase Negative (NEG) Urine RBC 0 /HPF (0-2) Urine WBC 0 /HPF (0-4) Urine Amorphous Sediment Present /HPF Urine Bacteria 0 /HPF (0-FEW) Urine Mucus Slight /LPF Glucose (Fingerstick) 393 mg/dL (70-99) 407 mg/dL (70-99) White Blood Count 11.0 x10^3/uL (4.0-11.0) Red Blood Count 2.98 x10^6/uL (3.50-5.40) Hemoglobin 8.8 g/dL (12.0-15.5) Hematocrit 26.3 % (36.0-47.0) Mean Corpuscular Volume 88 fL (79-100) Mean Corpuscular Hemoglobin 30 pg (25-35) Mean Corpuscular Hemoglobin Concent 33 g/dL (31-37) Red Cell Distribution Width 15.1 % (11.5-14.5) Platelet Count 163 x10^3/uL (140-400) Sodium Level 136 mmol/L (136-145) Potassium Level 4.0 mmol/L (3.5-5.1) Chloride Level 103 mmol/L (98-107) Carbon Dioxide Level 19 mmol/L (21-32) Anion Gap 14 (6-14) Blood Urea Nitrogen 38 mg/dL (7-20) Creatinine 1.1 mg/dL (0.6-1.0) Estimated GFR (Cockcroft-Gault) 59.9 Glucose Level 365 mg/dL (70-99) Calcium Level 8.5 mg/dL (8.5-10.1) Test 05/03/20 08:05 O2 Saturation 97 % (92-99) Arterial Blood pH 7.42 (7.35-7.45) Arterial Blood pCO2 at Patient Temp 23 mmHg (35-46) Arterial Blood pO2 at Patient Temp 96 mmHg (65-108) Arterial Blood HCO3 15 mmol/L (21-28) Arterial Blood Base Excess -8 mmol/L (-3-3) FiO2 80% Laboratory Tests Test 05/02/20 12:57 05/02/20 15:15 05/02/20 17:32 05/02/20 23:41 Glucose (Fingerstick) 387 mg/dL (70-99) 393 mg/dL (70-99) 407 mg/dL (70-99) Urine Collection Type Unknown Urine Color Yellow Urine Clarity Cloudy Urine pH 5.0 (<5.0-8.0) Urine Specific [place] 1.025 (1.000-1.030) Urine Protein 30 mg/dL (NEG-TRACE) Urine Glucose (UA) 500 mg/dL (NEG) Urine Ketones (Stick) 15 mg/dL (NEG) Urine Blood Negative (NEG) Urine Nitrite Negative (NEG) Urine Bilirubin Negative (NEG) Urine Urobilinogen Dipstick 0.2 mg/dL (0.2 mg/dL) Urine Leukocyte Esterase Negative (NEG) Urine RBC 0 /HPF (0-2) Urine WBC 0 /HPF (0-4) Urine Amorphous Sediment Present /HPF Urine Bacteria 0 /HPF (0-FEW) Urine Mucus Slight /LPF Test 05/03/20 05:20 05/03/20 08:05 White Blood Count 11.0 x10^3/uL (4.0-11.0) Red Blood Count 2.98 x10^6/uL (3.50-5.40) Hemoglobin 8.8 g/dL (12.0-15.5) Hematocrit 26.3 % (36.0-47.0) Mean Corpuscular Volume 88 fL (79-100) Mean Corpuscular Hemoglobin 30 pg (25-35) Mean Corpuscular Hemoglobin Concent 33 g/dL (31-37) Red Cell Distribution Width 15.1 % (11.5-14.5) Platelet Count 163 x10^3/uL (140-400) Sodium Level 136 mmol/L (136-145) Potassium Level 4.0 mmol/L (3.5-5.1) Chloride Level 103 mmol/L (98-107) Carbon Dioxide Level 19 mmol/L (21-32) Anion Gap 14 (6-14) Blood Urea Nitrogen 38 mg/dL (7-20) Creatinine 1.1 mg/dL (0.6-1.0) Estimated GFR (Cockcroft-Gault) 59.9 Glucose Level 365 mg/dL (70-99) Calcium Level 8.5 mg/dL (8.5-10.1) O2 Saturation 97 % (92-99) Arterial Blood pH 7.42 (7.35-7.45) Arterial Blood pCO2 at Patient Temp 23 mmHg (35-46) Arterial Blood pO2 at Patient Temp 96 mmHg (65-108) Arterial Blood HCO3 15 mmol/L (21-28) Arterial Blood Base Excess -8 mmol/L (-3-3) FiO2 80% Medications Active Scripts Medications Dose Route/Sig Max Daily Dose Days Date Category Dose Instructions Voltaren (Diclofenac Sodium) 100 Gm Gel..gram. 1 Jitendra TP TID 04/19/20 Reported Famotidine 20 Mg Tablet 20 Mg PO HS 01/28/20 Reported Dilantin (Phenytoin Sodium Extended) 100 Mg Capsule 30 Mg PO HS 01/28/20 Reported Lisinopril 30 Mg Tablet 1 Tab PO HS 01/28/20 Reported Mirtazapine 30 Mg Tab.rapdis 30 Mg PO QHS 30 01/28/20 Reported D3-50 (Cholecalciferol (Vitamin D3)) 50,000 Unit Capsule 1 Cap PO WEEKLY 28 01/28/20 Reported Aspirin 81 Mg Tab.chew 1 Tab PO DAILY 01/28/20 Reported Atorvastatin Calcium 10 Mg Tablet 10 Mg PO HS 02/24/17 Reported Anti-Diarrhea (Loperamide Hcl) 2 Mg Tablet 2 Mg PO PRN Q6HRS PRN 02/24/17 Reported Metformin Hcl 1,000 Mg Tablet 1 Tab PO BID 12/26/15 Rx Tylenol (Acetaminophen) 325 Mg Tablet 650 Mg PO BID 12/24/15 Reported Norvasc (Amlodipine Besylate) 10 Mg Tablet 10 Mg PO DAILY 12/24/15 Reported Milk Of Magnesia (Magnesium Hydroxide) 400 Mg/5 Ml Oral.susp 1,200 Mg PO PRN DAILY PRN 12/24/15 Reported Latanoprost 2.5 Ml Drops 1 Drop EACHEYE QHS 12/24/15 Reported Vimpat (Lacosamide) 200 Mg Tablet 200 Mg PO BID 12/24/15 Reported Keppra (Levetiracetam) 500 Mg Tablet 1,500 Mg PO BID 4/28/16 Reported Gabapentin (Gabapentin) 400 Mg Capsule 400 Mg PO TID 12/24/15 Reported Folic Acid 1 Mg Tablet 1 Tab PO DAILY 12/24/15 Reported Flonase Allergy Relief (Fluticasone Propionate) 9.9 Ml [place].susp 2 Sprays NS DAILY 12/24/15 Reported Buspirone Hcl 5 Mg Tablet 1 Tab PO BID 12/24/15 Reported Abilify (Aripiprazole) 5 Mg Tablet 5 Mg PO DAILY 12/24/15 Reported Hydrocortisone 30 Gm Cream..g. 30 Gm RC PRN BID PRN 05/20/14 Reported Hydrocortisone 1% Absorbase (Hc/Mineral Oil/Petrolat,Wht) 25 Gm Oint...g. 25 Gm TP 05/20/14 Reported Hydralazine Hcl 25 Mg Tablet 2 Tab PO TID 05/20/14 Reported Dilantin (Phenytoin Sodium Extended) 100 Mg Capsule 400 Mg PO HS 05/20/14 Reported give with 30mg to equal 430mg Depakote Sprinkle (Divalproex Sodium) 125 Mg Cap.sprink 125 Mg PO BID 05/20/14 Reported Cymbalta (Duloxetine Hcl) 30 Mg Capsule.dr Cid Cap PO DAILY 05/20/14 Reported Centrum Silver Ultra Women Tab (Multivits W-Fe,Other Min/Lut) 1 Each Tablet 1 Each PO DAILY 05/20/14 Reported Baclofen 10 Mg Tablet 1 Tab PO TID 05/20/14 Reported Comments CXR reviewed b lat infilt Impression . 1. Acute hypoxic respiratory failure secondary to COVID-19 pneumonia./ ALI/ARDS 2. Abnormal chest x-ray with patchy infiltrates bilaterally, pneumonia, COVID-19.--COVID 19 positive/ARDS 3. 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 4. History of posttraumatic epilepsy. 5. No significant tobacco history. 6. Mild azotemia--improved 7. Normal D-dimer. 8. Fever, 9. Encephalopathy, 10. Anemia Plan . cont vent support setting reviewed, on peep 10 fi2 70%, titrate fi02 to keep sat 94 Solu-Medrol 40 q 8hrs Empiric antibiotics for gram-positive and gram-negative organisms elevate hob DVT/GI PPX Repeat d-dimer 10.3, on high dose DVT prophylaxis s/p Plasma dr cisneros spoke with guardian Gilbert Mcclain. He mentioned that patient requested full code critically ill cct 30 min no overlap d/w RN/RT AMANDA ONEIL MD May 03, 2020 11:34
[2020-05-03] MEDS: NOREPINEPHRINE VIAL 8 MG in IV DEXTROSE 5% 250 ML IV PRN (14:35)
[2020-05-03] MEDS: ATORVASTATIN CALCIUM 10 MG TABLET. PO SCH (20:39)
[2020-05-03] MEDS: MIRTAZAPINE 15 MG TABLET PO SCH (20:39)
[2020-05-03] MEDS: LISINOPRIL 10 MG TABLET PO SCH (20:40)
[2020-05-03] MEDS: LATANOPROST 0.005% OPHTH SOLUTION 2.5ML BOTTLE. OU SCH (20:42)
[2020-05-04] VITALS (25 sets, daily range): BP systolic 94–167; BP diastolic 56–83
[2020-05-04] MEDS: PIPERACILLIN/TAZOBACTAM 3.375 GM in IV NORMAL SALINE 50ML 50 ML IV SCH ×4 (00:18→18:00)
[2020-05-04] MEDS: INSULIN LISPRO 300 UNITS/3 ML VIAL. SQ SCH ×4 (00:19→17:45)
[2020-05-04] MEDS: FOSPHENYTOIN 100 MG/2 ML VIAL. IV SCH ×3 (05:42→21:28)
[2020-05-04] MEDS: METOPROLOL TARTRATE 5 MG/5 ML VIAL. IVP SCH ×4 (05:43→17:15)
[2020-05-04] MEDS: methylPREDNISolone SOD SUCC PF 40 MG/ML VIAL. IV SCH ×3 (05:43→21:26)
[2020-05-04 06:48] LABS: ALBUMIN 1.3 g/dL (3.4-5.0); ALBUMIN/GLOBULIN RATIO 0.3 (1.0-1.7); CALCIUM 8.3 mg/dL (8.5-10.1); CREATININE 1.2 mg/dL (0.6-1.0); GFR 54.2; MAGNESIUM 1.7 mg/dL (1.8-2.4); POTASSIUM 3.5 mmol/L (3.5-5.1); TOTAL BILIRUBIN 0.2 mg/dL (0.2-1.0); TOTAL PROTEIN 5.7 g/dL (6.4-8.2)
[2020-05-04] MEDS: PANTOPRAZOLE IV PUSH 40 MG VIAL. IVP SCH (07:59)
[2020-05-04] MEDS: ACETAMINOPHEN 325 MG TABLET. PO SCH ×2 (08:00→21:26)
[2020-05-04] MEDS: GABAPENTIN 400 MG CAPSULE. PO SCH ×3 (08:00→21:26)
[2020-05-04] MEDS: metFORMIN 500 MG TABLET PO SCH ×2 (08:00→17:10)
[2020-05-04] MEDS: FOLIC ACID 1 MG TABLET. PO SCH (08:00)
[2020-05-04] MEDS: ASPIRIN CHEWABLE 81 MG TABLET. PO SCH (08:00)
[2020-05-04] MEDS: ENOXAPARIN 40 MG/0.4 ML SYRINGE. SQ SCH ×2 (08:00→21:25)
[2020-05-04] MEDS: BACLOFEN 10 MG TABLET. PO SCH ×3 (08:00→21:26)
[2020-05-04] MEDS: busPIRone 5 MG TABLET. PO SCH ×2 (08:00→21:26)
[2020-05-04] MEDS: ERGOCALCIFEROL (VITAMIN D2) 50,000 UNIT CAPSULE. PO SCH ×2 (08:00→09:00)
[2020-05-04] MEDS: LACTOBACILLUS RHAMNOSUS GG 1 CAPSULE. PO SCH ×2 (08:01→21:26)
[2020-05-04] MEDS: CHLORHEXIDINE 0.12% 15 ML MOUTHWASH. MM SCH ×2 (08:01→21:25)
[2020-05-04] MEDS: MULTIVITAMIN with MINERAL TABLET. PO SCH (08:01)
[2020-05-04] MEDS: ARIPiprazole 5 MG TABLET PO SCH (08:01)
[2020-05-04] MEDS: DEXTROSE 5% IV SCH ×2 (08:02→21:31)
[2020-05-04] MEDS: VALPROIC ACID IV SCH ×2 (08:02→21:31)
[2020-05-04] MEDS: VITS A & D/LANOLIN TOPICAL OINTMENT 42GM TUBE. TP SCH ×2 (08:03→21:29)
[2020-05-04] MEDS: DULoxetine HCL 30 MG CAPSULE.DR PO SCH (08:03)
[2020-05-04] MEDS: DICLOFENAC SODIUM 1% TOPICAL GEL 100GM TUBE. TP SCH ×3 (08:03→21:00)
[2020-05-04] MEDS: FLUTICASONE 50MCG/NASAL SPRAY 16GM BOTTLE. NS SCH (08:03)
[2020-05-04] MEDS: amLODIPine BESYLATE 10 MG TABLET PO SCH (08:03)
[2020-05-04] MEDS: hydrALAZINE 25 MG TABLET PO SCH ×3 (08:03→21:00)
--- NOTE | 2020-05-04 08:13 | PDOC ---
Infectious Disease Note Subjective Subjective Patient intubated last night Afebrile Blood pressure fluctuates ,off pressors Discussed with nursing ROS ROS unable to obtain Vital Sign Vital Signs Vital Signs Date Time Temp Pulse Resp B/P (MAP) Pulse Ox O2 Delivery O2 Flow Rate FiO2 05/04/20 07:00 81 24 102/61 (75) 100 Ventilator 05/04/20 04:00 98.5 98.5 Physical Exam PHYSICAL EXAM GENERAL: Intubated/sedated HEENT: no icterus, ETT/OGT NECK: Supple, LUNGS: Coarse bs scattered Left > right HEART: S1, S2 tachycardia ABDOMEN: soft bs+ nondistended, OGT : Anglin in place EXTREMITIES: 1 plus edema, cyanosis. SKIN: Unremarkable. NEUROLOGIC: Intubated/sedated. Central line is clean 04/28 Labs Lab Laboratory Tests Test 05/03/20 08:05 05/03/20 12:50 05/03/20 13:05 05/03/20 18:00 O2 Saturation 97 % (92-99) Arterial Blood pH 7.42 (7.35-7.45) Arterial Blood pCO2 at Patient Temp 23 mmHg (35-46) Arterial Blood pO2 at Patient Temp 96 mmHg (65-108) Arterial Blood HCO3 15 mmol/L (21-28) Arterial Blood Base Excess -8 mmol/L (-3-3) FiO2 80% Glucose (Fingerstick) 103 mg/dL (70-99) 282 mg/dL (70-99) 170 mg/dL (70-99) Test 05/03/20 20:29 05/04/20 00:15 05/04/20 05:50 05/04/20 06:04 Glucose (Fingerstick) 134 mg/dL (70-99) 181 mg/dL (70-99) 143 mg/dL (70-99) Sodium Level 137 mmol/L (136-145) Potassium Level 3.5 mmol/L (3.5-5.1) Chloride Level 104 mmol/L (98-107) Carbon Dioxide Level 20 mmol/L (21-32) Anion Gap 13 (6-14) Blood Urea Nitrogen 36 mg/dL (7-20) Creatinine 1.2 mg/dL (0.6-1.0) Estimated GFR (Cockcroft-Gault) 54.2 BUN/Creatinine Ratio 30 (6-20) Glucose Level 141 mg/dL (70-99) Calcium Level 8.3 mg/dL (8.5-10.1) Magnesium Level 1.7 mg/dL (1.8-2.4) Total Bilirubin 0.2 mg/dL (0.2-1.0) Aspartate Amino Transf (AST/SGOT) 35 U/L (15-37) Alanine Aminotransferase (ALT/SGPT) 32 U/L (14-59) Alkaline Phosphatase 62 U/L (46-116) Total Protein 5.7 g/dL (6.4-8.2) Albumin 1.3 g/dL (3.4-5.0) Albumin/Globulin Ratio 0.3 (1.0-1.7) Micro Microbiology 05/02/20 Blood Culture - Preliminary, Resulted NO GROWTH AFTER 1 DAY 04/19/20 Urine Culture - Final, Complete 04/19/20 Antimicrobic Susceptibility - Final, Complete Objective Assessment 1. COVID-19 pneumonia 04/19. 2. Acute hypoxic respiratory failure s/p intubation 3. Blood culture 1 out of 3, coag neg staph, contaminant.04/19 4. Fever. 5. Right-sided cerebrovascular accident. 6. Traumatic brain injury with aphasia . 7. E. coli UTI 04/19 R Gent/Bactrim/Tetra 8. RIJ place 04/28 Plan Plan of Care cont supportive care Continue Zosyn (04/27) previous Vanc,Zyvox 05/02. Taper abx soon s/p plasma administration on steroids increased 05/02 follow up labs and cults Prognosis poor Consider palliative care Discussed with nursing staff NEDA PASCUAL MD May 04, 2020 08:13
[2020-05-04 08:21] LABS: BASE EXCESS ABG -8 mmol/L (-3-3); HCO3 ABG 16 mmol/L (21-28); PCO2 ABG 26 mmHg (35-46); PO2 ABG 69 mmHg (65-108); SAT O2 ABG 92 % (92-99)
[2020-05-04] MEDS ORDERED: INSULIN LISPRO 300 UNITS/3 ML VIAL. SQ SCH (09:00)
[2020-05-04] MEDS ORDERED: predniSONE 5 MG TABLET PO SCH (09:00)
[2020-05-04 09:10] LABS: FIO2 ABG 70
--- NOTE | 2020-05-04 09:17 | PN ---
DATE: 05/04/2020 SUBJECTIVE: The patient continues to be sedated on Versed, intubated and mechanically ventilated. She is also on tube feeding, currently on Glucerna. Her blood sugar is definitely much better after we started her on scheduled Humalog insulin and increased her Lantus. PHYSICAL EXAMINATION: GENERAL: When I examined her, she was pale, but no jaundice or cyanosis. No lymphadenopathy. No thyromegaly. No jugular venous distention. No lower limb edema. VITAL SIGNS: Her heart rate was 83, blood pressure was 116/67, temperature 99.2, respiratory rate was 24, and oxygen saturation was 97% on FiO2 of 70%. HEAD, EYES, EARS, NOSE, AND THROAT: Showed normocephalic, atraumatic. She has orotracheal and orogastric tube in place. NECK: Supple. HEART: Normal first and second heart sounds. No gallop, rub, or murmur. CHEST: Showed central trachea, equal bilateral chest expansion, air entry, vesicular sounds. No crepitation or rhonchi. ABDOMEN: Distended, soft, nontender. NEUROLOGIC: She is heavily sedated; however, she is known to have traumatic brain injury with right-sided hemiplegia, aphasia, and dysphagia. Her intake over the last 24 hours was 4350, output was 735. LABORATORY DATA: As of this morning, her serum sodium was 137, potassium 3.5, chloride 104, bicarbonate 20, anion gap of 13, BUN 36, creatinine 1.2, estimated GFR was 54 mL per minute. Her glucose 141, calcium was 8.3, magnesium was 1.7. Total bilirubin, AST, ALT, alkaline phosphatase were normal. Total protein was 5.7, albumin was 1.3. As of yesterday, her white cell count was 11,000; hemoglobin 8.8; hematocrit 26; MCV 88 and platelet count of 163,000. ASSESSMENT: 1. COVID-19 pneumonia. 2. Acute hypoxic respiratory failure, status post intubation and mechanical ventilation. 3. Traumatic brain injury with resultant right-sided hemiplegia, aphasia, and dysphagia. 4. Hypertension, however, the patient is today normotensive off the Levophed. 5. Type 2 diabetes mellitus, much better controlled now that her steroids were cut down and she is now on Glucerna. 6. Posttraumatic seizure disorder, for which she continues to be on fosphenytoin, Keppra, and lacosamide. 7. Sinus bradycardia, resolved. 8. Hypernatremia, resolved. Her most recent serum sodium is down to 136. 9. Hypokalemia, resolved. Her most recent potassium is down to 3.8. 10. Her blood culture grew Gram-positive cocci in clusters in 1/3 bottles on 04/19/2020; identified as Streptococcus species coagulase-negative. PLAN: To continue mechanical ventilation and wean as tolerated. Continue nutritional support through the orogastric tube in the form of Glucerna. Continue to monitor her blood sugar and adjust insulin as needed. Continue with linezolid as well as piperacillin. Continue with DVT prophylaxis. Continue GI prophylaxis. Continue to monitor her blood sugar and adjust insulin as needed. ETELVINA HAYWOOD MD DR: ALISON/hernán JOB#: [id number] / [id number]
[2020-05-04] MEDS: LACOSAMIDE 200 MG in IV DEXTROSE 5% 50 ML IV SCH ×2 (09:26→21:31)
[2020-05-04] MEDS: levETIRAcetam 1,500 MG in IV DEXTROSE 5% 100ML 100 ML IV SCH ×2 (09:26→21:30)
--- NOTE | 2020-05-04 09:34 | PDOC ---
PULMONARY PROGRESS NOTES DATE: 05/04/20 TIME: 09:32 Subjective intubated 05/01, on vent, peep 10 fi02 70%, mod ett secretion, sedated on versed fentanyl on levo Vitals Vital Signs Date Time Temp Pulse Resp B/P (MAP) Pulse Ox O2 Delivery O2 Flow Rate FiO2 05/04/20 08:03 81 102/61 05/04/20 08:00 99.2 24 97 Ventilator 99.2 Comments visual exam done on vent sedated nc at rrr no accessory muscle use no paradoxical abd motion no rash no edema Labs Laboratory Tests Test 05/02/20 10:10 05/02/20 12:57 05/02/20 15:15 05/02/20 17:32 White Blood Count 5.4 x10^3/uL (4.0-11.0) Red Blood Count 2.35 x10^6/uL (3.50-5.40) Hemoglobin 6.8 g/dL (12.0-15.5) Hematocrit 20.6 % (36.0-47.0) Mean Corpuscular Volume 88 fL (79-100) Mean Corpuscular Hemoglobin 29 pg (25-35) Mean Corpuscular Hemoglobin Concent 33 g/dL (31-37) Red Cell Distribution Width 14.9 % (11.5-14.5) Platelet Count 90 x10^3/uL (140-400) Sodium Level 136 mmol/L (136-145) Potassium Level 4.2 mmol/L (3.5-5.1) Chloride Level 104 mmol/L (98-107) Carbon Dioxide Level 19 mmol/L (21-32) Anion Gap 13 (6-14) Blood Urea Nitrogen 36 mg/dL (7-20) Creatinine 1.2 mg/dL (0.6-1.0) Estimated GFR (Cockcroft-Gault) 54.2 BUN/Creatinine Ratio 30 (6-20) Glucose Level 436 mg/dL (70-99) Calcium Level 7.6 mg/dL (8.5-10.1) Total Bilirubin 0.3 mg/dL (0.2-1.0) Aspartate Amino Transf (AST/SGOT) 55 U/L (15-37) Alanine Aminotransferase (ALT/SGPT) 43 U/L (14-59) Alkaline Phosphatase 64 U/L (46-116) Total Protein 5.8 g/dL (6.4-8.2) Albumin 1.3 g/dL (3.4-5.0) Albumin/Globulin Ratio 0.3 (1.0-1.7) Glucose (Fingerstick) 387 mg/dL (70-99) 393 mg/dL (70-99) Urine Collection Type Unknown Urine Color Yellow Urine Clarity Cloudy Urine pH 5.0 (<5.0-8.0) Urine Specific [place] 1.025 (1.000-1.030) Urine Protein 30 mg/dL (NEG-TRACE) Urine Glucose (UA) 500 mg/dL (NEG) Urine Ketones (Stick) 15 mg/dL (NEG) Urine Blood Negative (NEG) Urine Nitrite Negative (NEG) Urine Bilirubin Negative (NEG) Urine Urobilinogen Dipstick 0.2 mg/dL (0.2 mg/dL) Urine Leukocyte Esterase Negative (NEG) Urine RBC 0 /HPF (0-2) Urine WBC 0 /HPF (0-4) Urine Amorphous Sediment Present /HPF Urine Bacteria 0 /HPF (0-FEW) Urine Mucus Slight /LPF Test 05/02/20 23:41 05/03/20 05:20 05/03/20 08:05 05/03/20 12:50 Glucose (Fingerstick) 407 mg/dL (70-99) 103 mg/dL (70-99) White Blood Count 11.0 x10^3/uL (4.0-11.0) Red Blood Count 2.98 x10^6/uL (3.50-5.40) Hemoglobin 8.8 g/dL (12.0-15.5) Hematocrit 26.3 % (36.0-47.0) Mean Corpuscular Volume 88 fL (79-100) Mean Corpuscular Hemoglobin 30 pg (25-35) Mean Corpuscular Hemoglobin Concent 33 g/dL (31-37) Red Cell Distribution Width 15.1 % (11.5-14.5) Platelet Count 163 x10^3/uL (140-400) Sodium Level 136 mmol/L (136-145) Potassium Level 4.0 mmol/L (3.5-5.1) Chloride Level 103 mmol/L (98-107) Carbon Dioxide Level 19 mmol/L (21-32) Anion Gap 14 (6-14) Blood Urea Nitrogen 38 mg/dL (7-20) Creatinine 1.1 mg/dL (0.6-1.0) Estimated GFR (Cockcroft-Gault) 59.9 Glucose Level 365 mg/dL (70-99) Calcium Level 8.5 mg/dL (8.5-10.1) O2 Saturation 97 % (92-99) Arterial Blood pH 7.42 (7.35-7.45) Arterial Blood pCO2 at Patient Temp 23 mmHg (35-46) Arterial Blood pO2 at Patient Temp 96 mmHg (65-108) Arterial Blood HCO3 15 mmol/L (21-28) Arterial Blood Base Excess -8 mmol/L (-3-3) FiO2 80% Test 05/03/20 13:05 05/03/20 18:00 05/03/20 20:29 05/04/20 00:15 Glucose (Fingerstick) 282 mg/dL (70-99) 170 mg/dL (70-99) 134 mg/dL (70-99) 181 mg/dL (70-99) Test 05/04/20 05:50 05/04/20 06:04 05/04/20 07:50 Sodium Level 137 mmol/L (136-145) Potassium Level 3.5 mmol/L (3.5-5.1) Chloride Level 104 mmol/L (98-107) Carbon Dioxide Level 20 mmol/L (21-32) Anion Gap 13 (6-14) Blood Urea Nitrogen 36 mg/dL (7-20) Creatinine 1.2 mg/dL (0.6-1.0) Estimated GFR (Cockcroft-Gault) 54.2 BUN/Creatinine Ratio 30 (6-20) Glucose Level 141 mg/dL (70-99) Calcium Level 8.3 mg/dL (8.5-10.1) Magnesium Level 1.7 mg/dL (1.8-2.4) Total Bilirubin 0.2 mg/dL (0.2-1.0) Aspartate Amino Transf (AST/SGOT) 35 U/L (15-37) Alanine Aminotransferase (ALT/SGPT) 32 U/L (14-59) Alkaline Phosphatase 62 U/L (46-116) Total Protein 5.7 g/dL (6.4-8.2) Albumin 1.3 g/dL (3.4-5.0) Albumin/Globulin Ratio 0.3 (1.0-1.7) Glucose (Fingerstick) 143 mg/dL (70-99) O2 Saturation 92 % (92-99) Arterial Blood pH 7.41 (7.35-7.45) Arterial Blood pCO2 at Patient Temp 26 mmHg (35-46) Arterial Blood pO2 at Patient Temp 69 mmHg (65-108) Arterial Blood HCO3 16 mmol/L (21-28) Arterial Blood Base Excess -8 mmol/L (-3-3) FiO2 70 Laboratory Tests Test 05/03/20 12:50 05/03/20 13:05 05/03/20 18:00 05/03/20 20:29 Glucose (Fingerstick) 103 mg/dL (70-99) 282 mg/dL (70-99) 170 mg/dL (70-99) 134 mg/dL (70-99) Test 05/04/20 00:15 05/04/20 05:50 05/04/20 06:04 05/04/20 07:50 Glucose (Fingerstick) 181 mg/dL (70-99) 143 mg/dL (70-99) Sodium Level 137 mmol/L (136-145) Potassium Level 3.5 mmol/L (3.5-5.1) Chloride Level 104 mmol/L (98-107) Carbon Dioxide Level 20 mmol/L (21-32) Anion Gap 13 (6-14) Blood Urea Nitrogen 36 mg/dL (7-20) Creatinine 1.2 mg/dL (0.6-1.0) Estimated GFR (Cockcroft-Gault) 54.2 BUN/Creatinine Ratio 30 (6-20) Glucose Level 141 mg/dL (70-99) Calcium Level 8.3 mg/dL (8.5-10.1) Magnesium Level 1.7 mg/dL (1.8-2.4) Total Bilirubin 0.2 mg/dL (0.2-1.0) Aspartate Amino Transf (AST/SGOT) 35 U/L (15-37) Alanine Aminotransferase (ALT/SGPT) 32 U/L (14-59) Alkaline Phosphatase 62 U/L (46-116) Total Protein 5.7 g/dL (6.4-8.2) Albumin 1.3 g/dL (3.4-5.0) Albumin/Globulin Ratio 0.3 (1.0-1.7) O2 Saturation 92 % (92-99) Arterial Blood pH 7.41 (7.35-7.45) Arterial Blood pCO2 at Patient Temp 26 mmHg (35-46) Arterial Blood pO2 at Patient Temp 69 mmHg (65-108) Arterial Blood HCO3 16 mmol/L (21-28) Arterial Blood Base Excess -8 mmol/L (-3-3) FiO2 70 Medications Active Scripts Medications Dose Route/Sig Max Daily Dose Days Date Category Dose Instructions Voltaren (Diclofenac Sodium) 100 Gm Gel..gram. 1 Jitendra TP TID 04/19/20 Reported Famotidine 20 Mg Tablet 20 Mg PO HS 01/28/20 Reported Dilantin (Phenytoin Sodium Extended) 100 Mg Capsule 30 Mg PO HS 01/28/20 Reported Lisinopril 30 Mg Tablet 1 Tab PO HS 01/28/20 Reported Mirtazapine 30 Mg Tab.rapdis 30 Mg PO QHS 30 01/28/20 Reported D3-50 (Cholecalciferol (Vitamin D3)) 50,000 Unit Capsule 1 Cap PO WEEKLY 28 01/28/20 Reported Aspirin 81 Mg Tab.chew 1 Tab PO DAILY 01/28/20 Reported Atorvastatin Calcium 10 Mg Tablet 10 Mg PO HS 02/24/17 Reported Anti-Diarrhea (Loperamide Hcl) 2 Mg Tablet 2 Mg PO PRN Q6HRS PRN 02/24/17 Reported Metformin Hcl 1,000 Mg Tablet 1 Tab PO BID 12/26/15 Rx Tylenol (Acetaminophen) 325 Mg Tablet 650 Mg PO BID 12/24/15 Reported Norvasc (Amlodipine Besylate) 10 Mg Tablet 10 Mg PO DAILY 12/24/15 Reported Milk Of Magnesia (Magnesium Hydroxide) 400 Mg/5 Ml Oral.susp 1,200 Mg PO PRN DAILY PRN 12/24/15 Reported Latanoprost 2.5 Ml Drops 1 Drop EACHEYE QHS 12/24/15 Reported Vimpat (Lacosamide) 200 Mg Tablet 200 Mg PO BID 12/24/15 Reported Keppra (Levetiracetam) 500 Mg Tablet 1,500 Mg PO BID 12/24/15 Reported Gabapentin (Gabapentin) 400 Mg Capsule 400 Mg PO TID 12/24/15 Reported Folic Acid 1 Mg Tablet 1 Tab PO DAILY 12/24/15 Reported Flonase Allergy Relief (Fluticasone Propionate) 9.9 Ml Tony.susp 2 Sprays NS DAILY 12/24/15 Reported Buspirone Hcl 5 Mg Tablet 1 Tab PO BID 12/24/15 Reported Abilify (Aripiprazole) 5 Mg Tablet 5 Mg PO DAILY 12/24/15 Reported Hydrocortisone 30 Gm Cream..g. 30 Gm RC PRN BID PRN 05/20/14 Reported Hydrocortisone 1% Absorbase (Hc/Mineral Oil/Petrolat,Wht) 25 Gm Oint...g. 25 Gm TP 05/20/14 Reported Hydralazine Hcl 25 Mg Tablet 2 Tab PO TID 05/20/14 Reported Dilantin (Phenytoin Sodium Extended) 100 Mg Capsule 400 Mg PO HS 05/20/14 Reported give with 30mg to equal 430mg Depakote Sprinkle (Divalproex Sodium) 125 Mg Cap.sprink 125 Mg PO BID 05/20/14 Reported Cymbalta (Duloxetine Hcl) 30 Mg Capsule.dr 3 Cap PO DAILY 05/20/14 Reported Centrum Silver Ultra Women Tab (Multivits W-Fe,Other Min/Lut) 1 Each Tablet 1 Each PO DAILY 05/20/14 Reported Baclofen 10 Mg Tablet 1 Tab PO TID 05/20/14 Reported Comments CXR reviewed b lat infilt Impression . 1. Acute hypoxic respiratory failure secondary to COVID-19 pneumonia./ ALI/ARDS 2. Abnormal chest x-ray with patchy infiltrates bilaterally, pneumonia, COVID-19.--COVID 19 positive/ARDS 3. 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 4. History of posttraumatic epilepsy. 5. No significant tobacco history. 6. Mild azotemia--improved 7. Normal D-dimer. 8. Fever, 9. Encephalopathy, 10. Anemia 11. Metabolic acidosis Plan . cont vent support setting reviewed, on peep 10 fi2 70%, titrate fi02 to keep sat 94, reduce rate and TV today Solu-Medrol 40 q 8hrs Empiric antibiotics for gram-positive and gram-negative organisms elevate hob DVT/GI PPX Repeat d-dimer 10.3, on high dose DVT prophylaxis s/p Plasma IV bicarb for met acidosis spoke with guardian Gilbert Mcclain last week. He mentioned that patient requested full code critically ill cct 30 min no overlap d/w RN/RT BUFFY JIANG MD May 04, 2020 09:34
[2020-05-04] MEDS ORDERED: SODIUM BICARB ADULT 8.4% 50 MEQ/50 ML DISP.SYRIN. IV ONE (09:45)
[2020-05-04] MEDS ORDERED: DAPTOmycin (GENERIC) IVPB 380 MG in IV NORMAL SALINE 50ML 50 ML IV ONE (11:00)
[2020-05-04] MEDS: MIDAZOLAM 100mg/100ml NS BAG 100 ML IV PRN (14:53)
[2020-05-04 15:06] LABS: HEMATOCRIT 25.3 % (36.0-47.0); HEMOGLOBIN 8.5 g/dL (12.0-15.5)
[2020-05-04] MEDS: LATANOPROST 0.005% OPHTH SOLUTION 2.5ML BOTTLE. OU SCH (21:00)
[2020-05-04] MEDS: LISINOPRIL 10 MG TABLET PO SCH (21:00)
[2020-05-04] MEDS: MIRTAZAPINE 15 MG TABLET PO SCH (21:26)
[2020-05-04] MEDS: ATORVASTATIN CALCIUM 10 MG TABLET. PO SCH (21:26)
[2020-05-05] VITALS (31 sets, daily range): BP systolic 73–158; BP diastolic 46–75
[2020-05-05] MEDS: PIPERACILLIN/TAZOBACTAM 3.375 GM in IV NORMAL SALINE 50ML 50 ML IV SCH ×2 (00:01→06:22)
[2020-05-05] MEDS: INSULIN LISPRO 300 UNITS/3 ML VIAL. SQ SCH ×4 (00:03→18:09)
[2020-05-05] MEDS: MIDAZOLAM 100mg/100ml NS BAG 100 ML IV PRN ×3 (03:49→20:28)
[2020-05-05] MEDS: methylPREDNISolone SOD SUCC PF 40 MG/ML VIAL. IV SCH ×3 (06:21→21:23)
[2020-05-05] MEDS: METOPROLOL TARTRATE 5 MG/5 ML VIAL. IVP SCH ×6 (06:30→23:40)
[2020-05-05] MEDS: FOSPHENYTOIN 100 MG/2 ML VIAL. IV SCH ×3 (06:31→21:33)
[2020-05-05] MEDS: DEXMEDETOMIDINE 400 MCG in IV NORMAL SALINE 100ML 96 ML IV PRN ×2 (06:45→23:39)
[2020-05-05] MEDS ORDERED: PROPOFOL 100 ML IV PRN (06:45)
[2020-05-05] MEDS: VECURONIUM BOLUS 10 MG VIAL. IV PRN (06:50)
[2020-05-05 06:54] LABS: CALCIUM 8.8 mg/dL (8.5-10.1); CREATININE 1.1 mg/dL (0.6-1.0); GFR 59.9
--- NOTE | 2020-05-05 07:37 | PDOC ---
Infectious Disease Note Subjective Subjective Intubated/sedated ROS ROS Unable to obtain Vital Sign Vital Signs Vital Signs Date Time Temp Pulse Resp B/P (MAP) Pulse Ox O2 Delivery O2 Flow Rate FiO2 05/05/20 06:30 132 213/111 05/05/20 04:06 95 Ventilator 05/05/20 04:00 24 05/05/20 00:00 99.5 99.5 Physical Exam PHYSICAL EXAM GENERAL: Intubated/sedated HEENT: PERRL, no icterus, ETT/OGT NECK: Supple, LUNGS: Coarse bs scattered Left > right HEART: S1, S2 tachycardia ABDOMEN: soft bs+ nondistended, OGT, Rectal tube : Anglin in place EXTREMITIES: 1 plus edema, cyanosis. SKIN: Unremarkable. NEUROLOGIC: Intubated/sedated. Central line is clean 04/28 Labs Lab Laboratory Tests Test 05/04/20 07:50 05/04/20 14:00 05/04/20 14:40 05/04/20 17:18 O2 Saturation 92 % (92-99) Arterial Blood pH 7.41 (7.35-7.45) Arterial Blood pCO2 at Patient Temp 26 mmHg (35-46) Arterial Blood pO2 at Patient Temp 69 mmHg (65-108) Arterial Blood HCO3 16 mmol/L (21-28) Arterial Blood Base Excess -8 mmol/L (-3-3) FiO2 70 Glucose (Fingerstick) 99 mg/dL (70-99) 124 mg/dL (70-99) Hemoglobin 8.5 g/dL (12.0-15.5) Hematocrit 25.3 % (36.0-47.0) Test 05/04/20 23:42 05/05/20 05:57 05/05/20 06:15 Glucose (Fingerstick) 223 mg/dL (70-99) 143 mg/dL (70-99) Sodium Level 142 mmol/L (136-145) Potassium Level 4.0 mmol/L (3.5-5.1) Chloride Level 108 mmol/L (98-107) Carbon Dioxide Level 22 mmol/L (21-32) Anion Gap 12 (6-14) Blood Urea Nitrogen 31 mg/dL (7-20) Creatinine 1.1 mg/dL (0.6-1.0) Estimated GFR (Cockcroft-Gault) 59.9 Glucose Level 143 mg/dL (70-99) Calcium Level 8.8 mg/dL (8.5-10.1) Magnesium Level 1.8 mg/dL (1.8-2.4) Micro Microbiology 05/02/20 Blood Culture - Preliminary, Resulted NO GROWTH AFTER 1 DAY 04/19/20 Urine Culture - Final, Complete 04/19/20 Antimicrobic Susceptibility - Final, Complete Objective Assessment 1. COVID-19 pneumonia 04/19. 2. Acute hypoxic respiratory failure s/p intubation 3. Blood culture 1 out of 3, coag neg staph, contaminant.04/19 4. Fever -better. 5. Right-sided cerebrovascular accident. 6. Traumatic brain injury with aphasia . 7. E. coli UTI 04/19 R Gent/Bactrim/Tetra 8. RIJ place 04/28 9. Loose stool Plan Plan of Care cont supportive care Given loose stool and length of treatment will discontinue Zosyn (04/27) previous Vanc Cont Zyvox 05/02 for now. Taper abx soon s/p plasma administration on steroids increased 05/02 follow up labs and cults Prognosis poor Consider palliative care Discussed with nursing staff NEDA PASCUAL MD May 05, 2020 07:37
[2020-05-05] MEDS: ACETAMINOPHEN 325 MG TABLET. PO SCH ×2 (07:49→21:24)
[2020-05-05 07:57] LABS: BASO % 0 % (0-3); EOS # 0.1 x10^3/uL (0.0-0.7); EOS % 1 % (0-3); HEMOGLOBIN 8.7 g/dL (12.0-15.5); LYMPH # 1.4 x10^3/uL (1.0-4.8); LYMPH % 21 % (24-48); MEAN CORPUSCULAR HEMOGLOBIN 30 pg (25-35); MEAN CORPUSCULAR HGB CONC 34 g/dL (31-37); MEAN CORPUSCULAR VOLUME 88 fL (79-100); MONO # 0.2 x10^3/uL (0.0-1.1); MONO % 4 % (0-9); NEUT # 5.1 x10^3/uL (1.8-7.7); NEUT % 74 % (31-73); PLATELET COUNT 175 x10^3/uL (140-400); RED BLOOD COUNT 2.94 x10^6/uL (3.50-5.40); RED CELL DISTRIBUTION WIDTH 15.5 % (11.5-14.5); WHITE BLOOD COUNT 6.9 x10^3/uL (4.0-11.0)
[2020-05-05 08:42] LABS: BASE EXCESS ABG -8 mmol/L (-3-3); HCO3 ABG 17 mmol/L (21-28); PCO2 ABG 29 mmHg (35-46); PO2 ABG 86 mmHg (65-108); SAT O2 ABG 96 % (92-99)
--- NOTE | 2020-05-05 08:47 | PDOC ---
PULMONARY PROGRESS NOTES DATE: 05/05/20 TIME: 08:46 Subjective Intubated, 05/01 Currently on 60% 10 of PEEP Vitals Vital Signs Date Time Temp Pulse Resp B/P (MAP) Pulse Ox O2 Delivery O2 Flow Rate FiO2 05/05/20 08:00 103.3 103 26 119/67 (84) 100 Ventilator 103.3 Comments visual exam done on vent sedated nc at rrr no accessory muscle use no paradoxical abd motion no rash no edema Labs Laboratory Tests Test 05/03/20 12:50 05/03/20 13:05 05/03/20 18:00 05/03/20 20:29 Glucose (Fingerstick) 103 mg/dL (70-99) 282 mg/dL (70-99) 170 mg/dL (70-99) 134 mg/dL (70-99) Test 05/04/20 00:15 05/04/20 05:50 05/04/20 06:04 05/04/20 07:50 Glucose (Fingerstick) 181 mg/dL (70-99) 143 mg/dL (70-99) Sodium Level 137 mmol/L (136-145) Potassium Level 3.5 mmol/L (3.5-5.1) Chloride Level 104 mmol/L (98-107) Carbon Dioxide Level 20 mmol/L (21-32) Anion Gap 13 (6-14) Blood Urea Nitrogen 36 mg/dL (7-20) Creatinine 1.2 mg/dL (0.6-1.0) Estimated GFR (Cockcroft-Gault) 54.2 BUN/Creatinine Ratio 30 (6-20) Glucose Level 141 mg/dL (70-99) Calcium Level 8.3 mg/dL (8.5-10.1) Magnesium Level 1.7 mg/dL (1.8-2.4) Total Bilirubin 0.2 mg/dL (0.2-1.0) Aspartate Amino Transf (AST/SGOT) 35 U/L (15-37) Alanine Aminotransferase (ALT/SGPT) 32 U/L (14-59) Alkaline Phosphatase 62 U/L (46-116) Total Protein 5.7 g/dL (6.4-8.2) Albumin 1.3 g/dL (3.4-5.0) Albumin/Globulin Ratio 0.3 (1.0-1.7) O2 Saturation 92 % (92-99) Arterial Blood pH 7.41 (7.35-7.45) Arterial Blood pCO2 at Patient Temp 26 mmHg (35-46) Arterial Blood pO2 at Patient Temp 69 mmHg (65-108) Arterial Blood HCO3 16 mmol/L (21-28) Arterial Blood Base Excess -8 mmol/L (-3-3) FiO2 70 Test 05/04/20 14:00 05/04/20 14:40 05/04/20 17:18 05/04/20 23:42 Glucose (Fingerstick) 99 mg/dL (70-99) 124 mg/dL (70-99) 223 mg/dL (70-99) Hemoglobin 8.5 g/dL (12.0-15.5) Hematocrit 25.3 % (36.0-47.0) Test 05/05/20 05:57 05/05/20 06:15 05/05/20 07:39 Glucose (Fingerstick) 143 mg/dL (70-99) Sodium Level 142 mmol/L (136-145) Potassium Level 4.0 mmol/L (3.5-5.1) Chloride Level 108 mmol/L (98-107) Carbon Dioxide Level 22 mmol/L (21-32) Anion Gap 12 (6-14) Blood Urea Nitrogen 31 mg/dL (7-20) Creatinine 1.1 mg/dL (0.6-1.0) Estimated GFR (Cockcroft-Gault) 59.9 Glucose Level 143 mg/dL (70-99) Calcium Level 8.8 mg/dL (8.5-10.1) Magnesium Level 1.8 mg/dL (1.8-2.4) White Blood Count 6.9 x10^3/uL (4.0-11.0) Red Blood Count 2.94 x10^6/uL (3.50-5.40) Hemoglobin 8.7 g/dL (12.0-15.5) Hematocrit 26.0 % (36.0-47.0) Mean Corpuscular Volume 88 fL (79-100) Mean Corpuscular Hemoglobin 30 pg (25-35) Mean Corpuscular Hemoglobin Concent 34 g/dL (31-37) Red Cell Distribution Width 15.5 % (11.5-14.5) Platelet Count 175 x10^3/uL (140-400) Neutrophils (%) (Auto) 74 % (31-73) Lymphocytes (%) (Auto) 21 % (24-48) Monocytes (%) (Auto) 4 % (0-9) Eosinophils (%) (Auto) 1 % (0-3) Basophils (%) (Auto) 0 % (0-3) Neutrophils # (Auto) 5.1 x10^3/uL (1.8-7.7) Lymphocytes # (Auto) 1.4 x10^3/uL (1.0-4.8) Monocytes # (Auto) 0.2 x10^3/uL (0.0-1.1) Eosinophils # (Auto) 0.1 x10^3/uL (0.0-0.7) Basophils # (Auto) 0.0 x10^3/uL (0.0-0.2) Laboratory Tests Test 05/04/20 14:00 05/04/20 14:40 05/04/20 17:18 05/04/20 23:42 Glucose (Fingerstick) 99 mg/dL (70-99) 124 mg/dL (70-99) 223 mg/dL (70-99) Hemoglobin 8.5 g/dL (12.0-15.5) Hematocrit 25.3 % (36.0-47.0) Test 05/05/20 05:57 05/05/20 06:15 05/05/20 07:39 Glucose (Fingerstick) 143 mg/dL (70-99) Sodium Level 142 mmol/L (136-145) Potassium Level 4.0 mmol/L (3.5-5.1) Chloride Level 108 mmol/L (98-107) Carbon Dioxide Level 22 mmol/L (21-32) Anion Gap 12 (6-14) Blood Urea Nitrogen 31 mg/dL (7-20) Creatinine 1.1 mg/dL (0.6-1.0) Estimated GFR (Cockcroft-Gault) 59.9 Glucose Level 143 mg/dL (70-99) Calcium Level 8.8 mg/dL (8.5-10.1) Magnesium Level 1.8 mg/dL (1.8-2.4) White Blood Count 6.9 x10^3/uL (4.0-11.0) Red Blood Count 2.94 x10^6/uL (3.50-5.40) Hemoglobin 8.7 g/dL (12.0-15.5) Hematocrit 26.0 % (36.0-47.0) Mean Corpuscular Volume 88 fL (79-100) Mean Corpuscular Hemoglobin 30 pg (25-35) Mean Corpuscular Hemoglobin Concent 34 g/dL (31-37) Red Cell Distribution Width 15.5 % (11.5-14.5) Platelet Count 175 x10^3/uL (140-400) Neutrophils (%) (Auto) 74 % (31-73) Lymphocytes (%) (Auto) 21 % (24-48) Monocytes (%) (Auto) 4 % (0-9) Eosinophils (%) (Auto) 1 % (0-3) Basophils (%) (Auto) 0 % (0-3) Neutrophils # (Auto) 5.1 x10^3/uL (1.8-7.7) Lymphocytes # (Auto) 1.4 x10^3/uL (1.0-4.8) Monocytes # (Auto) 0.2 x10^3/uL (0.0-1.1) Eosinophils # (Auto) 0.1 x10^3/uL (0.0-0.7) Basophils # (Auto) 0.0 x10^3/uL (0.0-0.2) Medications Active Scripts Medications Dose Route/Sig Max Daily Dose Days Date Category Dose Instructions Voltaren (Diclofenac Sodium) 100 Gm Gel..gram. 1 Jitendra TP TID 04/19/20 Reported Famotidine 20 Mg Tablet 20 Mg PO HS 01/28/20 Reported Dilantin (Phenytoin Sodium Extended) 100 Mg Capsule 30 Mg PO HS 01/28/20 Reported Lisinopril 30 Mg Tablet 1 Tab PO HS 01/28/20 Reported Mirtazapine 30 Mg Tab.rapdis 30 Mg PO QHS 30 01/28/20 Reported D3-50 (Cholecalciferol (Vitamin D3)) 50,000 Unit Capsule 1 Cap PO WEEKLY 28 01/28/20 Reported Aspirin 81 Mg Tab.chew 1 Tab PO DAILY 01/28/20 Reported Atorvastatin Calcium 10 Mg Tablet 10 Mg PO HS 02/24/17 Reported Anti-Diarrhea (Loperamide Hcl) 2 Mg Tablet 2 Mg PO PRN Q6HRS PRN 02/24/17 Reported Metformin Hcl 1,000 Mg Tablet 1 Tab PO BID 12/26/15 Rx Tylenol (Acetaminophen) 325 Mg Tablet 650 Mg PO BID 12/24/15 Reported Norvasc (Amlodipine Besylate) 10 Mg Tablet 10 Mg PO DAILY 12/24/15 Reported Milk Of Magnesia (Magnesium Hydroxide) 400 Mg/5 Ml Oral.susp 1,200 Mg PO PRN DAILY PRN 12/24/15 Reported Latanoprost 2.5 Ml Drops 1 Drop EACHEYE QHS 12/24/15 Reported Vimpat (Lacosamide) 200 Mg Tablet 200 Mg PO BID 12/24/15 Reported Keppra (Levetiracetam) 500 Mg Tablet 1,500 Mg PO BID 12/24/15 Reported Gabapentin (Gabapentin) 400 Mg Capsule 400 Mg PO TID 12/24/15 Reported Folic Acid 1 Mg Tablet 1 Tab PO DAILY 12/24/15 Reported Flonase Allergy Relief (Fluticasone Propionate) 9.9 Ml [place].susp 2 Sprays NS DAILY 12/24/15 Reported Buspirone Hcl 5 Mg Tablet 1 Tab PO BID 12/24/15 Reported Abilify (Aripiprazole) 5 Mg Tablet 5 Mg PO DAILY 12/24/15 Reported Hydrocortisone 30 Gm Cream..g. 30 Gm RC PRN BID PRN 05/20/14 Reported Hydrocortisone 1% Absorbase (Hc/Mineral Oil/Petrolat,Wht) 25 Gm Oint...g. 25 Gm TP 05/20/14 Reported Hydralazine Hcl 25 Mg Tablet 2 Tab PO TID 05/20/14 Reported Dilantin (Phenytoin Sodium Extended) 100 Mg Capsule 400 Mg PO HS 05/20/14 Reported give with 30mg to equal 430mg Depakote Sprinkle (Divalproex Sodium) 125 Mg Cap.sprink 125 Mg PO BID 05/20/14 Reported Cymbalta (Duloxetine Hcl) 30 Mg Capsule.dr 3 Cap PO DAILY 05/20/14 Reported Centrum Silver Ultra Women Tab (Multivits W-Fe,Other Min/Lut) 1 Each Tablet 1 Each PO DAILY 05/20/14 Reported Baclofen 10 Mg Tablet 1 Tab PO TID 05/20/14 Reported Comments CXR reviewed b lat infilt Impression . 1. Acute hypoxic respiratory failure secondary to COVID-19 pneumonia./ ALI/ARDS 2. Abnormal chest x-ray with patchy infiltrates bilaterally, pneumonia, COVID-19.--COVID 19 positive/ARDS 3. 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 4. History of posttraumatic epilepsy. 5. No significant tobacco history. 6. Mild azotemia--improved 7. Normal D-dimer. 8. Fever, 9. Encephalopathy, 10. Anemia 11. Metabolic acidosis Plan . Continue current support Discussed with RT and RN Follow ID input Solu-Medrol 40 q 8hrs elevate hob DVT/GI PPX Repeat d-dimer 10.3, on high dose DVT prophylaxis s/p Plasma IV bicarb for met acidosis Total cumulative critical care time of 30-minute d/w RN/RT MEHRAN DICKEY MD May 05, 2020 08:47
[2020-05-05] MEDS: PANTOPRAZOLE IV PUSH 40 MG VIAL. IVP SCH (08:51)
[2020-05-05] MEDS: CHLORHEXIDINE 0.12% 15 ML MOUTHWASH. MM SCH ×2 (08:51→21:24)
[2020-05-05] MEDS: VANCOMYCIN 125 MG/2.5 ML ORAL SOLUTION. NG SCH ×4 (08:51→21:28)
[2020-05-05] MEDS: ASPIRIN CHEWABLE 81 MG TABLET. PO SCH (08:52)
[2020-05-05] MEDS: GABAPENTIN 400 MG CAPSULE. PO SCH ×3 (08:52→21:24)
[2020-05-05] MEDS: ENOXAPARIN 40 MG/0.4 ML SYRINGE. SQ SCH ×2 (08:52→21:23)
[2020-05-05] MEDS: ARIPiprazole 5 MG TABLET PO SCH (08:53)
[2020-05-05] MEDS: BACLOFEN 10 MG TABLET. PO SCH ×3 (08:53→21:24)
[2020-05-05] MEDS: LACTOBACILLUS RHAMNOSUS GG 1 CAPSULE. PO SCH ×2 (08:53→21:24)
[2020-05-05] MEDS: DULoxetine HCL 30 MG CAPSULE.DR PO SCH (08:53)
[2020-05-05] MEDS: FOLIC ACID 1 MG TABLET. PO SCH (08:54)
[2020-05-05] MEDS: amLODIPine BESYLATE 10 MG TABLET PO SCH (08:55)
[2020-05-05] MEDS: MULTIVITAMIN with MINERAL TABLET. PO SCH (08:55)
[2020-05-05] MEDS: metFORMIN 500 MG TABLET PO SCH ×2 (08:56→17:27)
[2020-05-05] MEDS: busPIRone 5 MG TABLET. PO SCH ×2 (08:56→21:24)
[2020-05-05] MEDS: CEFEPIME HCL IV Push 1 GM VIAL. IVP SCH ×3 (08:58→21:25)
[2020-05-05] MEDS: FLUTICASONE 50MCG/NASAL SPRAY 16GM BOTTLE. NS SCH (09:00)
[2020-05-05] MEDS: DICLOFENAC SODIUM 1% TOPICAL GEL 100GM TUBE. TP SCH ×3 (09:00→21:00)
[2020-05-05] MEDS: hydrALAZINE 25 MG TABLET PO SCH ×3 (09:00→21:00)
[2020-05-05] MEDS ORDERED: DAPTOmycin (GENERIC) IVPB 500 MG in IV NORMAL SALINE 50ML 50 ML IV ONE (09:00)
[2020-05-05 09:18] LABS: FIO2 ABG 70
[2020-05-05 09:49] LABS: SAT O2 COOX 67 % (92-99)
[2020-05-05] MEDS: DEXTROSE 5% IV SCH ×2 (09:57→21:22)
[2020-05-05] MEDS: MICAFUNGIN 100 MG in IV DEXTROSE 5% 100ML 100 ML IV SCH (09:57)
[2020-05-05] MEDS: VALPROIC ACID IV SCH ×2 (09:57→21:22)
[2020-05-05] MEDS: LACOSAMIDE 200 MG in IV DEXTROSE 5% 50 ML IV SCH ×2 (09:57→21:37)
[2020-05-05] MEDS: VITS A & D/LANOLIN TOPICAL OINTMENT 42GM TUBE. TP SCH ×2 (09:58→21:26)
[2020-05-05] MEDS: levETIRAcetam 1,500 MG in IV DEXTROSE 5% 100ML 100 ML IV SCH ×2 (09:59→21:37)
[2020-05-05] MEDS: fentaNYL HIGH DOSE PCA 55 ML IV PRN (10:06)
--- NOTE | 2020-05-05 10:08 | PN ---
DATE: 05/05/2020 SUBJECTIVE: The patient is resting, slightly propped up in bed, in no apparent distress. She is sedated, intubated and mechanically ventilated. She spiked her temperature this morning up to 103.3 and stool was sent for C. diff and Dr. Mcmillan has changed her antibiotic. PHYSICAL EXAMINATION: GENERAL: When I examined her, she was pale, no jaundice, cyanosis or thyromegaly. No jugular venous distention. No lower limb edema. VITAL SIGNS: Her heart rate was 103, blood pressure was 119/67, temperature was 103.3, respiratory rate was 24, and oxygen saturation was 100% on FiO2 of 70%. HEAD, EYES, EARS, NOSE AND THROAT: Showed normocephalic, atraumatic. NECK: Supple. HEART: Showed normal first and second heart sounds. No gallop, rub or murmur. CHEST: Showed central trachea, equal bilateral chest expansion, air entry. I could not appreciate any crepitation or rhonchi anteriorly. ABDOMEN: Distended, soft, nontender. NEUROLOGIC: She is sedated. She has underlying traumatic brain injury with right-sided hemiplegia, aphasia and dysphagia. She has also posttraumatic seizure disorder for which she is on multiple antiepileptic medications. Her intake over the last 24 hours was 3987, output was 1345. LABORATORY DATA: Her lab work this morning showed a white cell count 6900, hemoglobin 8.7, hematocrit 26, MCV 88 and platelet count of 175,000. Her chemistry showed a serum sodium 142, potassium 4, chloride 108, bicarbonate 22, anion gap of 12, BUN 31, creatinine 1.1. Estimated GFR was 59 mL per minute. Her glucose 143, calcium was 8.8 and magnesium was 1.8. ASSESSMENT: 1. COVID-19 pneumonia. 2. Acute hypoxic respiratory failure, status post intubation and mechanical ventilation. 3. Traumatic brain injury with resultant right-sided hemiplegia, aphasia and dysphagia. 4. Hypertension, however, the patient is normotensive, off Levophed. 5. Type 2 diabetes mellitus, much better controlled, that is steroids cut down. She is now on Glucerna and on insulin sliding scale. 6. Posttraumatic seizure disorder for which she continues to be on fosphenytoin, Keppra and lacosamide. 7. Sinus bradycardia. 8. Hypernatremia, resolved. Her most recent serum sodium is up to 142. 9. Hypokalemia, resolved. Her most recent serum potassium was 4.2. 10. The patient spiked her temperature and stool was sent for Clostridium difficile toxins and her antibiotics were adjusted. PLAN: To obviously continue with mechanical ventilation, wean as tolerated. Continue nutritional support in the form of Glucerna. Continue to monitor her blood sugar and adjust insulin as needed. Continue with IV antibiotic. Continue DVT prophylaxis as well as GI prophylaxis. ETELVINA HAYWOOD MD DR: ALISON/hernán JOB#: [id number] / [id number]
[2020-05-05] MEDS: NOREPINEPHRINE VIAL 8 MG in IV DEXTROSE 5% 250 ML IV PRN (10:39)
[2020-05-05 11:24] LABS: BILIRUBIN,URINE NEGATIVE (NEG); CLARITY,URINE CLEAR; COLOR,URINE YELLOW; NITRITE,URINE NEGATIVE (NEG); PROTEIN,URINE 30 mg/dL (NEG-TRACE); UROBILINOGEN,URINE 0.2 mg/dL (0.2 mg/dL)
[2020-05-05 11:34] LABS: AMORPHOUS SEDIMENT,UR PRESENT /HPF; BACTERIA,URINE 0 /HPF (0-FEW); SQUAMOUS EPITHELIAL CELL,UR FEW /LPF
--- NOTE | 2020-05-05 14:34 | NUR ---
SS following up with discharge planning. SS reviewed pt chart and discussed with pt RN. Pt on the vent. COVID19 positive. Pt having fevers. Pt on IV Micafungin, IV Vancomycin, IV Cefepime, and IV Zyvox. Full Code. Pt accepted at [facility], ; fax [phone]. SS phoned and faxed clinical updates to [facility]. SS will continue to follow for discharge planning.
--- NOTE | 2020-05-05 16:09 | NUR ---
Wound Care: Patient seen per wound care follow up regarding right/left thigh and gluteal fold. Patient is covid+ therefore limiting exposure per wound care. Recommendations to continue with A & D ointment as directed. Spoke with RN regarding POC. Wound care will follow up for reassessment on 05/12/20.
[2020-05-05] MEDS: LISINOPRIL 10 MG TABLET PO SCH (21:00)
[2020-05-05] MEDS: LATANOPROST 0.005% OPHTH SOLUTION 2.5ML BOTTLE. OU SCH (21:00)
[2020-05-05] MEDS: ATORVASTATIN CALCIUM 10 MG TABLET. PO SCH (21:23)
[2020-05-05] MEDS: MIRTAZAPINE 15 MG TABLET PO SCH (21:24)
[2020-05-06] VITALS (39 sets, daily range): BP systolic 65–180; BP diastolic 43–94
[2020-05-06] MEDS: INSULIN LISPRO 300 UNITS/3 ML VIAL. SQ SCH ×4 (01:01→18:24)
[2020-05-06] MEDS: METOPROLOL TARTRATE 5 MG/5 ML VIAL. IVP SCH ×4 (06:00→19:42)
[2020-05-06 06:07] LABS: BASO # 0.1 x10^3/uL (0.0-0.2); BASO % 1 % (0-3); EOS # 0.2 x10^3/uL (0.0-0.7); EOS % 1 % (0-3); HEMATOCRIT 23.3 % (36.0-47.0); HEMOGLOBIN 7.8 g/dL (12.0-15.5); LYMPH # 3.3 x10^3/uL (1.0-4.8); LYMPH % 30 % (24-48); MEAN CORPUSCULAR HEMOGLOBIN 30 pg (25-35); MEAN CORPUSCULAR HGB CONC 33 g/dL (31-37); MEAN CORPUSCULAR VOLUME 89 fL (79-100); MONO # 0.4 x10^3/uL (0.0-1.1); MONO % 4 % (0-9); NEUT # 7.2 x10^3/uL (1.8-7.7); NEUT % 64 % (31-73); PLATELET COUNT 201 x10^3/uL (140-400); RED BLOOD COUNT 2.63 x10^6/uL (3.50-5.40); RED CELL DISTRIBUTION WIDTH 15.5 % (11.5-14.5); WHITE BLOOD COUNT 11.2 x10^3/uL (4.0-11.0)
[2020-05-06] MEDS: CEFEPIME HCL IV Push 1 GM VIAL. IVP SCH ×3 (06:19→21:25)
[2020-05-06] MEDS: FOSPHENYTOIN 100 MG/2 ML VIAL. IV SCH ×3 (06:19→21:25)
[2020-05-06] MEDS: methylPREDNISolone SOD SUCC PF 40 MG/ML VIAL. IV SCH ×3 (06:19→21:27)
[2020-05-06 06:28] LABS: ALBUMIN 1.4 g/dL (3.4-5.0); ALBUMIN/GLOBULIN RATIO 0.4 (1.0-1.7); CALCIUM 8.3 mg/dL (8.5-10.1); CREATININE 0.9 mg/dL (0.6-1.0); GFR 75.6; POTASSIUM 3.9 mmol/L (3.5-5.1); TOTAL BILIRUBIN 0.1 mg/dL (0.2-1.0); TOTAL PROTEIN 5.1 g/dL (6.4-8.2)
[2020-05-06] MEDS: MIDAZOLAM 100mg/100ml NS BAG 100 ML IV PRN ×2 (07:03→17:12)
--- NOTE | 2020-05-06 07:24 | PDOC ---
Infectious Disease Note Subjective Subjective Intubated/sedated Vital Sign Vital Signs Vital Signs Date Time Temp Pulse Resp B/P (MAP) Pulse Ox O2 Delivery O2 Flow Rate FiO2 05/06/20 06:00 66 20 104/64 (77) 100 Ventilator 05/06/20 04:00 96.6 96.6 05/05/20 10:36 40.0 Physical Exam PHYSICAL EXAM GENERAL: Intubated/sedated - on bearhugger HEENT: PERRL, no icterus, ETT/OGT NECK: Supple, LUNGS: Coarse bs scattered Left > right HEART: S1, S2 tachycardia ABDOMEN: soft bs+ nondistended, OGT, Rectal tube : Anglin in place EXTREMITIES: 1 plus edema, cyanosis. SKIN: Unremarkable. NEUROLOGIC: Intubated/sedated. Central line is clean 04/28 Labs Lab Laboratory Tests Test 05/05/20 07:39 05/05/20 08:05 05/05/20 11:15 05/05/20 13:35 White Blood Count 6.9 x10^3/uL (4.0-11.0) Red Blood Count 2.94 x10^6/uL (3.50-5.40) Hemoglobin 8.7 g/dL (12.0-15.5) Hematocrit 26.0 % (36.0-47.0) Mean Corpuscular Volume 88 fL (79-100) Mean Corpuscular Hemoglobin 30 pg (25-35) Mean Corpuscular Hemoglobin Concent 34 g/dL (31-37) Red Cell Distribution Width 15.5 % (11.5-14.5) Platelet Count 175 x10^3/uL (140-400) Neutrophils (%) (Auto) 74 % (31-73) Lymphocytes (%) (Auto) 21 % (24-48) Monocytes (%) (Auto) 4 % (0-9) Eosinophils (%) (Auto) 1 % (0-3) Basophils (%) (Auto) 0 % (0-3) Neutrophils # (Auto) 5.1 x10^3/uL (1.8-7.7) Lymphocytes # (Auto) 1.4 x10^3/uL (1.0-4.8) Monocytes # (Auto) 0.2 x10^3/uL (0.0-1.1) Eosinophils # (Auto) 0.1 x10^3/uL (0.0-0.7) Basophils # (Auto) 0.0 x10^3/uL (0.0-0.2) O2 Saturation 96 % (92-99) Arterial Blood pH 7.38 (7.35-7.45) Arterial Blood pCO2 at Patient Temp 29 mmHg (35-46) Arterial Blood pO2 at Patient Temp 86 mmHg (65-108) Arterial Blood HCO3 17 mmol/L (21-28) Arterial Blood Base Excess -8 mmol/L (-3-3) FiO2 70 Urine Collection Type U cath Urine Color Yellow Urine Clarity Clear Urine pH 5.0 (<5.0-8.0) Urine Specific Gomer 1.015 (1.000-1.030) Urine Protein 30 mg/dL (NEG-TRACE) Urine Glucose (UA) Negative mg/dL (NEG) Urine Ketones (Stick) Negative mg/dL (NEG) Urine Blood Small (NEG) Urine Nitrite Negative (NEG) Urine Bilirubin Negative (NEG) Urine Urobilinogen Dipstick 0.2 mg/dL (0.2 mg/dL) Urine Leukocyte Esterase Negative (NEG) Urine RBC 3-5 /HPF (0-2) Urine WBC 1-4 /HPF (0-4) Urine Squamous Epithelial Cells Few /LPF Urine Amorphous Sediment Present /HPF Urine Bacteria 0 /HPF (0-FEW) Glucose (Fingerstick) 129 mg/dL (70-99) Test 05/05/20 17:31 05/05/20 23:45 05/06/20 05:30 05/06/20 05:42 Glucose (Fingerstick) 265 mg/dL (70-99) 218 mg/dL (70-99) 159 mg/dL (70-99) White Blood Count 11.2 x10^3/uL (4.0-11.0) Red Blood Count 2.63 x10^6/uL (3.50-5.40) Hemoglobin 7.8 g/dL (12.0-15.5) Hematocrit 23.3 % (36.0-47.0) Mean Corpuscular Volume 89 fL (79-100) Mean Corpuscular Hemoglobin 30 pg (25-35) Mean Corpuscular Hemoglobin Concent 33 g/dL (31-37) Red Cell Distribution Width 15.5 % (11.5-14.5) Platelet Count 201 x10^3/uL (140-400) Neutrophils (%) (Auto) 64 % (31-73) Lymphocytes (%) (Auto) 30 % (24-48) Monocytes (%) (Auto) 4 % (0-9) Eosinophils (%) (Auto) 1 % (0-3) Basophils (%) (Auto) 1 % (0-3) Neutrophils # (Auto) 7.2 x10^3/uL (1.8-7.7) Lymphocytes # (Auto) 3.3 x10^3/uL (1.0-4.8) Monocytes # (Auto) 0.4 x10^3/uL (0.0-1.1) Eosinophils # (Auto) 0.2 x10^3/uL (0.0-0.7) Basophils # (Auto) 0.1 x10^3/uL (0.0-0.2) Sodium Level 142 mmol/L (136-145) Potassium Level 3.9 mmol/L (3.5-5.1) Chloride Level 110 mmol/L (98-107) Carbon Dioxide Level 20 mmol/L (21-32) Anion Gap 12 (6-14) Blood Urea Nitrogen 29 mg/dL (7-20) Creatinine 0.9 mg/dL (0.6-1.0) Estimated GFR (Cockcroft-Gault) 75.6 BUN/Creatinine Ratio 32 (6-20) Glucose Level 171 mg/dL (70-99) Calcium Level 8.3 mg/dL (8.5-10.1) Total Bilirubin 0.1 mg/dL (0.2-1.0) Aspartate Amino Transf (AST/SGOT) 23 U/L (15-37) Alanine Aminotransferase (ALT/SGPT) 22 U/L (14-59) Alkaline Phosphatase 61 U/L (46-116) Total Protein 5.1 g/dL (6.4-8.2) Albumin 1.4 g/dL (3.4-5.0) Albumin/Globulin Ratio 0.4 (1.0-1.7) Micro Microbiology 05/02/20 Blood Culture - Preliminary, Resulted NO GROWTH AFTER 1 DAY 04/19/20 Urine Culture - Final, Complete 04/19/20 Antimicrobic Susceptibility - Final, Complete Objective Assessment 1. COVID-19 pneumonia 04/19. 2. Acute hypoxic respiratory failure s/p intubation now 50 % Fi02 and 10 PEEP 3. Blood culture 1 out of 3, coag neg staph, contaminant.04/19 4. Fever 05/05 - improved - UA neg 5. Right-sided cerebrovascular accident. 6. Traumatic brain injury with aphasia . 7. E. coli UTI 04/19 R Gent/Bactrim/Tetra 8. RIJ place 04/28 9. Loose stool Plan Plan of Care Notified of Temp 103 am 05/05. Blood/Urine/C-diff. Add Per tube vanc/ Flagyl/Cefepime/Micafungin Cont Zyvox dose Dapto times one previously. Labs in am cont supportive care s/p plasma administration on steroids increased 05/02 follow up labs and cults Prognosis poor Consider palliative care Discussed with nursing staff NEDA PACSUAL MD May 06, 2020 07:24
[2020-05-06] MEDS: CHLORHEXIDINE 0.12% 15 ML MOUTHWASH. MM SCH ×2 (07:47→21:00)
[2020-05-06] MEDS: NOREPINEPHRINE VIAL 8 MG in IV DEXTROSE 5% 250 ML IV PRN (07:47)
[2020-05-06] MEDS: busPIRone 5 MG TABLET. PO SCH ×2 (07:48→21:00)
[2020-05-06] MEDS: FOLIC ACID 1 MG TABLET. PO SCH (07:48)
[2020-05-06] MEDS: GABAPENTIN 400 MG CAPSULE. PO SCH ×3 (07:48→21:17)
[2020-05-06] MEDS: VANCOMYCIN 125 MG/2.5 ML ORAL SOLUTION. NG SCH ×4 (07:48→21:18)
[2020-05-06] MEDS: ACETAMINOPHEN 325 MG TABLET. PO SCH ×2 (07:48→21:00)
[2020-05-06] MEDS: DULoxetine HCL 30 MG CAPSULE.DR PO SCH (07:49)
[2020-05-06] MEDS: BACLOFEN 10 MG TABLET. PO SCH ×3 (07:49→21:00)
[2020-05-06] MEDS: ARIPiprazole 5 MG TABLET PO SCH (07:49)
[2020-05-06] MEDS: metFORMIN 500 MG TABLET PO SCH ×2 (07:49→18:10)
[2020-05-06] MEDS: MULTIVITAMIN with MINERAL TABLET. PO SCH (07:49)
[2020-05-06] MEDS: ASPIRIN CHEWABLE 81 MG TABLET. PO SCH (07:49)
[2020-05-06] MEDS: LACTOBACILLUS RHAMNOSUS GG 1 CAPSULE. PO SCH ×2 (07:49→21:17)
[2020-05-06] MEDS: PANTOPRAZOLE IV PUSH 40 MG VIAL. IVP SCH (07:50)
[2020-05-06] MEDS: MICAFUNGIN 100 MG in IV DEXTROSE 5% 100ML 100 ML IV SCH (07:52)
[2020-05-06] MEDS: VALPROIC ACID IV SCH ×2 (07:53→21:27)
[2020-05-06] MEDS: DEXTROSE 5% IV SCH ×2 (07:53→21:27)
[2020-05-06] MEDS: amLODIPine BESYLATE 10 MG TABLET PO SCH (07:55)
[2020-05-06] MEDS: hydrALAZINE 25 MG TABLET PO SCH ×3 (07:55→19:40)
[2020-05-06] MEDS: FLUTICASONE 50MCG/NASAL SPRAY 16GM BOTTLE. NS SCH (07:55)
[2020-05-06] MEDS: ENOXAPARIN 40 MG/0.4 ML SYRINGE. SQ SCH ×2 (07:56→21:17)
[2020-05-06] MEDS: VITS A & D/LANOLIN TOPICAL OINTMENT 42GM TUBE. TP SCH ×2 (07:57→21:00)
--- NOTE | 2020-05-06 08:39 | PDOC ---
PULMONARY PROGRESS NOTES DATE: 05/06/20 TIME: 08:39 Subjective Intubated, 05/01 Currently on 50% 10 of PEEP Vitals Vital Signs Date Time Temp Pulse Resp B/P (MAP) Pulse Ox O2 Delivery O2 Flow Rate FiO2 05/06/20 08:22 100 Ventilator 05/06/20 06:00 66 20 104/64 (77) 05/06/20 04:00 96.6 96.6 05/05/20 10:36 40.0 Comments visual exam done on vent sedated nc at rrr no accessory muscle use no paradoxical abd motion no rash no edema Labs Laboratory Tests Test 05/04/20 14:00 05/04/20 14:40 05/04/20 17:18 05/04/20 23:42 Glucose (Fingerstick) 99 mg/dL (70-99) 124 mg/dL (70-99) 223 mg/dL (70-99) Hemoglobin 8.5 g/dL (12.0-15.5) Hematocrit 25.3 % (36.0-47.0) Test 05/05/20 05:57 05/05/20 06:15 05/05/20 07:39 05/05/20 08:05 Glucose (Fingerstick) 143 mg/dL (70-99) Sodium Level 142 mmol/L (136-145) Potassium Level 4.0 mmol/L (3.5-5.1) Chloride Level 108 mmol/L (98-107) Carbon Dioxide Level 22 mmol/L (21-32) Anion Gap 12 (6-14) Blood Urea Nitrogen 31 mg/dL (7-20) Creatinine 1.1 mg/dL (0.6-1.0) Estimated GFR (Cockcroft-Gault) 59.9 Glucose Level 143 mg/dL (70-99) Calcium Level 8.8 mg/dL (8.5-10.1) Magnesium Level 1.8 mg/dL (1.8-2.4) White Blood Count 6.9 x10^3/uL (4.0-11.0) Red Blood Count 2.94 x10^6/uL (3.50-5.40) Hemoglobin 8.7 g/dL (12.0-15.5) Hematocrit 26.0 % (36.0-47.0) Mean Corpuscular Volume 88 fL (79-100) Mean Corpuscular Hemoglobin 30 pg (25-35) Mean Corpuscular Hemoglobin Concent 34 g/dL (31-37) Red Cell Distribution Width 15.5 % (11.5-14.5) Platelet Count 175 x10^3/uL (140-400) Neutrophils (%) (Auto) 74 % (31-73) Lymphocytes (%) (Auto) 21 % (24-48) Monocytes (%) (Auto) 4 % (0-9) Eosinophils (%) (Auto) 1 % (0-3) Basophils (%) (Auto) 0 % (0-3) Neutrophils # (Auto) 5.1 x10^3/uL (1.8-7.7) Lymphocytes # (Auto) 1.4 x10^3/uL (1.0-4.8) Monocytes # (Auto) 0.2 x10^3/uL (0.0-1.1) Eosinophils # (Auto) 0.1 x10^3/uL (0.0-0.7) Basophils # (Auto) 0.0 x10^3/uL (0.0-0.2) O2 Saturation 96 % (92-99) Arterial Blood pH 7.38 (7.35-7.45) Arterial Blood pCO2 at Patient Temp 29 mmHg (35-46) Arterial Blood pO2 at Patient Temp 86 mmHg (65-108) Arterial Blood HCO3 17 mmol/L (21-28) Arterial Blood Base Excess -8 mmol/L (-3-3) FiO2 70 Test 05/05/20 11:15 05/05/20 13:35 05/05/20 17:31 05/05/20 23:45 Urine Collection Type U cath Urine Color Yellow Urine Clarity Clear Urine pH 5.0 (<5.0-8.0) Urine Specific [place] 1.015 (1.000-1.030) Urine Protein 30 mg/dL (NEG-TRACE) Urine Glucose (UA) Negative mg/dL (NEG) Urine Ketones (Stick) Negative mg/dL (NEG) Urine Blood Small (NEG) Urine Nitrite Negative (NEG) Urine Bilirubin Negative (NEG) Urine Urobilinogen Dipstick 0.2 mg/dL (0.2 mg/dL) Urine Leukocyte Esterase Negative (NEG) Urine RBC 3-5 /HPF (0-2) Urine WBC 1-4 /HPF (0-4) Urine Squamous Epithelial Cells Few /LPF Urine Amorphous Sediment Present /HPF Urine Bacteria 0 /HPF (0-FEW) Glucose (Fingerstick) 129 mg/dL (70-99) 265 mg/dL (70-99) 218 mg/dL (70-99) Test 05/06/20 05:30 05/06/20 05:42 White Blood Count 11.2 x10^3/uL (4.0-11.0) Red Blood Count 2.63 x10^6/uL (3.50-5.40) Hemoglobin 7.8 g/dL (12.0-15.5) Hematocrit 23.3 % (36.0-47.0) Mean Corpuscular Volume 89 fL (79-100) Mean Corpuscular Hemoglobin 30 pg (25-35) Mean Corpuscular Hemoglobin Concent 33 g/dL (31-37) Red Cell Distribution Width 15.5 % (11.5-14.5) Platelet Count 201 x10^3/uL (140-400) Neutrophils (%) (Auto) 64 % (31-73) Lymphocytes (%) (Auto) 30 % (24-48) Monocytes (%) (Auto) 4 % (0-9) Eosinophils (%) (Auto) 1 % (0-3) Basophils (%) (Auto) 1 % (0-3) Neutrophils # (Auto) 7.2 x10^3/uL (1.8-7.7) Lymphocytes # (Auto) 3.3 x10^3/uL (1.0-4.8) Monocytes # (Auto) 0.4 x10^3/uL (0.0-1.1) Eosinophils # (Auto) 0.2 x10^3/uL (0.0-0.7) Basophils # (Auto) 0.1 x10^3/uL (0.0-0.2) Sodium Level 142 mmol/L (136-145) Potassium Level 3.9 mmol/L (3.5-5.1) Chloride Level 110 mmol/L (98-107) Carbon Dioxide Level 20 mmol/L (21-32) Anion Gap 12 (6-14) Blood Urea Nitrogen 29 mg/dL (7-20) Creatinine 0.9 mg/dL (0.6-1.0) Estimated GFR (Cockcroft-Gault) 75.6 BUN/Creatinine Ratio 32 (6-20) Glucose Level 171 mg/dL (70-99) Calcium Level 8.3 mg/dL (8.5-10.1) Total Bilirubin 0.1 mg/dL (0.2-1.0) Aspartate Amino Transf (AST/SGOT) 23 U/L (15-37) Alanine Aminotransferase (ALT/SGPT) 22 U/L (14-59) Alkaline Phosphatase 61 U/L (46-116) Total Protein 5.1 g/dL (6.4-8.2) Albumin 1.4 g/dL (3.4-5.0) Albumin/Globulin Ratio 0.4 (1.0-1.7) Glucose (Fingerstick) 159 mg/dL (70-99) Laboratory Tests Test 05/05/20 11:15 05/05/20 13:35 05/05/20 17:31 05/05/20 23:45 Urine Collection Type U cath Urine Color Yellow Urine Clarity Clear Urine pH 5.0 (<5.0-8.0) Urine Specific [place] 1.015 (1.000-1.030) Urine Protein 30 mg/dL (NEG-TRACE) Urine Glucose (UA) Negative mg/dL (NEG) Urine Ketones (Stick) Negative mg/dL (NEG) Urine Blood Small (NEG) Urine Nitrite Negative (NEG) Urine Bilirubin Negative (NEG) Urine Urobilinogen Dipstick 0.2 mg/dL (0.2 mg/dL) Urine Leukocyte Esterase Negative (NEG) Urine RBC 3-5 /HPF (0-2) Urine WBC 1-4 /HPF (0-4) Urine Squamous Epithelial Cells Few /LPF Urine Amorphous Sediment Present /HPF Urine Bacteria 0 /HPF (0-FEW) Glucose (Fingerstick) 129 mg/dL (70-99) 265 mg/dL (70-99) 218 mg/dL (70-99) Test 05/06/20 05:30 05/06/20 05:42 White Blood Count 11.2 x10^3/uL (4.0-11.0) Red Blood Count 2.63 x10^6/uL (3.50-5.40) Hemoglobin 7.8 g/dL (12.0-15.5) Hematocrit 23.3 % (36.0-47.0) Mean Corpuscular Volume 89 fL (79-100) Mean Corpuscular Hemoglobin 30 pg (25-35) Mean Corpuscular Hemoglobin Concent 33 g/dL (31-37) Red Cell Distribution Width 15.5 % (11.5-14.5) Platelet Count 201 x10^3/uL (140-400) Neutrophils (%) (Auto) 64 % (31-73) Lymphocytes (%) (Auto) 30 % (24-48) Monocytes (%) (Auto) 4 % (0-9) Eosinophils (%) (Auto) 1 % (0-3) Basophils (%) (Auto) 1 % (0-3) Neutrophils # (Auto) 7.2 x10^3/uL (1.8-7.7) Lymphocytes # (Auto) 3.3 x10^3/uL (1.0-4.8) Monocytes # (Auto) 0.4 x10^3/uL (0.0-1.1) Eosinophils # (Auto) 0.2 x10^3/uL (0.0-0.7) Basophils # (Auto) 0.1 x10^3/uL (0.0-0.2) Sodium Level 142 mmol/L (136-145) Potassium Level 3.9 mmol/L (3.5-5.1) Chloride Level 110 mmol/L (98-107) Carbon Dioxide Level 20 mmol/L (21-32) Anion Gap 12 (6-14) Blood Urea Nitrogen 29 mg/dL (7-20) Creatinine 0.9 mg/dL (0.6-1.0) Estimated GFR (Cockcroft-Gault) 75.6 BUN/Creatinine Ratio 32 (6-20) Glucose Level 171 mg/dL (70-99) Calcium Level 8.3 mg/dL (8.5-10.1) Total Bilirubin 0.1 mg/dL (0.2-1.0) Aspartate Amino Transf (AST/SGOT) 23 U/L (15-37) Alanine Aminotransferase (ALT/SGPT) 22 U/L (14-59) Alkaline Phosphatase 61 U/L (46-116) Total Protein 5.1 g/dL (6.4-8.2) Albumin 1.4 g/dL (3.4-5.0) Albumin/Globulin Ratio 0.4 (1.0-1.7) Glucose (Fingerstick) 159 mg/dL (70-99) Medications Active Scripts Medications Dose Route/Sig Max Daily Dose Days Date Category Dose Instructions Voltaren (Diclofenac Sodium) 100 Gm Gel..gram. 1 Jitendra TP TID 04/19/20 Reported Famotidine 20 Mg Tablet 20 Mg PO HS 01/28/20 Reported Dilantin (Phenytoin Sodium Extended) 100 Mg Capsule 30 Mg PO HS 01/28/20 Reported Lisinopril 30 Mg Tablet 1 Tab PO HS 01/28/20 Reported Mirtazapine 30 Mg Tab.rapdis 30 Mg PO QHS 30 01/28/20 Reported D3-50 (Cholecalciferol (Vitamin D3)) 50,000 Unit Capsule 1 Cap PO WEEKLY 28 01/28/20 Reported Aspirin 81 Mg Tab.chew 1 Tab PO DAILY 01/28/20 Reported Atorvastatin Calcium 10 Mg Tablet 10 Mg PO HS 02/24/17 Reported Anti-Diarrhea (Loperamide Hcl) 2 Mg Tablet 2 Mg PO PRN Q6HRS PRN 02/24/17 Reported Metformin Hcl 1,000 Mg Tablet 1 Tab PO BID 12/26/15 Rx Tylenol (Acetaminophen) 325 Mg Tablet 650 Mg PO BID 12/24/15 Reported Norvasc (Amlodipine Besylate) 10 Mg Tablet 10 Mg PO DAILY 12/24/15 Reported Milk Of Magnesia (Magnesium Hydroxide) 400 Mg/5 Ml Oral.susp 1,200 Mg PO PRN DAILY PRN 12/24/15 Reported Latanoprost 2.5 Ml Drops 1 Drop EACHEYE QHS 12/24/15 Reported Vimpat (Lacosamide) 200 Mg Tablet 200 Mg PO BID 12/24/15 Reported Keppra (Levetiracetam) 500 Mg Tablet 1,500 Mg PO BID 12/24/15 Reported Gabapentin (Gabapentin) 400 Mg Capsule 400 Mg PO TID 12/24/15 Reported Folic Acid 1 Mg Tablet 1 Tab PO DAILY 12/24/15 Reported Flonase Allergy Relief (Fluticasone Propionate) 9.9 Ml [place].susp 2 Sprays NS DAILY 12/24/15 Reported Buspirone Hcl 5 Mg Tablet 1 Tab PO BID 12/24/15 Reported Abilify (Aripiprazole) 5 Mg Tablet 5 Mg PO DAILY 12/24/15 Reported Hydrocortisone 30 Gm Cream..g. 30 Gm RC PRN BID PRN 05/20/14 Reported Hydrocortisone 1% Absorbase (Hc/Mineral Oil/Petrolat,Wht) 25 Gm Oint...g. 25 Gm TP 05/20/14 Reported Hydralazine Hcl 25 Mg Tablet 2 Tab PO TID 05/20/14 Reported Dilantin (Phenytoin Sodium Extended) 100 Mg Capsule 400 Mg PO HS 05/20/14 Reported give with 30mg to equal 430mg Depakote Sprinkle (Divalproex Sodium) 125 Mg Cap.sprink 125 Mg PO BID 05/20/14 Reported Cymbalta (Duloxetine Hcl) 30 Mg Capsule.dr 3 Cap PO DAILY 05/20/14 Reported Centrum Silver Ultra Women Tab (Multivits W-Fe,Other Min/Lut) 1 Each Tablet 1 Each PO DAILY 05/20/14 Reported Baclofen 10 Mg Tablet 1 Tab PO TID 05/20/14 Reported Comments CXR reviewed b lat infilt Impression . 1. Acute hypoxic respiratory failure secondary to COVID-19 pneumonia./ ALI/ARDS 2. Abnormal chest x-ray with patchy infiltrates bilaterally, pneumonia, COVID-19.--COVID 19 positive/ARDS 3. 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 4. History of posttraumatic epilepsy. 5. No significant tobacco history. 6. Mild azotemia--improved 7. Normal D-dimer. 8. Fever, 9. Encephalopathy, 10. Anemia 11. Metabolic acidosis Plan . Continues to oxygenate better every day, will start decreasing PEEP to per 24 hours Discussed with RN titrate Levophed off Follow ID input Solu-Medrol 40 q 8hrs elevate hob DVT/GI PPX Repeat d-dimer 10.3, on high dose DVT prophylaxis s/p Plasma IV bicarb for met acidosis, as needed Total cumulative critical care time of 30-minute d/w RN/RT MEHRAN DICKEY MD May 06, 2020 08:39
[2020-05-06] MEDS: DICLOFENAC SODIUM 1% TOPICAL GEL 100GM TUBE. TP SCH (09:00)
[2020-05-06 09:06] LABS: BASE EXCESS ABG -7 mmol/L (-3-3); HCO3 ABG 18 mmol/L (21-28); PCO2 ABG 32 mmHg (35-46); PO2 ABG 75 mmHg (65-108); SAT O2 ABG 94 % (92-99)
[2020-05-06] MEDS: LACOSAMIDE 200 MG in IV DEXTROSE 5% 50 ML IV SCH ×2 (09:07→21:24)
[2020-05-06 09:08] LABS: FIO2 ABG 50
[2020-05-06] MEDS: levETIRAcetam 1,500 MG in IV DEXTROSE 5% 100ML 100 ML IV SCH ×2 (09:11→21:22)
[2020-05-06] MEDS: DEXMEDETOMIDINE 400 MCG in IV NORMAL SALINE 100ML 96 ML IV PRN ×2 (10:11→21:59)
[2020-05-06] MEDS ORDERED: DICLOFENAC SODIUM 1% TOPICAL GEL 100GM TUBE. TP PRN (12:00)
--- NOTE | 2020-05-06 12:06 | NUR ---
SS following up with discharge planning. SS reviewed pt chart and discussed with pt RN. Pt remains on the vent at this time. COVID19 positive. Pt on IV Micafungin, IV Cefepime, Vancomycin, and IV Zyvox. Pt accepted at [facility], ; fax [phone]. Per RN, may possibly be ready for transfer to [facility] tomorrow. SS will continue to follow for discharge planning.
[2020-05-06] MEDS ORDERED: VANCOMYCIN 2 GM in IV NORMAL SALINE 500ML BAG 500 ML IV ONE (15:15)
[2020-05-06] MEDS: VANCOMYCIN PER PHARMACY MC PRN (18:02)
--- NOTE | 2020-05-06 18:08 | NUR ---
Pharmacy Vancomycin Dosing Note S:Consulted to monitor and dose vancomycin started 05/06/20. O:JOSETTE HARMAN is a 65 year old F with Bacteremia Height: 5 feet, 2 inches Weight: 84.5 kg [place] Body Weight: 50.10 Adjusted Body Weight: 63.86 Dosing Weight: Actual Other Antibiotics: zosyn LABS: Last BUN: 29 Last Creatinine: 0.9 Creatinine Clearance: 55 mL/min Last WBC: 11.2 Last Procalcitonin: 6.71 (04/19) Tmax (past 24 hours): 103.3 Microbiology: 05/05 BLOOD: GPC SUGG OF STAPH 04/19: blood cx 1 of 3 bottles growing gram positive cocci in clusters (final ID = staphylococcus coag neg sp) 04/19: urine cx (growing E. coli) No repeat cultures drawn at this time I/O: 4426/5650 Drug Levels: Last Trough level: 13.9 on 05/01/20 at 0440 Last dose given 05/06/21 at 1729 Vancomycin Dosing: Loading Dose: 2000 mg x1 Dosing Weight: Actual Target Trough: 15-20 A: Based on: prior dosing during this admit and current renal function P: 1. Begin Vancomycin 1000 mg IV q18h 2. Follow up Trough level to be ordered as needed 3. Pharmacy will continue to monitor, follow and adjust therapy as needed. Dianne Holden [facility], 05/06/20 2048
[2020-05-06] MEDS: LISINOPRIL 10 MG TABLET PO SCH (19:41)
--- NOTE | 2020-05-06 19:48 | PN ---
DATE: 05/06/2020 SUBJECTIVE: The patient is resting, almost flat in bed, in no apparent distress. She is somewhat hypothermic. However, her FiO2 as of today at 50%, although she is on a PEEP of 10. She continued to be heavily sedated. OBJECTIVE: GENERAL: On examining her, she was pale, no jaundice, cyanosis or thyromegaly. No jugular venous distention or limb edema. VITAL SIGNS: Her heart rate was 74, blood pressure was 135/65, temperature was 97.9, respiratory rate was 20, and oxygen saturation was 100% on FiO2 of 50%. The rest of the exam is stable, has not really changed. Her intake was 4100, output was 2765. LABORATORY DATA: As of this morning showed a white cell count 11,000, hemoglobin 7.8, hematocrit 23, MCV 89 and platelet count 201,000. Serum sodium was 142, potassium 3.9, chloride 110, bicarbonate 20, anion gap of 12, BUN 29, creatinine 0.9. Her estimated GFR was 75 mL per minute. Her glucose was 171, calcium was 8.3. Total bilirubin, AST, ALT, alkaline phosphatase were normal. Total protein was 5.1, albumin was 1.4. Her blood gases this morning showed a pH of 7.37, pCO2 of 32, pO2 of 75, bicarbonate 18 and oxygen saturation was 94% on FiO2 of 50%. ASSESSMENT: 1. COVID-19 pneumonia. 2. Acute hypoxic respiratory failure, status post intubation and mechanical ventilation. 3. Traumatic brain injury with resultant right sided hemiplegia, aphasia and dysphagia. 4. Hypertension. The patient is actually normotensive, off Levophed. 5. Type 2 diabetes mellitus, much better controlled, that is steroid was cut down and she is now on Glucerna and an insulin sliding scale. 6. Posttraumatic seizure disorder for which she continues to be on fosphenytoin and Keppra and lacosamide. 7. Sinus bradycardia. 8. Hypernatremia, resolved. Her most recent serum sodium is 142. 9. Hypokalemia, resolved. Her most recent serum potassium is 4.2. 10. The patient spiked her temperature. Her stool was sent for Clostridium difficile toxin. Her antibiotics were adjusted by the Infectious Disease specialist. She is now on micafungin, cefepime, metronidazole and linezolid. PLAN: My plan is to continue with sedation and mechanical ventilation and titrate and wean as tolerated. Continue with nutritional support through her orogastric tube. Continue with IV antibiotic. Continue with antiepileptic once obviously her propofol and Precedex removed. I will consult the neurologist ____ and will keep her court appointed DPOA informed. ETELVINA HAYWOOD MD DR: ALISON/hernán JOB#: [id number] / [id number]
[2020-05-06] MEDS: LATANOPROST 0.005% OPHTH SOLUTION 2.5ML BOTTLE. OU SCH (21:00)
[2020-05-06] MEDS: ATORVASTATIN CALCIUM 10 MG TABLET. PO SCH (21:18)
[2020-05-06] MEDS: MIRTAZAPINE 15 MG TABLET PO SCH (21:19)
[2020-05-07] VITALS (25 sets, daily range): BP systolic 84–149; BP diastolic 50–92
[2020-05-07] MEDS: INSULIN LISPRO 300 UNITS/3 ML VIAL. SQ SCH ×4 (00:13→17:24)
[2020-05-07] MEDS: fentaNYL HIGH DOSE PCA 55 ML IV PRN (00:56)
[2020-05-07] MEDS: MIDAZOLAM 100mg/100ml NS BAG 100 ML IV PRN ×2 (04:02→21:43)
[2020-05-07] MEDS: CEFEPIME HCL IV Push 1 GM VIAL. IVP SCH ×3 (05:44→21:44)
[2020-05-07] MEDS: FOSPHENYTOIN 100 MG/2 ML VIAL. IV SCH ×3 (05:45→20:27)
[2020-05-07] MEDS: methylPREDNISolone SOD SUCC PF 40 MG/ML VIAL. IV SCH ×3 (05:45→21:44)
[2020-05-07] MEDS: METOPROLOL TARTRATE 5 MG/5 ML VIAL. IVP SCH ×4 (05:47→19:25)
[2020-05-07 06:30] LABS: HEMATOCRIT 23.6 % (36.0-47.0); HEMOGLOBIN 7.5 g/dL (12.0-15.5); RED BLOOD COUNT 2.62 x10^6/uL (3.50-5.40); RED CELL DISTRIBUTION WIDTH 16.5 % (11.5-14.5); WHITE BLOOD COUNT 12.6 x10^3/uL (4.0-11.0)
[2020-05-07 06:34] LABS: ALBUMIN 1.3 g/dL (3.4-5.0); ALBUMIN/GLOBULIN RATIO 0.3 (1.0-1.7); CALCIUM 8.3 mg/dL (8.5-10.1); CREATININE 0.7 mg/dL (0.6-1.0); POTASSIUM 3.7 mmol/L (3.5-5.1); TOTAL BILIRUBIN 0.1 mg/dL (0.2-1.0); TOTAL PROTEIN 5.5 g/dL (6.4-8.2)
--- NOTE | 2020-05-07 07:26 | PDOC ---
Infectious Disease Note Subjective Subjective Intubated/sedated Vital Sign Vital Signs Vital Signs Date Time Temp Pulse Resp B/P (MAP) Pulse Ox O2 Delivery O2 Flow Rate FiO2 05/07/20 06:00 86 19 110/68 (82) 100 Ventilator 05/07/20 04:00 96.0 96.0 05/07/20 03:12 40.0 Physical Exam PHYSICAL EXAM GENERAL: Intubated/sedated - HEENT: PERRL, no icterus, ETT/OGT NECK: Supple, LUNGS: Coarse bs scattered Left > right HEART: S1, S2 tachycardia ABDOMEN: soft bs+ nondistended, OGT, Rectal tube : Anglin in place EXTREMITIES: 1 plus edema R > L, no cyanosis. SKIN: Unremarkable. NEUROLOGIC: Intubated/sedated. Central line is clean 04/28 Labs Lab Laboratory Tests Test 05/06/20 08:30 05/06/20 11:16 05/06/20 18:14 05/06/20 23:44 O2 Saturation 94 % (92-99) Arterial Blood pH 7.37 (7.35-7.45) Arterial Blood pCO2 at Patient Temp 32 mmHg (35-46) Arterial Blood pO2 at Patient Temp 75 mmHg (65-108) Arterial Blood HCO3 18 mmol/L (21-28) Arterial Blood Base Excess -7 mmol/L (-3-3) FiO2 50 Glucose (Fingerstick) 202 mg/dL (70-99) 145 mg/dL (70-99) 144 mg/dL (70-99) Test 05/07/20 05:40 05/07/20 06:00 Glucose (Fingerstick) 169 mg/dL (70-99) White Blood Count 12.6 x10^3/uL (4.0-11.0) Red Blood Count 2.62 x10^6/uL (3.50-5.40) Hemoglobin 7.5 g/dL (12.0-15.5) Hematocrit 23.6 % (36.0-47.0) Mean Corpuscular Volume 90 fL (79-100) Mean Corpuscular Hemoglobin 29 pg (25-35) Mean Corpuscular Hemoglobin Concent 32 g/dL (31-37) Red Cell Distribution Width 16.5 % (11.5-14.5) Platelet Count 167 x10^3/uL (140-400) Sodium Level 141 mmol/L (136-145) Potassium Level 3.7 mmol/L (3.5-5.1) Chloride Level 110 mmol/L (98-107) Carbon Dioxide Level 20 mmol/L (21-32) Anion Gap 11 (6-14) Blood Urea Nitrogen 29 mg/dL (7-20) Creatinine 0.7 mg/dL (0.6-1.0) Estimated GFR (Cockcroft-Gault) 101.0 BUN/Creatinine Ratio 41 (6-20) Glucose Level 178 mg/dL (70-99) Calcium Level 8.3 mg/dL (8.5-10.1) Total Bilirubin 0.1 mg/dL (0.2-1.0) Aspartate Amino Transf (AST/SGOT) 21 U/L (15-37) Alanine Aminotransferase (ALT/SGPT) 19 U/L (14-59) Alkaline Phosphatase 58 U/L (46-116) Total Protein 5.5 g/dL (6.4-8.2) Albumin 1.3 g/dL (3.4-5.0) Albumin/Globulin Ratio 0.3 (1.0-1.7) Micro Microbiology 05/02/20 Blood Culture - Preliminary, Resulted NO GROWTH AFTER 1 DAY 04/19/20 Urine Culture - Final, Complete 04/19/20 Antimicrobic Susceptibility - Final, Complete Objective Assessment 08/30 bottle GPC 05/05 Vanc started zyvox d/c'd 1. COVID-19 pneumonia 04/19. 2. Acute hypoxic respiratory failure s/p intubation now 40 % Fi02 and 10 PEEP 3. Blood culture 1 out of 3, coag neg staph, contaminant.04/19 4. Fever 05/05 - improved - UA neg/C-diff neg 5. Right-sided cerebrovascular accident. 6. Traumatic brain injury with aphasia . 7. E. coli UTI 04/19 R Gent/Bactrim/Tetra 8. RIJ place 04/28 9. Loose stool 10. Leukocytosis - on steroids Plan Plan of Care Cont Flagyl/Cefepime/Micafungin Vanc Added 05/06 D/c Per tube vanc with neg C-diff Monitor RLE with trace more edema cont supportive care s/p plasma administration on steroids increased 05/02 follow up labs and cults Prognosis poor Consider palliative care Discussed with nursing staff NEDA PASCUAL MD May 07, 2020 07:26
[2020-05-07 07:49] LABS: BASE EXCESS ABG -6 mmol/L (-3-3); HCO3 ABG 19 mmol/L (21-28); PCO2 ABG 35 mmHg (35-46); PO2 ABG 56 mmHg (65-108); SAT O2 ABG 88 % (92-99)
[2020-05-07] MEDS: VALPROIC ACID IV SCH ×2 (08:01→20:24)
[2020-05-07] MEDS: DEXTROSE 5% IV SCH ×2 (08:01→20:24)
--- NOTE | 2020-05-07 08:16 | PDOC ---
PULMONARY PROGRESS NOTES DATE: 05/07/20 TIME: 08:16 Subjective Intubated, 05/01 Currently on 50% 10 of PEEP Vitals Vital Signs Date Time Temp Pulse Resp B/P (MAP) Pulse Ox O2 Delivery O2 Flow Rate FiO2 05/07/20 07:35 94 Ventilator 05/07/20 06:00 86 19 110/68 (82) 05/07/20 04:00 96.0 96.0 05/07/20 03:12 40.0 Comments visual exam done on vent sedated nc at rrr no accessory muscle use no paradoxical abd motion no rash no edema Labs Laboratory Tests Test 05/05/20 09:55 05/05/20 11:15 05/05/20 13:35 05/05/20 17:31 Clostridium difficile Toxin (PCR) Negative (NEGATIVE) Urine Collection Type U cath Urine Color Yellow Urine Clarity Clear Urine pH 5.0 (<5.0-8.0) Urine Specific [place] 1.015 (1.000-1.030) Urine Protein 30 mg/dL (NEG-TRACE) Urine Glucose (UA) Negative mg/dL (NEG) Urine Ketones (Stick) Negative mg/dL (NEG) Urine Blood Small (NEG) Urine Nitrite Negative (NEG) Urine Bilirubin Negative (NEG) Urine Urobilinogen Dipstick 0.2 mg/dL (0.2 mg/dL) Urine Leukocyte Esterase Negative (NEG) Urine RBC 3-5 /HPF (0-2) Urine WBC 1-4 /HPF (0-4) Urine Squamous Epithelial Cells Few /LPF Urine Amorphous Sediment Present /HPF Urine Bacteria 0 /HPF (0-FEW) Glucose (Fingerstick) 129 mg/dL (70-99) 265 mg/dL (70-99) Test 05/05/20 23:45 05/06/20 05:30 05/06/20 05:42 05/06/20 08:30 Glucose (Fingerstick) 218 mg/dL (70-99) 159 mg/dL (70-99) White Blood Count 11.2 x10^3/uL (4.0-11.0) Red Blood Count 2.63 x10^6/uL (3.50-5.40) Hemoglobin 7.8 g/dL (12.0-15.5) Hematocrit 23.3 % (36.0-47.0) Mean Corpuscular Volume 89 fL (79-100) Mean Corpuscular Hemoglobin 30 pg (25-35) Mean Corpuscular Hemoglobin Concent 33 g/dL (31-37) Red Cell Distribution Width 15.5 % (11.5-14.5) Platelet Count 201 x10^3/uL (140-400) Neutrophils (%) (Auto) 64 % (31-73) Lymphocytes (%) (Auto) 30 % (24-48) Monocytes (%) (Auto) 4 % (0-9) Eosinophils (%) (Auto) 1 % (0-3) Basophils (%) (Auto) 1 % (0-3) Neutrophils # (Auto) 7.2 x10^3/uL (1.8-7.7) Lymphocytes # (Auto) 3.3 x10^3/uL (1.0-4.8) Monocytes # (Auto) 0.4 x10^3/uL (0.0-1.1) Eosinophils # (Auto) 0.2 x10^3/uL (0.0-0.7) Basophils # (Auto) 0.1 x10^3/uL (0.0-0.2) Sodium Level 142 mmol/L (136-145) Potassium Level 3.9 mmol/L (3.5-5.1) Chloride Level 110 mmol/L (98-107) Carbon Dioxide Level 20 mmol/L (21-32) Anion Gap 12 (6-14) Blood Urea Nitrogen 29 mg/dL (7-20) Creatinine 0.9 mg/dL (0.6-1.0) Estimated GFR (Cockcroft-Gault) 75.6 BUN/Creatinine Ratio 32 (6-20) Glucose Level 171 mg/dL (70-99) Calcium Level 8.3 mg/dL (8.5-10.1) Total Bilirubin 0.1 mg/dL (0.2-1.0) Aspartate Amino Transf (AST/SGOT) 23 U/L (15-37) Alanine Aminotransferase (ALT/SGPT) 22 U/L (14-59) Alkaline Phosphatase 61 U/L (46-116) Total Protein 5.1 g/dL (6.4-8.2) Albumin 1.4 g/dL (3.4-5.0) Albumin/Globulin Ratio 0.4 (1.0-1.7) O2 Saturation 94 % (92-99) Arterial Blood pH 7.37 (7.35-7.45) Arterial Blood pCO2 at Patient Temp 32 mmHg (35-46) Arterial Blood pO2 at Patient Temp 75 mmHg (65-108) Arterial Blood HCO3 18 mmol/L (21-28) Arterial Blood Base Excess -7 mmol/L (-3-3) FiO2 50 Test 05/06/20 11:16 05/06/20 18:14 05/06/20 23:44 05/07/20 05:40 Glucose (Fingerstick) 202 mg/dL (70-99) 145 mg/dL (70-99) 144 mg/dL (70-99) 169 mg/dL (70-99) Test 05/07/20 06:00 White Blood Count 12.6 x10^3/uL (4.0-11.0) Red Blood Count 2.62 x10^6/uL (3.50-5.40) Hemoglobin 7.5 g/dL (12.0-15.5) Hematocrit 23.6 % (36.0-47.0) Mean Corpuscular Volume 90 fL (79-100) Mean Corpuscular Hemoglobin 29 pg (25-35) Mean Corpuscular Hemoglobin Concent 32 g/dL (31-37) Red Cell Distribution Width 16.5 % (11.5-14.5) Platelet Count 167 x10^3/uL (140-400) Sodium Level 141 mmol/L (136-145) Potassium Level 3.7 mmol/L (3.5-5.1) Chloride Level 110 mmol/L (98-107) Carbon Dioxide Level 20 mmol/L (21-32) Anion Gap 11 (6-14) Blood Urea Nitrogen 29 mg/dL (7-20) Creatinine 0.7 mg/dL (0.6-1.0) Estimated GFR (Cockcroft-Gault) 101.0 BUN/Creatinine Ratio 41 (6-20) Glucose Level 178 mg/dL (70-99) Calcium Level 8.3 mg/dL (8.5-10.1) Total Bilirubin 0.1 mg/dL (0.2-1.0) Aspartate Amino Transf (AST/SGOT) 21 U/L (15-37) Alanine Aminotransferase (ALT/SGPT) 19 U/L (14-59) Alkaline Phosphatase 58 U/L (46-116) Total Protein 5.5 g/dL (6.4-8.2) Albumin 1.3 g/dL (3.4-5.0) Albumin/Globulin Ratio 0.3 (1.0-1.7) Laboratory Tests Test 05/06/20 08:30 05/06/20 11:16 05/06/20 18:14 05/06/20 23:44 O2 Saturation 94 % (92-99) Arterial Blood pH 7.37 (7.35-7.45) Arterial Blood pCO2 at Patient Temp 32 mmHg (35-46) Arterial Blood pO2 at Patient Temp 75 mmHg (65-108) Arterial Blood HCO3 18 mmol/L (21-28) Arterial Blood Base Excess -7 mmol/L (-3-3) FiO2 50 Glucose (Fingerstick) 202 mg/dL (70-99) 145 mg/dL (70-99) 144 mg/dL (70-99) Test 05/07/20 05:40 05/07/20 06:00 Glucose (Fingerstick) 169 mg/dL (70-99) White Blood Count 12.6 x10^3/uL (4.0-11.0) Red Blood Count 2.62 x10^6/uL (3.50-5.40) Hemoglobin 7.5 g/dL (12.0-15.5) Hematocrit 23.6 % (36.0-47.0) Mean Corpuscular Volume 90 fL (79-100) Mean Corpuscular Hemoglobin 29 pg (25-35) Mean Corpuscular Hemoglobin Concent 32 g/dL (31-37) Red Cell Distribution Width 16.5 % (11.5-14.5) Platelet Count 167 x10^3/uL (140-400) Sodium Level 141 mmol/L (136-145) Potassium Level 3.7 mmol/L (3.5-5.1) Chloride Level 110 mmol/L (98-107) Carbon Dioxide Level 20 mmol/L (21-32) Anion Gap 11 (6-14) Blood Urea Nitrogen 29 mg/dL (7-20) Creatinine 0.7 mg/dL (0.6-1.0) Estimated GFR (Cockcroft-Gault) 101.0 BUN/Creatinine Ratio 41 (6-20) Glucose Level 178 mg/dL (70-99) Calcium Level 8.3 mg/dL (8.5-10.1) Total Bilirubin 0.1 mg/dL (0.2-1.0) Aspartate Amino Transf (AST/SGOT) 21 U/L (15-37) Alanine Aminotransferase (ALT/SGPT) 19 U/L (14-59) Alkaline Phosphatase 58 U/L (46-116) Total Protein 5.5 g/dL (6.4-8.2) Albumin 1.3 g/dL (3.4-5.0) Albumin/Globulin Ratio 0.3 (1.0-1.7) Medications Active Scripts Medications Dose Route/Sig Max Daily Dose Days Date Category Dose Instructions Voltaren (Diclofenac Sodium) 100 Gm Gel..gram. 1 Jitendra TP TID 04/19/20 Reported Famotidine 20 Mg Tablet 20 Mg PO HS 01/28/20 Reported Dilantin (Phenytoin Sodium Extended) 100 Mg Capsule 30 Mg PO HS 01/28/20 Reported Lisinopril 30 Mg Tablet 1 Tab PO HS 01/28/20 Reported Mirtazapine 30 Mg Tab.rapdis 30 Mg PO QHS 30 01/28/20 Reported D3-50 (Cholecalciferol (Vitamin D3)) 50,000 Unit Capsule 1 Cap PO WEEKLY 28 01/28/20 Reported Aspirin 81 Mg Tab.chew 1 Tab PO DAILY 01/28/20 Reported Atorvastatin Calcium 10 Mg Tablet 10 Mg PO HS 02/24/17 Reported Anti-Diarrhea (Loperamide Hcl) 2 Mg Tablet 2 Mg PO PRN Q6HRS PRN 02/24/17 Reported Metformin Hcl 1,000 Mg Tablet 1 Tab PO BID 12/26/15 Rx Tylenol (Acetaminophen) 325 Mg Tablet 650 Mg PO BID 12/24/15 Reported Norvasc (Amlodipine Besylate) 10 Mg Tablet 10 Mg PO DAILY 12/24/15 Reported Milk Of Magnesia (Magnesium Hydroxide) 400 Mg/5 Ml Oral.susp 1,200 Mg PO PRN DAILY PRN 12/24/15 Reported Latanoprost 2.5 Ml Drops 1 Drop EACHEYE QHS 12/24/15 Reported Vimpat (Lacosamide) 200 Mg Tablet 200 Mg PO BID 12/24/15 Reported Keppra (Levetiracetam) 500 Mg Tablet 1,500 Mg PO BID 12/24/15 Reported Gabapentin (Gabapentin) 400 Mg Capsule 400 Mg PO TID 12/24/15 Reported Folic Acid 1 Mg Tablet 1 Tab PO DAILY 12/24/15 Reported Flonase Allergy Relief (Fluticasone Propionate) 9.9 Ml [place].susp 2 Sprays NS DAILY 12/24/15 Reported Buspirone Hcl 5 Mg Tablet 1 Tab PO BID 12/24/15 Reported Abilify (Aripiprazole) 5 Mg Tablet 5 Mg PO DAILY 12/24/15 Reported Hydrocortisone 30 Gm Cream..g. 30 Gm RC PRN BID PRN 05/20/14 Reported Hydrocortisone 1% Absorbase (Hc/Mineral Oil/Petrolat,Wht) 25 Gm Oint...g. 25 Gm TP 05/20/14 Reported Hydralazine Hcl 25 Mg Tablet 2 Tab PO TID 05/20/14 Reported Dilantin (Phenytoin Sodium Extended) 100 Mg Capsule 400 Mg PO HS 05/20/14 Reported give with 30mg to equal 430mg Depakote Sprinkle (Divalproex Sodium) 125 Mg Cap.sprink 125 Mg PO BID 05/20/14 Reported Cymbalta (Duloxetine Hcl) 30 Mg Capsule.dr 3 Cap PO DAILY 05/20/14 Reported Centrum Silver Ultra Women Tab (Multivits W-Fe,Other Min/Lut) 1 Each Tablet 1 Each PO DAILY 05/20/14 Reported Baclofen 10 Mg Tablet 1 Tab PO TID 05/20/14 Reported Comments CXR reviewed b lat infilt Impression . 1. Acute hypoxic respiratory failure secondary to COVID-19 pneumonia./ ALI/ARDS 2. Abnormal chest x-ray with patchy infiltrates bilaterally, pneumonia, COVID-19.--COVID 19 positive/ARDS 3. 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 4. History of posttraumatic epilepsy. 5. No significant tobacco history. 6. Mild azotemia--improved 7. Normal D-dimer. 8. Fever, 9. Encephalopathy, 10. Anemia 11. Metabolic acidosis Plan . ABG noted, will decrease discussed with daughter Continues to oxygenate better every day, will start decreasing PEEP 2 per 24 hours Discussed with RN titrate Levophed off Follow ID input Solu-Medrol 40 q 8hrs elevate hob DVT/GI PPX Repeat d-dimer 10.3, on high dose DVT prophylaxis s/p Plasma IV bicarb for met acidosis, as needed Total cumulative critical care time of 30-minute d/w RN/RT MEHRAN DICKEY MD May 07, 2020 08:16
[2020-05-07] MEDS: BACLOFEN 10 MG TABLET. PO SCH ×3 (08:21→20:25)
[2020-05-07] MEDS: metFORMIN 500 MG TABLET PO SCH ×2 (08:21→17:15)
[2020-05-07] MEDS: ASPIRIN CHEWABLE 81 MG TABLET. PO SCH (08:21)
[2020-05-07] MEDS: MULTIVITAMIN with MINERAL TABLET. PO SCH (08:21)
[2020-05-07] MEDS: CHLORHEXIDINE 0.12% 15 ML MOUTHWASH. MM SCH ×2 (08:21→20:25)
[2020-05-07] MEDS: GABAPENTIN 400 MG CAPSULE. PO SCH ×3 (08:22→20:28)
[2020-05-07] MEDS: ENOXAPARIN 40 MG/0.4 ML SYRINGE. SQ SCH ×3 (08:22→20:26)
[2020-05-07] MEDS: busPIRone 5 MG TABLET. PO SCH ×2 (08:23→20:27)
[2020-05-07] MEDS: ARIPiprazole 5 MG TABLET PO SCH (08:23)
[2020-05-07] MEDS: LACTOBACILLUS RHAMNOSUS GG 1 CAPSULE. PO SCH ×2 (08:23→20:25)
[2020-05-07] MEDS: FOLIC ACID 1 MG TABLET. PO SCH (08:23)
[2020-05-07] MEDS: DULoxetine HCL 30 MG CAPSULE.DR PO SCH (08:23)
[2020-05-07] MEDS: PANTOPRAZOLE IV PUSH 40 MG VIAL. IVP SCH (08:24)
[2020-05-07] MEDS: amLODIPine BESYLATE 10 MG TABLET PO SCH (09:00)
[2020-05-07] MEDS: VITS A & D/LANOLIN TOPICAL OINTMENT 42GM TUBE. TP SCH ×2 (09:00→20:25)
[2020-05-07] MEDS: ACETAMINOPHEN 325 MG TABLET. PO SCH ×2 (09:00→20:25)
[2020-05-07] MEDS: hydrALAZINE 25 MG TABLET PO SCH ×3 (09:00→19:22)
[2020-05-07] MEDS: FLUTICASONE 50MCG/NASAL SPRAY 16GM BOTTLE. NS SCH (09:00)
[2020-05-07] MEDS: MICAFUNGIN 100 MG in IV DEXTROSE 5% 100ML 100 ML IV SCH (09:14)
[2020-05-07] MEDS: DEXMEDETOMIDINE 400 MCG in IV NORMAL SALINE 100ML 96 ML IV PRN ×2 (09:19→21:42)
[2020-05-07] MEDS: LACOSAMIDE 200 MG in IV DEXTROSE 5% 50 ML IV SCH ×2 (09:19→21:01)
[2020-05-07] MEDS: VANCOMYCIN PER PHARMACY MC PRN (09:47)
[2020-05-07] MEDS: levETIRAcetam 1,500 MG in IV DEXTROSE 5% 100ML 100 ML IV SCH ×2 (10:10→21:00)
--- NOTE | 2020-05-07 11:11 | PN ---
DATE: 05/07/2020 SUBJECTIVE: The patient continued to be heavily sedated, intubated and mechanically ventilated. She is on fentanyl as well as Versed drip and propofol. PHYSICAL EXAMINATION: GENERAL: When I examined her, she was pale, no jaundice, cyanosis or thyromegaly. No jugular venous distention. No limb edema. VITAL SIGNS: Her heart rate was 90, blood pressure was 122/67, temperature was 96.1, respiratory rate 20, and oxygen saturation was 99% on FiO2 of 50%. HEAD, EYES, EARS, NOSE AND THROAT: Showed normocephalic, atraumatic. NECK: Supple. CARDIAC: Normal first and second heart sounds. No gallop or murmur. CHEST: Clear to auscultation. No crepitation or rhonchi. ABDOMEN: Distended, soft, nontender. NEUROLOGIC: She is heavily sedated. Her intake over the last 24 hours was 4650, output was 2860. LABORATORY DATA: Showed a white cell count 12,600, hemoglobin 7.5, hematocrit 23.6, MCV 90 and platelet count of 167,000. Her chemistry showed a serum sodium 141, potassium 3.7, chloride 110, bicarbonate 20, anion gap of 11, BUN 29, creatinine 0.7, estimated GFR was 101 and glucose 178, calcium was 8.3. Total bilirubin, AST, ALT, alkaline phosphatase were normal. Total protein was 5.5, albumin was 1.3. Her prothrombin time and INR are normal. Her most recent D-dimer was 10.3. ASSESSMENT: 1. COVID-19 pneumonia. 2. Acute hypoxic respiratory failure, status post intubation and mechanical ventilation. 3. Traumatic brain injury with resultant right-sided hemiplegia, aphasia and dysphagia. 4. Hypertension. The patient is actually normotensive, off Levophed. 5. Type 2 diabetes mellitus, much better controlled now that her steroids were cut down and she is on Glucerna as well as insulin sliding scale. 6. Posttraumatic seizure disorder for which she continues to be on fosphenytoin and Keppra and lacosamide. 7. Sinus bradycardia. 8. Hypernatremia that has resolved. Her most recent serum sodium is down to 141. 9. Hypokalemia, resolved. Her most recent serum potassium is up to 4.2. 10. The patient did spike a temperature and her stool was sent for C. diff toxins. Her antibiotics were adjusted by Infectious Disease specialist. She is now on micafungin, cefepime, metronidazole and linezolid. I did discuss with the nursing staff her C. diff actually was negative and her coronavirus by PCR was detectable on 04/19/2020. PLAN: To attempt to wean her off the sedation and get the patient evaluated by the neurologist and I will obviously talk to her DPOA, the court appointed data architect and basically keep him posted as to her progress as he cannot make decision regarding DNR/DNI or to withhold care and he has to get an order from the court. ETELVINA HAYWOOD MD DR: ALISON/hernán JOB#: [id number] / [id number]
[2020-05-07 11:23] LABS: FIO2 ABG 40/VENT
[2020-05-07] MEDS: VANCOMYCIN 1 GM in IV NORMAL SALINE 250ML 250 ML IV SCH (12:48)
--- NOTE | 2020-05-07 14:56 | NUR ---
SS following up with discharge planning. SS reviewed pt chart and discussed with pt RN. COVID19 positive. Pt remains on the vent at this time. Pt on IV Vancomycin, IV Micafungin, and IV Cefepime. Pt accepted at [facility], ; fax [phone]. SS phoned and faxed clinical updates to [facility]. SS will continue to follow for discharge planning.
[2020-05-07] MEDS: LISINOPRIL 10 MG TABLET PO SCH (19:23)
[2020-05-07] MEDS: MIRTAZAPINE 15 MG TABLET PO SCH (20:26)
[2020-05-07] MEDS: ATORVASTATIN CALCIUM 10 MG TABLET. PO SCH (20:26)
[2020-05-07] MEDS: LATANOPROST 0.005% OPHTH SOLUTION 2.5ML BOTTLE. OU SCH (20:27)
[2020-05-08] VITALS (23 sets, daily range): BP systolic 89–170; BP diastolic 51–79
[2020-05-08] MEDS: INSULIN LISPRO 300 UNITS/3 ML VIAL. SQ SCH ×4 (00:05→18:00)
[2020-05-08] MEDS: METOPROLOL TARTRATE 5 MG/5 ML VIAL. IVP SCH ×3 (02:23→17:53)
[2020-05-08] MEDS: DEXMEDETOMIDINE 400 MCG in IV NORMAL SALINE 100ML 96 ML IV PRN ×2 (03:14→14:01)
[2020-05-08 05:38] LABS: CREATININE 0.7 mg/dL (0.6-1.0)
[2020-05-08] MEDS: methylPREDNISolone SOD SUCC PF 40 MG/ML VIAL. IV SCH ×3 (05:38→20:32)
[2020-05-08] MEDS: FOSPHENYTOIN 100 MG/2 ML VIAL. IV SCH ×3 (05:39→20:33)
[2020-05-08] MEDS: CEFEPIME HCL IV Push 1 GM VIAL. IVP SCH ×3 (05:40→20:32)
[2020-05-08 05:46] LABS: VANC TR 15.3 mcg/mL (10.0-20.0)
[2020-05-08] MEDS: VANCOMYCIN 1 GM in IV NORMAL SALINE 250ML 250 ML IV SCH (05:58)
[2020-05-08] MEDS: VANCOMYCIN PER PHARMACY MC PRN (06:03)
--- NOTE | 2020-05-08 06:03 | NUR ---
Pharmacy Vancomycin Dosing Note S:Consulted to monitor and dose vancomycin started 05/06/20. O:JOSETTE HARMAN is a 65 year old F with Bacteremia . Height: 5 feet, 2 inches Weight: 84.4 kg [place] Body Weight: 50.10 Adjusted Body Weight: 63.82 Dosing Weight: Actual Other Antibiotics: Metronidazole, Cefepime, Micafungin LABS: Last BUN: 29 Last Creatinine: 0.7 Creatinine Clearance: 55 mL/min Last WBC: 12.6 Last Procalcitonin: 6.71 (04/19) Tmax (past 24 hours): 96 (low) Microbiology: 05/05 BLOOD: GPC SUGG OF STAPH 04/19: blood cx 1 of 3 bottles growing gram positive cocci in clusters (final ID = staphylococcus coag neg sp) 04/19: urine cx (growing E. coli) No repeat cultures drawn at this time I/O: 4293/2675 Drug Levels: Last Trough level: 15.3 on 05/08/20 at 0500 Last dose given 05/06/21 at 1729 Vancomycin Dosing: Loading Dose: 2000 mg x1 Dosing Weight: Actual Target Trough: 15-20 A: Based on: TROUGH P: 1. Continue Vancomycin 1000 mg IV q18h 2. Follow up Trough level IF NEEDED 3. Pharmacy will continue to monitor, follow and adjust therapy as needed. DRE JEWELL RPH, 05/08/20 06 Signed: 05/08/20 at 0604 by DRE JEWELL RPH PHA
[2020-05-08] MEDS: MIDAZOLAM 100mg/100ml NS BAG 100 ML IV PRN ×2 (07:33→19:22)
[2020-05-08 07:49] LABS: BASO # 0.3 x10^3/uL (0.0-0.2); BASO % 2 % (0-3); EOS # 0.1 x10^3/uL (0.0-0.7); EOS % 1 % (0-3); HEMOGLOBIN 8.3 g/dL (12.0-15.5); LYMPH # 5.1 x10^3/uL (1.0-4.8); LYMPH % 30 % (24-48); MEAN CORPUSCULAR HEMOGLOBIN 29 pg (25-35); MEAN CORPUSCULAR HGB CONC 32 g/dL (31-37); MEAN CORPUSCULAR VOLUME 91 fL (79-100); MONO # 0.8 x10^3/uL (0.0-1.1); MONO % 5 % (0-9); NEUT # 10.8 x10^3/uL (1.8-7.7); NEUT % 63 % (31-73); PLATELET COUNT 226 x10^3/uL (140-400); RED BLOOD COUNT 2.86 x10^6/uL (3.50-5.40); RED CELL DISTRIBUTION WIDTH 16.7 % (11.5-14.5)
--- NOTE | 2020-05-08 07:50 | RAD ---
PORTABLE CHEST 1V Clinical indications: Respiratory failure. Covid. Comparison: May 01, 2020. Findings: ET tube tip is located 1.5 cm above the level of the davina. NG tube and right IJ central line remain in place. Bilateral diffuse lung infiltrates are again evident. There has been improvement in the right upper lobe. Overall, there is an increase in density of the left lung field infiltrates which may be due to technique and positioning rather than worsening. Small bilateral pleural effusions are stable. No pneumothorax is evident. Heart size and mediastinum is stable. Impression: Bilateral lung infiltrates. There has been improvement in the right upper lobe. Electronically signed by: Pete Vivas MD (05/08/2020 7:47 AM) [id number]
--- NOTE | 2020-05-08 07:50 | PDOC ---
Infectious Disease Note Subjective Subjective Intubated/sedated Vital Sign Vital Signs Vital Signs Date Time Temp Pulse Resp B/P (MAP) Pulse Ox O2 Delivery O2 Flow Rate FiO2 05/08/20 06:00 93 23 129/59 (82) 95 Ventilator 05/08/20 04:00 96.8 96.8 Physical Exam PHYSICAL EXAM GENERAL: Intubated/sedated - HEENT: PERRL, no icterus, ETT/OGT NECK: Supple, LUNGS: Coarse bs scattered Left > right HEART: S1, S2 tachycardia ABDOMEN: soft bs+ nondistended, OGT, Rectal tube : Anglin in place EXTREMITIES: 1 plus edema R > L, no cyanosis. SKIN: Unremarkable. NEUROLOGIC: Intubated/sedated. Central line is clean 04/28 Labs Lab Laboratory Tests Test 05/07/20 08:00 05/07/20 13:09 05/07/20 17:20 05/08/20 00:04 O2 Saturation 88 % (92-99) Arterial Blood pH 7.35 (7.35-7.45) Arterial Blood pCO2 at Patient Temp 35 mmHg (35-46) Arterial Blood pO2 at Patient Temp 56 mmHg (65-108) Arterial Blood HCO3 19 mmol/L (21-28) Arterial Blood Base Excess -6 mmol/L (-3-3) FiO2 40/vent Glucose (Fingerstick) 217 mg/dL (70-99) 186 mg/dL (70-99) 154 mg/dL (70-99) Test 05/08/20 04:58 05/08/20 05:00 Glucose (Fingerstick) 171 mg/dL (70-99) Creatinine 0.7 mg/dL (0.6-1.0) Estimated GFR (Cockcroft-Gault) 101.0 Vancomycin Level Trough 15.3 mcg/mL (10.0-20.0) Vancomycin Last Dose Date 05/07/20 Vancomycin Last Dose Time 1130 Micro Microbiology 05/02/20 Blood Culture - Preliminary, Resulted NO GROWTH AFTER 1 DAY 04/19/20 Urine Culture - Final, Complete 04/19/20 Antimicrobic Susceptibility - Final, Complete Objective Assessment 08/30 bottle GPC 05/05 Vanc started zyvox d/c'd - STCN contamination 1. COVID-19 pneumonia 04/19. 2. Acute hypoxic respiratory failure s/p intubation now 40 % Fi02 and 10 PEEP 3. Blood culture 1 out of 3, coag neg staph, contaminant.04/19 4. Fever 05/05 - improved - UA neg/C-diff neg 5. Right-sided cerebrovascular accident. 6. Traumatic brain injury with aphasia . 7. E. coli UTI 04/19 R Gent/Bactrim/Tetra 8. RIJ place 04/28 9. Loose stool 10. Leukocytosis - on steroids Plan Plan of Care U/S RLE with edema Cont Flagyl/Cefepime/Micafungin for now Vanc Added 05/06 will d/c today 05/08 D/c Per tube vanc with neg C-diff 05/07 cont supportive care s/p plasma administration on steroids increased 05/02 follow up labs and cults Prognosis poor Consider palliative care Discussed with nursing staff NEDA PASCUAL MD May 08, 2020 07:50
[2020-05-08] MEDS: VECURONIUM BOLUS 10 MG VIAL. IV PRN ×2 (08:00→20:14)
[2020-05-08] MEDS: VALPROIC ACID IV SCH ×2 (08:08→20:34)
[2020-05-08] MEDS: DEXTROSE 5% IV SCH ×2 (08:08→20:34)
[2020-05-08 08:14] LABS: CALCIUM 8.5 mg/dL (8.5-10.1); CREATININE 0.7 mg/dL (0.6-1.0)
[2020-05-08 08:15] LABS: POTASSIUM 4.1 mmol/L (3.5-5.1)
[2020-05-08] MEDS: PANTOPRAZOLE IV PUSH 40 MG VIAL. IVP SCH (08:15)
[2020-05-08] MEDS: LACTOBACILLUS RHAMNOSUS GG 1 CAPSULE. PO SCH ×2 (08:16→20:31)
[2020-05-08] MEDS: ENOXAPARIN 40 MG/0.4 ML SYRINGE. SQ SCH (08:16)
[2020-05-08] MEDS: GABAPENTIN 400 MG CAPSULE. PO SCH ×3 (08:16→20:31)
[2020-05-08] MEDS: BACLOFEN 10 MG TABLET. PO SCH ×3 (08:16→20:31)
[2020-05-08] MEDS: CHLORHEXIDINE 0.12% 15 ML MOUTHWASH. MM SCH ×2 (08:16→20:36)
[2020-05-08] MEDS: ASPIRIN CHEWABLE 81 MG TABLET. PO SCH (08:16)
[2020-05-08] MEDS: busPIRone 5 MG TABLET. PO SCH ×2 (08:17→20:31)
[2020-05-08] MEDS: FOLIC ACID 1 MG TABLET. PO SCH (08:17)
[2020-05-08] MEDS: DULoxetine HCL 30 MG CAPSULE.DR PO SCH (08:17)
[2020-05-08] MEDS: metFORMIN 500 MG TABLET PO SCH ×2 (08:17→17:00)
[2020-05-08] MEDS: ACETAMINOPHEN 325 MG TABLET. PO SCH ×2 (08:17→20:31)
[2020-05-08] MEDS: ARIPiprazole 5 MG TABLET PO SCH (08:17)
[2020-05-08] MEDS: MULTIVITAMIN with MINERAL TABLET. PO SCH (08:17)
[2020-05-08] MEDS: amLODIPine BESYLATE 10 MG TABLET PO SCH (08:20)
--- NOTE | 2020-05-08 08:32 | PDOC ---
PULMONARY PROGRESS NOTES DATE: 05/08/20 TIME: 08:32 Subjective Intubated, 05/01 Patient's oxygen requirements have increased she also has a metabolic acidosis, per ABG Vitals Vital Signs Date Time Temp Pulse Resp B/P (MAP) Pulse Ox O2 Delivery O2 Flow Rate FiO2 05/08/20 08:20 119 170/79 05/08/20 06:00 23 95 Ventilator 05/08/20 04:00 96.8 96.8 Comments visual exam done on vent sedated nc at rrr no accessory muscle use no paradoxical abd motion no rash no edema Labs Laboratory Tests Test 05/06/20 11:16 05/06/20 18:14 05/06/20 23:44 05/07/20 05:40 Glucose (Fingerstick) 202 mg/dL (70-99) 145 mg/dL (70-99) 144 mg/dL (70-99) 169 mg/dL (70-99) Test 05/07/20 06:00 05/07/20 08:00 05/07/20 13:09 05/07/20 17:20 White Blood Count 12.6 x10^3/uL (4.0-11.0) Red Blood Count 2.62 x10^6/uL (3.50-5.40) Hemoglobin 7.5 g/dL (12.0-15.5) Hematocrit 23.6 % (36.0-47.0) Mean Corpuscular Volume 90 fL (79-100) Mean Corpuscular Hemoglobin 29 pg (25-35) Mean Corpuscular Hemoglobin Concent 32 g/dL (31-37) Red Cell Distribution Width 16.5 % (11.5-14.5) Platelet Count 167 x10^3/uL (140-400) Sodium Level 141 mmol/L (136-145) Potassium Level 3.7 mmol/L (3.5-5.1) Chloride Level 110 mmol/L (98-107) Carbon Dioxide Level 20 mmol/L (21-32) Anion Gap 11 (6-14) Blood Urea Nitrogen 29 mg/dL (7-20) Creatinine 0.7 mg/dL (0.6-1.0) Estimated GFR (Cockcroft-Gault) 101.0 BUN/Creatinine Ratio 41 (6-20) Glucose Level 178 mg/dL (70-99) Calcium Level 8.3 mg/dL (8.5-10.1) Total Bilirubin 0.1 mg/dL (0.2-1.0) Aspartate Amino Transf (AST/SGOT) 21 U/L (15-37) Alanine Aminotransferase (ALT/SGPT) 19 U/L (14-59) Alkaline Phosphatase 58 U/L (46-116) Total Protein 5.5 g/dL (6.4-8.2) Albumin 1.3 g/dL (3.4-5.0) Albumin/Globulin Ratio 0.3 (1.0-1.7) O2 Saturation 88 % (92-99) Arterial Blood pH 7.35 (7.35-7.45) Arterial Blood pCO2 at Patient Temp 35 mmHg (35-46) Arterial Blood pO2 at Patient Temp 56 mmHg (65-108) Arterial Blood HCO3 19 mmol/L (21-28) Arterial Blood Base Excess -6 mmol/L (-3-3) FiO2 40/vent Glucose (Fingerstick) 217 mg/dL (70-99) 186 mg/dL (70-99) Test 05/08/20 00:04 05/08/20 04:58 05/08/20 05:00 05/08/20 07:35 Glucose (Fingerstick) 154 mg/dL (70-99) 171 mg/dL (70-99) Creatinine 0.7 mg/dL (0.6-1.0) 0.7 mg/dL (0.6-1.0) Estimated GFR (Cockcroft-Gault) 101.0 101.0 Vancomycin Level Trough 15.3 mcg/mL (10.0-20.0) Vancomycin Last Dose Date 05/07/20 Vancomycin Last Dose Time 1130 White Blood Count 17.0 x10^3/uL (4.0-11.0) Red Blood Count 2.86 x10^6/uL (3.50-5.40) Hemoglobin 8.3 g/dL (12.0-15.5) Hematocrit 26.0 % (36.0-47.0) Mean Corpuscular Volume 91 fL (79-100) Mean Corpuscular Hemoglobin 29 pg (25-35) Mean Corpuscular Hemoglobin Concent 32 g/dL (31-37) Red Cell Distribution Width 16.7 % (11.5-14.5) Platelet Count 226 x10^3/uL (140-400) Neutrophils (%) (Auto) 63 % (31-73) Lymphocytes (%) (Auto) 30 % (24-48) Monocytes (%) (Auto) 5 % (0-9) Eosinophils (%) (Auto) 1 % (0-3) Basophils (%) (Auto) 2 % (0-3) Neutrophils # (Auto) 10.8 x10^3/uL (1.8-7.7) Lymphocytes # (Auto) 5.1 x10^3/uL (1.0-4.8) Monocytes # (Auto) 0.8 x10^3/uL (0.0-1.1) Eosinophils # (Auto) 0.1 x10^3/uL (0.0-0.7) Basophils # (Auto) 0.3 x10^3/uL (0.0-0.2) Sodium Level 141 mmol/L (136-145) Potassium Level 4.1 mmol/L (3.5-5.1) Chloride Level 111 mmol/L (98-107) Carbon Dioxide Level 22 mmol/L (21-32) Anion Gap 8 (6-14) Blood Urea Nitrogen 27 mg/dL (7-20) Glucose Level 183 mg/dL (70-99) Calcium Level 8.5 mg/dL (8.5-10.1) Laboratory Tests Test 05/07/20 13:09 05/07/20 17:20 05/08/20 00:04 05/08/20 04:58 Glucose (Fingerstick) 217 mg/dL (70-99) 186 mg/dL (70-99) 154 mg/dL (70-99) 171 mg/dL (70-99) Test 05/08/20 05:00 05/08/20 07:35 Creatinine 0.7 mg/dL (0.6-1.0) 0.7 mg/dL (0.6-1.0) Estimated GFR (Cockcroft-Gault) 101.0 101.0 Vancomycin Level Trough 15.3 mcg/mL (10.0-20.0) Vancomycin Last Dose Date 05/07/20 Vancomycin Last Dose Time 1130 White Blood Count 17.0 x10^3/uL (4.0-11.0) Red Blood Count 2.86 x10^6/uL (3.50-5.40) Hemoglobin 8.3 g/dL (12.0-15.5) Hematocrit 26.0 % (36.0-47.0) Mean Corpuscular Volume 91 fL (79-100) Mean Corpuscular Hemoglobin 29 pg (25-35) Mean Corpuscular Hemoglobin Concent 32 g/dL (31-37) Red Cell Distribution Width 16.7 % (11.5-14.5) Platelet Count 226 x10^3/uL (140-400) Neutrophils (%) (Auto) 63 % (31-73) Lymphocytes (%) (Auto) 30 % (24-48) Monocytes (%) (Auto) 5 % (0-9) Eosinophils (%) (Auto) 1 % (0-3) Basophils (%) (Auto) 2 % (0-3) Neutrophils # (Auto) 10.8 x10^3/uL (1.8-7.7) Lymphocytes # (Auto) 5.1 x10^3/uL (1.0-4.8) Monocytes # (Auto) 0.8 x10^3/uL (0.0-1.1) Eosinophils # (Auto) 0.1 x10^3/uL (0.0-0.7) Basophils # (Auto) 0.3 x10^3/uL (0.0-0.2) Sodium Level 141 mmol/L (136-145) Potassium Level 4.1 mmol/L (3.5-5.1) Chloride Level 111 mmol/L (98-107) Carbon Dioxide Level 22 mmol/L (21-32) Anion Gap 8 (6-14) Blood Urea Nitrogen 27 mg/dL (7-20) Glucose Level 183 mg/dL (70-99) Calcium Level 8.5 mg/dL (8.5-10.1) Medications Active Scripts Medications Dose Route/Sig Max Daily Dose Days Date Category Dose Instructions Voltaren (Diclofenac Sodium) 100 Gm Gel..gram. 1 Jitendra TP TID 04/19/20 Reported Famotidine 20 Mg Tablet 20 Mg PO HS 01/28/20 Reported Dilantin (Phenytoin Sodium Extended) 100 Mg Capsule 30 Mg PO HS 01/28/20 Reported Lisinopril 30 Mg Tablet 1 Tab PO HS 01/28/20 Reported Mirtazapine 30 Mg Tab.rapdis 30 Mg PO QHS 30 01/28/20 Reported D3-50 (Cholecalciferol (Vitamin D3)) 50,000 Unit Capsule 1 Cap PO WEEKLY 28 01/28/20 Reported Aspirin 81 Mg Tab.chew 1 Tab PO DAILY 01/28/20 Reported Atorvastatin Calcium 10 Mg Tablet 10 Mg PO HS 02/24/17 Reported Anti-Diarrhea (Loperamide Hcl) 2 Mg Tablet 2 Mg PO PRN Q6HRS PRN 02/24/17 Reported Metformin Hcl 1,000 Mg Tablet 1 Tab PO BID 12/26/15 Rx Tylenol (Acetaminophen) 325 Mg Tablet 650 Mg PO BID 12/24/15 Reported Norvasc (Amlodipine Besylate) 10 Mg Tablet 10 Mg PO DAILY 12/24/15 Reported Milk Of Magnesia (Magnesium Hydroxide) 400 Mg/5 Ml Oral.susp 1,200 Mg PO PRN DAILY PRN 12/24/15 Reported Latanoprost 2.5 Ml Drops 1 Drop EACHEYE QHS 12/24/15 Reported Vimpat (Lacosamide) 200 Mg Tablet 200 Mg PO BID 12/24/15 Reported Keppra (Levetiracetam) 500 Mg Tablet 1,500 Mg PO BID 12/24/15 Reported Gabapentin (Gabapentin) 400 Mg Capsule 400 Mg PO TID 12/24/15 Reported Folic Acid 1 Mg Tablet 1 Tab PO DAILY 12/24/15 Reported Flonase Allergy Relief (Fluticasone Propionate) 9.9 Ml [place].susp 2 Sprays NS DAILY 12/24/15 Reported Buspirone Hcl 5 Mg Tablet 1 Tab PO BID 12/24/15 Reported Abilify (Aripiprazole) 5 Mg Tablet 5 Mg PO DAILY 12/24/15 Reported Hydrocortisone 30 Gm Cream..g. 30 Gm RC PRN BID PRN 05/20/14 Reported Hydrocortisone 1% Absorbase (Hc/Mineral Oil/Petrolat,Wht) 25 Gm Oint...g. 25 Gm TP 05/20/14 Reported Hydralazine Hcl 25 Mg Tablet 2 Tab PO TID 05/20/14 Reported Dilantin (Phenytoin Sodium Extended) 100 Mg Capsule 400 Mg PO HS 05/20/14 Reported give with 30mg to equal 430mg Depakote Sprinkle (Divalproex Sodium) 125 Mg Cap.sprink 125 Mg PO BID 05/20/14 Reported Cymbalta (Duloxetine Hcl) 30 Mg Capsule. 3 Cap PO DAILY 05/20/14 Reported Centrum Silver Ultra Women Tab (Multivits W-Fe,Other Min/Lut) 1 Each Tablet 1 Each PO DAILY 05/20/14 Reported Baclofen 10 Mg Tablet 1 Tab PO TID 05/20/14 Reported Comments CXR reviewed b lat infilt Impression . 1. Acute hypoxic respiratory failure secondary to COVID-19 pneumonia./ ALI/ARDS 2. Abnormal chest x-ray with patchy infiltrates bilaterally, pneumonia, COVID-19.--COVID 19 positive/ARDS 3. 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 4. History of posttraumatic epilepsy. 5. No significant tobacco history. 6. Mild azotemia--improved 7. Normal D-dimer. 8. Fever, 9. Encephalopathy, 10. Anemia 11. Metabolic acidosis Plan . ABG noted, discussed with RN Requiring increasing oxygen requirements Prognosis is poor, Discussed with RN titrate Levophed off Follow ID input Solu-Medrol 40 q 8hrs elevate hob DVT/GI PPX Repeat d-dimer 10.3, on high dose DVT prophylaxis s/p Plasma IV bicarb for met acidosis, as needed Total cumulative critical care time of 30-minute d/w RN/RT MEHRAN DICKEY MD May 08, 2020 08:32
[2020-05-08 08:33] LABS: BASE EXCESS ABG -9 mmol/L (-3-3); HCO3 ABG 17 mmol/L (21-28); PCO2 ABG 36 mmHg (35-46); PO2 ABG 52 mmHg (65-108); SAT O2 ABG 82 % (92-99)
[2020-05-08 08:42] LABS: CORRECTED PCO2 ABG 38 mmHg; CORRECTED PH ABG 7.27; CORRECTED PO2 ABG 56 mmHg; FIO2 ABG 80%
[2020-05-08] MEDS: FLUTICASONE 50MCG/NASAL SPRAY 16GM BOTTLE. NS SCH (09:00)
[2020-05-08] MEDS: VITS A & D/LANOLIN TOPICAL OINTMENT 42GM TUBE. TP SCH ×2 (09:00→21:00)
[2020-05-08] MEDS: hydrALAZINE 25 MG TABLET PO SCH ×3 (09:00→20:55)
[2020-05-08 09:21] LABS: % BANDS 18 % (0-9); % LYMPHS 23 % (24-48); % METAS 1 % (0-0); % MONOS 4 % (0-10); % MYELOS 2 % (0-0); % SEGS 51 % (35-66); NUCLEATED RBC 1; PLT ESTIMATE ADEQUATE (ADEQUATE)
[2020-05-08] MEDS: levETIRAcetam 1,500 MG in IV DEXTROSE 5% 100ML 100 ML IV SCH ×2 (09:28→20:38)
[2020-05-08 10:00] LABS: ANISOCYTOSIS SLIGHT; POIKILOCYTOSIS SLIGHT; POLYCHROMASIA PRESENT; TEAR DROP CELLS FEW
[2020-05-08 10:01] LABS: BURR CELLS FEW
[2020-05-08] MEDS: LACOSAMIDE 200 MG in IV DEXTROSE 5% 50 ML IV SCH ×2 (10:06→20:39)
--- NOTE | 2020-05-08 10:52 | PN ---
DATE: 05/08/2020 SUBJECTIVE: The patient continued to be intubated, mechanically ventilated and sedated. Unfortunately, her condition is worsening and her oxygen requirement has increased. Her chest x-ray showed worsening of lung infiltrate, although there is some improvement in the right upper lobe. We did a Doppler ultrasound as she has marked swelling of both lower extremities and she is positive for DVT in the right lower extremity, despite being on Lovenox, given that she has worsening of her condition I spoke with her court appointed DPOA Mr. Gilbert Mcclain at [phone] and we will start a court proceeding to change her status to DNR/DNI. PHYSICAL EXAMINATION: GENERAL: When I examined her this morning, she was pale, but no jaundice, cyanosis or thyromegaly. No jugular venous distention, but generalized anasarca. VITAL SIGNS: Her heart rate was 95, blood pressure 116/65, temperature was 100.6, respiratory rate was 24, and oxygen saturation was 91%. HEAD, EYES, EARS, NOSE AND THROAT: Showed normocephalic, atraumatic. NECK: Supple. HEART: Showed normal first and second heart sounds. No gallop or murmur. CHEST: Clear to auscultation. No crepitation or rhonchi anteriorly. ABDOMEN: Distended, soft, nontender. NEUROLOGIC: She is heavily sedated. Her intake over the last 24 hours was 4300, output was 2675. LABORATORY DATA: As of this morning, her pH was 7.28, pCO2 of 36, pO2 of 52 and oxygen saturation was 82% on FiO2 of 80%. Her white cell count is up to 17,000, hemoglobin 8.3, hematocrit 26, MCV 91, and platelet count 226,000. Her chemistry showed a serum sodium 141, potassium 4.1, chloride 111, bicarbonate 22, anion gap of 8, BUN 27, creatinine 0.7, estimated GFR was 101 mL per minute. Her glucose was 183, calcium was 8.5. ASSESSMENT: 1. COVID-19 pneumonia. 2. Acute hypoxic respiratory failure, status post intubation and mechanical ventilation. The patient's chest x-ray is worsening and her oxygen requirement is worsening. 3. Hypertension for which she is on Levophed. 4. Type 2 diabetes mellitus, much better controlled, that her steroids were cut down and she is on Glucerna and insulin sliding scale. 5. Posttraumatic seizure disorder for which she continues to be on fosphenytoin and Keppra and lacosamide. 6. Sinus bradycardia. 7. Hypernatremia has resolved. Her most recent serum sodium is down to 141. Hypokalemia, resolved. Her most recent potassium is down to 4.1. The patient has also deep venous thrombosis. 8. Deep venous thrombosis of the right lower extremity. 9. Patient spiked her temperature and her antibiotics were adjusted by the Infectious Disease specialist. Her C. diff toxins were negative; however, the patient continued to deteriorate and with worsening oxygen requirement and worsening chest x-ray and therefore, I spoke with her DPOA, the court appointed Mr. Gilbert Mcclain to start the proceeding to change her status to DNR/DNI. ETELVINA HAYWOOD MD DR: ALISON/hernán JOB#: [id number] / [id number]
[2020-05-08] MEDS: MICAFUNGIN 100 MG in IV DEXTROSE 5% 100ML 100 ML IV SCH (10:58)
[2020-05-08] MEDS ORDERED: ENOXAPARIN 40 MG/0.4 ML SYRINGE. SQ ONE (11:00)
--- NOTE | 2020-05-08 13:04 | RAD ---
VENOUS LOWER EXTREMITY RIGHT History: Reason: swelling; Covid + / Spl. Instructions: / History: Comparison: None. Discussion: Multiple longitudinal and transverse high resolution real-time images of the venous system of right lower extremity were obtained with color and Doppler sampling. Occlusive thrombus within the right common femoral and superficial femoral veins. Occlusive thrombus also noted within the right greater saphenous vein. Patent right distal superficial femoral saphenous vein, popliteal vein and calf veins. Right lower extremity subcutaneous edema. Results discussed with patient's nurse by ultrasound technologist sonographer at time of study. Impression: 1. Occlusive deep vein thrombosis within the right common femoral and superficial femoral veins. 2. Superficial thrombosis within the right greater saphenous vein. Electronically signed by: Cristopher Blanchard DO (05/08/2020 1:01 PM) [id number]
--- NOTE | 2020-05-08 14:18 | NUR ---
SS following up with discharge planning. SS reviewed pt chart and discussed with pt RN. Pt remains on the vent at this time. COVID19 positive. Pt on IV Micafungin and IV Cefepime. Pt accepted at [facility], ; fax [phone]. SS will continue to follow for discharge planning.
[2020-05-08] MEDS: fentaNYL HIGH DOSE PCA 55 ML IV PRN (19:47)
[2020-05-08] MEDS: ATORVASTATIN CALCIUM 10 MG TABLET. PO SCH (20:31)
[2020-05-08] MEDS: MIRTAZAPINE 15 MG TABLET PO SCH (20:31)
[2020-05-08] MEDS: LISINOPRIL 10 MG TABLET PO SCH (20:53)
[2020-05-08] MEDS: LATANOPROST 0.005% OPHTH SOLUTION 2.5ML BOTTLE. OU SCH (21:00)
[2020-05-09] VITALS (25 sets, daily range): BP systolic 74–133; BP diastolic 49–82
[2020-05-09] MEDS: INSULIN LISPRO 300 UNITS/3 ML VIAL. SQ SCH ×5 (00:01→23:45)
[2020-05-09] MEDS: METOPROLOL TARTRATE 5 MG/5 ML VIAL. IVP SCH ×6 (00:01→23:45)
[2020-05-09] MEDS: DEXMEDETOMIDINE 400 MCG in IV NORMAL SALINE 100ML 96 ML IV PRN ×4 (03:50→21:27)
[2020-05-09 04:16] LABS: HEMATOCRIT 21.1 % (36.0-47.0); RED BLOOD COUNT 2.31 x10^6/uL (3.50-5.40); RED CELL DISTRIBUTION WIDTH 16.8 % (11.5-14.5); WHITE BLOOD COUNT 9.7 x10^3/uL (4.0-11.0)
[2020-05-09 04:30] LABS: ALBUMIN 1.2 g/dL (3.4-5.0); ALBUMIN/GLOBULIN RATIO 0.3 (1.0-1.7); CALCIUM 8.2 mg/dL (8.5-10.1); CREATININE 0.7 mg/dL (0.6-1.0); TOTAL BILIRUBIN 0.1 mg/dL (0.2-1.0); TOTAL PROTEIN 5.2 g/dL (6.4-8.2)
[2020-05-09 04:44] LABS: HEMOGLOBIN 6.8 g/dL (12.0-15.5)
[2020-05-09] MEDS: MIDAZOLAM 100mg/100ml NS BAG 100 ML IV PRN ×2 (04:45→15:13)
[2020-05-09] MEDS: FOSPHENYTOIN 100 MG/2 ML VIAL. IV SCH ×3 (05:43→21:11)
[2020-05-09] MEDS: methylPREDNISolone SOD SUCC PF 40 MG/ML VIAL. IV SCH ×3 (05:44→21:09)
--- NOTE | 2020-05-09 06:12 | PDOC ---
Infectious Disease Note Subjective Subjective Intubated/sedated Vital Sign Vital Signs Vital Signs Date Time Temp Pulse Resp B/P (MAP) Pulse Ox O2 Delivery O2 Flow Rate FiO2 05/09/20 05:00 72 22 78/49 (59) 100 Ventilator 05/09/20 00:00 98.1 98.1 05/08/20 19:47 40.0 Physical Exam PHYSICAL EXAM GENERAL: Intubated/sedated - HEENT: PERRL, no icterus, ETT/OGT NECK: Supple, LUNGS: Coarse bs scattered Left > right HEART: S1, S2 tachycardia ABDOMEN: soft bs+ nondistended, OGT, Rectal tube : Anglin in place EXTREMITIES: 1 plus edema R > L, no cyanosis. SKIN: Unremarkable. NEUROLOGIC: Intubated/sedated. Central line is clean 04/28 Labs Lab Laboratory Tests Test 05/08/20 07:35 05/08/20 08:30 05/08/20 13:45 05/08/20 17:11 White Blood Count 17.0 x10^3/uL (4.0-11.0) Red Blood Count 2.86 x10^6/uL (3.50-5.40) Hemoglobin 8.3 g/dL (12.0-15.5) Hematocrit 26.0 % (36.0-47.0) Mean Corpuscular Volume 91 fL (79-100) Mean Corpuscular Hemoglobin 29 pg (25-35) Mean Corpuscular Hemoglobin Concent 32 g/dL (31-37) Red Cell Distribution Width 16.7 % (11.5-14.5) Platelet Count 226 x10^3/uL (140-400) Neutrophils (%) (Auto) 63 % (31-73) Lymphocytes (%) (Auto) 30 % (24-48) Monocytes (%) (Auto) 5 % (0-9) Eosinophils (%) (Auto) 1 % (0-3) Basophils (%) (Auto) 2 % (0-3) Neutrophils # (Auto) 10.8 x10^3/uL (1.8-7.7) Lymphocytes # (Auto) 5.1 x10^3/uL (1.0-4.8) Monocytes # (Auto) 0.8 x10^3/uL (0.0-1.1) Eosinophils # (Auto) 0.1 x10^3/uL (0.0-0.7) Basophils # (Auto) 0.3 x10^3/uL (0.0-0.2) Segmented Neutrophils % 51 % (35-66) Band Neutrophils % 18 % (0-9) Lymphocytes % 23 % (24-48) Monocytes % 4 % (0-10) Metamyelocytes % 1 % (0-0) Myelocytes % 2 % (0-0) Nucleated Red Blood Cells 1 Platelet Estimate Adequate (ADEQUATE) Large Platelets Few Polychromasia Present Poikilocytosis Slight Anisocytosis Slight Tear Drop Cells Few [place] Cells Few Sodium Level 141 mmol/L (136-145) Potassium Level 4.1 mmol/L (3.5-5.1) Chloride Level 111 mmol/L (98-107) Carbon Dioxide Level 22 mmol/L (21-32) Anion Gap 8 (6-14) Blood Urea Nitrogen 27 mg/dL (7-20) Creatinine 0.7 mg/dL (0.6-1.0) Estimated GFR (Cockcroft-Gault) 101.0 Glucose Level 183 mg/dL (70-99) Calcium Level 8.5 mg/dL (8.5-10.1) O2 Saturation 82 % (92-99) Arterial Blood pH 7.28 (7.35-7.45) Arterial Blood pH (Temp corrected) 7.27 Arterial Blood pCO2 at Patient Temp 36 mmHg (35-46) Arterial Blood pCO2 (Temp correct) 38 mmHg Arterial Blood pO2 at Patient Temp 52 mmHg (65-108) Arterial Blood pO2 (Temp corrected) 56 mmHg Arterial Blood HCO3 17 mmol/L (21-28) Arterial Blood Base Excess -9 mmol/L (-3-3) FiO2 80% Glucose (Fingerstick) 216 mg/dL (70-99) 243 mg/dL (70-99) Test 05/08/20 23:44 05/09/20 04:00 Glucose (Fingerstick) 201 mg/dL (70-99) White Blood Count 9.7 x10^3/uL (4.0-11.0) Red Blood Count 2.31 x10^6/uL (3.50-5.40) Hemoglobin 6.8 g/dL (12.0-15.5) Hematocrit 21.1 % (36.0-47.0) Mean Corpuscular Volume 91 fL (79-100) Mean Corpuscular Hemoglobin 29 pg (25-35) Mean Corpuscular Hemoglobin Concent 32 g/dL (31-37) Red Cell Distribution Width 16.8 % (11.5-14.5) Platelet Count 167 x10^3/uL (140-400) Sodium Level 139 mmol/L (136-145) Potassium Level 4.0 mmol/L (3.5-5.1) Chloride Level 110 mmol/L (98-107) Carbon Dioxide Level 19 mmol/L (21-32) Anion Gap 10 (6-14) Blood Urea Nitrogen 31 mg/dL (7-20) Creatinine 0.7 mg/dL (0.6-1.0) Estimated GFR (Cockcroft-Gault) 101.0 BUN/Creatinine Ratio 44 (6-20) Glucose Level 207 mg/dL (70-99) Calcium Level 8.2 mg/dL (8.5-10.1) Total Bilirubin 0.1 mg/dL (0.2-1.0) Aspartate Amino Transf (AST/SGOT) 20 U/L (15-37) Alanine Aminotransferase (ALT/SGPT) 16 U/L (14-59) Alkaline Phosphatase 51 U/L (46-116) Total Protein 5.2 g/dL (6.4-8.2) Albumin 1.2 g/dL (3.4-5.0) Albumin/Globulin Ratio 0.3 (1.0-1.7) Micro Microbiology 05/02/20 Blood Culture - Preliminary, Resulted NO GROWTH AFTER 1 DAY 04/19/20 Urine Culture - Final, Complete 04/19/20 Antimicrobic Susceptibility - Final, Complete Objective Assessment 08/30 bottle GPC 05/05 Vanc started zyvox d/c'd - STCN contamination RLE DVT acute anemia 1. COVID-19 pneumonia 04/19. 2. Acute hypoxic respiratory failure s/p intubation now 60 % Fi02 and 10 PEEP 3. Blood culture 1 out of 3, coag neg staph, contaminant.04/19 4. Fever 05/05 - improved - UA neg/C-diff neg 5. Right-sided cerebrovascular accident. 6. Traumatic brain injury with aphasia . 7. E. coli UTI 04/19 R Gent/Bactrim/Tetra 8. RIJ place 04/28 9. Loose stool 10. Leukocytosis - on steroids - better Plan Plan of Care Anemia per primary Consider PICc line with IJ in since 04/28 Cont Flagyl/Cefepime/Micafungin for now Vanc Added 05/06 will d/c today 05/08 D/c Per tube vanc with neg C-diff 05/07 cont supportive care s/p plasma administration on steroids increased 05/02 follow up labs and cults Prognosis poor Consider palliative care Discussed with nursing staff NEDA PASCUAL MD May 09, 2020 06:12
[2020-05-09] MEDS: CEFEPIME HCL IV Push 1 GM VIAL. IVP SCH ×3 (06:17→21:08)
--- NOTE | 2020-05-09 06:59 | PDOC ---
PULMONARY PROGRESS NOTES DATE: 05/09/20 TIME: 06:57 Subjective Intubated, 9 sedated on fio2 60%, peep 10, small ett secretion on versed fentanyl precedex s/pi unit prbc Vitals Vital Signs Date Time Temp Pulse Resp B/P (MAP) Pulse Ox O2 Delivery O2 Flow Rate FiO2 05/09/20 06:00 97.6 70 22 94/54 (67) 100 Ventilator 97.6 05/08/20 19:47 40.0 Comments visual exam done on vent sedated nc at rrr no accessory muscle use no paradoxical abd motion no rash no edema Labs Laboratory Tests Test 05/07/20 08:00 05/07/20 13:09 05/07/20 17:20 05/08/20 00:04 O2 Saturation 88 % (92-99) Arterial Blood pH 7.35 (7.35-7.45) Arterial Blood pCO2 at Patient Temp 35 mmHg (35-46) Arterial Blood pO2 at Patient Temp 56 mmHg (65-108) Arterial Blood HCO3 19 mmol/L (21-28) Arterial Blood Base Excess -6 mmol/L (-3-3) FiO2 40/vent Glucose (Fingerstick) 217 mg/dL (70-99) 186 mg/dL (70-99) 154 mg/dL (70-99) Test 05/08/20 04:58 05/08/20 05:00 05/08/20 07:35 05/08/20 08:30 Glucose (Fingerstick) 171 mg/dL (70-99) Creatinine 0.7 mg/dL (0.6-1.0) 0.7 mg/dL (0.6-1.0) Estimated GFR (Cockcroft-Gault) 101.0 101.0 Vancomycin Level Trough 15.3 mcg/mL (10.0-20.0) Vancomycin Last Dose Date 05/07/20 Vancomycin Last Dose Time 1130 White Blood Count 17.0 x10^3/uL (4.0-11.0) Red Blood Count 2.86 x10^6/uL (3.50-5.40) Hemoglobin 8.3 g/dL (12.0-15.5) Hematocrit 26.0 % (36.0-47.0) Mean Corpuscular Volume 91 fL (79-100) Mean Corpuscular Hemoglobin 29 pg (25-35) Mean Corpuscular Hemoglobin Concent 32 g/dL (31-37) Red Cell Distribution Width 16.7 % (11.5-14.5) Platelet Count 226 x10^3/uL (140-400) Neutrophils (%) (Auto) 63 % (31-73) Lymphocytes (%) (Auto) 30 % (24-48) Monocytes (%) (Auto) 5 % (0-9) Eosinophils (%) (Auto) 1 % (0-3) Basophils (%) (Auto) 2 % (0-3) Neutrophils # (Auto) 10.8 x10^3/uL (1.8-7.7) Lymphocytes # (Auto) 5.1 x10^3/uL (1.0-4.8) Monocytes # (Auto) 0.8 x10^3/uL (0.0-1.1) Eosinophils # (Auto) 0.1 x10^3/uL (0.0-0.7) Basophils # (Auto) 0.3 x10^3/uL (0.0-0.2) Segmented Neutrophils % 51 % (35-66) Band Neutrophils % 18 % (0-9) Lymphocytes % 23 % (24-48) Monocytes % 4 % (0-10) Metamyelocytes % 1 % (0-0) Myelocytes % 2 % (0-0) Nucleated Red Blood Cells 1 Platelet Estimate Adequate (ADEQUATE) Large Platelets Few Polychromasia Present Poikilocytosis Slight Anisocytosis Slight Tear Drop Cells Few [place] Cells Few Sodium Level 141 mmol/L (136-145) Potassium Level 4.1 mmol/L (3.5-5.1) Chloride Level 111 mmol/L (98-107) Carbon Dioxide Level 22 mmol/L (21-32) Anion Gap 8 (6-14) Blood Urea Nitrogen 27 mg/dL (7-20) Glucose Level 183 mg/dL (70-99) Calcium Level 8.5 mg/dL (8.5-10.1) O2 Saturation 82 % (92-99) Arterial Blood pH 7.28 (7.35-7.45) Arterial Blood pH (Temp corrected) 7.27 Arterial Blood pCO2 at Patient Temp 36 mmHg (35-46) Arterial Blood pCO2 (Temp correct) 38 mmHg Arterial Blood pO2 at Patient Temp 52 mmHg (65-108) Arterial Blood pO2 (Temp corrected) 56 mmHg Arterial Blood HCO3 17 mmol/L (21-28) Arterial Blood Base Excess -9 mmol/L (-3-3) FiO2 80% Test 05/08/20 13:45 05/08/20 17:11 05/08/20 23:44 05/09/20 04:00 Glucose (Fingerstick) 216 mg/dL (70-99) 243 mg/dL (70-99) 201 mg/dL (70-99) White Blood Count 9.7 x10^3/uL (4.0-11.0) Red Blood Count 2.31 x10^6/uL (3.50-5.40) Hemoglobin 6.8 g/dL (12.0-15.5) Hematocrit 21.1 % (36.0-47.0) Mean Corpuscular Volume 91 fL (79-100) Mean Corpuscular Hemoglobin 29 pg (25-35) Mean Corpuscular Hemoglobin Concent 32 g/dL (31-37) Red Cell Distribution Width 16.8 % (11.5-14.5) Platelet Count 167 x10^3/uL (140-400) Sodium Level 139 mmol/L (136-145) Potassium Level 4.0 mmol/L (3.5-5.1) Chloride Level 110 mmol/L (98-107) Carbon Dioxide Level 19 mmol/L (21-32) Anion Gap 10 (6-14) Blood Urea Nitrogen 31 mg/dL (7-20) Creatinine 0.7 mg/dL (0.6-1.0) Estimated GFR (Cockcroft-Gault) 101.0 BUN/Creatinine Ratio 44 (6-20) Glucose Level 207 mg/dL (70-99) Calcium Level 8.2 mg/dL (8.5-10.1) Total Bilirubin 0.1 mg/dL (0.2-1.0) Aspartate Amino Transf (AST/SGOT) 20 U/L (15-37) Alanine Aminotransferase (ALT/SGPT) 16 U/L (14-59) Alkaline Phosphatase 51 U/L (46-116) Total Protein 5.2 g/dL (6.4-8.2) Albumin 1.2 g/dL (3.4-5.0) Albumin/Globulin Ratio 0.3 (1.0-1.7) Laboratory Tests Test 05/08/20 07:35 05/08/20 08:30 05/08/20 13:45 05/08/20 17:11 White Blood Count 17.0 x10^3/uL (4.0-11.0) Red Blood Count 2.86 x10^6/uL (3.50-5.40) Hemoglobin 8.3 g/dL (12.0-15.5) Hematocrit 26.0 % (36.0-47.0) Mean Corpuscular Volume 91 fL (79-100) Mean Corpuscular Hemoglobin 29 pg (25-35) Mean Corpuscular Hemoglobin Concent 32 g/dL (31-37) Red Cell Distribution Width 16.7 % (11.5-14.5) Platelet Count 226 x10^3/uL (140-400) Neutrophils (%) (Auto) 63 % (31-73) Lymphocytes (%) (Auto) 30 % (24-48) Monocytes (%) (Auto) 5 % (0-9) Eosinophils (%) (Auto) 1 % (0-3) Basophils (%) (Auto) 2 % (0-3) Neutrophils # (Auto) 10.8 x10^3/uL (1.8-7.7) Lymphocytes # (Auto) 5.1 x10^3/uL (1.0-4.8) Monocytes # (Auto) 0.8 x10^3/uL (0.0-1.1) Eosinophils # (Auto) 0.1 x10^3/uL (0.0-0.7) Basophils # (Auto) 0.3 x10^3/uL (0.0-0.2) Segmented Neutrophils % 51 % (35-66) Band Neutrophils % 18 % (0-9) Lymphocytes % 23 % (24-48) Monocytes % 4 % (0-10) Metamyelocytes % 1 % (0-0) Myelocytes % 2 % (0-0) Nucleated Red Blood Cells 1 Platelet Estimate Adequate (ADEQUATE) Large Platelets Few Polychromasia Present Poikilocytosis Slight Anisocytosis Slight Tear Drop Cells Few [place] Cells Few Sodium Level 141 mmol/L (136-145) Potassium Level 4.1 mmol/L (3.5-5.1) Chloride Level 111 mmol/L (98-107) Carbon Dioxide Level 22 mmol/L (21-32) Anion Gap 8 (6-14) Blood Urea Nitrogen 27 mg/dL (7-20) Creatinine 0.7 mg/dL (0.6-1.0) Estimated GFR (Cockcroft-Gault) 101.0 Glucose Level 183 mg/dL (70-99) Calcium Level 8.5 mg/dL (8.5-10.1) O2 Saturation 82 % (92-99) Arterial Blood pH 7.28 (7.35-7.45) Arterial Blood pH (Temp corrected) 7.27 Arterial Blood pCO2 at Patient Temp 36 mmHg (35-46) Arterial Blood pCO2 (Temp correct) 38 mmHg Arterial Blood pO2 at Patient Temp 52 mmHg (65-108) Arterial Blood pO2 (Temp corrected) 56 mmHg Arterial Blood HCO3 17 mmol/L (21-28) Arterial Blood Base Excess -9 mmol/L (-3-3) FiO2 80% Glucose (Fingerstick) 216 mg/dL (70-99) 243 mg/dL (70-99) Test 05/08/20 23:44 05/09/20 04:00 Glucose (Fingerstick) 201 mg/dL (70-99) White Blood Count 9.7 x10^3/uL (4.0-11.0) Red Blood Count 2.31 x10^6/uL (3.50-5.40) Hemoglobin 6.8 g/dL (12.0-15.5) Hematocrit 21.1 % (36.0-47.0) Mean Corpuscular Volume 91 fL (79-100) Mean Corpuscular Hemoglobin 29 pg (25-35) Mean Corpuscular Hemoglobin Concent 32 g/dL (31-37) Red Cell Distribution Width 16.8 % (11.5-14.5) Platelet Count 167 x10^3/uL (140-400) Sodium Level 139 mmol/L (136-145) Potassium Level 4.0 mmol/L (3.5-5.1) Chloride Level 110 mmol/L (98-107) Carbon Dioxide Level 19 mmol/L (21-32) Anion Gap 10 (6-14) Blood Urea Nitrogen 31 mg/dL (7-20) Creatinine 0.7 mg/dL (0.6-1.0) Estimated GFR (Cockcroft-Gault) 101.0 BUN/Creatinine Ratio 44 (6-20) Glucose Level 207 mg/dL (70-99) Calcium Level 8.2 mg/dL (8.5-10.1) Total Bilirubin 0.1 mg/dL (0.2-1.0) Aspartate Amino Transf (AST/SGOT) 20 U/L (15-37) Alanine Aminotransferase (ALT/SGPT) 16 U/L (14-59) Alkaline Phosphatase 51 U/L (46-116) Total Protein 5.2 g/dL (6.4-8.2) Albumin 1.2 g/dL (3.4-5.0) Albumin/Globulin Ratio 0.3 (1.0-1.7) Medications Active Scripts Medications Dose Route/Sig Max Daily Dose Days Date Category Dose Instructions Voltaren (Diclofenac Sodium) 100 Gm Gel..gram. 1 Jitendra TP TID 04/19/20 Reported Famotidine 20 Mg Tablet 20 Mg PO HS 01/28/20 Reported Dilantin (Phenytoin Sodium Extended) 100 Mg Capsule 30 Mg PO HS 01/28/20 Reported Lisinopril 30 Mg Tablet 1 Tab PO HS 01/28/20 Reported Mirtazapine 30 Mg Tab.rapdis 30 Mg PO QHS 30 01/28/20 Reported D3-50 (Cholecalciferol (Vitamin D3)) 50,000 Unit Capsule 1 Cap PO WEEKLY 28 01/28/20 Reported Aspirin 81 Mg Tab.chew 1 Tab PO DAILY 01/28/20 Reported Atorvastatin Calcium 10 Mg Tablet 10 Mg PO HS 02/24/17 Reported Anti-Diarrhea (Loperamide Hcl) 2 Mg Tablet 2 Mg PO PRN Q6HRS PRN 02/24/17 Reported Metformin Hcl 1,000 Mg Tablet 1 Tab PO BID 12/26/15 Rx Tylenol (Acetaminophen) 325 Mg Tablet 650 Mg PO BID 12/24/15 Reported Norvasc (Amlodipine Besylate) 10 Mg Tablet 10 Mg PO DAILY 12/24/15 Reported Milk Of Magnesia (Magnesium Hydroxide) 400 Mg/5 Ml Oral.susp 1,200 Mg PO PRN DAILY PRN 12/24/15 Reported Latanoprost 2.5 Ml Drops 1 Drop EACHEYE QHS 12/24/15 Reported Vimpat (Lacosamide) 200 Mg Tablet 200 Mg PO BID 12/24/15 Reported Keppra (Levetiracetam) 500 Mg Tablet 1,500 Mg PO BID 12/24/15 Reported Gabapentin (Gabapentin) 400 Mg Capsule 400 Mg PO TID 12/24/15 Reported Folic Acid 1 Mg Tablet 1 Tab PO DAILY 12/24/15 Reported Flonase Allergy Relief (Fluticasone Propionate) 9.9 Ml [place].susp 2 Sprays NS DAILY 12/24/15 Reported Buspirone Hcl 5 Mg Tablet 1 Tab PO BID 12/24/15 Reported Abilify (Aripiprazole) 5 Mg Tablet 5 Mg PO DAILY 12/24/15 Reported Hydrocortisone 30 Gm Cream..g. 30 Gm RC PRN BID PRN 05/20/14 Reported Hydrocortisone 1% Absorbase (Hc/Mineral Oil/Petrolat,Wht) 25 Gm Oint...g. 25 Gm TP 05/20/14 Reported Hydralazine Hcl 25 Mg Tablet 2 Tab PO TID 05/20/14 Reported Dilantin (Phenytoin Sodium Extended) 100 Mg Capsule 400 Mg PO HS 05/20/14 Reported give with 30mg to equal 430mg Depakote Sprinkle (Divalproex Sodium) 125 Mg Cap.sprink 125 Mg PO BID 05/20/14 Reported Cymbalta (Duloxetine Hcl) 30 Mg Capsule.dr 3 Cap PO DAILY 05/20/14 Reported Centrum Silver Ultra Women Tab (Multivits W-Fe,Other Min/Lut) 1 Each Tablet 1 Each PO DAILY 05/20/14 Reported Baclofen 10 Mg Tablet 1 Tab PO TID 05/20/14 Reported Comments CXR reviewed b lat infilt Impression . 1. Acute hypoxic respiratory failure secondary to COVID-19 pneumonia./ ALI/ARDS 2. Abnormal chest x-ray with patchy infiltrates bilaterally, pneumonia, COVID-19.--COVID 19 positive/ARDS 3. 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 4. History of posttraumatic epilepsy. 5. No significant tobacco history. 6. Mild azotemia--improved 7. Normal D-dimer. 8. Fever, 9. Encephalopathy, 10. Anemia 11. Metabolic acidosis Plan . cont vent support setting reviewed, will titrate fio2 when 50%, will decrease peep slowly Prognosis is poor, Discussed with RN titrate Levophed off Follow ID input Solu-Medrol 40 q 8hrs elevate hob DVT/GI PPX hb 6.9 s/p 1 unit prbc will change lovenox to prophylaxis dose s/p Plasma IV bicarb for met acidosis, as needed critically ill Total cumulative critical care time of 30-minute no overlap d/w RN/RT AMANDA ONEIL MD May 09, 2020 06:59
--- NOTE | 2020-05-09 08:23 | NUR ---
See vital signs spreadsheet for transfusion vital signs.
[2020-05-09] MEDS: MICAFUNGIN 100 MG in IV DEXTROSE 5% 100ML 100 ML IV SCH (08:42)
[2020-05-09] MEDS: LACTOBACILLUS RHAMNOSUS GG 1 CAPSULE. PO SCH ×2 (08:42→21:09)
[2020-05-09] MEDS: metFORMIN 500 MG TABLET PO SCH ×2 (08:42→16:26)
[2020-05-09] MEDS: PANTOPRAZOLE IV PUSH 40 MG VIAL. IVP SCH (08:42)
[2020-05-09] MEDS: ASPIRIN CHEWABLE 81 MG TABLET. PO SCH (08:42)
[2020-05-09] MEDS: ACETAMINOPHEN 325 MG TABLET. PO SCH ×2 (08:43→21:09)
[2020-05-09] MEDS: ARIPiprazole 5 MG TABLET PO SCH (08:43)
[2020-05-09] MEDS: FOLIC ACID 1 MG TABLET. PO SCH (08:43)
[2020-05-09] MEDS: DULoxetine HCL 30 MG CAPSULE.DR PO SCH (08:43)
[2020-05-09] MEDS: busPIRone 5 MG TABLET. PO SCH ×2 (08:43→21:09)
[2020-05-09] MEDS: MULTIVITAMIN with MINERAL TABLET. PO SCH (08:43)
[2020-05-09] MEDS: CHLORHEXIDINE 0.12% 15 ML MOUTHWASH. MM SCH ×2 (08:43→21:09)
[2020-05-09] MEDS: BACLOFEN 10 MG TABLET. PO SCH ×3 (08:43→21:09)
[2020-05-09] MEDS: GABAPENTIN 400 MG CAPSULE. PO SCH ×3 (08:43→21:09)
[2020-05-09] MEDS: FLUTICASONE 50MCG/NASAL SPRAY 16GM BOTTLE. NS SCH (08:43)
[2020-05-09 08:44] LABS: BASE EXCESS ABG -9 mmol/L (-3-3); HCO3 ABG 16 mmol/L (21-28); PCO2 ABG 31 mmHg (35-46); PO2 ABG 61 mmHg (65-108); SAT O2 ABG 90 % (92-99)
[2020-05-09] MEDS: hydrALAZINE 25 MG TABLET PO SCH ×3 (08:44→21:00)
[2020-05-09] MEDS: amLODIPine BESYLATE 10 MG TABLET PO SCH (08:44)
[2020-05-09 08:51] LABS: FIO2 ABG 60% VENT
[2020-05-09] MEDS: VITS A & D/LANOLIN TOPICAL OINTMENT 42GM TUBE. TP SCH ×2 (09:00→21:33)
[2020-05-09] MEDS: levETIRAcetam 1,500 MG in IV DEXTROSE 5% 100ML 100 ML IV SCH ×2 (09:39→21:08)
[2020-05-09] MEDS: LACOSAMIDE 200 MG in IV DEXTROSE 5% 50 ML IV SCH ×2 (10:17→21:07)
[2020-05-09] MEDS: VALPROIC ACID IV SCH ×2 (10:49→21:07)
[2020-05-09] MEDS: DEXTROSE 5% IV SCH ×2 (10:49→21:07)
--- NOTE | 2020-05-09 14:02 | PN ---
DATE: 05/09/2020 SUBJECTIVE: The patient continued to be heavily sedated, intubated, mechanically ventilated. Whenever the sedation is discontinued, she becomes extremely tachypneic, desaturates dramatically. She apparently dropped her H and H this morning to 6.8 and 21.1 and therefore, she is scheduled to receive 1 unit of packed RBCs. PHYSICAL EXAMINATION: GENERAL: When I examined her this morning, she was resting slightly propped up in bed, in no apparent respiratory distress. She was pale, but no jaundice, cyanosis or thyromegaly. No jugular venous distention. No limb edema. VITAL SIGNS: Her heart rate was 76, blood pressure was 105/61, temperature was 97.4, respiratory rate was 22 and oxygen saturation was 100% on FiO2 of 60%. HEENT: Showed normocephalic, atraumatic. She has orotracheal and orogastric tube in place. NECK: Supple. HEART: Normal first and second heart sounds with no gallop or murmur. CHEST: Clear to auscultation. No crepitation or rhonchi. ABDOMEN: Distended, soft, nontender. No guarding or rigidity. No organomegaly. All hernial orifices are intact. Bowel sounds normal. NEUROLOGIC: She is heavily sedated. Her intake over the last 24 hours was 2900, output was 1400. LABORATORY DATA: As of this morning, her white cell count was 9700, hemoglobin 6.8, hematocrit 21, MCV 91, and platelet count of 167,000. Serum sodium was 139, potassium 4, chloride 110, bicarbonate 19, anion gap of 10, BUN 31, creatinine 0.7, estimated GFR was 101 mL per minute, glucose was 107, calcium was 8.2. Total bilirubin, AST, ALT, alkaline phosphatase were normal. Total protein was 5.2, albumin was 1.2. Her blood gases showed a pH of 7.32, pCO2 of 31, pO2 of 61, bicarbonate was 16, and oxygen saturation was 90% on FiO2 of 60%. ASSESSMENT: 1. COVID-19 pneumonia. 2. Acute hypoxic respiratory failure, status post intubation and mechanical ventilation. Her chest x-ray showed worsening and her oxygen requirement is worsening too. 3. Hypotension, for which she is on Levophed. 4. Type 2 diabetes mellitus, much better controlled and now her steroids were cut down and she is on Glucerna and insulin sliding scale. 5. Posttraumatic seizure disorder for which she continues to be on ____, on Keppra and lacosamide. 6. Traumatic brain injury with right-sided hemiplegia, aphasia and dysphagia. 7. Hypernatremia, resolved. 8. Hypokalemia, resolved. 9. Deep vein thrombosis of the right lower extremity for which she is on Lovenox. 10. The patient spiked her temperature again and her antibiotics were adjusted by Infectious Disease specialist; however, her C. diff toxins were negative. Given her overall poor prognosis, I have spoken with her court appointed DPOA, Mr. Gilbert Mcclain to proceed with change of her code status to DNR/DNI. We will send him all the forms on Monday morning. ETELVINA HAYWOOD MD DR: ALISON/hernán JOB#: [id number] / [id number]
[2020-05-09] MEDS: VECURONIUM BOLUS 10 MG VIAL. IV PRN ×2 (15:14→19:37)
[2020-05-09] MEDS: LISINOPRIL 10 MG TABLET PO SCH (21:00)
[2020-05-09] MEDS: MIRTAZAPINE 15 MG TABLET PO SCH (21:09)
[2020-05-09] MEDS: ATORVASTATIN CALCIUM 10 MG TABLET. PO SCH (21:09)
[2020-05-09] MEDS: LATANOPROST 0.005% OPHTH SOLUTION 2.5ML BOTTLE. OU SCH (21:32)
[2020-05-10] VITALS (24 sets, daily range): BP systolic 83–140; BP diastolic 42–77
[2020-05-10] MEDS: fentaNYL HIGH DOSE PCA 55 ML IV PRN (00:10)
[2020-05-10] MEDS: MIDAZOLAM 100mg/100ml NS BAG 100 ML IV PRN ×3 (00:12→18:08)
[2020-05-10] MEDS: DEXMEDETOMIDINE 400 MCG in IV NORMAL SALINE 100ML 96 ML IV PRN ×4 (04:05→20:48)
[2020-05-10] MEDS: FOSPHENYTOIN 100 MG/2 ML VIAL. IV SCH ×3 (05:57→20:38)
[2020-05-10] MEDS: METOPROLOL TARTRATE 5 MG/5 ML VIAL. IVP SCH ×3 (05:58→18:00)
[2020-05-10] MEDS: methylPREDNISolone SOD SUCC PF 40 MG/ML VIAL. IV SCH ×3 (05:58→20:33)
[2020-05-10] MEDS: CEFEPIME HCL IV Push 1 GM VIAL. IVP SCH ×3 (05:58→21:08)
[2020-05-10 06:25] LABS: BASO # 0.1 x10^3/uL (0.0-0.2); BASO % 0 % (0-3); EOS # 0.1 x10^3/uL (0.0-0.7); EOS % 1 % (0-3); HEMATOCRIT 28.9 % (36.0-47.0); LYMPH # 3.2 x10^3/uL (1.0-4.8); LYMPH % 26 % (24-48); MEAN CORPUSCULAR HEMOGLOBIN 30 pg (25-35); MEAN CORPUSCULAR HGB CONC 33 g/dL (31-37); MEAN CORPUSCULAR VOLUME 92 fL (79-100); MONO # 0.5 x10^3/uL (0.0-1.1); MONO % 4 % (0-9); NEUT # 8.5 x10^3/uL (1.8-7.7); NEUT % 69 % (31-73); PLATELET COUNT 193 x10^3/uL (140-400); RED BLOOD COUNT 3.16 x10^6/uL (3.50-5.40); RED CELL DISTRIBUTION WIDTH 16.4 % (11.5-14.5); WHITE BLOOD COUNT 12.4 x10^3/uL (4.0-11.0)
[2020-05-10] MEDS: INSULIN LISPRO 300 UNITS/3 ML VIAL. SQ SCH ×3 (06:28→18:07)
[2020-05-10 06:35] LABS: HEMOGLOBIN 9.5 g/dL (12.0-15.5)
[2020-05-10 06:36] LABS: CALCIUM 8.9 mg/dL (8.5-10.1); CREATININE 0.8 mg/dL (0.6-1.0); GFR 86.6; POTASSIUM 4.1 mmol/L (3.5-5.1)
[2020-05-10] MEDS: ANTI-COAG MONITOR BY PHARMACY. MC PRN (06:36)
--- NOTE | 2020-05-10 06:50 | PDOC ---
PULMONARY PROGRESS NOTES DATE: 05/10/20 TIME: 06:48 Subjective Intubated, 05/01 sedated on fio2 50%, peep 10, small ett secretion on versed fentanyl precedex s/p 1 unit prbc on 05/09 Vitals Vital Signs Date Time Temp Pulse Resp B/P (MAP) Pulse Ox O2 Delivery O2 Flow Rate FiO2 05/10/20 06:00 84 24 140/77 (98) 93 Ventilator 05/10/20 04:00 98.0 98.0 05/10/20 00:10 40.0 Comments visual exam done on vent sedated nc at rrr no accessory muscle use no paradoxical abd motion no rash no edema Labs Laboratory Tests Test 05/08/20 07:35 05/08/20 08:30 05/08/20 13:45 05/08/20 17:11 White Blood Count 17.0 x10^3/uL (4.0-11.0) Red Blood Count 2.86 x10^6/uL (3.50-5.40) Hemoglobin 8.3 g/dL (12.0-15.5) Hematocrit 26.0 % (36.0-47.0) Mean Corpuscular Volume 91 fL (79-100) Mean Corpuscular Hemoglobin 29 pg (25-35) Mean Corpuscular Hemoglobin Concent 32 g/dL (31-37) Red Cell Distribution Width 16.7 % (11.5-14.5) Platelet Count 226 x10^3/uL (140-400) Neutrophils (%) (Auto) 63 % (31-73) Lymphocytes (%) (Auto) 30 % (24-48) Monocytes (%) (Auto) 5 % (0-9) Eosinophils (%) (Auto) 1 % (0-3) Basophils (%) (Auto) 2 % (0-3) Neutrophils # (Auto) 10.8 x10^3/uL (1.8-7.7) Lymphocytes # (Auto) 5.1 x10^3/uL (1.0-4.8) Monocytes # (Auto) 0.8 x10^3/uL (0.0-1.1) Eosinophils # (Auto) 0.1 x10^3/uL (0.0-0.7) Basophils # (Auto) 0.3 x10^3/uL (0.0-0.2) Segmented Neutrophils % 51 % (35-66) Band Neutrophils % 18 % (0-9) Lymphocytes % 23 % (24-48) Monocytes % 4 % (0-10) Metamyelocytes % 1 % (0-0) Myelocytes % 2 % (0-0) Nucleated Red Blood Cells 1 Platelet Estimate Adequate (ADEQUATE) Large Platelets Few Polychromasia Present Poikilocytosis Slight Anisocytosis Slight Tear Drop Cells Few [place] Cells Few Sodium Level 141 mmol/L (136-145) Potassium Level 4.1 mmol/L (3.5-5.1) Chloride Level 111 mmol/L (98-107) Carbon Dioxide Level 22 mmol/L (21-32) Anion Gap 8 (6-14) Blood Urea Nitrogen 27 mg/dL (7-20) Creatinine 0.7 mg/dL (0.6-1.0) Estimated GFR (Cockcroft-Gault) 101.0 Glucose Level 183 mg/dL (70-99) Calcium Level 8.5 mg/dL (8.5-10.1) O2 Saturation 82 % (92-99) Arterial Blood pH 7.28 (7.35-7.45) Arterial Blood pH (Temp corrected) 7.27 Arterial Blood pCO2 at Patient Temp 36 mmHg (35-46) Arterial Blood pCO2 (Temp correct) 38 mmHg Arterial Blood pO2 at Patient Temp 52 mmHg (65-108) Arterial Blood pO2 (Temp corrected) 56 mmHg Arterial Blood HCO3 17 mmol/L (21-28) Arterial Blood Base Excess -9 mmol/L (-3-3) FiO2 80% Glucose (Fingerstick) 216 mg/dL (70-99) 243 mg/dL (70-99) Test 05/08/20 23:44 05/09/20 04:00 05/09/20 08:40 05/09/20 12:11 Glucose (Fingerstick) 201 mg/dL (70-99) 236 mg/dL (70-99) White Blood Count 9.7 x10^3/uL (4.0-11.0) Red Blood Count 2.31 x10^6/uL (3.50-5.40) Hemoglobin 6.8 g/dL (12.0-15.5) Hematocrit 21.1 % (36.0-47.0) Mean Corpuscular Volume 91 fL (79-100) Mean Corpuscular Hemoglobin 29 pg (25-35) Mean Corpuscular Hemoglobin Concent 32 g/dL (31-37) Red Cell Distribution Width 16.8 % (11.5-14.5) Platelet Count 167 x10^3/uL (140-400) Sodium Level 139 mmol/L (136-145) Potassium Level 4.0 mmol/L (3.5-5.1) Chloride Level 110 mmol/L (98-107) Carbon Dioxide Level 19 mmol/L (21-32) Anion Gap 10 (6-14) Blood Urea Nitrogen 31 mg/dL (7-20) Creatinine 0.7 mg/dL (0.6-1.0) Estimated GFR (Cockcroft-Gault) 101.0 BUN/Creatinine Ratio 44 (6-20) Glucose Level 207 mg/dL (70-99) Calcium Level 8.2 mg/dL (8.5-10.1) Total Bilirubin 0.1 mg/dL (0.2-1.0) Aspartate Amino Transf (AST/SGOT) 20 U/L (15-37) Alanine Aminotransferase (ALT/SGPT) 16 U/L (14-59) Alkaline Phosphatase 51 U/L (46-116) Total Protein 5.2 g/dL (6.4-8.2) Albumin 1.2 g/dL (3.4-5.0) Albumin/Globulin Ratio 0.3 (1.0-1.7) O2 Saturation 90 % (92-99) Arterial Blood pH 7.32 (7.35-7.45) Arterial Blood pCO2 at Patient Temp 31 mmHg (35-46) Arterial Blood pO2 at Patient Temp 61 mmHg (65-108) Arterial Blood HCO3 16 mmol/L (21-28) Arterial Blood Base Excess -9 mmol/L (-3-3) FiO2 60% vent Test 05/09/20 16:52 05/09/20 23:29 05/10/20 06:00 05/10/20 06:15 Glucose (Fingerstick) 195 mg/dL (70-99) 140 mg/dL (70-99) 228 mg/dL (70-99) White Blood Count 12.4 x10^3/uL (4.0-11.0) Red Blood Count 3.16 x10^6/uL (3.50-5.40) Hemoglobin 9.5 g/dL (12.0-15.5) Hematocrit 28.9 % (36.0-47.0) Mean Corpuscular Volume 92 fL (79-100) Mean Corpuscular Hemoglobin 30 pg (25-35) Mean Corpuscular Hemoglobin Concent 33 g/dL (31-37) Red Cell Distribution Width 16.4 % (11.5-14.5) Platelet Count 193 x10^3/uL (140-400) Neutrophils (%) (Auto) 69 % (31-73) Lymphocytes (%) (Auto) 26 % (24-48) Monocytes (%) (Auto) 4 % (0-9) Eosinophils (%) (Auto) 1 % (0-3) Basophils (%) (Auto) 0 % (0-3) Neutrophils # (Auto) 8.5 x10^3/uL (1.8-7.7) Lymphocytes # (Auto) 3.2 x10^3/uL (1.0-4.8) Monocytes # (Auto) 0.5 x10^3/uL (0.0-1.1) Eosinophils # (Auto) 0.1 x10^3/uL (0.0-0.7) Basophils # (Auto) 0.1 x10^3/uL (0.0-0.2) Sodium Level 137 mmol/L (136-145) Potassium Level 4.1 mmol/L (3.5-5.1) Chloride Level 108 mmol/L (98-107) Carbon Dioxide Level 20 mmol/L (21-32) Anion Gap 9 (6-14) Blood Urea Nitrogen 32 mg/dL (7-20) Creatinine 0.8 mg/dL (0.6-1.0) Estimated GFR (Cockcroft-Gault) 86.6 Glucose Level 254 mg/dL (70-99) Calcium Level 8.9 mg/dL (8.5-10.1) Laboratory Tests Test 05/09/20 08:40 05/09/20 12:11 05/09/20 16:52 05/09/20 23:29 O2 Saturation 90 % (92-99) Arterial Blood pH 7.32 (7.35-7.45) Arterial Blood pCO2 at Patient Temp 31 mmHg (35-46) Arterial Blood pO2 at Patient Temp 61 mmHg (65-108) Arterial Blood HCO3 16 mmol/L (21-28) Arterial Blood Base Excess -9 mmol/L (-3-3) FiO2 60% vent Glucose (Fingerstick) 236 mg/dL (70-99) 195 mg/dL (70-99) 140 mg/dL (70-99) Test 05/10/20 06:00 05/10/20 06:15 White Blood Count 12.4 x10^3/uL (4.0-11.0) Red Blood Count 3.16 x10^6/uL (3.50-5.40) Hemoglobin 9.5 g/dL (12.0-15.5) Hematocrit 28.9 % (36.0-47.0) Mean Corpuscular Volume 92 fL (79-100) Mean Corpuscular Hemoglobin 30 pg (25-35) Mean Corpuscular Hemoglobin Concent 33 g/dL (31-37) Red Cell Distribution Width 16.4 % (11.5-14.5) Platelet Count 193 x10^3/uL (140-400) Neutrophils (%) (Auto) 69 % (31-73) Lymphocytes (%) (Auto) 26 % (24-48) Monocytes (%) (Auto) 4 % (0-9) Eosinophils (%) (Auto) 1 % (0-3) Basophils (%) (Auto) 0 % (0-3) Neutrophils # (Auto) 8.5 x10^3/uL (1.8-7.7) Lymphocytes # (Auto) 3.2 x10^3/uL (1.0-4.8) Monocytes # (Auto) 0.5 x10^3/uL (0.0-1.1) Eosinophils # (Auto) 0.1 x10^3/uL (0.0-0.7) Basophils # (Auto) 0.1 x10^3/uL (0.0-0.2) Sodium Level 137 mmol/L (136-145) Potassium Level 4.1 mmol/L (3.5-5.1) Chloride Level 108 mmol/L (98-107) Carbon Dioxide Level 20 mmol/L (21-32) Anion Gap 9 (6-14) Blood Urea Nitrogen 32 mg/dL (7-20) Creatinine 0.8 mg/dL (0.6-1.0) Estimated GFR (Cockcroft-Gault) 86.6 Glucose Level 254 mg/dL (70-99) Calcium Level 8.9 mg/dL (8.5-10.1) Glucose (Fingerstick) 228 mg/dL (70-99) Medications Active Scripts Medications Dose Route/Sig Max Daily Dose Days Date Category Dose Instructions Voltaren (Diclofenac Sodium) 100 Gm Gel..gram. 1 Jitendra TP TID 04/19/20 Reported Famotidine 20 Mg Tablet 20 Mg PO HS 01/28/20 Reported Dilantin (Phenytoin Sodium Extended) 100 Mg Capsule 30 Mg PO HS 01/28/20 Reported Lisinopril 30 Mg Tablet 1 Tab PO HS 01/28/20 Reported Mirtazapine 30 Mg Tab.rapdis 30 Mg PO QHS 30 01/28/20 Reported D3-50 (Cholecalciferol (Vitamin D3)) 50,000 Unit Capsule 1 Cap PO WEEKLY 28 01/28/20 Reported Aspirin 81 Mg Tab.chew 1 Tab PO DAILY 01/28/20 Reported Atorvastatin Calcium 10 Mg Tablet 10 Mg PO HS 02/24/17 Reported Anti-Diarrhea (Loperamide Hcl) 2 Mg Tablet 2 Mg PO PRN Q6HRS PRN 02/24/17 Reported Metformin Hcl 1,000 Mg Tablet 1 Tab PO BID 12/26/15 Rx Tylenol (Acetaminophen) 325 Mg Tablet 650 Mg PO BID 12/24/15 Reported Norvasc (Amlodipine Besylate) 10 Mg Tablet 10 Mg PO DAILY 12/24/15 Reported Milk Of Magnesia (Magnesium Hydroxide) 400 Mg/5 Ml Oral.susp 1,200 Mg PO PRN DAILY PRN 12/24/15 Reported Latanoprost 2.5 Ml Drops 1 Drop EACHEYE QHS 12/24/15 Reported Vimpat (Lacosamide) 200 Mg Tablet 200 Mg PO BID 12/24/15 Reported Keppra (Levetiracetam) 500 Mg Tablet 1,500 Mg PO BID 12/24/15 Reported Gabapentin (Gabapentin) 400 Mg Capsule 400 Mg PO TID 12/24/15 Reported Folic Acid 1 Mg Tablet 1 Tab PO DAILY 12/24/15 Reported Flonase Allergy Relief (Fluticasone Propionate) 9.9 Ml Browns.susp 2 Sprays NS DAILY 12/24/15 Reported Buspirone Hcl 5 Mg Tablet 1 Tab PO BID 12/24/15 Reported Abilify (Aripiprazole) 5 Mg Tablet 5 Mg PO DAILY 12/24/15 Reported Hydrocortisone 30 Gm Cream..g. 30 Gm RC PRN BID PRN 05/20/14 Reported Hydrocortisone 1% Absorbase (Hc/Mineral Oil/Petrolat,Wht) 25 Gm Oint...g. 25 Gm TP 05/20/14 Reported Hydralazine Hcl 25 Mg Tablet 2 Tab PO TID 05/20/14 Reported Dilantin (Phenytoin Sodium Extended) 100 Mg Capsule 400 Mg PO HS 05/20/14 Reported give with 30mg to equal 430mg Depakote Sprinkle (Divalproex Sodium) 125 Mg Cap.sprink 125 Mg PO BID 05/20/14 Reported Cymbalta (Duloxetine Hcl) 30 Mg Capsule.dr 3 Cap PO DAILY 05/20/14 Reported Centrum Silver Ultra Women Tab (Multivits W-Fe,Other Min/Lut) 1 Each Tablet 1 Each PO DAILY 05/20/14 Reported Baclofen 10 Mg Tablet 1 Tab PO TID 05/20/14 Reported Comments CXR reviewed b lat infilt Impression . 1. Acute hypoxic respiratory failure secondary to COVID-19 pneumonia./ ALI/ARDS 2. Abnormal chest x-ray with patchy infiltrates bilaterally, pneumonia, COVID-19.--COVID 19 positive/ARDS 3. 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 4. History of posttraumatic epilepsy. 5. No significant tobacco history. 6. Mild azotemia--improved 7. fever resolved 8. dvt 9. Encephalopathy, 10. Anemia 11. Metabolic acidosis Plan . cont vent support setting reviewed, fio2 50%, will decrease peep slowly if tolerates Discussed with RN titrate Levophed off Follow ID input cont Solu-Medrol 40 q 8hrs elevate hob DVT/GI PPX on 05/09, hb 6.9 s/p 1 unit prbc has dvt cont lovenox therapeutic dose monitor H/H s/p Plasma IV bicarb for met acidosis, as needed critically ill Total cumulative critical care time of 30-minute no overlap d/w RN/RT AMANDA ONEIL MD May 10, 2020 06:50
--- NOTE | 2020-05-10 07:11 | PDOC ---
Infectious Disease Note Subjective Subjective Intubated/sedated ROS ROS Unable to obtain Vital Sign Vital Signs Vital Signs Date Time Temp Pulse Resp B/P (MAP) Pulse Ox O2 Delivery O2 Flow Rate FiO2 05/10/20 06:00 84 24 140/77 (98) 93 Ventilator 05/10/20 04:00 98.0 98.0 05/10/20 00:10 40.0 Physical Exam PHYSICAL EXAM GENERAL: Intubated/sedated - HEENT: PERRL, no icterus, ETT/OGT NECK: Supple, LUNGS: Coarse bs scattered Left > right HEART: S1, S2 tachycardia ABDOMEN: soft bs+ nondistended, OGT, Rectal tube : Anglin in place EXTREMITIES: 1- 2 plus edema R > L, no cyanosis. SKIN: Unremarkable. NEUROLOGIC: Intubated/sedated. Central line is clean 04/28 Labs Lab Laboratory Tests Test 05/09/20 08:40 05/09/20 12:11 05/09/20 16:52 05/09/20 23:29 O2 Saturation 90 % (92-99) Arterial Blood pH 7.32 (7.35-7.45) Arterial Blood pCO2 at Patient Temp 31 mmHg (35-46) Arterial Blood pO2 at Patient Temp 61 mmHg (65-108) Arterial Blood HCO3 16 mmol/L (21-28) Arterial Blood Base Excess -9 mmol/L (-3-3) FiO2 60% vent Glucose (Fingerstick) 236 mg/dL (70-99) 195 mg/dL (70-99) 140 mg/dL (70-99) Test 05/10/20 06:00 05/10/20 06:15 White Blood Count 12.4 x10^3/uL (4.0-11.0) Red Blood Count 3.16 x10^6/uL (3.50-5.40) Hemoglobin 9.5 g/dL (12.0-15.5) Hematocrit 28.9 % (36.0-47.0) Mean Corpuscular Volume 92 fL (79-100) Mean Corpuscular Hemoglobin 30 pg (25-35) Mean Corpuscular Hemoglobin Concent 33 g/dL (31-37) Red Cell Distribution Width 16.4 % (11.5-14.5) Platelet Count 193 x10^3/uL (140-400) Neutrophils (%) (Auto) 69 % (31-73) Lymphocytes (%) (Auto) 26 % (24-48) Monocytes (%) (Auto) 4 % (0-9) Eosinophils (%) (Auto) 1 % (0-3) Basophils (%) (Auto) 0 % (0-3) Neutrophils # (Auto) 8.5 x10^3/uL (1.8-7.7) Lymphocytes # (Auto) 3.2 x10^3/uL (1.0-4.8) Monocytes # (Auto) 0.5 x10^3/uL (0.0-1.1) Eosinophils # (Auto) 0.1 x10^3/uL (0.0-0.7) Basophils # (Auto) 0.1 x10^3/uL (0.0-0.2) Sodium Level 137 mmol/L (136-145) Potassium Level 4.1 mmol/L (3.5-5.1) Chloride Level 108 mmol/L (98-107) Carbon Dioxide Level 20 mmol/L (21-32) Anion Gap 9 (6-14) Blood Urea Nitrogen 32 mg/dL (7-20) Creatinine 0.8 mg/dL (0.6-1.0) Estimated GFR (Cockcroft-Gault) 86.6 Glucose Level 254 mg/dL (70-99) Calcium Level 8.9 mg/dL (8.5-10.1) Glucose (Fingerstick) 228 mg/dL (70-99) Micro Microbiology 05/02/20 Blood Culture - Preliminary, Resulted NO GROWTH AFTER 1 DAY 04/19/20 Urine Culture - Final, Complete 04/19/20 Antimicrobic Susceptibility - Final, Complete Objective Assessment 08/30 bottle GPC 05/05 Vanc started zyvox d/c'd - STCN contamination RLE DVT acute anemia - s/p PRBC 1. COVID-19 pneumonia 04/19. 2. Acute hypoxic respiratory failure s/p intubation now 60 % Fi02 and 10 PEEP 3. Blood culture 1 out of 3, coag neg staph, contaminant.04/19 4. Fever 05/05 - improved - UA neg/C-diff neg 5. Right-sided cerebrovascular accident. 6. Traumatic brain injury with aphasia . 7. E. coli UTI 04/19 R Gent/Bactrim/Tetra 8. RIJ place 04/28 9. Loose stool 10. Leukocytosis - on steroids - ? PRBC Plan Plan of Care Anemia per primary Consider PICC line with IJ in since 04/28 Cont Flagyl/Cefepime/Micafungin for now Vanc Added 05/06 - d/c 05/08 D/c Per tube vanc with neg C-diff 05/07 cont supportive care s/p plasma administration on steroids increased 05/02 follow up labs and cults Prognosis poor Consider palliative care Discussed with nursing staff NEDA PASCUAL MD May 10, 2020 07:11
[2020-05-10] MEDS: PANTOPRAZOLE IV PUSH 40 MG VIAL. IVP SCH (07:39)
[2020-05-10] MEDS: metFORMIN 500 MG TABLET PO SCH ×2 (08:13→17:05)
[2020-05-10] MEDS: CHLORHEXIDINE 0.12% 15 ML MOUTHWASH. MM SCH ×2 (08:15→20:32)
[2020-05-10] MEDS: FLUTICASONE 50MCG/NASAL SPRAY 16GM BOTTLE. NS SCH (08:15)
[2020-05-10] MEDS: FOLIC ACID 1 MG TABLET. PO SCH (08:15)
[2020-05-10] MEDS: BACLOFEN 10 MG TABLET. PO SCH ×3 (08:15→20:33)
[2020-05-10] MEDS: GABAPENTIN 400 MG CAPSULE. PO SCH ×3 (08:16→20:32)
[2020-05-10] MEDS: ACETAMINOPHEN 325 MG TABLET. PO SCH ×2 (08:16→20:32)
[2020-05-10] MEDS: MULTIVITAMIN with MINERAL TABLET. PO SCH (08:16)
[2020-05-10] MEDS: DULoxetine HCL 30 MG CAPSULE.DR PO SCH (08:17)
[2020-05-10] MEDS: ASPIRIN CHEWABLE 81 MG TABLET. PO SCH (08:17)
[2020-05-10] MEDS: ARIPiprazole 5 MG TABLET PO SCH (08:17)
[2020-05-10] MEDS: LACTOBACILLUS RHAMNOSUS GG 1 CAPSULE. PO SCH ×2 (08:18→20:32)
[2020-05-10] MEDS: busPIRone 5 MG TABLET. PO SCH ×2 (08:18→20:33)
[2020-05-10] MEDS: levETIRAcetam 1,500 MG in IV DEXTROSE 5% 100ML 100 ML IV SCH ×2 (08:34→20:30)
[2020-05-10 08:42] LABS: BASE EXCESS ABG -9 mmol/L (-3-3); HCO3 ABG 17 mmol/L (21-28); PCO2 ABG 35 mmHg (35-46); SAT O2 ABG 84 % (92-99)
[2020-05-10] MEDS: DEXTROSE 5% IV SCH ×2 (08:42→21:39)
[2020-05-10] MEDS: LACOSAMIDE 200 MG in IV DEXTROSE 5% 50 ML IV SCH ×2 (08:42→20:49)
[2020-05-10] MEDS: VALPROIC ACID IV SCH ×2 (08:42→21:39)
[2020-05-10] MEDS: hydrALAZINE 25 MG TABLET PO SCH ×3 (08:43→20:36)
[2020-05-10] MEDS: MICAFUNGIN 100 MG in IV DEXTROSE 5% 100ML 100 ML IV SCH (08:43)
[2020-05-10] MEDS: VITS A & D/LANOLIN TOPICAL OINTMENT 42GM TUBE. TP SCH ×2 (08:44→20:36)
[2020-05-10] MEDS: amLODIPine BESYLATE 10 MG TABLET PO SCH (08:47)
[2020-05-10 08:48] LABS: FIO2 ABG 60%+10; PO2 ABG 50 mmHg (65-108)
[2020-05-10] MEDS ORDERED: ENOXAPARIN 40 MG/0.4 ML SYRINGE. SQ SCH (09:30)
--- NOTE | 2020-05-10 12:06 | PN ---
DATE: 05/10/2020 SUBJECTIVE: The patient continues to be sedated, intubated and mechanically ventilated. She desaturates quickly with any movement. She is on a PEEP of 10 on the FiO2 of 60%. She has generalized anasarca due to severe protein-calorie malnutrition. Her serum albumin is only 1.2 g/dL. PHYSICAL EXAMINATION: GENERAL: When I examined her this morning, she was pale, but no jaundice, cyanosis, or thyromegaly. No jugular venous distention, but generalized anasarca. VITAL SIGNS: Her heart rate was 90, blood pressure was 98/62, temperature was 98, respiratory rate 22, and oxygen saturation was 92% on FiO2 of 60%. HEAD, EYES, EARS, NOSE, AND THROAT: Showed she is normocephalic, atraumatic. She has orotracheal and orogastric tube. NECK: Supple. HEART: Showed normal first and second heart sounds. No gallop or murmur. CHEST: Shows central trachea, equal bilateral expansion, air entry, vesicular sounds. I could not appreciate any crepitation or rhonchi anteriorly. ABDOMEN: Distended, soft, nontender. NEUROLOGIC: She is heavily sedated, but she is normally nonverbal as she has aphasia and right-sided hemiplegia. EXTREMITIES: Showed no clubbing or cyanosis, but generalized anasarca. She has a rectal tube in and an indwelling Anglin catheter. Her intake over the last 24 hours was 3484, output was 1335. LABORATORY DATA: As of this morning, her white cell count was 12,400; hemoglobin 9.5; hematocrit 28.5 up from 6.8 and 21; her MCV was 92; and platelet count of 193,000. Her chemistry showed a serum sodium 137, potassium 4.1, chloride 108, bicarbonate 20, anion gap of 9, BUN 32, creatinine 0.8, estimated GFR was 86 mL per minute. Her glucose was 154. Calcium was 8.9. Her blood gases this morning showed a pH of 7.3, pCO2 of 35, pO2 of 50, bicarbonate 17 and oxygen saturation was 84% on FiO2 of 60%. Her C. diff toxins were negative. Her coronavirus by PCR is detectable. ASSESSMENT: 1. COVID-19 pneumonia. 2. Acute hypoxic respiratory failure, likely due to COVID-19 pneumonia, acute respiratory distress syndrome, and acute lung injury as the patient's oxygen requirement and PEEP are high. 3. Abnormal chest x-ray with patchy infiltrate bilaterally pneumonia, COVID-19, acute respiratory distress syndrome. 4. The patient has post-traumatic brain injury with right-sided hemiplegia, aphasia, and dysphagia. 5. Posttraumatic epilepsy, for which she is on fosphenytoin, Keppra and lacosamide. 6. Deep vein thrombosis, for which she is on Lovenox. 7. Anemia, status post 1 unit of packed RBCs. 8. Metabolic acidosis, for which she is on bicarb drip. PLAN: Is to obviously continue with mechanical ventilation and titrate oxygen down if possible as well as PEEP. Continue with IV antibiotics as per the Infectious Disease specialist. Continue with IV Solu-Medrol. Continue to monitor her blood sugar and adjust insulin as needed. Continue to monitor her H and H and transfuse her as needed. She is status post convalescent plasma treatment. Continue with bicarb for metabolic acidosis as needed. Her overall prognosis is extremely poor and both the regulatory process manager as well as Infectious Disease recommended palliative care consideration given her overall poor prognosis. ETELVINA HAYWOOD MD DR: ALISON/hernán JOB#: [id number] / [id number]
[2020-05-10] MEDS: VECURONIUM BOLUS 10 MG VIAL. IV PRN ×2 (16:15→21:02)
[2020-05-10] MEDS: MIRTAZAPINE 15 MG TABLET PO SCH (20:32)
[2020-05-10] MEDS: ATORVASTATIN CALCIUM 10 MG TABLET. PO SCH (20:33)
[2020-05-10] MEDS: LISINOPRIL 10 MG TABLET PO SCH (20:36)
[2020-05-10] MEDS: LATANOPROST 0.005% OPHTH SOLUTION 2.5ML BOTTLE. OU SCH (20:36)
--- NOTE | 2020-05-10 21:00 | NUR ---
Patient peak pressures maintaining at 60, O2 saturations in mid 80s, RR high 30s. patient suctioned, HME, and given boluses of versed, precedex, and fentanyl, FIO2 increased, peak remained at 60. Patient given dose of IV push vec, which helped with the peak pressures, O2 saturation were slow to recover. Due to instability of this patient, This RN is unable to adequately turn at this time or examine coccyx.
[2020-05-11] VITALS (14 sets, daily range): BP systolic 74–151; BP diastolic 43–99
[2020-05-11] MEDS: MIDAZOLAM 100mg/100ml NS BAG 100 ML IV PRN ×3 (00:10→12:49)
[2020-05-11] MEDS: DEXMEDETOMIDINE 400 MCG in IV NORMAL SALINE 100ML 96 ML IV PRN ×6 (00:11→12:36)
[2020-05-11] MEDS: INSULIN LISPRO 300 UNITS/3 ML VIAL. SQ SCH ×3 (00:24→12:17)
[2020-05-11] MEDS: fentaNYL HIGH DOSE PCA 55 ML IV PRN (01:17)
[2020-05-11] MEDS: VECURONIUM BOLUS 10 MG VIAL. IV PRN ×2 (03:11→07:01)
[2020-05-11] MEDS: PROPOFOL 100 ML IV PRN (04:25)
[2020-05-11] MEDS: NOREPINEPHRINE VIAL 8 MG in IV DEXTROSE 5% 250 ML IV PRN (05:30)
[2020-05-11] MEDS: methylPREDNISolone SOD SUCC PF 40 MG/ML VIAL. IV SCH (05:31)
[2020-05-11] MEDS: CEFEPIME HCL IV Push 1 GM VIAL. IVP SCH (05:31)
[2020-05-11] MEDS: FOSPHENYTOIN 100 MG/2 ML VIAL. IV SCH (05:32)
[2020-05-11] MEDS: METOPROLOL TARTRATE 5 MG/5 ML VIAL. IVP SCH ×4 (05:33→12:00)
[2020-05-11] MEDS ORDERED: VECURONIUM BOLUS 10 MG VIAL. IV ONE (06:15)
--- NOTE | 2020-05-11 06:44 | RAD ---
EXAM: CHEST 1 VIEW History: Low saturation COMPARISON: 05/08/2020 TECHNIQUE: Single portable radiograph of the chest Findings/ impression: The ET tube is identified in the trachea. Feeding tube, right-sided internal jugular line are unchanged. Diffuse airspace opacities with prominent interstitial lung markings identified throughout the bilateral lungs slightly increased since prior exam could be ARDS or congestive changes or diffuse interstitial infiltrates. Electronically signed by: Ascencion Snowden MD (05/11/2020 6:41 AM) [id number]
--- NOTE | 2020-05-11 07:37 | NUR ---
Patient condition rapidly declined approx 0500, Peak pressures reached 60, O2 sats dropped to mid 70s, RR in mid 30s. Patient was once again bolused with precedex, fentanyl, and versed. Propofol was added. RT was called, patient was lavaged, then decision was made to try pressure support, PEEP changed to 12. Patient saturation plateaued at 90%, Peaks down to mid 40s. About 20mins after this change, patient saturations began to decline rapidly, overbreathing the ventilator again. RT called again. Patient bolused, which resulted in a BP drop. Dr. Huddleston called. Orders for 1X dose of vec, does not want drip at this time and to get STAT CXR. Meanwhile another DROP WIRE ALIGNER called Dr. Bolanos on this RNs behalf to notify him of patient condition. Vec administered, levophed started, patient taken off pressure support, and CXR received. Patient BP continued to fluctuate, HR increased to 120s, SpO2 in 50s. Day shift RN arrived to take over care. Dr. Sanches also arrived shortly at bedside.
--- NOTE | 2020-05-11 08:15 | PDOC ---
Infectious Disease Note Subjective Subjective Intubated/sedated ROS ROS no n/v/d/ Vital Sign Vital Signs Vital Signs Date Time Temp Pulse Resp B/P (MAP) Pulse Ox O2 Delivery O2 Flow Rate FiO2 05/11/20 08:00 101.5 120 22 137/99 (112) 68 Ventilator 101.5 Physical Exam PHYSICAL EXAM GENERAL: Intubated/sedated - HEENT: PERRL, no icterus, ETT/OGT NECK: Supple, LUNGS: Coarse bs scattered Left > right HEART: S1, S2 tachycardia ABDOMEN: soft bs+ nondistended, OGT, Rectal tube : Anglin in place EXTREMITIES: 1- 2 plus edema R > L, no cyanosis. SKIN: Unremarkable. NEUROLOGIC: Intubated/sedated. Central line is clean 04/28 Labs Lab Laboratory Tests Test 05/10/20 11:46 05/10/20 18:05 05/11/20 00:22 Glucose (Fingerstick) 222 mg/dL (70-99) 217 mg/dL (70-99) 219 mg/dL (70-99) Micro BC coag neg staph urine culture + , but ua neg Objective Assessment IMPRESSION: 1. COVID-19 pneumonia. 2. Hypoxemia. 3. Blood culture 1 out of 3, coag neg staph, contaminant. 4. Fever. 5. Right-sided cerebrovascular accident. 6. Traumatic brain injury. Plan Plan of Care Anemia per primary Consider PICC line with IJ in since 04/28 Cont Flagyl/Cefepime/Micafungin for now Vanc Added 05/06 - d/c 05/08 D/c Per tube vanc with neg C-diff 05/07 cont supportive care s/p plasma administration on steroids increased 05/02 follow up labs and cults Prognosis poor Consider palliative care Discussed with nursing staff TANNER WOO MD May 11, 2020 08:15
[2020-05-11] MEDS: MICAFUNGIN 100 MG in IV DEXTROSE 5% 100ML 100 ML IV SCH (08:19)
[2020-05-11] MEDS: PANTOPRAZOLE IV PUSH 40 MG VIAL. IVP SCH (08:20)
[2020-05-11] MEDS: busPIRone 5 MG TABLET. PO SCH (08:20)
[2020-05-11] MEDS: ARIPiprazole 5 MG TABLET PO SCH (08:20)
[2020-05-11] MEDS: ASPIRIN CHEWABLE 81 MG TABLET. PO SCH (08:20)
[2020-05-11] MEDS: DULoxetine HCL 30 MG CAPSULE.DR PO SCH (08:21)
[2020-05-11] MEDS: LACTOBACILLUS RHAMNOSUS GG 1 CAPSULE. PO SCH (08:21)
[2020-05-11] MEDS: metFORMIN 500 MG TABLET PO SCH (08:21)
[2020-05-11] MEDS: MULTIVITAMIN with MINERAL TABLET. PO SCH (08:21)
[2020-05-11] MEDS: FOLIC ACID 1 MG TABLET. PO SCH (08:21)
[2020-05-11] MEDS: ACETAMINOPHEN 325 MG TABLET. PO SCH (08:21)
[2020-05-11] MEDS: GABAPENTIN 400 MG CAPSULE. PO SCH (08:21)
[2020-05-11] MEDS: ERGOCALCIFEROL (VITAMIN D2) 50,000 UNIT CAPSULE. PO SCH (08:21)
[2020-05-11 08:22] LABS: BASE EXCESS ABG -12 mmol/L (-3-3); HCO3 ABG 17 mmol/L (21-28); PCO2 ABG 52 mmHg (35-46)
[2020-05-11] MEDS: BACLOFEN 10 MG TABLET. PO SCH (08:23)
[2020-05-11 08:30] LABS: FIO2 ABG 100; PO2 ABG < 42 mmHg (65-108); SAT O2 ABG 66 % (92-99)
[2020-05-11] MEDS: hydrALAZINE 25 MG TABLET PO SCH (08:52)
[2020-05-11] MEDS: FLUTICASONE 50MCG/NASAL SPRAY 16GM BOTTLE. NS SCH (08:52)
[2020-05-11] MEDS: CHLORHEXIDINE 0.12% 15 ML MOUTHWASH. MM SCH (08:52)
[2020-05-11] MEDS: amLODIPine BESYLATE 10 MG TABLET PO SCH (08:53)
[2020-05-11] MEDS: VITS A & D/LANOLIN TOPICAL OINTMENT 42GM TUBE. TP SCH (08:53)
--- NOTE | 2020-05-11 08:54 | NUR ---
Patient given IV Metoprolol for tachycardia despite being on levophed, HR dropped to the 90s but soon increased again to 120s. Patient's SPO2 in the 40s-50s to start this shift, patient auscultated and sounds coarse with good airflow throughout the lungs. Patient was suctioned and lavaged, wasn't able to suction out much. Patient then bagged using bag-valve mask to attempt to break up any mucous that might be plugging, SPO2 dropped to 27% and heart rate went from 110s to the 70s and was rapidly slowing, patient re-connected to ventilator. Notified Dr. Bolanos of all that transpired and Dr. Boo notified by other RN. Working on writing a letter with two physician signatures to send to patient's guardian to make patient DNR and possibly withdraw care. Currently, patient remains hypoxic and tachycardic. Will continue to monitor closely.
[2020-05-11] MEDS: VALPROIC ACID IV SCH (09:25)
[2020-05-11] MEDS: DEXTROSE 5% IV SCH (09:25)
[2020-05-11] MEDS: levETIRAcetam 1,500 MG in IV DEXTROSE 5% 100ML 100 ML IV SCH (09:25)
--- NOTE | 2020-05-11 09:46 | PN ---
DATE: 05/11/2020 SUBJECTIVE: The patient is continued to be intubated and mechanically ventilated. She is on FiO2 of 100%, maintaining her oxygen saturation at 60%. She is on a PEEP of 10. She continued to be on fentanyl as well as Versed. She is off the Levophed. OBJECTIVE: GENERAL: On examining her, she was pale, but no jaundice or cyanosis. No lymphadenopathy, no thyromegaly. No jugular venous distention, but marked generalized anasarca. VITAL SIGNS: Her heart rate was 134, blood pressure was 167/61, temperature was 98.9, respiratory rate was 30 and oxygen saturation was only 60% despite being on FiO2 of 100% with a PEEP of 10. HEENT: Showed normocephalic, atraumatic. She has orotracheal and orogastric tube. NECK: Supple. HEART: Showed normal first and second heart sounds. No gallop or murmur. CHEST: Shows central trachea, equal bilateral expansion, air entry, vesicular breath sounds. I could not appreciate any crepitation or rhonchi anteriorly. ABDOMEN: Nondistended, soft, nontender. NEUROLOGIC: She is heavily sedated; however, she is known to have right sided hemiplegia and aphasia. LABORATORY DATA: Her intake was 4165, output was 1235. Her blood sugar is slightly elevated. Today's labs are still pending at the time of this dictation. As of yesterday, serum sodium was 137, potassium 4.1, chloride 108, bicarbonate 20, anion gap of 9, BUN 32, creatinine 0.8, estimated GFR was 86 mL per minute. Her white cell count was 12,400, hemoglobin 9.5, hematocrit 29, MCV 92, and platelet count of 163,000. Her coronavirus PCR is detectable. ASSESSMENT: 1. Coronavirus or COVID-19 pneumonia. 2. Acute hypoxic respiratory failure, likely to COVID-19 pneumonia as well as acute respiratory distress syndrome and acute lung injury as the patient's oxygen requirement and beats are high. 3. Abnormal chest x-ray with patchy infiltrate bilaterally, worsening due to adult respiratory distress syndrome. 4. The patient has posttraumatic brain injury with right-sided hemiplegia, aphasia and dysphagia. 5. Posttraumatic seizure disorder for which she is on fosphenytoin, Keppra and lacosamide. 6. Deep vein thrombosis for which she is on Lovenox. 7. Anemia, status post 1 unit of packed RBCs. 8. Metabolic acidosis for which she is on bicarbonate drip. PLAN: Obviously to continue mechanical ventilation and titrate oxygen as well as to continue with IV antibiotic. Continue with steroids. Continue to monitor blood sugar and adjust insulin as needed. Continue to monitor H and H and transfuse as needed. She did receive convalescent plasma. Her prognosis is extremely poor and we have written a letter to the court appointed DPOA, Mr. Gilbert Mcclain, requesting to change her code status to DNR/DNI. ETELVINA HAYWOOD MD DR: ALISON/hernán JOB#: [id number] / [id number]
[2020-05-11] MEDS: LACOSAMIDE 200 MG in IV DEXTROSE 5% 50 ML IV SCH (09:59)
--- NOTE | 2020-05-11 13:53 | NUR ---
Patient was extubated per MD order at 1327 and at 1327. Notified guardian Gilbert Mcclain.
[2020-05-11] MEDS: ANTI-COAG MONITOR BY PHARMACY. MC PRN (14:44)
--- NOTE | 2020-05-11 19:26 | PN ---
DATE: 05/11/2020 SUBJECTIVE: The patient remained on maximum amount of oxygen and PEEP; however, despite that her oxygen saturations are in the mid 70s, she remains on sedation with increased work of breathing. PHYSICAL EXAMINATION: VITAL SIGNS: Reviewed. Pulse ox in the 70s. HEENT: Visual exam done due to COVID pandemia. She is tachypneic. ABDOMEN: Mildly obese. EXTREMITIES: With trace pitting edema. LABORATORY DATA: Reviewed. White cell count 12.4, hemoglobin 9.5 and platelets are 193. BUN 32 and a creatinine 0.8 from yesterday. ABGs with a pH of 7.13, pCO2 of 52 and a pO2 of less than 42 on 100% oxygen and 12 of PEEP. IMPRESSION: 1. Acute hypoxic respiratory failure secondary to COVID-19 pneumonia/ARDS. 2. Abnormal chest x-ray with bilateral infiltrates consistent with COVID-19 pneumonia. 3. History of traumatic brain injury and [id number] hemiplegia and aphasia. 4. History of posttraumatic epilepsy. 5. Encephalopathy. 6. Metabolic acidosis, which is worsened. RECOMMENDATIONS: 1. I have discussed with Dr. Bolanos and also discussed with RN and RT. Prognosis is extremely grim. This patient has deteriorated despite all aggressive approach. I have written a letter to the patient's DPOA to withdraw care and do not pursue with any resuscitative efforts. Dr. Bolanos has done the latter as well. We anticipate that we should get a code status decision pretty soon as the patient does not have any chance for survival. We would recommend comfort care and withdrawal of aggressive care. 2. Continue supportive care in the meantime. Discussed with Dr. Bolanos and discussed with RN and RT. Critical care time 30 minutes. BUFFY JIANG MD DR: JOSE ALFREDO/hernán JOB#: [id number] / [id number]
== END 2020-05-11 13:27 | disposition expired | DRG 870 ==
LOC: ER 12:10 → 6 SOUTH 14:44 → 1 WEST ICU 04-28 10:39
PROVIDERS: ADMIT Internal Medicine; ATTEND Internal Medicine
PROC: XW13325 Transfusion of Convalescent Plasma (Nonautologous) into Peripheral Vein, Percutaneous Approach, New Technology Group 5 (ICD-10-PCS; 2020-04-28)
PROC: 5A1955Z Respiratory Ventilation, Greater than 96 Consecutive Hours (ICD-10-PCS; principal; 2020-05-01)
PROC: 0BH17EZ Insertion of Endotracheal Airway into Trachea, Via Natural or Artificial Opening (ICD-10-PCS; 2020-05-01)
PROC: 02HV33Z Insertion of Infusion Device into Superior Vena Cava, Percutaneous Approach (ICD-10-PCS; 2020-05-01)
PROC: 30233N1 Transfusion of Nonautologous Red Blood Cells into Peripheral Vein, Percutaneous Approach (ICD-10-PCS; 2020-05-02)
DX: A41.89 Other specified sepsis (principal); U07.1 COVID-19; J96.01 Acute respiratory failure with hypoxia; E43 Unspecified severe protein-calorie malnutrition; G93.41 Metabolic encephalopathy; J12.89 Other viral pneumonia; E87.0 Hyperosmolality and hypernatremia; G40.509 Epileptic seizures related to external causes, not intractable, without status epilepticus; G81.91 Hemiplegia, unspecified affecting right dominant side; J44.0 Chronic obstructive pulmonary disease with (acute) lower respiratory infection; N39.0 Urinary tract infection, site not specified; B96.20 Unspecified Escherichia coli [E. coli] as the cause of diseases classified elsewhere; D64.9 Anemia, unspecified; E11.9 Type 2 diabetes mellitus without complications; E86.0 Dehydration; E87.6 Hypokalemia; I10 Essential (primary) hypertension; I69.320 Aphasia following cerebral infarction; R13.10 Dysphagia, unspecified; Y95 Nosocomial condition; Z66 Do not resuscitate; Z79.01 Long term (current) use of anticoagulants; Z86.718 Personal history of other venous thrombosis and embolism; F32.9 Major depressive disorder, single episode, unspecified; F41.9 Anxiety disorder, unspecified; K21.9 Gastro-esophageal reflux disease without esophagitis; B95.8 Unspecified staphylococcus as the cause of diseases classified elsewhere
CPT/HCPCS: 36415; 36600; 70450; 71045; 74018; 80048; 80053; 80164; 80185; 80202; 81001; 82565; 82728; 82805; 82962; 83605; 83615; 83690; 83735; 83880; 84145; 84466; 84484; 85007; 85014; 85018; 85025; 85027; 85379; 85610; 85730; 86140; 86850; 86900; 86901; 86920; 86927; 87040; 87077; 87086; 87186; 87205; 87493; 93005; 93971; 94002; 94003; 94760; 96361; 96365; 96366; 96375; 99285; C9113; C9254; J0330; J0360; J0692; J0696; J0878; J1650; J1815; J1953; J1956; J2020; J2248; J2250; J2543; J2704; J2920; J2930; J3010; J3370; J3480; J3490; J7030; J7040; J7050; J7060; J7512; P9016; Q2009; G0378; P9017; U0003-CS